=== PATIENT | female | born 1990 | race Caucasian/White ===

== ENCOUNTER → 2017-03-24 | Outpatient (CLI) | payer SELFPAY | LOC: M OUTALCOH 08:11 | PROVIDERS: ATTEND Psychiatry & Neurology Psychiatry | DX: F11.20 Opioid dependence, uncomplicated (principal) ==

== ENCOUNTER → 2017-06-30 | Outpatient (REF) | payer OTHER | LOC: M LAB REF 07-01 11:48 | DX: J20.9 Acute bronchitis, unspecified (principal) | CPT/HCPCS: 87070 ==

== ENCOUNTER 2018-07-21 04:51 | Emergency (ER) | payer OTHER ==
[~2018-07-21] VITALS: Ht 160 cm; Wt 59.9 kg
[2018-07-21 05:42] LABS: BASO # 0.1 10^3/uL (0.0-0.2); BASO % 0.8 % (0.0-1.0); EOS # 0.3 10^3/uL (0.0-0.50); EOS % 3.4 % (0.0-3.0); HEMATOCRIT 39.3 % (36.0-47.0); HEMOGLOBIN 13.6 g/dl (12.0-15.5); LYMPH # 2.3 10^3/uL (1.5-6.5); LYMPH % 28.7 % (24.0-44.0); MEAN CORPUSCULAR HEMOGLOBIN 30.6 pg (27.0-33.0); MEAN CORPUSCULAR HGB CONC 34.6 g/dl (32.0-36.5); MEAN CORPUSCULAR VOLUME 88.5 fl (80.0-96.0); MONO # 0.9 10^3/uL (0.0-0.8); NEUTROPHILS # 4.4 10^3/uL (1.8-7.7); NEUTROPHILS % 55.1 % (36.0-66.0); PLATELET COUNT, AUTOMATED 318 10^3/uL (150-450); RED BLOOD COUNT 4.44 10^6/uL (4.00-5.40)
[2018-07-21] MEDS ORDERED: ISOVUE-370 76% 100ML VIAL (Q9967) As Ordered ONE (05:49)
[2018-07-21 06:03] LABS: HCG, SERUM QUALITATIVE NEGATIVE (NEGATIVE)
[2018-07-21 06:23] LABS: BLOOD UREA NITROGEN 11 MG/DL (7-18); CARBON DIOXIDE LEVEL 28 MEQ/L (21-32); CHLORIDE LEVEL 105 MEQ/L (98-107); CREATININE FOR GFR 0.83 MG/DL (0.55-1.30); GLOMERULAR FILTRATION RATE > 60.0 (>60); GLUCOSE, FASTING 77 MG/DL (70-100); POTASSIUM SERUM 4.1 MEQ/L (3.5-5.1); SODIUM LEVEL 139 MEQ/L (136-145)
[2018-07-21 06:25] LABS: ALT/SGPT 29 U/L (12-78); CALCIUM LEVEL 8.9 MG/DL (8.5-10.1)
[2018-07-21 06:26] LABS: ALBUMIN 4.2 GM/DL (3.2-5.2); BILIRUBIN,DIRECT 0.2 MG/DL (0.0-0.2); BILIRUBIN,TOTAL 0.5 MG/DL (0.2-1.0); ETHYL ALCOHOL (ETHANOL) < 0.003 % (0.000-0.010); LIPASE 74 U/L (73-393); TOTAL PROTEIN 7.7 GM/DL (6.4-8.2)
[2018-07-21 06:31] VITALS: BP 149/66
--- NOTE | 2018-07-21 06:45 | REP ---
Clinical: Trauma . Comparison: MRI of the brain dated 10/12/2009 . Findings: The ventricles, sulci, and cisterns are normal in position and appearance. Rouse-white differentiation is maintained. No acute intracranial hemorrhage, mass/mass effect, pathology or trauma/injury. No evidence for acute infarction. No extra-axial fluid collection. Calvarium is intact. Paranasal sinuses and mastoid air cells are clear. Impression: Normal noncontrast head CT. No evidence for acute intracranial pathology or trauma/injury. Electronically Signed by Alfa Álvarez MD 07/21/2018 06:37 A
--- NOTE | 2018-07-21 06:50 | REP ---
Clinical: Trauma. Technique: Axial contrast enhanced images from the thoracic inlet to the upper abdomen using 100 ml Isovue 370 intravenous contrast material with coronal and sagittal re-formations. Findings: Scoliotic curvature through the cervicothoracic spine somewhat distorts normal anatomical architecture. The bilateral lung mccollum are well-aerated and clear. No consolidation/contusion, pleural effusion, or pneumothorax. Tracheobronchial tree is patent. No obvious nodule or mass lesion. The mediastinum demonstrates normal thoracic aorta, pulmonary vasculature and heart/pericardium without evidence for injury. Small amount of residual thymic tissue noted in the anterior mediastinum. No adenopathy. The osseous structures are intact and without acute injury. Impression: No acute mediastinal or pleuroparenchymal trauma/injury or pathology. Electronically Signed by Alfa Álvarez MD 07/21/2018 06:41 A
--- NOTE | 2018-07-21 06:52 | REP ---
Clinical: Trauma. Technique: Axial contrast enhanced images from the lung bases to the pubic symphysis using 100 ml Isovue 370 intravenous contrast material with coronal and sagittal re-formations. Findings: There is no evidence for solid organ injury. Liver, spleen, pancreas, gallbladder, bilateral adrenal glands and kidneys are normal. The enteric system is without obstruction or acute inflammatory process. Pelvis demonstrates normal bladder and age-appropriate uterus/adnexa with IUD in satisfactory position. No pelvic fluid or ascites. No free air. No adenopathy. Abdominal aorta and vasculature intact. Musculoskeletal structures demonstrate dextroconvex scoliosis through the thoracolumbar spine without evidence for acute injury/trauma. Impression: 1. No acute abdominopelvic pathology or trauma/injury. Electronically Signed by Alfa Álvarez MD 07/21/2018 06:43 A
== END 2018-07-21 06:54 | disposition home or self-care (01) ==
LOC: M ED 04:51
DX: S80.219A Abrasion, unspecified knee, initial encounter (principal); V47.5XXA Car driver injured in collision with fixed or stationary object in traffic accident, initial encounter; Y92.410 Unspecified street and highway as the place of occurrence of the external cause; F19.10 Other psychoactive substance abuse, uncomplicated; Z91.040 Latex allergy status
CPT/HCPCS: 36415; 70450; 71260; 74177; 80048; 80076; 83690; 84703; 85025; 99284; G0480; Q9967

== ENCOUNTER → 2019-03-30 | Outpatient (CLI) | payer OTHER ==
[2019-03-30 13:44] LABS: HEMATOCRIT 40.1 % (36.0-47.0); HEMOGLOBIN 13.6 g/dl (12.0-15.5); MEAN CORPUSCULAR HEMOGLOBIN 30.9 pg (27.0-33.0); MEAN CORPUSCULAR HGB CONC 33.9 g/dl (32.0-36.5); MEAN CORPUSCULAR VOLUME 91.1 fl (80.0-96.0); PLATELET COUNT, AUTOMATED 249 10^3/uL (150-450); WHITE BLOOD COUNT 6.2 10^3/uL (4.0-10.0)
[2019-03-30 14:11] LABS: ALBUMIN 4.1 GM/DL (3.2-5.2); ALT/SGPT 30 U/L (12-78); BILIRUBIN,TOTAL 0.7 MG/DL (0.2-1.0); BLOOD UREA NITROGEN 6 MG/DL (7-18); CALCIUM LEVEL 8.9 MG/DL (8.5-10.1); CARBON DIOXIDE LEVEL 30 MEQ/L (21-32); CHLORIDE LEVEL 104 MEQ/L (98-107); CREATININE FOR GFR 0.77 MG/DL (0.55-1.30); GLOMERULAR FILTRATION RATE > 60.0 (>60); GLUCOSE, FASTING 84 MG/DL (70-100); HCG, SERUM QUALITATIVE NEGATIVE (NEGATIVE); POTASSIUM SERUM 4.3 MEQ/L (3.5-5.1); SODIUM LEVEL 138 MEQ/L (136-145); TOTAL PROTEIN 7.2 GM/DL (6.4-8.2)
[2019-03-30 15:58] LABS: CHLAMYDIA DNA AMPLIFICATION NEGATIVE (NEGATIVE); GC DNA AMPLIFICATION NEGATIVE (NEGATIVE)
--- NOTE | 2019-03-30 22:13 | ECGEPIP ---
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
[2019-03-31 09:04] LABS: HEPATITIS B SURFACE ANTIGEN NEGATIVE (NEGATIVE)
[2019-03-31 09:33] LABS: HIV 1&2 SCREEN CENTAUR NEGATIVE (NEGATIVE)
== END ==
LOC: M LAB 12:17
PROVIDERS: ATTEND Family Medicine
DX: F11.90 Opioid use, unspecified, uncomplicated (principal)

== ENCOUNTER → 2019-05-04 | Outpatient (REF) | payer OTHER | LOC: M LAB REF 16:53 | PROVIDERS: ATTEND Nurse Practitioner Family | DX: R30.0 Dysuria (principal) ==

== ENCOUNTER 2019-07-01 19:07 | Emergency (ER) | payer OTHER ==
[~2019-07-01] VITALS: Ht 160 cm; Wt 63.6 kg
[2019-07-01] MEDS ORDERED: ARIP1TAB6 OR (19:23)
[2019-07-01] MEDS ORDERED: BUPR1FIL6 SL (19:23)
[2019-07-01] MEDS ORDERED: VENL150C43 OR (19:23)
[2019-07-01 20:10] LABS: BASO # 0.1 10^3/uL (0.0-0.2); BASO % 0.5 % (0.0-1.0); EOS # 0.4 10^3/uL (0.0-0.5); EOS % 3.4 % (0.0-3.0); HEMATOCRIT 45.9 % (36.0-47.0); HEMOGLOBIN 15.2 g/dl (12.0-15.5); LYMPH # 4.4 10^3/uL (1.5-5.0); LYMPH % 40.1 % (24.0-44.0); MEAN CORPUSCULAR HGB CONC 33.1 g/dl (32.0-36.5); MEAN CORPUSCULAR VOLUME 90.7 fl (80.0-96.0); MONO # 1.5 10^3/uL (0.0-0.8); MONO % 13.3 % (0.0-5.0); NEUTROPHILS # 4.7 10^3/uL (1.5-8.5); NEUTROPHILS % 42.5 % (36.0-66.0); PLATELET COUNT, AUTOMATED 322 10^3/uL (150-450); RED BLOOD COUNT 5.06 10^6/uL (4.00-5.40); WHITE BLOOD COUNT 10.9 10^3/uL (4.0-10.0)
[2019-07-01 20:41] LABS: ALBUMIN 4.2 GM/DL (3.2-5.2); ALT/SGPT 26 U/L (12-78); BILIRUBIN,DIRECT 0.1 MG/DL (0.0-0.2); BILIRUBIN,TOTAL 0.4 MG/DL (0.2-1.0); BLOOD UREA NITROGEN 11 MG/DL (7-18); CALCIUM LEVEL 8.9 MG/DL (8.5-10.1); CARBON DIOXIDE LEVEL 34 MEQ/L (21-32); CHLORIDE LEVEL 103 MEQ/L (98-107); CREATININE FOR GFR 0.83 MG/DL (0.55-1.30); GLOMERULAR FILTRATION RATE > 60.0 (>60); GLUCOSE, FASTING 68 MG/DL (70-100); LIPASE 113 U/L (73-393); POTASSIUM SERUM 4.4 MEQ/L (3.5-5.1); SODIUM LEVEL 140 MEQ/L (136-145); TOTAL PROTEIN 7.5 GM/DL (6.4-8.2)
[2019-07-01] MEDS ORDERED: PANTOPRAZOLE 40MG INJ (PROTONIX) (C9113) IV ONE (22:00)
[2019-07-01] MEDS ORDERED: GI COCKTAIL 50ML BTL(HYOSCYAMINE/MAALOX/LIDOCAINE VISCOUS)(1:3:1) PO ONE (22:00)
[2019-07-01] MEDS ORDERED: ISOVUE-370 76% 100ML VIAL (Q9967) As Ordered ONE (22:12)
--- NOTE | 2019-07-01 23:37 | REPVR ---
PROCEDURE INFORMATION: Exam: CT Abdomen And Pelvis With Contrast Exam date and time: 07/01/2019 9:54 PM Age: 28 years old Clinical indication: Abdominal pain; Localized; Upper; Additional info: Upper abd pain/blood in stool TECHNIQUE: Imaging protocol: Computed tomography of the abdomen and pelvis with intravenous contrast. Radiation optimization: All CT scans at this facility use at least one of these dose optimization techniques: automated exposure control; mA and/or kV adjustment per patient size (includes targeted exams where dose is matched to clinical indication); or iterative reconstruction. Contrast material: ISO; Contrast volume: 100 ml; Contrast route: AC; COMPARISON: CT ABD/PEL W/IV CONTRAST ONLY 07/21/2018 6:17 AM FINDINGS: Liver: The liver attenuation is 100 Hounsfield units and the spleen is 135 Hounsfield units. Gallbladder and bile ducts: The gallbladder is contracted with no stones. Pancreas: Normal. No ductal dilation. Spleen: Normal. No splenomegaly. Adrenals: Normal. No mass. Kidneys and ureters: Normal. No hydronephrosis. Stomach and bowel: Prominent wall thickening of the gastric antrum and lesser curvature of the gastric body which may reflect gastritis. Mild stool throughout much of the colon. Appendix: There are no changes of appendicitis. A normal appendix is not seen. Intraperitoneal space: Unremarkable. No free air. No significant fluid collection. Vasculature: Unremarkable. No abdominal aortic aneurysm. Lymph nodes: Unremarkable. No enlarged lymph nodes. Bladder: Unremarkable as visualized. Reproductive: There is an IUD in the uterus. Left ovarian cyst measuring 4.3 x 3.6 x 5.2 cm. Bones/joints: Unremarkable. No acute fracture. Soft tissues: Unremarkable. IMPRESSION: 1. Prominent wall thickening of the gastric antrum and to a lesser degree the lesser curvature of the gastric body which is new since 07/21/2018 and may reflect gastritis. 2. Mild fatty infiltration of the liver. 3. IUD in the uterus. 4. Left ovarian cyst measuring 4.3 x 3.6 x 5.2 cm. Electronically signed by: Patrick Kaminski On 07/01/2019 23:36:45 PM
[2019-07-02] MEDS ORDERED: PANT40TA3 PO (00:03)
[2019-07-02] MEDS ORDERED: ONDA4TAB6 PO (00:03)
[2019-07-02] MEDS ORDERED: CARA1TAB6 PO (00:03)
[2019-07-02 00:22] VITALS: BP 120/75
--- NOTE | 2019-07-03 07:48 | ED PDOC ---
Post-Departure Follow-Up ct abd faxed to Alberto [facility], and Dimitry for follow up-Karthik Vo MD Jul 03, 2019 07:48
== END 2019-07-02 00:24 | disposition home or self-care (01) ==
LOC: M ED 19:07
DX: K29.00 Acute gastritis without bleeding (principal); N83.202 Unspecified ovarian cyst, left side; F41.9 Anxiety disorder, unspecified; F33.9 Major depressive disorder, recurrent, unspecified; F17.210 Nicotine dependence, cigarettes, uncomplicated; Q60.3 Renal hypoplasia, unilateral; Z79.899 Other long term (current) drug therapy; Z91.040 Latex allergy status; Z88.5 Allergy status to narcotic agent
CPT/HCPCS: 74177; 80048; 80076; 81001; 83690; 84702; 85025; 96374; 99284; C9113; Q9967

== ENCOUNTER 2019-09-05 00:17 | Emergency (ER) | payer OTHER ==
[~2019-09-05] VITALS: Ht 160 cm; Wt 63.6 kg
[~2019-09-05 00:17] MED LIST: ARIP1TAB6 OR; BUPR1FIL6 SL; CARA1TAB6 PO; ONDA4TAB6 PO; PANT40TA3 PO; VENL150C43 OR
[2019-09-05] MEDS ORDERED: NS 1,000 ML IV ONE (00:45)
[2019-09-05] MEDS ORDERED: KETOROLAC 30 MG/ML VIAL (J1885) IV ONE (00:45)
[2019-09-05 01:19] LABS: BASO % 0.4 % (0.0-1.0); EOS # 0.3 10^3/uL (0.0-0.5); EOS % 3.8 % (0.0-3.0); HEMATOCRIT 33.5 % (36.0-47.0); HEMOGLOBIN 11.9 g/dl (12.0-15.5); LYMPH # 2.3 10^3/uL (1.5-5.0); LYMPH % 33.4 % (24.0-44.0); MEAN CORPUSCULAR HEMOGLOBIN 31.4 pg (27.0-33.0); MEAN CORPUSCULAR HGB CONC 35.5 g/dl (32.0-36.5); MEAN CORPUSCULAR VOLUME 88.4 fl (80.0-96.0); MONO # 0.7 10^3/uL (0.0-0.8); MONO % 9.6 % (0.0-5.0); NEUTROPHILS # 3.6 10^3/uL (1.5-8.5); NEUTROPHILS % 52.7 % (36.0-66.0); PLATELET COUNT, AUTOMATED 175 10^3/uL (150-450); RED BLOOD COUNT 3.79 10^6/uL (4.00-5.40); WHITE BLOOD COUNT 6.9 10^3/uL (4.0-10.0)
[2019-09-05] MEDS ORDERED: KETOROLAC 60 MG/2 ML VIAL (J1885) IM ONE (01:30)
[2019-09-05 01:53] LABS: ERYTHROCYTE SEDIMENTATION RATE 33 mm/hr (0-20)
[2019-09-05] MEDS ORDERED: LIDOCAINE 1% SDV 5 ML VIAL DILUENT ONE (02:15)
[2019-09-05] MEDS ORDERED: cefTRIAXone SOD 1GM VIAL (J0696 PER 250MG) IM ONE (02:15)
[2019-09-05] MEDS ORDERED: KETO10TAB PO (02:19)
[2019-09-05] MEDS ORDERED: BACT800T5 PO (02:19)
[2019-09-05] MEDS ORDERED: BACTRIM 160MG/800MG DS TAB PO ONE (02:30)
[2019-09-05 02:49] VITALS: BP 141/78
--- NOTE | 2019-09-05 09:04 | REP ---
REASON: Pain and swelling, atraumatic. PRIORS: None. AP and lateral views were obtained bilaterally. There is soft tissue swelling seen medially involving the left ankle. Limited two views show no gross osseous abnormality. Electronically Signed by Enoch Bermeo DO 09/05/2019 09:13 A
[2019-09-07 14:15] LABS: Lyme Disease IgG/IgM Antibodie <0.91 ISR (0.00-0.90); Lyme Disease IgM Ab Quantitati <0.80 index (0.00-0.79)
== END 2019-09-05 02:52 | disposition home or self-care (01) ==
LOC: M ED 00:17
DX: L03.115 Cellulitis of right lower limb (principal); L03.116 Cellulitis of left lower limb; R50.9 Fever, unspecified; S80.811A Abrasion, right lower leg, initial encounter; S80.812A Abrasion, left lower leg, initial encounter; W22.8XXA Striking against or struck by other objects, initial encounter; Y92.821 Forest as the place of occurrence of the external cause; Y93.01 Activity, walking, marching and hiking; F17.200 Nicotine dependence, unspecified, uncomplicated; F15.10 Other stimulant abuse, uncomplicated; Z91.040 Latex allergy status; Z88.5 Allergy status to narcotic agent; Z79.899 Other long term (current) drug therapy
CPT/HCPCS: 36415; 73600; 80047; 83605; 85025; 85652; 86140; 86617; 87040; 96372; 99283; J0696; J1885

== ENCOUNTER → 2019-10-04 | Outpatient (CLI) | payer OTHER ==
[~2019-10-04] MED LIST changes: +BACT800T5 PO; +KETO10TAB PO
[2019-10-04 16:41] LABS: BASO # 0.1 10^3/uL (0.0-0.2); BASO % 0.7 % (0.0-1.0); EOS # 0.3 10^3/uL (0.0-0.5); EOS % 4.2 % (0.0-3.0); HEMATOCRIT 39.3 % (36.0-47.0); HEMOGLOBIN 13.9 g/dl (12.0-15.5); LYMPH # 2.8 10^3/uL (1.5-5.0); LYMPH % 41.4 % (24.0-44.0); MEAN CORPUSCULAR HEMOGLOBIN 32.1 pg (27.0-33.0); MEAN CORPUSCULAR HGB CONC 35.4 g/dl (32.0-36.5); MEAN CORPUSCULAR VOLUME 90.8 fl (80.0-96.0); MONO # 0.5 10^3/uL (0.0-0.8); MONO % 7.6 % (0.0-5.0); NEUTROPHILS % 45.4 % (36.0-66.0); PLATELET COUNT, AUTOMATED 250 10^3/uL (150-450); RED BLOOD COUNT 4.33 10^6/uL (4.00-5.40); WHITE BLOOD COUNT 6.7 10^3/uL (4.0-10.0)
[2019-10-04 17:02] LABS: ALT/SGPT 33 U/L (12-78); BILIRUBIN,TOTAL 0.4 MG/DL (0.2-1.0); BLOOD UREA NITROGEN 11 MG/DL (7-18); CALCIUM LEVEL 9.2 MG/DL (8.5-10.1); CARBON DIOXIDE LEVEL 28 MEQ/L (21-32); CHLORIDE LEVEL 105 MEQ/L (98-107); CK-MB VALUE MASS 2.8 NG/ML (<3.6); CPK CREATINE PHOSPHOKINASE 208 U/L (26-192); CREATININE FOR GFR 0.82 MG/DL (0.55-1.30); FREE T4 1.02 NG/DL (0.76-1.46); GLOMERULAR FILTRATION RATE > 60.0 (>60); GLUCOSE, FASTING 101 MG/DL (70-100); MB/CK RELATIVE INDEX 1.35 (< OR =4); POTASSIUM SERUM 4.8 MEQ/L (3.5-5.1); SODIUM LEVEL 138 MEQ/L (136-145); TOTAL PROTEIN 7.6 GM/DL (6.4-8.2); TROPONIN I < 0.02 NG/ML (< 0.10)
[2019-10-04 18:40] LABS: ERYTHROCYTE SEDIMENTATION RATE 10 mm/hr (0-20)
== END ==
LOC: M WUC 14:28
PROVIDERS: ATTEND Physician Assistant
DX: R07.9 Chest pain, unspecified (principal); F41.1 Generalized anxiety disorder

== ENCOUNTER 2020-03-06 04:22 | Emergency (ER) | payer OTHER ==
[~2020-03-06] VITALS: Ht 160 cm; Wt 63.6 kg
[~2020-03-06 04:22] MED LIST changes: +PANT40TA29 PO; -PANT40TA3 PO
[2020-03-06 04:23] VITALS: BP 156/98
[2020-03-06] MEDS ORDERED: VENL37TA PO (04:26)
[2020-03-06] MEDS ORDERED: ALPRAZolam 0.5 MG TAB PO ONE (05:30)
== END 2020-03-06 06:44 | disposition home or self-care (01) ==
LOC: M ED 04:22
DX: F19.10 Other psychoactive substance abuse, uncomplicated (principal); R20.2 Paresthesia of skin; F11.10 Opioid abuse, uncomplicated; F32.9 Major depressive disorder, single episode, unspecified; F17.200 Nicotine dependence, unspecified, uncomplicated

== ENCOUNTER → 2020-04-07 | Outpatient (CLI) | payer OTHER ==
[~2020-04-07] MED LIST changes: +VENL37TA PO
[2020-04-07 16:02] LABS: APPEARANCE, URINE CLEAR (CLEAR); BACTERIA, URINE AUTO NEGATIVE (NEGATIVE); BILIRUBIN, URINE AUTO NEGATIVE (NEGATIVE); BLOOD, URINE BLOOD NEGATIVE (NEGATIVE); COLOR, URINE YELLOW (YELLOW); GLUCOSE, URINE (UA) AUTO NEGATIVE (NEGATIVE); KETONE, URINE AUTO NEGATIVE (NEGATIVE); LEUKOCYTE ESTERASE, URINE AUTO 1+ (NEGATIVE); MUCUS, URINE SMALL (NEGATIVE); NITRITE, URINE AUTO NEGATIVE (NEGATIVE); PROTEIN, URINE AUTO NEGATIVE (NEGATIVE); RBC, URINE AUTO 2 /HPF (0-3); SPECIFIC GRAVITY URINE AUTO 1.017 (1.002-1.035); SQUAMOUS EPITHELIAL CELL UR AU 1 /HPF (0-6); UROBILINOGEN, URINE AUTO 0.2 mg/dL (0.0-2.0); WBC, URINE AUTO 34 /HPF (0-3)
[2020-04-07 16:04] LABS: HEMATOCRIT 37.5 % (36.0-47.0); HEMOGLOBIN 12.2 g/dl (12.0-15.5); MEAN CORPUSCULAR HEMOGLOBIN 29.8 pg (27.0-33.0); MEAN CORPUSCULAR HGB CONC 32.5 g/dl (32.0-36.5); MEAN CORPUSCULAR VOLUME 91.7 fl (80.0-96.0); PLATELET COUNT, AUTOMATED 184 10^3/uL (150-450); RED BLOOD COUNT 4.09 10^6/uL (4.00-5.40); WHITE BLOOD COUNT 6.1 10^3/uL (4.0-10.0)
[2020-04-07 16:31] LABS: ALBUMIN 3.8 GM/DL (3.2-5.2); ALT/SGPT 46 U/L (12-78); BILIRUBIN,TOTAL 0.5 MG/DL (0.2-1.0); BLOOD UREA NITROGEN 13 MG/DL (7-18); CALCIUM LEVEL 9.2 MG/DL (8.5-10.1); CARBON DIOXIDE LEVEL 34 MEQ/L (21-32); CHLORIDE LEVEL 105 MEQ/L (98-107); CREATININE FOR GFR 0.93 MG/DL (0.55-1.30); GLOMERULAR FILTRATION RATE > 60.0 (>60); GLUCOSE, FASTING 80 MG/DL (70-100); POTASSIUM SERUM 5.6 MEQ/L (3.5-5.1); SODIUM LEVEL 141 MEQ/L (136-145); TOTAL PROTEIN 7.2 GM/DL (6.4-8.2)
[2020-04-07 16:34] LABS: HEPATITIS B SURFACE ANTIBODY POSITIVE (POSITIVE)
[2020-04-07 16:45] LABS: HEPATITIS B SURFACE ANTIGEN NEGATIVE (NEGATIVE)
[2020-04-07 16:47] LABS: ATYPICAL LYMPH 7 % (0-5); BASOPHILS 1 % (0-1); EOSINOPHILS 3 % (0-3); LYMPHOCYTES 38 % (16-44); MONOCYTES 4 % (0-5); NEUTROPHILS 47 % (28-66); PLATELET ESTIMATE NORMAL (NORMAL)
== END ==
LOC: M PLALAB 13:24
PROVIDERS: ATTEND Physician Assistant Medical
DX: Z02.2 Encounter for examination for admission to residential institution (principal)

== ENCOUNTER 2020-05-14 13:36 | Emergency (ER) | payer OTHER ==
[~2020-05-14] VITALS: Ht 160 cm; Wt 63.6 kg
[2020-05-14 13:37] VITALS: BP 112/59
[2020-05-14] MEDS ORDERED: SUBO2MIS SL (13:45)
[2020-05-14] MEDS ORDERED: VRAY1.5C PO (13:45)
[2020-05-14] MEDS ORDERED: SUBO8MIS SL (13:45)
[2020-05-14] MEDS ORDERED: ISIB1TAB PO (13:45)
[2020-05-14] MEDS ORDERED: VENL75CA47 PO (13:45)
== END 2020-05-14 14:21 | disposition home or self-care (01) ==
LOC: M ED 13:36
DX: R07.0 Pain in throat (principal); J06.9 Acute upper respiratory infection, unspecified; Z79.3 Long term (current) use of hormonal contraceptives; Z79.899 Other long term (current) drug therapy; Z88.5 Allergy status to narcotic agent; Z91.040 Latex allergy status
CPT/HCPCS: 87880; 99283; U0003

== ENCOUNTER → 2020-05-23 | Outpatient (CLI) | payer OTHER ==
[~2020-05-23] MED LIST changes: +ISIB1TAB PO; +SUBO2MIS SL; +SUBO8MIS SL; +VENL75CA47 PO; +VRAY1.5C PO
[2020-05-23 13:49] LABS: FREE T3 2.5 PG/ML (2.2-4.0); FREE T4 0.92 NG/DL (0.76-1.46); THYROID STIMULATING HORMONE 1.01 uIU/ML (0.358-3.740)
== END ==
LOC: M LAB 12:22
PROVIDERS: ATTEND Nurse Practitioner Family
DX: R53.83 Other fatigue (principal)

== ENCOUNTER → 2020-06-27 | Outpatient (CLI) | payer OTHER ==
--- NOTE | 2020-06-27 13:45 | REP ---
INDICATION: INSOMNIA COMPARISON: None. TECHNIQUE: PA and lateral. FINDINGS: The mediastinum and cardiac silhouette are normal. The lung mccollum are clear and without acute consolidation, effusion, or pneumothorax. The skeletal structures are intact and normal. IMPRESSION: No acute cardiopulmonary process. <Electronically signed by Alfa Álvarez > 06/27/20 [id number]
== END ==
LOC: M RAD 09:10
PROVIDERS: ATTEND Physician Assistant Medical
DX: G47.00 Insomnia, unspecified (principal)

== ENCOUNTER 2020-07-09 12:27 | Emergency (ER) | payer OTHER ==
[~2020-07-09] VITALS: Ht 160 cm; Wt 57.0 kg
[2020-07-09 12:27] VITALS: BP 121/76
--- OUTSIDE RECORDS SUMMARY | 2020-07-09 12:33 | CCD ---
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, Severe Active 03/29/2019 03/29/2019 F11.20 Opioid Use Disorder, Severe Active 03/29/2019 03/29/2019 F43.12 Post-traumatic stress disorder, chronic Active 04/12/2019 04/12/2019 Medications No Data in Section Social History Social History Element Description Concept Effective Date Smoking Status Unknown if ever smoked [id number] Immunizations No Data in Section Vital Signs No Data in Section Procedures Date Concept Id Description Targeted Site Concept Targeted Site Concept Type 06/29/2020 25459 Extended Individual Psychotherapy - 45 min CPT Patient has no history of implantable de vices Encounters Encounter Start Date End Date Encounter Type Description Diagnosis Di agnosis Desc Location Author First Name Author Last Name Npid Taxonomy Cod e Taxonomy Desc Phone Number Location Addr1 Location Addr2 Location [facility] Location Sta te Location Zip [id number] 06/29/2020 06/29/2020 86131 Extended Individual Psych otherapy - 45 min F31.78 Bipolar disorder, in full remis, most recent episode m ixed [facility] Alina Quinones [id number] S ocial Worker [id number] [address] [address] Plan of Treatment No Data in Section Lab Results No Data in Section Instructions No Data in Section Insurance Providers Insurance Id Policy Effective Date Policy Thru Date Company N robert [id number] 2019 LEYDA Varela
--- OUTSIDE RECORDS SUMMARY | 2020-07-09 12:33 | CCD | Continuity of Care Document ---
Author Author Karolyn BORRERO MD Organization Unknown Address [address] [place], [place] [address] Phone [phone] Care Team Providers Care History Department Chair Name Role Phone Cheng Dove AUTM [phone] Problems Description No Information Available Social History Type Date Description Comments Sex Unknown ETOH Use Denies alcohol use Tobacco Use Start: Unknown Non Smoker Recreational Drug Use Former Drug User Allergies, Adverse Reactions, Alerts Active Allergies Reaction Severity Comments Date Latex 06/27/2020 Oxycodone 06/27/2020 Medications Active Medications SIG Qnty Indications Ordering Provide r Date Venlafaxine HCL ER 75mg Caps ER 24HR Unknown Vraylar 3mg Capsules Unknown Bupropion Hydrochloride ER (XL) 150mg Tablets ER 24HR Unknown Suboxone 8-2mg Film Unknown Immunizations Description No Information Available Vital Signs Date Vital Result Comment 06/27/2020 8:30am Height 63 inches 5'3" Weight 134.00 lb BMI (Body Mass Index) 23.7 kg/m2 [place] Body Weight 115 lb Weight 60.782 kg BSA (Body Surface Area) 1.63 m2 Results Description No Information Available Procedures Description No Information Available Medical Devices Description No Information Available Encounters Description No Information Available Assessments Description No Information Available Plan of Treatment No Information Available Functional Status Description No Information Available Mental Status Description No Information Available Referrals Refer to Reason for Referral Status Appt Date Alexander Borrero M.D. CHARGING OPERATOR REPEATED TONSIL INFECTIONS F TONTARSK I [place] [employer] MEDICA[employer] Scheduled 06/27/[address] [place], [place] [id number] [phone]
--- OUTSIDE RECORDS SUMMARY | 2020-07-09 12:33 | CCD | Continuity of Care Document ---
Author Author Karolyn MILLAN Organization Unknown Address [address] [facility] [address] [place] [address] Phone [phone] Care Team Providers Care Cuffing Machine Operator Name Role Phone CHENG MILLAN AUTM [phone] Social History Type Date Description Comments Sex Unknown Results Test Acquired Date Facility Test Result H/L Range Note Laboratory test finding 05/23/2020 [facility] [address] [id number] [phone] Thyroid Stimulating Hormone 1.010 uIU/ML Normal 0. 358-3.740 Free T4 0.92 ng/dL Normal 0.76-1.46 Free T3 2.5 pg/mL Normal 2.2-4.0 Gats (Negative Strep Screen) 05/14/2020 [facility] [address] [place] [address] [phone] Gats Culture (Neg Strep SCR) FULL REPORT IN L <SEE N OTE> Normal 1 Ua Routine 04/07/2020 [facility] [address] [place] [address] [phone] Appearance, Urine CLEAR Normal Clear Color, Urine YELLOW Normal Yellow PH,Urine 6.0 units Normal 5.0-9.0 Specific [place] Urine Auto 1.017 Normal 1.002-1.035 Protein, Urine Auto NEGATIVE mg/dL Normal Negative Glucose, Urine (Ua) Auto NEGATIVE mg/dL Normal Negative Ketone, Urine Auto NEGATIVE mg/dL Normal Negative Urobilinogen, Urine Auto 0.2 mg/dL Normal 0.0-2.0 Bilirubin, Urine Auto NEGATIVE Normal Negative Nitrite, Urine Auto NEGATIVE Normal Negative Leukocyte Esterase, Urine Auto 1+ High Negative Blood, Urine Blood NEGATIVE Normal Negative WBC, Urine Auto 34 /HPF High 0-3 RBC, Urine Auto 2 /HPF Normal 0-3 Bacteria, Urine Auto NEGATIVE Normal Negative Squamous Epithelial Cell Ur AU 1 /HPF Normal 0-6 Mucus, Urine SMALL Normal Negative Hyaline Cast, Urine Auto 0 /LPF Normal 0-1 CBC With Differential 04/07/[address] [address] [phone] White Blood Count 6.1 10 Normal 4.0-10.0 Red Blood Count 4.09 10 Normal 4.00-5.40 Hemoglobin 12.2 g/dL Normal 12.0-15.5 Hematocrit 37.5 % Normal 36.0-47.0 Mean Corpuscular Volume 91.7 fl Normal 80.0-96.0 Mean Corpuscular Hemoglobin 29.8 pg Normal 27.0-33.0 Mean Corpuscular HGB Conc 32.5 g/dL Normal 32.0-36.5 Red Cell Distribution Width 12.6 % Normal 11.5-14.5 Platelet Count, Automated 184 10 Normal 150-450 Nucleated Red Blood Cell % 0.0 % Normal 0-0 Differential 04/07/[address] [address] [phone] Neutrophils 47 % Normal 28-66 Lymphocytes 38 % Normal 16-44 Monocytes 4 % Normal 0-5 Eosinophils 3 % Normal 0-3 Basophils 1 % Normal 0-1 Atypical Lymph 7 % High 0-5 Laboratory test finding 04/07/[address] [id number] [phone] Platelet Estimate NORMAL Normal Normal Hepatitis A IgG Total Negative Normal Negative 2 Comprehensive Metabolic Profil 04/07/[address] [id number] [phone] Glucose, Fasting 80 mg/dL Normal 70-100 Blood Urea Nitrogen 13 mg/dL Normal 7-18 Creatinine For GFR 0.93 mg/dL Normal 0.55-1.30 Glomerular Filtration Rate > 60.0 Normal >60 3 Sodium Level 141 mEq/L Normal 136-145 Potassium Serum 5.6 mEq/L High 3.5-5.1 Chloride Level 105 mEq/L Normal 98-107 Carbon Dioxide Level 34 mEq/L High 21-32 Anion Gap 2 mEq/L Low 8-16 Calcium Level 9.2 mg/dL Normal 8.5-10.1 Ast/Sgot 37 U/L Normal 7-37 Alt/SGPT 46 U/L Normal 12-78 Alkaline Phosphatase 71 U/L Normal 45-117 Bilirubin,Total 0.5 mg/dL Normal 0.2-1.0 Total Protein 7.2 GM/DL Normal 6.4-8.2 Albumin 3.8 GM/DL Normal 3.2-5.2 Albumin/Globulin Ratio 1.1 Low 1.2-2.2 Laboratory test finding 04/07/2020 [address] [place], [place] [address] [phone] Hepatitis C Virus Lyndsey Index 0.0 INDEX Normal <0.8 4 Hepatitis B Surface Antigen NEGATIVE Normal Negative Hepatitis B Surface Antibody POSITIVE Normal Positive 1 FULL REPORT IN LAB NOTES (eC W and Medent). NEGATIVE FOR STREP PYOGENES (GROUP A) 2 Performed at: RN - [facility] [address] [id number] Brush Sander: Maryana Kramer MD, Phone: [phone] 3 Units are mL/min/1.73 m2 Chronic Kidney Disease Staging per NKF: Stage I & II GFR >=60 Normal to Mildly Decreased Stage III GFR 30-59 Moderately Decreased Stage IV GFR 15-29 Severely Decreased Stage V GFR <15 Very Little GFR Left ESRD GFR <15 on PRODUCTION OR PLANT ENGINEER 4 Negative Not infected with HCV, unless recent infection is suspected or other evidence exists to indicate HCV infection. Encounters Type Date Location Provider Dx Diagnosis Office Visit 06/20/2020 10:45a [facility] TIANA Cedillo J02.9 Acute pharyngitis, unspecifi ed F32.9 Major depressive disorder, s roman episode, unspecified F41.9 Anxiety disorder, unspecifie d Office Visit 05/25/2020 11:30a [facility] TIANA Cedillo J02.9 Acute pharyngitis, unspecifi ed K29.50 Unspecified chronic gastriti s without bleeding Office Visit 04/10/2020 11:30a [facility] TIANA Cedillo K29.00 Acute gastritis without blee ding F32.9 Major depressive disorder, s roman episode, unspecified F17.200 Nicotine dependence, unspeci fied, uncomplicated Assessments Date Code Description Provider 06/20/2020 J02.9 Acute pharyngitis, unspecified F rederick Omayra Petty, PA 06/20/2020 F32.9 Major depressive disorder, singl e episode, unspecified Cheng G Tontarski, PA 06/20/2020 F41.9 Anxiety disorder, unspecified Fr ederick G Johntarski, PA 05/25/2020 J02.9 Acute pharyngitis, unspecified F rederick G Tontarski, PA 05/25/2020 K29.50 Unspecified chronic gastritis wi thout bleeding Cheng G Johntafallon, PA 04/14/2020 L50.9 Urticaria, unspecified Cheng G Tontarski, PA 04/14/2020 F32.9 Major depressive disorder, singl e episode, unspecified Cheng G Tontarski, PA 04/14/2020 F41.9 Anxiety disorder, unspecified Fr ederick G Johntarski, PA 04/10/2020 K29.00 Acute gastritis without bleeding Cheng G Tontarski, PA 04/10/2020 F32.9 Major depressive disorder, singl e episode, unspecified Cheng G Tontarski, PA 04/10/2020 F17.200 Nicotine dependence, unspecified , uncomplicated Cheng G Tontarski, PA 03/29/2020 K29.00 Acute gastritis without bleeding Cheng G Tontarski, PA 03/29/2020 F32.9 Major depressive disorder, singl e episode, unspecified Cheng G Tontarski, PA 03/29/2020 F41.9 Anxiety disorder, unspecified Fr ederick G Petty, PA Referrals Refer to Reason for Referral Status Appt Date [facility] Medical - ENT PATIENT C/O REPEATED TONSIL INFECTIONS. 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 PLEASE EVAL AND TREAT Sent [address] [address] [phone]
--- OUTSIDE RECORDS SUMMARY | 2020-07-09 12:34 | CCD ---
Author Organization Unknown Address [address] [place] [address] Phone [phone] Care Team Providers Care Rack Worker Name Role Phone Keyon Mayer Unavailable Unavailable Allergies None recorded. Medications Name Status Start Date Stop Date aripiprazole 5 mg tablet Active Not diamond ilable fluconazole 150 mg tablet TAKE 1 TABLET BY MOUTH ONCE WEEKLY Active Not available hydroxyzine HCl 25 mg tablet TAKE ONE TABLET BY MOUTH EVERY EVENING NEEDED Active Not available Isibloom 0.15 mg-0.03 mg tablet Active Not available ketorolac 10 mg tablet TAKE ONE TABLET BY MOUTH THREE TIMES A DAY FOR PAIN Active Not available nicotine (polacrilex) 2 mg gum Active N ot available nicotine (polacrilex) 4 mg gum Active N ot available nicotine 21 mg/24 hr daily transdermal patch Active Not available ondansetron 4 mg disintegrating tablet DISSOLVE ONE TABLET ON TONGUE EVERY 6 TO 8 HOURS NEEDED FOR NAUSEA AND VOMITING Active Not available ondansetron 8 mg disintegrating tablet DISSOLVE ONE TABLET ON THE TONGUE EVERY 8 HOURS NEEDED FOR NAUSEA/VOMITING Active Not available oseltamivir 75 mg capsule TAKE ONE CAPSULE BY MOUTH TWICE A DAY FOR 5 DAYS Active Not available pantoprazole 40 mg tablet,delayed release Active Not available Previfem 0.25 mg-35 mcg tablet TAKE ONE TABLET BY MOUTH EVERY DAY Active Not available Chio 14 mcg/24 hrs (3 yrs) 13.5 mg intrauterine device Active Not available sucralfate 1 gram tablet TAKE ONE TABLET BY MOUTH FOUR TIMES A DAY ON EMPTY STOMACH 1 HOUR BEFORE MEALS AND AT BEDTIME MAY DISSOLVE IN 5 10MLS OF WATER TO EASE SWAL Active Not available sulfamethoxazole 800 mg-trimethoprim 160 mg tablet TAKE ONE TABLET BY MOUTH EVERY 12 HOURS Active Not available trazodone 50 mg tablet TAKE ONE TABLET BY MOUTH AT BEDTIME NEEDED Active Not available triamcinolone acetonide 0.1 % topical cream Active Not available venlafaxine ER 150 mg capsule,extended release 24 hr Active Not available venlafaxine ER 75 mg capsule,extended release 24 hr Active Not available Vraylar 1.5 mg capsule Active Not avail able Problems None recorded. Procedures None recorded. Results Lab Results None recorded. Past Encounters 05/24/2020 SARS-CoV-2 Vaccination Keyon Mayer MD: [address] [place] [phone], Ph. Social History None recorded. Vaccine List Vaccine Type COVID-19, mRNA, LNP-S, PF, 100 mcg/0.5 m L dose 05/24/20200.5 mL Plan of Care Reminders Provider Appointments None recorded. Lab None recorded. Referral None recorded. Procedures None recorded. Surgeries None recorded. Imaging None recorded. Vitals None recorded.
--- OUTSIDE RECORDS SUMMARY | 2020-07-09 12:34 | CCD | Continuity of Care Document ---
Author Author Karolyn DOVE Organization Unknown Address [address] [facility] [address] [place] [address] Phone [phone] Care Team Providers Care Cane Flume Watcher Name Role Phone CHENG DOVE AUTM [phone] Social History Type Date Description Comments Sex Unknown Results Test Acquired Date Facility Test Result H/L Range Note Laboratory test finding 05/23/2020 [facility] [address] [id number] [phone] Thyroid Stimulating Hormone 1.010 uIU/ML Normal 0. 358-3.740 Free T4 0.92 ng/dL Normal 0.76-1.46 Free T3 2.5 pg/mL Normal 2.2-4.0 Gats (Negative Strep Screen) 05/14/2020 [facility] [address] [place] [address] [phone] Gats Culture (Neg Strep SCR) FULL REPORT IN L <SEE N OTE> Normal 1 Ua Routine 04/07/2020 [facility] [address] [place] [address] [phone] Appearance, Urine CLEAR Normal Clear Color, Urine YELLOW Normal Yellow PH,Urine 6.0 units Normal 5.0-9.0 Specific [place] Urine Auto 1.017 Normal 1.002-1.035 Protein, Urine [...] /LPF Normal 0-1 CBC With Differential 04/07/[address] [address] [phone] White Blood Count 6.1 10 Normal 4.0-10.0 [...] % 0.0 % Normal 0-0 Differential 04/07/[address] [address] [phone] Neutrophils 47 % Normal 28-66 Lymphocytes 38 % Normal 16-44 Monocytes 4 % Normal 0-5 Eosinophils 3 % Normal 0-3 Basophils 1 % Normal 0-1 Atypical Lymph 7 % High 0-5 Laboratory test finding 04/07/[address] [address] [phone] Platelet Estimate NORMAL Normal Normal Hepatitis A IgG Total Negative Normal Negative 2 Comprehensive Metabolic Profil 04/07/[address] [address] [phone] Glucose, Fasting 80 mg/dL Normal 70-100 Blood [...] 1.1 Low 1.2-2.2 Laboratory test finding 04/07/2020 [facility] [address] [address] [phone] Hepatitis C Virus Lyndsey Index 0.0 INDEX Normal <0.8 4 Hepatitis B Surface Antigen NEGATIVE Normal Negative Hepatitis B Surface Antibody POSITIVE Normal Positive 1 FULL REPORT IN LAB NOTES (eC W and Medent). NEGATIVE FOR STREP PYOGENES (GROUP A) 2 Performed at: RN - [facility] [address] [id number] Meeting Manager: Maryana Kramer MD, Phone: [phone] Units are mL/min/1.73 m2 Chronic Kidney Disease Staging per NKF: Stage I & II GFR >=60 Normal to Mildly Decreased Stage III GFR 30-59 Moderately Decreased Stage IV GFR 15-29 Severely Decreased Stage V GFR <15 Very Little GFR Left ESRD GFR <15 on HRIS COORDINATOR 4 Negative Not infected with HCV, unless recent infection is suspected or other evidence exists to indicate HCV infection. Encounters Type Date Location Provider Dx Diagnosis Office Visit 05/25/2020 11:30a [facility] TIANA Cedillo J02.9 Acute pharyngitis, unspecifi ed K29.50 Unspecified chronic gastriti s without bleeding Office Visit 04/10/2020 11:30a [facility] TIANA Cedillo K29.00 Acute gastritis without blee ding F32.9 Major depressive disorder, s roman episode, unspecified F17.200 Nicotine dependence, unspeci fied, uncomplicated Assessments Date Code Description Provider 05/25/2020 J02.9 Acute pharyngitis, unspecified F TIANA Trevizo 05/25/2020 K29.50 Unspecified chronic gastritis wi thout bleeding Cheng Dove, TIANA 04/14/2020 L50.9 Urticaria, unspecified Cheng Omayra Dove, TIANA 04/14/2020 F32.9 Major depressive disorder, singl e episode, unspecified Cheng G Petty, PA 04/14/2020 F41.9 Anxiety disorder, unspecified Fr TIANA Jimenez 04/10/2020 K29.00 Acute gastritis without bleeding Cheng Omayra Dove, PA 04/10/2020 F32.9 Major depressive disorder, singl e episode, unspecified Cheng G Petty, PA 04/10/2020 F17.200 Nicotine dependence, unspecified , uncomplicated Cheng Dove, TIANA 03/29/2020 K29.00 Acute gastritis without bleeding Cheng Omayra Dove, PA 03/29/2020 F32.9 Major depressive disorder, singl e episode, unspecified Cheng Dove, TIANA 03/29/2020 F41.9 Anxiety disorder, unspecified Fr TIANA Jimenez Referrals Refer to Reason for Referral Status Appt Date [facility] Medical - ENT PATIENT C/O REPEATED TONSIL INFECTIONS. 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 PLEASE EVAL AND TREAT Sent [address] [address] [phone]
--- OUTSIDE RECORDS SUMMARY | 2020-07-09 12:34 | CCD ---
Author Organization Unknown Address [address] [place] [address] Phone [phone] Care Team Providers Care Phlebotomist Medical Lab Assistant Name Role Phone Moreno Keyon Unavailable Unavailable Allergies None recorded. Medications Name [...] Encounters 05/24/2020 SARS-CoV-2 Vaccination Keyon Mayer MD: [address] [place] [phone], Ph. Social History None recorded. Vaccine List Vaccine Type COVID-19, mRNA, LNP-S, PF, 100 mcg/0.5 m L dose 05/24/20200.5 mL Plan of Care Reminders Provider Appointments None recorded. Lab None recorded. Referral None recorded. Procedures None recorded. Surgeries None recorded. Imaging None recorded. Vitals None recorded.
--- OUTSIDE RECORDS SUMMARY | 2020-07-09 12:34 | CCD ---
Author Organization Unknown Address [address] [place] [address] Phone [phone] Care Team Providers Care Batch Records Clerk Name Role Phone Moreno Keyon Unavailable Unavailable Allergies None recorded. Medications Name Status Start Date Stop Date amoxicillin 875 mg tablet Active Not av ailable aripiprazole 5 mg tablet Active Not diamond ilable bupropion HCl XL 150 mg 24 hr tablet, extended release Active Not available fluconazole 150 mg tablet TAKE 1 TABLET [...] Not available venlafaxine ER 150 mg capsule,extended r elease 24 hr TAKE ONE CAPSULE BY MOUTH EVERY MORNING Active Not available venlafaxine ER 75 mg capsule,extended release 24 hr Active Not available Vraylar 1.5 mg capsule Active Not avail able Vraylar 3 mg capsule TAKE ONE CAPSULE BY MOUTH AT BEDTIME Active No t available Problems None recorded. Procedures None recorded. Results Lab Results None recorded. Past Encounters 06/22/2020 SARS-CoV-2 Vaccination GISELA Croft: [address] [place] [address], Ph. 05/24/2020 SARS-CoV-2 Vaccination Keyon Mayer MD: [address] [place] [address], Ph. Social History None recorded. Vaccine List Vaccine Type COVID-19, mRNA, LNP-S, PF, 100 mcg/0.5 m L dose .5 mL .5 mL Plan of Care Reminders Provider Appointments None recorded. Lab None recorded. Referral None recorded. Procedures None recorded. Surgeries None recorded. Imaging None recorded. Vitals None recorded.
[2020-07-09] MEDS ORDERED: BUPR150T4 (12:35)
--- OUTSIDE RECORDS SUMMARY | 2020-07-09 12:35 | CCD ---
Author Author [facility] Organization [facility] Address Unknown Phone Unavailable Care Team Providers Care Escrow Secretary Name Role Phone Frederick Dominguez MD Unavailable Unavailable Frederick Dominguez MD Unavailable Unavailable Frederick Dominguez MD Unavailable Unavailable Frederick Dominguez MD Unavailable Unavailable Frederick Dominguez MD Unavailable Unavailable Frederick Dominguez MD Unavailable Unavailable Frederick Dominguez MD Unavailable Unavailable Frederick Dominguez MD Unavailable Unavailable Frederick Dominguez MD Unavailable Unavailable Frederick Dominguez MD Unavailable Unavailable Frederick Dominguez MD Unavailable Unavailable Frederick Dominguez MD Unavailable Unavailable Frederick Dominguez MD Unavailable Unavailable Frederick Dominguez MD Unavailable Unavailable Frederick Dominguez MD Unavailable Unavailable Frederick Dominguez MD Unavailable Unavailable Frederick Dominguez MD Unavailable Unavailable Frederick Dominguez MD Unavailable Unavailable Frederick Dominguez MD Unavailable Unavailable Frederick Dominguez MD Unavailable Unavailable Frederick Dominguez MD Unavailable Unavailable Frederick Dominguez MD Unavailable Unavailable Frederick Dominguez MD Unavailable Unavailable Frederick Dominguez MD Unavailable Unavailable Frederick Dominguez MD Unavailable Unavailable Frederick Dominguez MD Unavailable Unavailable Frederick Dominguez MD Unavailable Unavailable Frederick Dominguez MD Unavailable Unavailable Frederick Dominguez MD Unavailable Unavailable Frederick Dominguez MD Unavailable Unavailable Frederick Dominguez MD Unavailable Unavailable Frederick Dominguez MD Unavailable Unavailable Frederick Dominguez MD Unavailable Unavailable Frederick Dominguez MD Unavailable Unavailable Frederick Dominguez MD Unavailable Unavailable Frederick Dominguez MD Unavailable Unavailable Frederick Dominguez MD Unavailable Unavailable Frederick Dominguez MD Unavailable Unavailable Frederick Dominguez MD Unavailable Unavailable Frederick Dominguez MD Unavailable Unavailable Frederick Dominguez MD Unavailable Unavailable Frederick Dominguez MD Unavailable Unavailable Frederick Dominguez MD Unavailable Unavailable Frederick Dominguez MD Unavailable Unavailable Frederick Dominguez MD Unavailable Unavailable Frederick Dominguez MD Unavailable Unavailable Frederick Dominguez MD Unavailable Unavailable Frederick Dominguez MD Unavailable Unavailable Frederick Dominguez MD Unavailable Unavailable Frederick Dominguez MD Unavailable Unavailable SYMENOW, G CHRISTOPHER PA Unavailable Unavailable SYMENOW, G CHRISTOPHER PA Unavailable Unavailable SYMENOW, G CHRISTOPHER PA Unavailable Unavailable SYMENOW, G CHRISTOPHER PA Unavailable Unavailable SYMENOW, G CHRISTOPHER PA Unavailable Unavailable SYMENOW, G CHRISTOPHER PA Unavailable Unavailable SYMENOW, G CHRISTOPHER PA Unavailable Unavailable SYMENOW, G CHRISTOPHER PA Unavailable Unavailable SYMENOW, G CHRISTOPHER PA Unavailable Unavailable SYMENOW, G CHRISTOPHER PA Unavailable Unavailable SYMENOW, G CHRISTOPHER PA Unavailable Unavailable SYMENOW, G CHRISTOPHER PA Unavailable Unavailable SYMENOW, G CHRISTOPHER PA Unavailable Unavailable SYMENOW, G CHRISTOPHER PA Unavailable Unavailable SYMENOW, G CHRISTOPHER PA Unavailable Unavailable SYMENOW, G CHRISTOPHER PA Unavailable Unavailable SYMENOW, G CHRISTOPHER PA Unavailable Unavailable Edith Mayer MD Unavailable Unavailable Edith Mayer MD Unavailable Unavailable Edith Mayer MD Unavailable Unavailable Edith Mayer MD Unavailable Unavailable Edith Maeyr MD Unavailable Unavailable Edith Mayer MD Unavailable Unavailable Edith Mayer MD Unavailable Unavailable Edith Mayer MD Unavailable Unavailable Edith Mayer MD Unavailable Unavailable Edith Mayer MD Unavailable Unavailable Edith Mayer MD Unavailable Unavailable Edith Mayer MD Unavailable Unavailable Edith Mayer MD Unavailable Unavailable Edith Mayer MD Unavailable Unavailable Edith Mayer MD Unavailable Unavailable Ediht Mayer MD Unavailable Unavailable Edith Mayer MD Unavailable Unavailable Edith Mayer MD Unavailable Unavailable Edith Mayer MD Unavailable Unavailable Edith Mayer MD Unavailable Unavailable Edith Mayer MD Unavailable Unavailable Edith Mayer MD Unavailable Unavailable Edith Mayer MD Unavailable Unavailable Edith Mayer MD Unavailable Unavailable Edith Mayer MD Unavailable Unavailable Edith Mayer MD Unavailable Unavailable Edith Mayer MD Unavailable Unavailable Edith Mayer MD Unavailable Unavailable Edith Mayer MD Unavailable Unavailable Edith Mayer MD Unavailable Unavailable Edith Mayer MD Unavailable Unavailable Edith Mayer MD Unavailable Unavailable Edith Mayer MD Unavailable Unavailable Edith Mayer MD Unavailable Unavailable Edith Mayer MD Unavailable Unavailable Edith Mayer MD Unavailable Unavailable Edith Mayer MD Unavailable Unavailable Edith Mayer MD Unavailable Unavailable Edith Mayer MD Unavailable Unavailable Edith Mayer MD Unavailable Unavailable Edith Mayer MD Unavailable Unavailable Edith Mayer MD Unavailable Unavailable Edith Mayer MD Unavailable Unavailable Edith Mayer MD Unavailable Unavailable Edith Mayer MD Unavailable Unavailable Edith Mayer MD Unavailable Unavailable Edith Mayer MD Unavailable Unavailable Edith Mayer MD Unavailable Unavailable Edith Mayer MD Unavailable Unavailable Edith Mayer MD Unavailable Unavailable Edith Mayer MD Unavailable Unavailable Edith Mayer MD Unavailable Unavailable Edith Mayer MD Unavailable Unavailable Edith Mayer MD Unavailable Unavailable Edith Mayer MD Unavailable Unavailable Edith Mayer MD Unavailable Unavailable Edith Mayer MD Unavailable Unavailable Edith Mayer MD Unavailable Unavailable Edith Mayer MD Unavailable Unavailable MayerEdith MD Unavailable Unavailable Mayer, Edith Ta MD Unavailable Unavailable Mayer, Edith Ta MD Unavailable Unavailable Mayer, Edith Ta MD Unavailable Unavailable Mayer, Edith Ta MD Unavailable Unavailable Moreno, Edith Ta MD Unavailable Unavailable Moreno, Edith Ta MD Unavailable Unavailable Moreno, Edith Ta MD Unavailable Unavailable Moreno, Edith Ta MD Unavailable Unavailable Mayer, Edith Ta MD Unavailable Unavailable Mayer, Edith Ta MD Unavailable Unavailable Mayer, Edith Ta MD Unavailable Unavailable Mayer, Edith Ta MD Unavailable Unavailable Mayer, Edith Ta MD Unavailable Unavailable Mayer, Edith Ta MD Unavailable Unavailable Mayer, Edith Ta MD Unavailable Unavailable Moreno, Edith Ta MD Unavailable Unavailable Mayer, Edith Ta MD Unavailable Unavailable Mayer, Edith Ta MD Unavailable Unavailable Mayer, Edith Ta MD Unavailable Unavailable Mayer, Edith Ta MD Unavailable Unavailable Mayer, Edith Ta MD Unavailable Unavailable Mayer, Edith Ta MD Unavailable Unavailable Mayer, Edith Ta MD Unavailable Unavailable Moreno, Edith Ta MD Unavailable Unavailable Moreno, Edith Ta MD Unavailable Unavailable Mayer, Edith Ta MD Unavailable Unavailable Mayer, Edith Ta MD Unavailable Unavailable Mayer, Edith Ta MD Unavailable Unavailable Mayer, Edith Ta MD Unavailable Unavailable WALSH, MATHIEU EMILIA RPA-C Unavailable Unavailable WALSH, MATHIEU EMILIA RPA-C Unavailable Unavailable WALSH, MATHIEU EMILIA RPA-C Unavailable Unavailable WALSH, MATHIEU EMILIA RPA-C Unavailable Unavailable WALSH, MATHIEU EMILIA RPA-C Unavailable Unavailable WALSH, MATHIEU EMILIA RPA-C Unavailable Unavailable WALSH, MATHIEU EMILIA RPA-C Unavailable Unavailable WALSH, MATHIEU EMILIA RPA-C Unavailable Unavailable WALSH, MATHIEU EMILIA RPA-C Unavailable Unavailable WALSH, MATHIEU EMILIA RPA-C Unavailable Unavailable WALSH, MATHIEU EMILIA RPA-C Unavailable Unavailable WALSH, MATHIEU EMILIA RPA-C Unavailable Unavailable WALSH, MATHIEU EMILIA RPA-C Unavailable Unavailable WALSH, MATHIEU EMILIA RPA-C Unavailable Unavailable WALSH, MATHIEU EMILIA RPA-C Unavailable Unavailable WALSH, MATHIEU EMILIA RPA-C Unavailable Unavailable WASLH, MATHIEU EMILIA RPA-C Unavailable Unavailable WALSH, MATHIEU EMILIA RPA-C Unavailable Unavailable WALSH, MATHIEU EMILIA RPA-C Unavailable Unavailable WALSH, MATHIEU EMILIA RPA-C Unavailable Unavailable WALSH, MATHIEU EMILIA RPA-C Unavailable Unavailable WALSH, MATHIEU EMILIA RPA-C Unavailable Unavailable WALSH, MATHIEU EMILIA RPA-C Unavailable Unavailable WALSH, MATHIEU EMILIA RPA-C Unavailable Unavailable WALSH, MATHIEU EMILIA RPA-C Unavailable Unavailable WALSH, MATHIEU EMILIA RPA-C Unavailable Unavailable WALSH, MATHIEU EMILIA RPA-C Unavailable Unavailable WALSH, MATHIEU EMILIA RPA-C Unavailable Unavailable WALSH, MATHIEU EMILIA RPA-C Unavailable Unavailable WALSH, MATHIEU EMILIA RPA-C Unavailable Unavailable WALSH, MATHIEU EMILIA RPA-C Unavailable Unavailable WALSH, MATHIEU EMILIA RPA-C Unavailable Unavailable WALSH, MATHIEU EMILIA RPA-C Unavailable Unavailable WALSH, MATHIEU EMILIA RPA-C Unavailable Unavailable WALSH, MATHIEU EMILIA RPA-C Unavailable Unavailable WALSH, MATHIEU EMILIA RPA-C Unavailable Unavailable WALSH, MATHIEU EMILIA RPA-C Unavailable Unavailable WALSH, MATHIUE EMILIA RPA-C Unavailable Unavailable WALSH, MATHIEU EMILIA RPA-C Unavailable Unavailable Alberry, D Wanda PLATING STRIPPER Unavailable Unavailable Alberry, D Wanda PLATING STRIPPER Unavailable Unavailable Alberry, D Wanda PLATING STRIPPER Unavailable Unavailable Alberry, D Wanda PLATING STRIPPER Unavailable Unavailable Alberry, D Wanda PLATING STRIPPER Unavailable Unavailable Alberry, D Wanda PLATING STRIPPER Unavailable Unavailable Alberry, D Wanda PLATING STRIPPER Unavailable Unavailable Alberry, D Wanda PLATING STRIPPER Unavailable Unavailable Alberry, D Wanda PLATING STRIPPER Unavailable Unavailable Alberry, D Wanda PLATING STRIPPER Unavailable Unavailable Alberry, D Wanda PLATING STRIPPER Unavailable Unavailable Alberry, D Wanda PLATING STRIPPER Unavailable Unavailable Alberry, D Wanda PLATING STRIPPER Unavailable Unavailable Alberry, D Wanda PLATING STRIPPER Unavailable Unavailable Alberry, D Wanda PLATING STRIPPER Unavailable Unavailable Alberry, D Wanda PLATING STRIPPER Unavailable Unavailable Alberry, D Wanda PLATING STRIPPER Unavailable Unavailable Alberry, D Wanda PLATING STRIPPER Unavailable Unavailable Alberry, D Wanda PLATING STRIPPER Unavailable Unavailable Alberry, D Wanda PLATING STRIPPER Unavailable Unavailable Alberry, D Wanda PLATING STRIPPER Unavailable Unavailable Alberry, D Wanda PLATING STRIPPER Unavailable Unavailable Alberry, D Wanda PLATING STRIPPER Unavailable Unavailable Alberry, D Wanda PLATING STRIPPER Unavailable Unavailable Alberry, D Wanda PLATING STRIPPER Unavailable Unavailable Alberry, D Wanda PLATING STRIPPER Unavailable Unavailable Alberry, D Wanda PLATING STRIPPER Unavailable Unavailable Alberry, D Wanda PLATING STRIPPER Unavailable Unavailable Alberry, D Wanda PLATING STRIPPER Unavailable Unavailable Alberry, D Wanda PLATING STRIPPER Unavailable Unavailable Alberry, D Wanda PLATING STRIPPER Unavailable Unavailable Alberry, D Wanda PLATING STRIPPER Unavailable Unavailable Alberry, D Wanda PLATING STRIPPER Unavailable Unavailable Alberry, D Wanda PLATING STRIPPER Unavailable Unavailable Alberry, D Wanda PLATING STRIPPER Unavailable Unavailable Alberry, D Wanda PLATING STRIPPER Unavailable Unavailable Alberry, D Wanda PLATING STRIPPER Unavailable Unavailable Alberry, D Wanda PLATING STRIPPER Unavailable Unavailable Alberry, D Wanda PLATING STRIPPER Unavailable Unavailable Alberry, D Wanda PLATING STRIPPER Unavailable Unavailable Alberry, D Wanda PLATING STRIPPER Unavailable Unavailable Alberry, D Wanda PLATING STRIPPER Unavailable Unavailable Alberry, D Wanda PLATING STRIPPER Unavailable Unavailable Alberry, D Wanda PLATING STRIPPER Unavailable Unavailable Alberry, D Wanda PLATING STRIPPER Unavailable Unavailable Alberry, D Wanda PLATING STRIPPER Unavailable Unavailable Alberry, D Wanda PLATING STRIPPER Unavailable Unavailable Alberry, D Wanda PLATING STRIPPER Unavailable Unavailable NYASIA, MICHAEL PA Unavailable Unavailable NYASIA, MICHAEL PA Unavailable Unavailable NYASIA, MICHAEL PA Unavailable Unavailable NYASIA, MICHAEL PA Unavailable Unavailable NYASIA, MICHAEL PA Unavailable Unavailable NYASIA, MICHAEL PA Unavailable Unavailable NYASIA, MICHAEL PA Unavailable Unavailable NYASIA, MICHAEL PA Unavailable Unavailable NYASIA, MICHAEL PA Unavailable Unavailable NYASIA, MICHAEL PA Unavailable Unavailable NYASIA, MICHAEL PA Unavailable Unavailable NYASIA, MICHAEL PA Unavailable Unavailable NYASIA, MICHAEL PA Unavailable Unavailable NYASIA, MICHAEL PA Unavailable Unavailable NYASIA, MICHAEL PA Unavailable Unavailable NYASIA, MICHAEL PA Unavailable Unavailable NYASIA, MICHAEL PA Unavailable Unavailable NYASIA, MICHAEL PA Unavailable Unavailable NYASIA, MICHAEL PA Unavailable Unavailable NYASIA, MICHAEL PA Unavailable Unavailable NYASIA, MICHAEL PA Unavailable Unavailable NYASIA, MICHAEL PA Unavailable Unavailable NYASIA, MICHAEL PA Unavailable Unavailable NYASIA, MICHAEL PA Unavailable Unavailable NYASIA, MICHAEL PA Unavailable Unavailable NYASIA, MICHAEL PA Unavailable Unavailable NYASIA, MICHAEL PA Unavailable Unavailable NYASIA, MICHAEL PA Unavailable Unavailable NYASIA, MICHAEL PA Unavailable Unavailable NYASIA, MICHAEL PA Unavailable Unavailable NYASIA, MICHAEL PA Unavailable Unavailable NYASIA, MICHAEL PA Unavailable Unavailable NYASIA, MICHAEL PA Unavailable Unavailable NYASIA, MICHAEL PA Unavailable Unavailable NYASIA, MICHAEL PA Unavailable Unavailable NYASIA, MICHAEL PA Unavailable Unavailable NYASIA, MICHAEL PA Unavailable Unavailable NYASIA, MICHAEL PA Unavailable Unavailable TONTARSJANAY, G MIRTA PA Unavailable Unavailable TONTARSJANAY, G MIRTA PA Unavailable Unavailable TONTARSJANAY, G MIRTA PA Unavailable Unavailable TONTARSJANAY, G MIRTA PA Unavailable Unavailable TONTARSJANAY, G MIRTA PA Unavailable Unavailable TONTARSJANAY, G MIRTA PA Unavailable Unavailable TONTARSJANAY, G MIRTA PA Unavailable Unavailable TONTARSJANAY, G MIRTA PA Unavailable Unavailable TONTARSJANAY, G MIRTA PA Unavailable Unavailable TONTARSJANAY, G MIRTA PA Unavailable Unavailable TONTARSJANAY, G MIRTA PA Unavailable Unavailable TONTARSJANAY, G MIRTA PA Unavailable Unavailable TONTARSJANAY, G MIRTA PA Unavailable Unavailable TONTARSJANAY, G MIRTA PA Unavailable Unavailable TONTARSJANAY, G MIRTA PA Unavailable Unavailable TONTARSJANAY, G MIRTA PA Unavailable Unavailable TONTARSJANAY, G MIRTA PA Unavailable Unavailable TONTARSJANAY, G MIRTA PA Unavailable Unavailable TONTARSJANAY, G MIRTA PA Unavailable Unavailable TONTARSJANAY, G MIRTA PA Unavailable Unavailable TONTARSJANAY, G MIRTA PA Unavailable Unavailable TONTARSJANAY, G MIRTA PA Unavailable Unavailable TONTARSJANAY, G MIRTA PA Unavailable Unavailable TONTARSJANAY, G MIRTA PA Unavailable Unavailable TONTARSJANYA, G MIRTA PA Unavailable Unavailable TONTARSJANAY, G MIRTA PA Unavailable Unavailable TONTARSJANAY, G MIRTA PA Unavailable Unavailable TONTARSJANAY, G MIRTA PA Unavailable Unavailable TONTARSJANAY, G MIRTA PA Unavailable Unavailable TONTARSJANAY, G MIRTA PA Unavailable Unavailable TONTARSJANAY, G MIRTA PA Unavailable Unavailable TONTARSJANAY, G MIRTA PA Unavailable Unavailable TONTARSJANAY, G MIRTA PA Unavailable Unavailable TONTARSJANAY, G MIRTA PA Unavailable Unavailable TONTARSJANAY, G MIRTA PA Unavailable Unavailable TONTARSJANAY, G MIRTA PA Unavailable Unavailable TONTARSJANAY, G MIRTA PA Unavailable Unavailable TONTARSJANAY, G MIRTA PA Unavailable Unavailable TONTARSJANAY, G MIRTA PA Unavailable Unavailable TONTARSJANAY, G MIRAT PA Unavailable Unavailable TONTARSKI, G MIRTA PA Unavailable Unavailable TONTARSKI, G MIRTA PA Unavailable Unavailable TONTARSKI, G MIRTA PA Unavailable Unavailable TONTARSKI, G MIRTA PA Unavailable Unavailable TONTARSKI, G MIRTA PA Unavailable Unavailable TONTARSKI, G MIRTA PA Unavailable Unavailable TONTARSKI, G MIRTA PA Unavailable Unavailable TONTARSKI, G MIRTA PA Unavailable Unavailable YITTA, FUENTES V MD Unavailable Unavailable YITTA, FUENTES V MD Unavailable Unavailable YITTA, FUENTES V MD Unavailable Unavailable YITTA, FUENTES V MD Unavailable Unavailable YITTA, FUENTES V MD Unavailable Unavailable YITTA, FUENTES V MD Unavailable Unavailable YITTA, FUENTES V MD Unavailable Unavailable YITTA, FUENTES V MD Unavailable Unavailable YITTA, FUENTES V MD Unavailable Unavailable YITTA, FUENTES V MD Unavailable Unavailable YITTA, FUENTES V MD Unavailable Unavailable YITTA, FUENTES V MD Unavailable Unavailable YITTA, FUENTES V MD Unavailable Unavailable Dimitry, A Cinthya PLATING STRIPPER Unavailable Unavailable Dimitry, A Cinthya PLATING STRIPPER Unavailable Unavailable Dimitry, A Cinthya PLATING STRIPPER Unavailable Unavailable Dimitry, A Cinthya PLATING STRIPPER Unavailable Unavailable Dimitry, A Cinthya PLATING STRIPPER Unavailable Unavailable Dimitry, A Cinthya PLATING STRIPPER Unavailable Unavailable Dimitry, A Cinthya PLATING STRIPPER Unavailable Unavailable Dimitry, A Cinthya PLATING STRIPPER Unavailable Unavailable Dimitry, A Cinthya PLATING STRIPPER Unavailable Unavailable Dimitry, A Cinthya PLATING STRIPPER Unavailable Unavailable Dimitry, A Cinthya PLATING STRIPPER Unavailable Unavailable Dimitry, A Cinthya PLATING STRIPPER Unavailable Unavailable Dimitry, A Cinthya PLATING STRIPPER Unavailable Unavailable Dimitry, A Cinthya PLATING STRIPPER Unavailable Unavailable Dimitry, A Cinthya PLATING STRIPPER Unavailable Unavailable Dimitry, A Cinthya PLATING STRIPPER Unavailable Unavailable Dimitry, A Cinthya PLATING STRIPPER Unavailable Unavailable Dimitry, A Cinthya PLATING STRIPPER Unavailable Unavailable Dimitry, A Cinthya PLATING STRIPPER Unavailable Unavailable Dimitry, A Cinthya PLATING STRIPPER Unavailable Unavailable Dimitry, A Cinthya PLATING STRIPPER Unavailable Unavailable Dimitry, A Cinthya PLATING STRIPPER Unavailable Unavailable Dimitry, A Cinthya PLATING STRIPPER Unavailable Unavailable Dimitry, A Cinthya PLATING STRIPPER Unavailable Unavailable Dimitry, A Cinthya PLATING STRIPPER Unavailable Unavailable Dimitry, A Cinthya PLATING STRIPPER Unavailable Unavailable Dimitry, A Cinthya PLATING STRIPPER Unavailable Unavailable Dimitry, A Cinthya PLATING STRIPPER Unavailable Unavailable Dimitry, A Cinthya PLATING STRIPPER Unavailable Unavailable Dimitry, A Cinthya PLATING STRIPPER Unavailable Unavailable Dimitry, A Cinthya PLATING STRIPPER Unavailable Unavailable Dimitry, A Cinthya PLATING STRIPPER Unavailable Unavailable Dimitry, A Cinthya PLATING STRIPPER Unavailable Unavailable Dimitry, A Cinthya PLATING STRIPPER Unavailable Unavailable Dimitry, A Cinthya PLATING STRIPPER Unavailable Unavailable Dimitry, A Cinthya PLATING STRIPPER Unavailable Unavailable Dimitry, A Cinthya PLATING STRIPPER Unavailable Unavailable Dimitry, A Cinthya PLATING STRIPPER Unavailable Unavailable Dimitry, A Cinthya PLATING STRIPPER Unavailable Unavailable Dimitry, A Cinthya PLATING STRIPPER Unavailable Unavailable Dimitry, A Cinthya PLATING STRIPPER Unavailable Unavailable Dimitry, A Cinthya PLATING STRIPPER Unavailable Unavailable Dimitry, A Cinthya PLATING STRIPPER Unavailable Unavailable Dimitry, A Cinthya PLATING STRIPPER Unavailable Unavailable Azraremstevan, Stacie Unavailable LETTIERE, A DILLAN PA Unavailable Unavailable LETTIERE, A DILLAN PA Unavailable Unavailable LETTIERE, A DILLAN PA Unavailable Unavailable LETTIERE, A DILLAN PA Unavailable Unavailable LETTIERE, A DILLAN PA Unavailable Unavailable LETTIERE, A DILLAN PA Unavailable Unavailable LETTIERE, A DILLAN PA Unavailable Unavailable LETTIERE, A DILLAN PA Unavailable Unavailable LETTIERE, A DILLAN PA Unavailable Unavailable LETTIERE, A DILLAN PA Unavailable Unavailable LETTIERE, A DILLAN PA Unavailable Unavailable LETTIERE, A DILLAN PA Unavailable Unavailable LETTIERE, A DILLAN PA Unavailable Unavailable LETTIERE, A DILLAN PA Unavailable Unavailable LETTIERE, A DILLAN PA Unavailable Unavailable LETTIERE, A DILLAN PA Unavailable Unavailable LETTIERE, A DILLAN PA Unavailable Unavailable LETTIERE, A DILLAN PA Unavailable Unavailable LETTIERE, A DILLAN PA Unavailable Unavailable LETTIERE, A DILLAN PA Unavailable Unavailable LETTIERE, A DILLAN PA Unavailable Unavailable LETTIERE, A DILLAN PA Unavailable Unavailable LETTIERE, A DILLAN PA Unavailable Unavailable LETTIERE, A DILLAN PA Unavailable Unavailable LETTIERE, A DILLAN PA Unavailable Unavailable LETTIERE, A DILLAN PA Unavailable Unavailable LETTIERE, A DILLAN PA Unavailable Unavailable LETTIERE, A DILLAN PA Unavailable Unavailable LETTIERE, A DILLAN PA Unavailable Unavailable LEOBARDO CORONA MD Unavailable Unavailable LEOBARDO CORONA MD Unavailable Unavailable LEOBARDO CORONA MD Unavailable Unavailable LEOBARDO CORONA MD Unavailable Unavailable LEOBARDO CORONA MD Unavailable Unavailable LEOBARDO CORONA MD Unavailable Unavailable LEOBARDO CORONA MD Unavailable Unavailable LEOBARDO CORONA MD Unavailable Unavailable LEOBARDO CORONA MD Unavailable Unavailable LEOBARDO CORONA MD Unavailable Unavailable LEOBARDO CORONA MD Unavailable Unavailable LEOBARDO CORONA MD Unavailable Unavailable LEOBARDO CORONA MD Unavailable Unavailable LEOBARDO CORONA MD Unavailable Unavailable LEOBARDO CORONA MD Unavailable Unavailable LEOBARDO CORONA MD Unavailable Unavailable LEOBARDO CORONA MD Unavailable Unavailable LEOBARDO CORONA MD Unavailable Unavailable LEOBARDO CORONA MD Unavailable Unavailable LEOBARDO CORONA MD Unavailable Unavailable LEOBARDO CORONA MD Unavailable Unavailable LEOBARDO CORONA MD Unavailable Unavailable LEOBARDO CORONA MD Unavailable Unavailable LEOBARDO CORONA MD Unavailable Unavailable LEOBARDO CORONA MD Unavailable Unavailable LEOBARDO CORONA MD Unavailable Unavailable LEOBARDO CORONA MD Unavailable Unavailable LEOBARDO CORONA MD Unavailable Unavailable LEOBARDO CORONA MD Unavailable Unavailable LEOBARDO CORONA MD Unavailable Unavailable LEOBARDO CORONA MD Unavailable Unavailable LEOBARDO CORONA MD Unavailable Unavailable LEOBARDO CORONA MD Unavailable Unavailable LEOBARDO CORONA MD Unavailable Unavailable LEOBARDO CORONA MD Unavailable Unavailable LEOBARDO CORONA MD Unavailable Unavailable LEOBARDO CORONA MD Unavailable Unavailable LEOBARDO CORONA MD Unavailable Unavailable LEOBARDO CORONA MD Unavailable Unavailable LEOBARDO CORONA MD Unavailable Unavailable [place], C Artur Unavailable Unavailable [place], C Artur Unavailable Unavailable [place], C Artur Unavailable Unavailable [place], C Artur Unavailable Unavailable Dia, C Artur Unavailable Unavailable Dia, C Artur Unavailable Unavailable [place], C Artur Unavailable Unavailable Rosie CÁRDENAS MD Unavailable Unavailable Rosie CÁRDENAS MD Unavailable Unavailable CÁRDENAS, Rosie CARTER MD Unavailable Unavailable CÁRDENAS, L EMMA WHEELER Unavailable Unavailable CÁRDENAS, L EMMA WHEELER Unavailable Unavailable CÁRDENAS, L EMMA WHEELER Unavailable Unavailable CÁRDENAS, L EMMA WHEELER Unavailable Unavailable CÁRDENAS, L EMMA WHEELER Unavailable Unavailable CÁRDENAS, L EMMA WHEELER Unavailable Unavailable CÁRDENAS, L EMMA WHEELER Unavailable Unavailable CÁRDENAS, L EMMA WHEELER Unavailable Unavailable CÁRDENAS, L EMMA WHEELER Unavailable Unavailable CÁRDENAS, L EMMA WHEELER Unavailable Unavailable CÁRDENAS, L EMMA WHEELER Unavailable Unavailable CÁRDENAS, L EMMA WHEELER Unavailable Unavailable CÁRDENAS, L EMMA WHEELER Unavailable Unavailable CÁRDENAS, L EMMA WHEELER Unavailable Unavailable CÁRDENAS, L EMMA WHEELER Unavailable Unavailable CÁRDENAS, L EMMA WHEELER Unavailable Unavailable CÁRDENAS, L EMMA WHEELER Unavailable Unavailable CÁRDENAS, L EMMA WHEELER Unavailable Unavailable CÁRDENAS, L EMMA WHEELER Unavailable Unavailable CÁRDENAS, L EMMA WHEELER Unavailable Unavailable CÁRDENAS, L EMMA WHEELER Unavailable Unavailable CÁRDENAS, L EMMA WHEELER Unavailable Unavailable CÁRDENAS, L EMMA WHEELER Unavailable Unavailable CÁRDENAS, L EMMA WHEELER Unavailable Unavailable CÁRDENAS, L EMMA WHEELER Unavailable Unavailable CÁRDENAS, L EMMA WHEELER Unavailable Unavailable CÁRDENAS, L EMMA WHEELER Unavailable Unavailable CÁRDENAS, L EMMA WHEELER Unavailable Unavailable CÁRDENAS, L EMMA WHEELER Unavailable Unavailable CÁRDENAS, L EMMA WHEELER Unavailable Unavailable CÁRDENAS, L EMMA WHEELER Unavailable Unavailable CÁRDENAS, L EMMA WHEELER Unavailable Unavailable CÁRDENAS, L EMMA WHEELER Unavailable Unavailable CÁRDENAS, L EMMA WHEELER Unavailable Unavailable CÁRDENAS, L EMMA WHEELER Unavailable Unavailable CÁRDENAS, L EMMA WHEELER Unavailable Unavailable CÁRDENAS, L EMMA WHEELER Unavailable Unavailable CÁRDENAS, L EMMA WHEELER Unavailable Unavailable CÁRDENAS, L EMMA WHEELER Unavailable Unavailable CÁRDENAS, L EMMA WHEELER Unavailable Unavailable Logan-Centner, Whitley Unavailable Unavailable Logan-Centner, Whitley Unavailable Unavailable Logan-Centner, Whitley Unavailable Unavailable Logan-Centner, Whitley Unavailable Unavailable Logan-Centner, Whitley Unavailable Unavailable Logan-Centner, Whitley Unavailable Unavailable Logan-Centner, Whitley Unavailable Unavailable Logan-Centner, Whitley Unavailable Unavailable Logan-Centner, Whitley Unavailable Unavailable Logan-Centner, Whitley Unavailable Unavailable ADDIE H YRIS WOODWIND INSTRUMENTS INSPECTOR Unavailable Unavailable ADDIE, H YRIS WOODWIND INSTRUMENTS INSPECTOR Unavailable Unavailable ADDIE, H YRIS WOODWIND INSTRUMENTS INSPECTOR Unavailable Unavailable ADDIE, H YRIS WOODWIND INSTRUMENTS INSPECTOR Unavailable Unavailable ADDIE, H YRIS WOODWIND INSTRUMENTS INSPECTOR Unavailable Unavailable ADDIE, H YRIS WOODWIND INSTRUMENTS INSPECTOR Unavailable Unavailable ADDIE, H YRIS WOODWIND INSTRUMENTS INSPECTOR Unavailable Unavailable AL, W MORGAN PA Unavailable Unavailable AL, W MORGAN PA Unavailable Unavailable AL, W MORGAN PA Unavailable Unavailable AL, W MORGAN PA Unavailable Unavailable AL, W MORGAN PA Unavailable Unavailable AL, W MORGAN PA Unavailable Unavailable AL, W MORGAN PA Unavailable Unavailable AL, W MORGAN PA Unavailable Unavailable AL, W MORGAN PA Unavailable Unavailable AL, W MORGAN PA Unavailable Unavailable AL, W MORGAN PA Unavailable Unavailable AL, W MORGAN PA Unavailable Unavailable AL, W MORGAN PA Unavailable Unavailable HUIZENGA, Edith MELO DO Unavailable Unavailable HUIZENGA, Edith MELO DO Unavailable Unavailable HUIZENGA, Edith MELO DO Unavailable Unavailable HUIZENGA, Edith MELO DO Unavailable Unavailable HUIZENGA, Edith MELO DO Unavailable Unavailable HUIZENGA, Edith MELO DO Unavailable Unavailable HUIZENGA, Edith MELO DO Unavailable Unavailable HUIZENGA, Edith MELO DO Unavailable Unavailable HUIZENGA, Edith MELO DO Unavailable Unavailable HUIZENGA, Edith MELO DO Unavailable Unavailable HUIZENGA, Edith MELO DO Unavailable Unavailable HUIZENGA, Edith MELO DO Unavailable Unavailable HUIZENGA, Edith MELO DO Unavailable Unavailable HUIZENGA, Edith MELO DO Unavailable Unavailable HUIZENGA, Edith MELO DO Unavailable Unavailable HUIZENGA, Edith MELO DO Unavailable Unavailable HUIZENGA, Edith MELO DO Unavailable Unavailable HUIZENGA, Edith MELO DO Unavailable Unavailable HUIZENGA, Edith MELO DO Unavailable Unavailable HUIZENGA, Edith MELO DO Unavailable Unavailable HUIZENGA, Edith MELO DO Unavailable Unavailable HUIZENGA, Edith MELO DO Unavailable Unavailable HUIZENGA, Edith MELO DO Unavailable Unavailable HUIZENGA, Edith MELO DO Unavailable Unavailable HUIZENGA, Edith MELO DO Unavailable Unavailable HUIZENGA, Edith MELO DO Unavailable Unavailable HUIZENGA, Edith MELO DO Unavailable Unavailable HUIZENGA, Edith MELO DO Unavailable Unavailable HUIZENGA, Edith MELO DO Unavailable Unavailable HUIZENGA, Edith MELO DO Unavailable Unavailable HUIZENGA, Edith MELO DO Unavailable Unavailable HUIZENGA, Edith MELO DO Unavailable Unavailable HUIZENGA, D LORIE DO Unavailable Unavailable HUIZENGA, D LORIE DO Unavailable Unavailable HUIZENGA, D LORIE DO Unavailable Unavailable HUIZENGA, D LORIE DO Unavailable Unavailable HUIZENGA, D LORIE DO Unavailable Unavailable HUIZENGA, D LORIE DO Unavailable Unavailable HUIZENGA, D LORIE DO Unavailable Unavailable HUIZENGA, D LORIE DO Unavailable Unavailable HUIZENGA, D LORIE DO Unavailable Unavailable HUIZENGA, D LORIE DO Unavailable Unavailable HUIZENGA, D LORIE DO Unavailable Unavailable HUIZENGA, D LORIE DO Unavailable Unavailable HUIZENGA, D LORIE DO Unavailable Unavailable HUIZENGA, D LORIE DO Unavailable Unavailable HUIZENGA, D LORIE DO Unavailable Unavailable HUIZENGA, D LORIE DO Unavailable Unavailable HUIZENGA, D LORIE DO Unavailable Unavailable HUIZENGA, D LORIE DO Unavailable Unavailable HUIZENGA, D LORIE DO Unavailable Unavailable HUIZENGA, D LORIE DO Unavailable Unavailable HUIZENGA, D LORIE DO Unavailable Unavailable HUIZENGA, D LORIE DO Unavailable Unavailable HUIZENGA, D LORIE DO Unavailable Unavailable HUIZENGA, D LORIE DO Unavailable Unavailable HUIZENGA, D LORIE DO Unavailable Unavailable HUIZENGA, D LORIE DO Unavailable Unavailable HUIZENGA, D LORIE DO Unavailable Unavailable HUIZENGA, D LORIE DO Unavailable Unavailable HUIZENGA, D LORIE DO Unavailable Unavailable HUIZENGA, D LORIE DO Unavailable Unavailable HUIZENGA, D LORIE DO Unavailable Unavailable HUIZENGA, D LORIE DO Unavailable Unavailable HUIZENGA, D LORIE DO Unavailable Unavailable HUIZENGA, D LORIE DO Unavailable Unavailable HUIZENGA, D LROIE DO Unavailable Unavailable HUIZENGA, D LORIE DO Unavailable Unavailable HUIZENGA, D LORIE DO Unavailable Unavailable HUIZENGA, D LORIE DO Unavailable Unavailable HUIZENGA, D LORIE DO Unavailable Unavailable HUIZENGA, D LORIE DO Unavailable Unavailable HUIZENGA, D LORIE DO Unavailable Unavailable AFIA WESTON Unavailable Unavailable Re-disclosure Warning The records that you are about to access may contain information from federally-assisted alcohol or drug abuse programs. If such information is present, then the following federally mandated warning applies: This information has been disclosed to you from records protected by federal confidentiality rules (42 CFR part 2). The federal rules prohibit you from making any further disclosure of this information unless further disclosure is expressly permitted by the written consent of the person to whom it pertains or as otherwise permitted by 42 CFR part 2. A general authorization for the release of medical or other information is NOT sufficient for this purpose. The Federal rules restrict any use of the information to criminally investigate or prosecute any alcohol or drug abuse patient.The records that you are about to access may contain highly sensitive health information, the redisclosure of which is protected by Article 27-F of the [place] Public Health law. If you continue you may have access to information: Regarding HIV / AIDS; Provided by facilities licensed or operated by the [facility] Office of Mental Health; or Provided by the [facility] Office for People With Developmental Disabilities. If such information is present, then the following [facility] [employer] mandated warning applies: This information has been disclosed to you from confidential records which are protected by state law. State law prohibits you from making any further disclosure of this information without the specific written consent of the person to whom it pertains, or as otherwise permitted by law. Any unauthorized further disclosure in violation of state law may result in a fine or [place] health [facility] sentence or both. A general authorization for the release of medical or other information is NOT sufficient authorization for further disc losure. Allergies and Adverse Reactions Type Description Substance Reaction Status Data Source(s ) Drug allergy Oxycodone HCl Oxycodone Rash Active eCW1 ([facility]) Latex Latex Latex Rash Active eCW1 ([facility]) Latex Latex Latex Rash Active eCW1 ([facility]) Oxycodone HCl Oxycodone HCl Oxycodone Hydrochloride 20 MG/ML Oral Solution Rash Active eCW1 ([facility]) Allergy to substance Allergy to substance Allergy to substance JOSE MANUEL ([facility]) Allergy to substance Allergy to substance Allergy to substance JOSE MANUEL ([facility]) Allergy to substance Allergy to substance Allergy to substance JOSE MANUEL ([facility]) Family History Family Member Name Family Member Gender Family Member Status Date o f Status Description Data Source(s) Unknown Unknown Problem [facility] ([facility]) Encounters Encounter Providers Location Date Indications Data Source(s ) Extended Individual Psychotherapy - 45 min Attender: Lynsey Fuller [facility] 06/29/2020 02:00:00 AM EST - 06/29/2020 02:00:00 AM EST [facility] ([facility]) Attender: Stacie Fuller 06/29/2020 12:00:0 0 AM EST [facility] ([facility]) GISELA Croft: [address] [place] [address], Ph. Attender: Whitley Flanagan [facility] Medical 06/22/2020 12:00:00 AM EST JOSE MANUEL ([facility]) Office Visit Attender: MIRTA MONTIEL [facility] 06/20/2020 09:45:00 AM EST MEDENT (Sergey Calix MD) Office Visit Attender: MIRTA MONTIEL [facility] 05/25/2020 10:30:00 AM EST MED[facility] (Sergey Calix MD) Keyon Mayer MD: [address] [place] [address], Ph. Attender: Keyon Mayer MD [facility] Medical 05/24/2020 12:00:00 AM EST JOSE MANUEL ([facility]) Keyon Mayer MD: [address] [place] [address], Ph. Attender: Keyon Mayer MD [facility] Medical 05/24/2020 12:00:00 AM EST JOSE MANUEL ([facility]) Keyon Mayer MD: [address] [place] [address], Ph. Attender: Keyon Mayer MD [facility] Medical 05/24/2020 12:00:00 AM EST JOSE MANUEL ([facility]) Office Visit Attender: MIRTA MONTIEL [facility] Build[facility] 04/10/2020 10:30:00 AM EST MED[facility] (Sergey Calix MD) Outpatient [facility] 03/24/2020 12:00:00 AM EDT eCW1 ([facility]) Outpatient [facility] 03/24/2020 12:00:00 AM EDT eCW1 ([facility]) Attender: Stacie lAina 03/08/2020 12:00:0 0 AM EDT [facility] ([facility]) Extended Individual Psychotherapy - 45 min [facility]/2020 03:30:00 AM EDT - 03/07/2020 03:30:00 AM EDT [facility] ([facility]) Extended Individual Psychotherapy - 45 min Attender: Lynsey gutierrez [facility] 02/17/2020 10:30:00 AM EDT - 02/17/2020 10:30:00 AM EDT [facility] ([facility]) Attender: Stacie Fuller 02/17/2020 12:00:0 0 AM EDT [facility] ([facility]) Outpatient Attender: Cinthya DE 02/03/2020 07:30 :00 AM EDT [facility] Outpatient [facility] 02/03/2020 12:00:00 AM EDT eCW1 ([facility]) Outpatient [facility] 02/03/2020 12:00:00 AM EDT eCW1 ([facility]) Extended Individual Psychotherapy - 45 min [facility] 01/27/2020 10:30:00 AM EDT - 01/27/2020 10:30:00 AM EDT [facility] ([facility]) Attender: Stacie Fuller 01/27/2020 12:00:0 0 AM EDT [facility] ([facility]) Outpatient [facility] 01/04/2020 12:00:00 AM EDT eCW1 ([facility]) Outpatient Attender: Cinthya Moraes FNPReferrer: Cinthya DE EMERGENCY ROOM-LAB 12/29/2019 07:50:00 AM EDT - 12/29/2019 07:50:00 AM EDT [facility] Outpatient Attender: Cinthya DE 2019 03:30 :00 PM EDT [facility] Outpatient [facility] 2019 12:00:00 AM EDT eCW1 ([facility]) [facility] 12/09/2019 12:00:00 AM EDT eCW1 ([facility]) [id number]"Psychotherapy Attender: Stacie Fuller [facility] 11/15/2019 10:00:00 AM EDT - 11/15/2019 10:00:00 AM EDT [facility] ([facility]) Attender: Stacie Fuller 11/15/2019 12:00:0 0 AM EDT [facility] ([facility]) [id number]"Psychotherapy Attender: Stacie Fuller [facility] 10/28/2019 08:45:00 AM EDT - 10/28/2019 08:45:00 AM EDT [facility] ([facility]) Attender: Stacie Fuller 10/28/2019 12:00:0 0 AM EDT [facility] ([facility]) Outpatient Attender: YRIS FRANCO NP [facility] Jared lamar 10/21/2019 03:30:00 AM EDT - 10/21/2019 03:30:00 AM EDT [facility] ([facility]) Attender: YRIS FRANCO NP 10/21/2019 12:00:00 AM EDT [facility] ([facility]) [id number]"Psychotherapy Attender: Stacie Fuller [facility] 10/12/2019 10:45:00 AM EDT - 10/12/2019 10:45:00 AM EDT [facility] ([facility]) Attender: Stacie Fuller 10/12/2019 12:00:0 0 AM EDT [facility] ([facility]) Outpatient Attender: DILLAN Carrington karen 10/04/2019 12:15:00 PM EDT [facility] ([facility]) Outpatient 09/29/2019 05:06:00 AM EDT [facility] [id number]"Psychotherapy Attender: Stacie Fuller [facility] 09/27/2019 10:00:00 AM EDT - 09/27/2019 10:00:00 AM EDT [facility] ([facility]) Attender: Stacie Fuller 09/27/2019 12:00:0 0 AM EDT [facility] ([facility]) Outpatient Attender: YRIS FRANCO NP [facility] Jared lamar 09/23/2019 03:00:00 AM EDT - 09/23/2019 03:00:00 AM EDT [facility] ([facility]) Attender: YRIS FRANCO NP 09/23/2019 12:00:00 AM EDT [facility] ([facility]) Outpatient Attender: Cinthya Moraes PLATING STRIPPER 09/13/2019 07:39 :00 AM EDT [facility] C ENTER 09/13/2019 12:00:00 AM EDT eCW1 ([facility]) [id number]"Psychotherapy Attender: Stacie Fuller [facility] 09/10/2019 10:00:00 AM EDT - 09/10/2019 10:00:00 AM EDT [facility] ([facility]) Attender: Stacie Fuller 09/10/2019 12:00:0 0 AM EDT [facility] ([facility]) [id number] 30" Psychotherapy Attender: Stacie bacon [facility] 08/24/2019 10:00:00 AM EDT - 08/24/2019 10:00:00 AM EDT [facility] ([facility]) Attender: Stacie Fuller 08/24/2019 12:00:0 0 AM EDT [facility] ([facility]) Extended Individual Psychotherapy - 45 min Attender: Lynsey Fuller [facility] 08/06/2019 08:00:00 AM EDT - 08/06/2019 08:00:00 AM EDT [facility] ([facility]) Attender: Stacie Fuller 08/06/2019 12:00:0 0 AM EDT [facility] ([facility]) Outpatient Attender: Stanley Dominguez MD Main Office 08/04/2019 02:30:00 PM EDT [facility] ([facility]) Outpatient Attender: EMMA CÁRDENAS MD [employer] 08/2019 08:15:00 AM EST [facility] ([facility]) Extended Individual Psychotherapy - 45 min Attender: Lynsey Fuller [facility] 07/23/2019 10:45:00 AM EST - 07/23/2019 10:45:00 AM EST [facility] ([facility]) Attender: Stacie Fuller 07/23/2019 12:00:0 0 AM EST [facility] ([facility]) Outpatient Attender: Cinthya Moraes PLATING STRIPPER 07/19/2019 07:28 :00 AM EST [facility] ENTER 07/19/2019 12:00:00 AM EST eCW1 ([facility]) Outpatient 07/08/2019 01:14:00 PM EST [facility] Brief Individual Psychotherapy - 30 min Attender: Stacie arriaza [facility] 06/22/2019 12:00:00 PM EST - 06/22/2019 12:00:00 PM EST [facility] ([facility]) Attender: Stacie Fuller 06/22/2019 12:00:0 0 AM EST [facility] ([facility]) Outpatient Attender: MICHAEL thomas 06/21/2019 10:30:00 AM EST [facility] ([facility]) Attender: Stacie Fuller 06/08/2019 12:00:0 0 AM EST [facility] ([facility]) Extended Individual Psychotherapy - 45 min Attender: Lynsey Fuller [facility] 06/07/2019 02:00:00 AM EST - 06/07/2019 02:00:00 AM EST [facility] ([facility]) Outpatient Attender: Artur Alvarse [facility] 0 06/04/2019 10:30:00 AM EST - 06/04/2019 10:30:00 AM EST [facility] ([facility]) Attender: Artur Alvares 06/04/2019 12:00:00 AM EST [facility] ([facility]) Extended Individual Psychotherapy - 45 min Attender: Lynsey Fuller [facility] 05/14/2019 02:45:00 AM EST - 05/14/2019 02:45:00 AM EST [facility] ([facility]) Attender: Stacie Fuller 05/14/2019 12:00:0 0 AM EST [facility] ([facility]) Outpatient Attender: EMILIA HIGGINS 05/26 09:30:00 AM [facility] - 06/05/2018 09:30:00 AM [facility] Emergency Attender: Yolande MONTEZeferrer: LORIE ABEL DO 09/03/2014 03:23:00 PM T - 09/03/2014 04:26:00 PM [facility] Emergency Attender: MORGAN AL PAReferrer: LORIE ABEL DO EMERGENCY ROOM-ER 12/05/2013 09:03:00 PM EDT - 12/05/2013 10:00:00 PM [facility] Emergency Attender: FRAN MONTIEL 08/21/2013 08:37:00 PM T - 08/22/2013 12:44:00 AM [facility] Outpatient Attender: Wanda DE 06/23/2013 05:59 :00 PM [facility] Outpatient Attender: KAYLA CORONA MD 01/04/2013 11:01:00 A M [facility] Outpatient Attender: Albina CHOPRA MD 09/28/2012 03:48:00 PM [facility] Outpatient Attender: Wanda DE 09/10/2012 11:45 :00 AM [facility] Functional Status Immunizations Vaccine Date Status Description Data Source(s) COVID-19, mRNA, LNP-S, PF, 100 mcg/0.5 mL dose 06/22/2020 09 :55:34 AM EST completed .5 mL JOSE MANUEL ([facility]) COVID-19, mRNA, LNP-S, PF, 100 mcg/0.5 mL dose 05/24/2020 03 :11:59 PM EST completed .5 mL JOSE MANUEL ([facility]) COVID-19, mRNA, LNP-S, PF, 100 mcg/0.5 mL dose 05/24/2020 03 :11:59 PM EST completed .5 mL JOSE MANUEL ([facility]) COVID-19, mRNA, LNP-S, PF, 100 mcg/0.5 mL dose 05/24/2020 03 :11:59 PM EST completed .5 mL JOSE MANUEL ([facility]) New in 2011. IIV4 07/19/2019 09:08:00 AM EST completed eCW1 ([facility]) New in 2011. IIV4 07/19/2019 09:08:00 AM EST completed eCW1 ([facility]) New in 2011. IIV4 07/19/2019 09:08:00 AM EST completed eCW1 ([facility]) New in 2011. IIV4 07/19/2019 09:08:00 AM EST completed eCW1 ([facility]) New in 2011. IIV4 07/19/2019 09:08:00 AM EST completed eCW1 ([facility]) New in 2011. IIV4 07/19/2019 09:08:00 AM EST completed eCW1 ([facility]) New in 2011. IIV4 07/19/2019 09:08:00 AM EST completed eCW1 ([facility]) Tdap 07/19/2019 09:06:00 AM EST completed e CW1 ([facility]) Tdap 07/19/2019 09:06:00 AM EST completed e CW1 ([facility]) Tdap 07/19/2019 09:06:00 AM EST completed e CW1 ([facility]) Tdap 07/19/2019 09:06:00 AM EST completed e CW1 ([facility]) Tdap 07/19/2019 09:06:00 AM EST completed e CW1 ([facility]) Tdap 07/19/2019 09:06:00 AM EST completed e CW1 ([facility]) Tdap 07/19/2019 09:06:00 AM EST completed e CW1 ([facility]) Medications Medication Brand Name Start Date Product Form Dose Route Admi nistrative Instructions Pharmacy Instructions Status Indications Reaction Description Data Source(s) 150 mg 05/29/2020 12:00:00 AM EST capsule,extended releas e 24hr 30 TAKE ONE CAPSULE BY MOUTH EVERY MORNING TAKE ONE CAPSULE BY MOUTH EVERY MORNING SOLD: 06/01/2020 [facility] 75 mg 05/29/2020 12:00:00 AM EST capsule,extended releas e 24hr 30 TAKE ONE CAPSULE BY MOUTH EVERY MORNING TAKE ONE CAPSULE BY MOUTH EVERY MORNING SOLD: 06/01/2020 [facility] 3 mg 05/29/2020 12:00:00 AM EST capsule 30 TAKE ONE CAPSULE BY MOUTH AT BEDTIME TAKE ONE CAPSULE BY MOUTH AT BEDTIME SOLD: 06/01/2020 [facility] aripiprazole 5 MG Oral Tablet Aripiprazole 03/22/2020 12:00:00 AM EDT ORAL active MED[facility] ([facility]) 24 HR venlafaxine 150 MG Extended Release Oral Capsule Venla faxine HCL ER 03/22/2020 12:00:00 AM EDT ORAL active MEDENT ([facility]) Fluconazole 150 MG Oral Tablet [Diflucan] Diflucan 150 MG Di flucan 150 MG 02/03/2020 12:00:00 AM EDT 1.0 {tablet} active Diflucan 150 MG eCW1 ([facility]) 150 mg 02/03/2020 12:00:00 AM EDT tablet 2 TAKE 1 TABLET BY MOUTH ONCE WEEKLY TAKE 1 TABLET BY MOUTH ONCE WEEKLY SOLD: 02/04/2020 [facility] Fluconazole 150 MG Oral Tablet [Diflucan] Diflucan 150 MG Di flucan 150 MG 02/03/2020 12:00:00 AM EDT 1.0 {tablet} active Diflucan 150 MG eCW1 ([facility]) Chio UNK 02/03/2020 12:00:00 AM EDT active Chio eCW1 ([facility]) Chio UNK 02/03/2020 12:00:00 AM EDT active [facility] eCW1 ([facility]) Fluconazole 150 MG Oral Tablet [Diflucan] Diflucan 150 MG Di flucan 150 MG 02/03/2020 12:00:00 AM EDT 1.0 {tablet} active Diflucan 150 MG eCW1 ([facility]) Fluconazole 150 MG Oral Tablet [Diflucan] Diflucan 150 MG Di flucan 150 MG 02/03/2020 12:00:00 AM EDT 1.0 {tablet} active Diflucan 150 MG eCW1 ([facility]) Chio UNK 02/03/2020 12:00:00 AM EDT active [facility] eCW1 ([facility]) Chio UNK 02/03/2020 12:00:00 AM EDT active [facility] eCW1 ([facility]) 150 mg 01/19/2020 12:00:00 AM EDT capsule,extended releas e 24hr 30 TAKE ONE CAPSULE BY MOUTH EVERY MORNING TAKE ONE CAPSULE BY MOUTH EVERY MORNING SOLD: 01/20/2020 [facility] 5 mg 01/19/2020 12:00:00 AM EDT tablet 30 TAKE ONE TABLET BY MOUTH EVERY MORNING TAKE ONE TABLET BY MOUTH EVERY MORNING SOLD: 01/20/2020 [facility] 75 mg 01/19/2020 12:00:00 AM EDT capsule,extended releas e 24hr 30 TAKE ONE CAPSULE BY MOUTH EVERY DAY TAKE ONE CAPSULE BY MOUTH EVERY DAY SOLD: 01/20/2020 [facility] 75 mg 12/10/2019 12:00:00 AM EDT capsule,extended releas e 24hr 30 TAKE ONE CAPSULE BY MOUTH EVERY DAY TAKE ONE CAPSULE BY MOUTH EVERY DAY SOLD: 12/10/2019 [facility] 5 mg 12/10/2019 12:00:00 AM EDT tablet 30 TAKE ONE TABLET BY MOUTH EVERY MORNING TAKE ONE TABLET BY MOUTH EVERY MORNING SOLD: 12/10/2019 [facility] 5 mg 12/10/2019 12:00:00 AM EDT tablet 30 TAKE ONE TABLET BY MOUTH EVERY MORNING TAKE ONE TABLET BY MOUTH EVERY MORNING SOLD: 02/12/2020 [facility] 150 mg 12/10/2019 12:00:00 AM EDT capsule,extended releas e 24hr 30 TAKE ONE CAPSULE BY MOUTH EVERY MORNING TAKE ONE CAPSULE BY MOUTH EVERY MORNING SOLD: 12/10/2019 [facility] 75 mg 12/10/2019 12:00:00 AM EDT capsule,extended releas e 24hr 30 TAKE ONE CAPSULE BY MOUTH EVERY DAY TAKE ONE CAPSULE BY MOUTH EVERY DAY SOLD: 02/12/2020 [facility] 150 mg 12/10/2019 12:00:00 AM EDT capsule,extended releas e 24hr 30 TAKE ONE CAPSULE BY MOUTH EVERY MORNING TAKE ONE CAPSULE BY MOUTH EVERY MORNING SOLD: 02/12/2020 [facility] 24 HR venlafaxine 75 MG Extended Release Oral Capsule venlaf axine 09/23/2019 12:00:00 AM EDT 75 mg by mouth completed [id number] ve nlafaxine by mouth [id number] 09/23/2019 12/20/2019 once a day 30 75 mg capsule,extended release 24hr [id number] Yris Franco [id number] Nurse Practiti kari [facility] ([facility]) Trazodone Hydrochloride 50 MG Oral Tablet trazodone 2019 12:00:00 AM EDT 50 mg by mouth completed [id number] trazodone by mouth [id number] 09/23/2019 10/21/2019 at bedtime 30 50 mg tablet as needed [id number] Yris Franco [id number] Nurse Practitioner [facility] ([facility]) 24 HR venlafaxine 75 MG Extended Release Oral Capsule venlaf axine 09/23/2019 12:00:00 AM EDT 75 mg by mouth completed [id number] ve nlafaxine by mouth [id number] 09/23/2019 04/16/2020 once a day 30 75 mg capsule,extended release 24hr [id number] Yris Franco [id number] Nurse Practiti kari [facility] ([facility]) Trazodone Hydrochloride 50 MG Oral Tablet Trazodone HC l 50 MG Trazodone HCl 50 MG 09/13/2019 12:00:00 AM EDT 1.0 {tablet_at_bedtime_as_needed} suspended Trazodone HCl 50 MG eCW1 ([facility]) Trazodone Hydrochloride 50 MG Oral Tablet Trazodone HC l 50 MG Trazodone HCl 50 MG 09/13/2019 12:00:00 AM EDT active 1 tablet at bedtime as needed eCW1 ([facility]) Trazodone Hydrochloride 50 MG Oral Tablet Trazodone HC l 50 MG Trazodone HCl 50 MG 09/13/2019 12:00:00 AM EDT 1.0 {tablet_at_bedtime_as_needed} suspended Trazodone HCl 50 MG eCW1 ([facility]) Trazodone Hydrochloride 50 MG Oral Tablet Trazodone HC l 50 MG Trazodone HCl 50 MG 09/13/2019 12:00:00 AM EDT 1.0 {tablet_at_bedtime_as_needed} suspended Trazodone HCl 50 MG eCW1 ([facility]) Trazodone Hydrochloride 50 MG Oral Tablet Trazodone HC l 50 MG Trazodone HCl 50 MG 09/13/2019 12:00:00 AM EDT 1.0 {tablet_at_bedtime_as_needed} suspended Trazodone HCl 50 MG eCW1 ([facility]) Trazodone Hydrochloride 50 MG Oral Tablet Trazodone HC l 50 MG Trazodone HCl 50 MG 09/13/2019 12:00:00 AM EDT 1.0 {tablet_at_bedtime_as_needed} suspended Trazodone HCl 50 MG eCW1 ([facility]) Trazodone Hydrochloride 50 MG Oral Tablet Trazodone HC l 50 MG Trazodone HCl 50 MG 09/13/2019 12:00:00 AM EDT 1.0 {tablet_at_bedtime_as_needed} suspended Trazodone HCl 50 MG eCW1 ([facility]) 150 mg 08/17/2019 12:00:00 AM EDT capsule,extended releas e 24hr 30 TAKE ONE CAPSULE BY MOUTH EVERY MORNING TAKE ONE CAPSULE BY MOUTH EVERY MORNING SOLD: 08/17/2019 [facility] 5 mg 08/13/2019 12:00:00 AM EDT tablet 30 TAKE ONE TABLET BY MOUTH EVERY MORNING TAKE ONE TABLET BY MOUTH EVERY MORNING SOLD: 08/13/2019 [facility] 40 mg 08/04/2019 12:00:00 AM EDT tablet,delayed release (DR/EC) 30 TAKE ONE TABLET BY MOUTH EVERY DAY TAKE ONE TABLET BY MOUTH EVERY DAY SOLD: 08/11/2019 [facility] 0.25-35 mg-mcg 07/28/2019 12:00:00 AM EST tablet 28 TAKE ONE TABLET BY MOUTH EVERY DAY TAKE ONE TABLET BY MOUTH EVERY DAY SOLD: 07/28/2019 [facility] Sprintec 28 Sprintec 28 07/28/2019 12:00:00 AM EST ORAL active MED[facility] ([facility]) 24 HR venlafaxine 75 MG Extended Release Oral Capsule [Effexor] Effexor XR 75 MG Effexor XR 75 MG 07/19/2019 12:00:00 AM EST 1.0 {capsule_with_fo od} active Effexor XR 75 MG eCW1 ([facility]) 24 HR venlafaxine 75 MG Extended Release Oral Capsule [Effexor] Effexor XR 75 MG Effexor XR 75 MG 07/19/2019 12:00:00 AM EST 1.0 {capsule_with_fo od} active Effexor XR 75 MG eCW1 ([facility]) 24 HR venlafaxine 75 MG Extended Release Oral Capsule [Effexor] Effexor XR 75 MG Effexor XR 75 MG 07/19/2019 12:00:00 AM EST 1.0 {capsule_with_fo od} active Effexor XR 75 MG eCW1 ([facility]) 75 mg 07/19/2019 12:00:00 AM EST capsule,extended releas e 24hr 30 TAKE ONE CAPSULE BY MOUTH EVERY DAY WITH FOOD TAKE ONE CAPSULE BY MOUTH EVERY DAY WITH FOOD SOLD: 07/19/2019 [facility] 24 HR venlafaxine 75 MG Extended Release Oral Capsule [Effexor] Effexor XR 75 MG Effexor XR 75 MG 07/19/2019 12:00:00 AM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 finding (navigational concept) 9.2 mg/dL 8 .5-10.1 Normal (applies to non-numeric results) [facility] (Sergey Calix MD) Laboratory test finding (navigational concept) 2 meq/L 8-16 Below low normal [facility] (Sergey Calix MD) Laboratory test finding (navigational concept) 37 U/L 7 -37 Normal (applies to non-numeric results) [facility] (Sergey Calix MD) Laboratory test finding (navigational concept) 46 U/L 1 2-78 Normal (applies to non-numeric results) [facility] (Sergey Calix MD) Laboratory test finding (navigational concept) 0.5 mg/dL 0 .2-1.0 Normal (applies to non-numeric results) [facility] (Sergey Calix MD) Laboratory test finding (navigational concept) 71 U/L 4 5-117 Normal (applies to non-numeric results) [facility] (Sergey Calix MD) Laboratory test finding (navigational concept) 7.2 GM/DL 6 .4-8.2 Normal (applies to non-numeric results) [facility] (Sergey Calix MD) Laboratory test finding (navigational concept) 3.8 GM/DL 3 .2-5.2 Normal (applies to non-numeric results) [facility] (Sergey Calix MD) Laboratory test finding (navigational concept) 1.1 1.2-2.2 Below low normal [facility] (Sergey Calix MD) ID Date Data Source [id number] 04/07/2020 01:37:00 PM EST [facility] (Sergey Calix MD) Name Value Range Interpretation Code Description Data Criss rce(s) Supporting Document(s) Hepatitis A virus IgG Ab [Units/volume] in Serum Laboratory test result Normal (applies to non-numeric results) [facility] (Sergey Calix MD ) Performed at: - [facility] [id number] Telemarketing Representative: Maryana Kramer MD, Phone: [phone] Platelets [#/volume] in Blood by Estimate Laboratory test result Normal (applies to non-numeric results) [facility] (Sergey Calix MD) ID Date Data Source [id number] 04/07/2020 01:37:00 PM EST [facility] (Sergey Calix MD) Name Value Range Interpretation Code Description Data Criss rce(s) Supporting Document(s) Laboratory test finding (navigational concept) 47 % 2 8-66 Normal (applies to non-numeric results) [facility] (Sergey Calix MD) Laboratory test finding (navigational concept) 38 % 1 6-44 Normal (applies to non-numeric results) [facility] (Sergey Calix MD) Laboratory test finding (navigational concept) 4 % 0 -5 Normal (applies to non- numeric results) [facility] (Sergey Calix MD) Laboratory test finding (navigational concept) 3 % 0 -3 Normal (applies to non- numeric results) [facility] (Sergey Calix MD) Laboratory test finding (navigational concept) 1 % 0 -1 Normal (applies to non- numeric results) [facility] (Sergey Calix MD) Laboratory test finding (navigational concept) 7 % 0-5 Above high normal [facility] (Sergey Calix MD) ID Date Data Source [id number] 04/07/2020 01:37:00 PM EST [facility] (Sergey Calix MD) Name Value Range Interpretation Code Description Data Criss rce(s) Supporting Document(s) Laboratory test finding (navigational concept) 6.1 10 4 .0-10.0 Normal (applies to non-numeric results) [facility] (Sergey Calix MD) Laboratory test finding (navigational concept) 4.09 10 4 .00-5.40 Normal (applies to non-numeric results) [facility] (Sergey Calix MD) Laboratory test finding (navigational concept) 12.2 g/dL 1 2.0-15.5 Normal (applies to non-numeric results) [facility] (Sergey Calix MD) Laboratory test finding (navigational concept) 37.5 % 3 6.0-47.0 Normal (applies to non-numeric results) [facility] (Sergey Calix MD) Laboratory test finding (navigational concept) 91.7 fl 8 0.0-96.0 Normal (applies to non-numeric results) [facility] (Sergey Calix MD) Laboratory test finding (navigational concept) 32.5 g/dL 3 2.0-36.5 Normal (applies to non-numeric results) [facility] (Sergey Calix MD) Laboratory test finding (navigational concept) 29.8 pg 2 7.0-33.0 Normal (applies to non-numeric results) [facility] (Sergey Calix MD) Laboratory test finding (navigational concept) 12.6 % 1 1.5-14.5 Normal (applies to non-numeric results) [facility] (Sergey Calix MD) Laboratory test finding (navigational concept) 0.0 % 0 -0 Normal (applies to non- numeric results) [facility] (Sergey Calix MD) Laboratory test finding (navigational concept) 184 10 1 50-450 Normal (applies to non-numeric results) [facility] (Sergey Calix MD) ID Date Data Source [id number] 04/07/2020 01:37:00 PM EST [facility] (Sergye Calix MD) Name Value Range Interpretation Code Description Data Criss rce(s) Supporting Document(s) Laboratory test finding (navigational concept) Laboratory test r esult Normal (applies to non-numeric results) [facility] (Sergey Calix MD) Laboratory test finding (navigational concept) 6.0 units 5 .0-9.0 Normal (applies to non-numeric results) [facility] (Sergey Calix MD) Laboratory test finding (navigational concept) Laboratory test r esult Normal (applies to non-numeric results) [facility] (Sergey Calix MD) Laboratory test finding (navigational concept) 1.017 1 .002-1.035 Normal (applies to non-numeric results) [facility] (Sergey Calix MD) Laboratory test finding (navigational concept) Laboratory test r esult Normal (applies to non-numeric results) [facility] (Sergey Calix MD) Laboratory test finding (navigational concept) Laboratory test r esult Normal (applies to non-numeric results) [facility] (Sergey Calix MD) Laboratory test finding (navigational concept) Laboratory test r esult Normal (applies to non-numeric results) [facility] (Sergey Calix MD) Laboratory test finding (navigational concept) 0.2 mg/dL 0 .0-2.0 Normal (applies to non-numeric results) [facility] (Sergey Calix MD) Laboratory test finding (navigational concept) Laboratory test r esult Normal (applies to non-numeric results) [facility] (Sergey Calix MD) Laboratory test finding (navigational concept) Laboratory test r esult Normal (applies to non-numeric results) [facility] (Sergey Calix MD) Laboratory test finding (navigational concept) Laboratory test r esult Normal (applies to non-numeric results) [facility] (Sergey Calix MD) Laboratory test finding (navigational concept) Laboratory test r esult Above high normal [facility] (Sergey Calix MD) Laboratory test finding (navigational concept) 34 /HPF 0-3 Above high normal [facility] (Sergey Calix MD) Laboratory test finding (navigational concept) Laboratory test r esult Normal (applies to non-numeric results) [facility] (Sergey Calix MD) Laboratory test finding (navigational concept) 2 /HPF 0 -3 Normal (applies to non-numeric results) [facility] (Sergey Calix MD) Laboratory test finding (navigational concept) 1 /HPF 0 -6 Normal (applies to non-numeric results) [facility] (Sergey Calix MD) Laboratory test finding (navigational concept) Laboratory test r esult Normal (applies to non-numeric results) [facility] (Sergey Calix MD) Laboratory test finding (navigational concept) 0 /LPF 0 -1 Normal (applies to non-numeric results) [facility] (Sergey Calix MD) ID Date Data Source [id number] 12/30/2019 12:09:00 PM EDT [facility] Name Value Range Interpretation Code Description Data Criss rce(s) Supporting Document(s) ZEESHAN DIRECT Negative Negative [facility] Performed at: [facility] [address] [id number] Director: Maryana Kramer MD, Phone: [phone] ID Date Data Source [id number] 12/31/2019 06:10:00 AM EDT [facility] Name Value Range Interpretation Code Description Data Criss rce(s) Supporting Document(s) CCP ANTIBODIES IGG/IGA 5 units 0-19 [facility] Negative <20 Weak positive 20 - 39 Moderate positive 40 - 59 Strong positive >59Performed at: [facility] [id number] Director: Viviana Palm MD, Phone: [phone] ID Date Data Source [id number] 12/30/2019 08:09:00 AM EDT [facility] Name Value Range Interpretation Code Description Data Criss rce(s) Supporting Document(s) CORTISOL 10.0 ug/dL . [facility] Cortisol AM 6.2 - 19.4 Cortisol PM 2.3 - 11.9Performed at: RN - [facility] [address] [id number] Director: Maryana Kramer MD, Phone: [phone] ID Date Data Source [id number] 12/30/2019 08:09:00 AM EDT [facility] Name Value Range Interpretation Code Description Data Criss rce(s) Supporting Document(s) VITAMIN B12 506 pg/mL 232-1245 [facility] FOLATE (FOLIC ACID), SERUM 8.0 ng/mL >3.0 [facility] A serum folate concentration of less obinna n 3.1 ng/mL isconsidered to represent clinical deficiency. ID Date Data Source [id number] 12/30/2019 08:06:00 AM EDT [facility] Name Value Range Interpretation Code Description Data Criss rce(s) Supporting Document(s) Vitamin B12 506 pg/mL 232-1245 [facility] Folate (Folic Acid), Serum 8.0 ng/mL >3.0 [facility] A serum folate concentration of less obinna n 3.1 ng/mL isconsidered to represent clinical deficiency. ID Date Data Source [id number] 12/30/2019 12:05:00 PM EDT [facility] Name Value Range Interpretation Code Description Data Criss rce(s) Supporting Document(s) ZEESHAN Direct Negative Negative [facility] ID Date Data Source [id number] 12/31/2019 06:05:00 AM EDT [facility] Name Value Range Interpretation Code Description Data Criss rce(s) Supporting Document(s) CCP Antibodies IgG/IgA 5 units 0-19 [facility] Negative <20 Weak positive 20 - 39 Moderate positive 40 - 59 Strong positive >59 ID Date Data Source [id number] 12/30/2019 08:06:00 AM EDT [facility] Name Value Range Interpretation Code Description Data Criss rce(s) Supporting Document(s) Cortisol 10.0 ug/dL [facility] C ortisol AM 6.2 - 19.4 Cortisol PM 2.3 - 11.9 ID Date Data Source [id number] 12/29/2019 10:49:00 AM EDT [facility] Name Value Range Interpretation Code Description Data Criss rce(s) Supporting Document(s) C REACTIVE PROTEIN 1.1 mg/L 0.0-3.0 [facility] ID Date Data Source [id number] 12/29/2019 10:49:00 AM EDT [facility] Name Value Range Interpretation Code Description Data Criss rce(s) Supporting Document(s) MAGNESIUM 2.2 mg/dL 1.8-2.4 [facility] ID Date Data Source [id number] 12/29/2019 10:49:00 AM EDT [facility] Name Value Range Interpretation Code Description Data Criss rce(s) Supporting Document(s) GLUCOSE 89 mg/dL 74-106 [facility] BLOOD UREA NITROGEN 11 mg/dL 7-18 [facility] ital CREATININE 0.9 mg/dL 0.6-1.0 [facility] SODIUM 137 mmol/L 136-145 [facility] POTASSIUM 3.8 mmol/L 3.5-5.1 [facility] CHLORIDE 100 mmol/L 98-107 [facility] CO2 23 mmol/L 21-32 [facility] CALCIUM 8.9 mg/dL 8.5-10.1 [facility] ANION GAP 14.0 mmol/L 5-12 H [facility] GLOMERULAR FILTRATION RATE 75 mL/min [facility] GFR IS CALCULATED IN mL/min/1.73m2 SHALOM L FUNCTION: >90MILDLY DECREASED: 60-89MILDY TO MODERATELY DECREASED: 45-59 MODERATELY TO SEVERELY DECREASED: 30-44SEVERELY DECREASED: 15-29RENAL FAILURE: <15 AST 26 U/L 15-37 [facility] ALT 39 U/L 12-78 [facility] ALKALINE PHOSPHATASE 66 U/L 46-116 [facility] pital TOTAL BILIRUBIN 0.6 mg/dL 0.2-1.0 [facility] TOTAL PROTEIN 7.7 g/dl 6.4-8.2 [facility] ALBUMIN 4.1 gm/dL 3.4-5.0 [facility] ID Date Data Source [id number] 12/29/2019 08:48:00 AM EDT [facility] Name Value Range Interpretation Code Description Data Criss rce(s) Supporting Document(s) WHITE BLOOD COUNT 7.1 K/mm3 4.0-10.0 [facility] RED BLOOD COUNT 4.59 M/mm3 4.00-5.50 [facility] HEMOGLOBIN 14.0 gm/dL 12.0-16.0 [facility] HEMATOCRIT 39.1 % 36.0-48.8 [facility] MEAN CELL VOLUME 85.2 fl 80-96 [facility] MEAN CORPUSCULAR HEMOGLOBIN 30.5 pg 27.0-31.0 [facility] MEAN CORPUSCULAR HGB CONC 35.8 g/dl 32.0-36.0 [facility] RED CELL DISTRIBUTION WIDTH 12.0 % 10.0-14.5 [facility] PLATELET COUNT 238 K/mm3 172-450 [facility] MEAN PLATELET VOLUME 10.8 fl 9.0-13.0 [facility] pital GRAN % 43.7 % 50-80.0 L [facility] IG% 0.1 % 0.0-0.2 [facility] LYMPH % 40.6 % 25.0-50.0 [facility] MONO % 9.7 % 2.0-10.0 [facility] EOS % 5.6 % 0-5.0 H [facility] BASO % 0.3 % 0.0-2.0 [facility] GRAN # 3.1 K/mm3 2.0-8.00 [facility] IG# 0.0 K/mm3 0.0-0.2 [facility] LYMPH # 2.9 K/mm3 1.0-5.0 [facility] MONO # 0.7 K/mm3 0.10-1.20 [facility] EOS # 0.4 K/mm3 0.0-0.5 [facility] BASO # 0.0 K/mm3 0.0-0.2 [facility] ID Date Data Source [id number] 12/29/2019 09:30:00 AM EDT [facility] Name Value Range Interpretation Code Description Data Criss rce(s) Supporting Document(s) ERYTHROCYTE SEDIMENTATION RATE 10 mm/hr 0-20 [facility] ID Date Data Source [id number] 12/29/2019 08:58:00 AM EDT [facility] Name Value Range Interpretation Code Description Data Criss rce(s) Supporting Document(s) FREE T4 0.85 ng/dL 0.76-1.46 [facility] ID Date Data Source [id number] 12/29/2019 08:58:00 AM EDT [facility] Name Value Range Interpretation Code Description Data Criss rce(s) Supporting Document(s) TSH 2.04 uIU/mL 0.36-3.74 [facility] ID Date Data Source [id number] 12/29/2019 08:41:00 AM EDT [facility] Name Value Range Interpretation Code Description Data Criss rce(s) Supporting Document(s) RHEUMATOID FACTOR SCREEN NEGATIVE NEGATIVE [facility] ID Date Data Source [id number] 10/04/2019 02:30:00 PM EDT [facility] ([facility]) Name Value Range Interpretation Code Description Data Criss rce(s) Supporting Document(s) Erythrocyte sedimentation rate by 2H Westergren method 10 mm/hr 0-2 0 [facility] ([facility]) reviewed. ID Date Data Source [id number] 10/04/2019 02:30:00 PM EDT [facility] ([facility]) Name Value Range Interpretation Code Description Data Criss rce(s) Supporting Document(s) Thyroid Stimulating Hormone 3.080 uIU/ML 0.358-3.740 [facility] ([facility]) reviewed. Free T4 1.02 ng/dL 0.76-1.46 [facility] ([facility]) reviewed. ID Date Data Source [id number] 10/04/2019 02:30:00 PM EDT [facility] ([facility]) Name Value Range Interpretation Code Description Data Criss rce(s) Supporting Document(s) CPK Creatine Phosphokinase 208 U/L 26-192 [facility] ([facility]) reviewed. CK-MB Value Mass 2.8 ng/mL [facility] ([facility]) reviewed. MB/CK Relative Index 1.35 [facility] ([facility]) reviewed. Troponin I Laboratory test result [facility] ([facility]) reviewed. ID Date Data Source [id number] 10/04/2019 02:30:00 PM EDT [facility] ([facility]) Name Value Range Interpretation Code Description Data Criss rce(s) Supporting Document(s) Glucose, Fasting 101 mg/dL 70-100 [facility] ([facility]) reviewed. Blood Urea Nitrogen 11 mg/dL 7-18 [facility] ([facility]) reviewed. Creatinine For GFR 0.82 mg/dL 0.55-1.30 [facility] ([facility]) reviewed. Glomerular Filtration Rate Laboratory test result [facility] ([facility]) reviewed. Sodium Level 138 meq/L 136-145 [facility] ([facility]) reviewed. Potassium Serum 4.8 meq/L 3.5-5.1 [facility] ([facility]) reviewed. Chloride Level 105 meq/L 98-107 [facility] ([facility]) reviewed. Carbon Dioxide Level 28 meq/L 21-32 [facility] ([facility]) reviewed. Anion Gap 5 meq/L 8-16 [facility] ([facility]) reviewed. Calcium Level 9.2 mg/dL 8.5-10.1 [facility] ([facility]) reviewed. Ast/Sgot 24 U/L 7-37 [facility] ([facility]) reviewed. Alt/SGPT 33 U/L 12-78 [facility] ([facility]) reviewed. Alkaline Phosphatase 92 U/L 45-117 [facility] ([facility]) reviewed. Bilirubin,Total 0.4 mg/dL 0.2-1.0 [facility] ([facility]) reviewed. Total Protein 7.6 GM/DL 6.4-8.2 [facility] ([facility]) reviewed. Albumin 4.0 GM/DL 3.2-5.2 [facility] ([facility]) reviewed. Albumin/Globulin Ratio 1.11 1.00-1.93 [facility] ([facility]) reviewed. ID Date Data Source [id number] 10/04/2019 02:30:00 PM EDT [facility] ([facility]) Name Value Range Interpretation Code Description Data Criss rce(s) Supporting Document(s) White Blood Count 6.7 10 4.0-10.0 [facility] ([facility]) reviewed. Red Blood Count 4.33 10 4.00-5.40 [facility] ([facility]) reviewed. Hematocrit 39.3 % 36.0-47.0 [facility] ([facility]) reviewed. Hemoglobin 13.9 g/dL 12.0-15.5 [facility] ([facility]) reviewed. Mean Corpuscular Volume 90.8 fl 80.0-96.0 M EDENT ([facility]) reviewed. Mean Corpuscular HGB Conc 35.4 g/dL 32.0-36.5 MEDENT ([facility]) reviewed. Mean Corpuscular Hemoglobin 32.1 pg 27.0-33.0 MEDENT ([facility]) reviewed. Red Cell Distribution Width 12.6 % 11.5-14.5 MEDENT ([facility]) reviewed. Platelet Count, Automated 250 10 150-450 MEDENT ([facility]) reviewed. Lymph % 41.4 % 24.0-44.0 MEDENT ([facility], [facility]) reviewed. Neutrophils % 45.4 % 36.0-66.0 MEDENT ([facility], [facility]) reviewed. Atlantic % 7.6 % 0.0-5.0 MEDENT ([facility]) reviewed. Eos % 4.2 % 0.0-3.0 MEDENT ([facility]) reviewed. Baso % 0.7 % 0.0-1.0 MEDENT ([facility]) reviewed. Immature Granulocyte % 0.7 % 0-3.0 MEDENT ([facility]) reviewed. Nucleated Red Blood Cell % 0.0 % 0-0 MED ENT ([facility]) reviewed. Neutrophils # 3.0 10 1.5-8.5 MEDENT ([facility] [place], [facility]) reviewed. Lymph # 2.8 10 1.5-5.0 MEDENT ([facility], [facility]) reviewed. Atlantic # 0.5 10 0.0-0.8 MEDENT ([facility], [facility]) reviewed. Eos # 0.3 10 0.0-0.5 MEDENT ([facility], [facility]) reviewed. Baso # 0.1 10 0.0-0.2 MEDENT ([facility], [facility]) reviewed. Procedure Social History Code Duration Value Status Description Data Source(s ) Smoking 06/29/2020 12:00:00 AM EST Unknown if ever smoked comp leted Unknown if ever smoked [facility] ([facility]) Smoking 03/08/2020 12:00:00 AM EDT Unknown if ever smoked comp leted Unknown if ever smoked [facility] ([facility]) Smoking 02/17/2020 12:00:00 AM EDT Unknown if ever smoked comp leted Unknown if ever smoked [facility] ([facility]) Smoking 02/03/2020 12:00:00 AM EDT Current Smoker completed Curre nt Smoker eCW1 ([facility]) Smoking 02/03/2020 12:00:00 AM EDT Current Smoker completed Curre nt Smoker eCW1 ([facility]) Smoking 02/03/2020 12:00:00 AM EDT Current Smoker completed Curre nt Smoker eCW1 ([facility]) Smoking 02/03/2020 12:00:00 AM EDT Current Smoker completed Curre nt Smoker eCW1 ([facility]) Smoking 01/27/2020 12:00:00 AM EDT Unknown if ever smoked comp leted Unknown if ever smoked [facility] ([facility]) Smoking 2019 12:00:00 AM EDT Current Smoker completed Curre nt Smoker eCW1 ([facility]) Smoking 2019 12:00:00 AM EDT Current Smoker completed Curre nt Smoker eCW1 ([facility]) Smoking 11/15/2019 12:00:00 AM EDT Unknown if ever smoked comp leted Unknown if ever smoked [facility] ([facility]) Smoking 10/28/2019 12:00:00 AM EDT Unknown if ever smoked comp leted Unknown if ever smoked [facility] ([facility]) Smoking 10/21/2019 12:00:00 AM EDT Unknown if ever smoked comp leted Unknown if ever smoked [facility] ([facility]) Smoking 10/12/2019 12:00:00 AM EDT Unknown if ever smoked comp leted Unknown if ever smoked [facility] ([facility]) Smoking 09/27/2019 12:00:00 AM EDT Unknown if ever smoked comp leted Unknown if ever smoked [facility] ([facility]) Smoking 09/23/2019 12:00:00 AM EDT Unknown if ever smoked comp leted Unknown if ever smoked [facility] ([facility]) Smoking 09/10/2019 12:00:00 AM EDT Unknown if ever smoked comp leted Unknown if ever smoked [facility] ([facility]) Smoking 08/24/2019 12:00:00 AM EDT Unknown if ever smoked comp leted Unknown if ever smoked [facility] ([facility]) Smoking 08/06/2019 12:00:00 AM EDT Unknown if ever smoked comp leted Unknown if ever smoked [facility] ([facility]) Smoking 07/23/2019 12:00:00 AM EST Unknown if ever smoked comp leted Unknown if ever smoked [facility] ([facility]) Smoking 06/22/2019 12:00:00 AM EST Unknown if ever smoked comp leted Unknown if ever smoked [facility] ([facility] [place] [facility]) Smoking 06/08/2019 12:00:00 AM EST Unknown if ever smoked comp leted Unknown if ever smoked [facility] ([facility]) Smoking 06/04/2019 12:00:00 AM EST Unknown if ever smoked comp leted Unknown if ever smoked [facility] ([facility]) Smoking 05/14/2019 12:00:00 AM EST Unknown if ever smoked comp leted Unknown if ever smoked [facility] Vital Signs ID Date Data Source UNK Name Value Range Interpretation Code Description Data Source(s) Body weight 60.782 kg 60.782 kg [facility] Lando body weight 115 [lb_av] 115 [lb_av] MEDEN T ([facility]) Body mass index (BMI) [Ratio] 23.7 kg/m2 23.7 k g/m2 [facility] ([facility]) Body weight 134.00 [lb_av] 134.00 [lb_av] MEDEN T ([facility]) Body height 63 [in_i] 63 [in_i] [facility] ([facility]) 5'3" Body surface area Derived from formula 1.63 m2 1.63 m2 [facility] ([facility]) Body weight 135.00 [lb_av] 135.00 [lb_av] MEDEN T ([facility]) Body temperature 97.8 [degF] 97.8 [degF] [facility] ([facility]) Respiratory rate 18 /min 18 /min [facility] ( [facility]) Heart rate 85 /min 85 /min [facility] ([facility]) Diastolic blood pressure 89 mm[Hg] 89 mm[Hg] [facility] ([facility]) Systolic blood pressure 113 mm[Hg] 113 mm[Hg] M EDENT ([facility]) Oxygen saturation in Arterial blood by Pulse oximetry 99 % 99 % eCW1 ([facility]) Respiratory rate 18 /min 18 /min eCW1 ([facility]) Heart rate 68 /min 68 /min eCW1 ([facility]) Body temperature 98.2 [degF] 98.2 [degF] eCW1 ( [facility]) Body mass index (BMI) [Ratio] 28.29 kg/m2 28.29 kg/m2 eCW1 ([facility]) Body weight 152.2 [lb_av] 152.2 [lb_av] eCW1 ([facility]) Body height 61.50 [in_i] 61.50 [in_i] eCW1 ([facility]) Oxygen saturation in Arterial blood by Pulse oximetry 99 % 99 % eCW1 ([facility]) Respiratory rate 18 /min 18 /min eCW1 ([facility]) Heart rate 68 /min 68 /min eCW1 ([facility]) Body temperature 98.4 [degF] 98.4 [degF] eCW1 ( [facility]) Body mass index (BMI) [Ratio] 28.14 kg/m2 28.14 kg/m2 eCW1 ([facility]) Body weight 151.4 [lb_av] 151.4 [lb_av] eCW1 ([facility]) Body height 61.50 [in_i] 61.50 [in_i] eCW1 ([facility]) Diastolic blood pressure 0 mm[Hg] Normal (applies to non-numeric results) 0 mm[Hg] [facility] ([facility]) Systolic blood pressure 0 mm[Hg] Normal (applies t o non-numeric results) 0 mm[Hg] [facility] ([facility]) Body mass index (BMI) [Ratio] 0.00 kg/m2 No rmal (applies to non-numeric results) 0.00 kg/m2 [facility] ([facility]) Body weight Measured 0.00 lbs Normal (applies to n on-numeric results) 0.00 lbs [facility] ([facility]) Body height 0.00 in Normal (applies to non-numeric resu lts) 0.00 in [facility] ([facility]) Body mass index (BMI) [Ratio] 26.7 kg/m2 26.7 k g/m2 MEDENT ([facility] [place], [facility]) Body height 63 [in_i] 63 [in_i] MEDENT ([facility]) 5'3" Body weight 151.00 [lb_av] 151.00 [lb_av] MEDEN T ([facility], [facility]) Body temperature 98.9 [degF] 98.9 [degF] MEDENT ([facility], [facility]) Oxygen saturation in Arterial blood by Pulse oximetry 99 % 99 % MEDENT ([facility], [facility]) Respiratory rate 12 /min 12 /min MEDENT ( [facility], [facility]) Heart rate 82 /min 82 /min MEDENT ([facility], [facility]) Diastolic blood pressure 100 mm[Hg] 100 mm[Hg] MEDENT ([facility] [place], [facility]) Systolic blood pressure 148 mm[Hg] 148 mm[Hg] M EDENT ([facility] [place], [facility]) Diastolic blood pressure 0 mm[Hg] Normal (applies to non-numeric results) 0 mm[Hg] [facility] ([facility]) Systolic blood pressure 0 mm[Hg] Normal (applies t o non-numeric results) 0 mm[Hg] [facility] ([facility]) Body mass index (BMI) [Ratio] 0.00 kg/m2 No rmal (applies to non-numeric results) 0.00 kg/m2 [facility] ([facility]) Body weight Measured 0.00 lbs Normal (applies to n on-numeric results) 0.00 lbs [facility] ([facility]) Body height 0.00 in Normal (applies to non-numeric resu lts) 0.00 in [facility] ([facility]) Deprecated Oxygen saturation in Capillary blood by Oximetry 98 % 98 % eCW1 ([facility]) Respiratory rate 18 /min 18 /min eCW1 ([facility]) Heart rate 75 /min 75 /min eCW1 ([facility]) Body temperature 98.2 [degF] 98.2 [degF] eCW1 ( [facility]) Body mass index (BMI) [Ratio] 26.50 kg/m2 26.50 kg/m2 eCW1 ([facility]) Body weight Measured 142.6 [lb_av] 142.6 [lb_av ] eCW1 ([facility]) Body height 61.50 [in_us] 61.50 [in_us] eCW1 ([facility]) Body weight 68.947 kg 68.947 kg MEDENT ([facility]) Body mass index (BMI) [Ratio] 26.9 kg/m2 26.9 k g/m2 MEDENT ([facility]) Heart rate 63 /min 63 /min MED[facility] ([facility]) Diastolic blood pressure 76 mm[Hg] 76 mm[Hg] MEDENT ([facility]) Systolic blood pressure 124 mm[Hg] 124 mm[Hg] M EDENT ([facility]) Body weight 152.00 [lb_av] 152.00 [lb_av] MEDEN T ([facility]) Body height 63 [in_i] 63 [in_i] MEDENT ([facility]) 5'3" Body surface area 1.74 m2 1.74 m2 MEDENT ([facility]) Body mass index (BMI) [Ratio] 26.7 kg/m2 26.7 k g/m2 MEDENT ([facility]) Body weight 153.00 [lb_av] 153.00 [lb_av] MEDEN T ([facility]) Body height 63.5 [in_i] 63.5 [in_i] MEDENT ([facility]) 5'3.50" Diastolic blood pressure 70 mm[Hg] 70 mm[Hg] MEDENT ([facility]) Systolic blood pressure 114 mm[Hg] 114 mm[Hg] M EDENT ([facility]) Deprecated Oxygen saturation in Capillary blood by Oximetry 97 % 97 % eCW1 ([facility]) Respiratory rate 18 /min 18 /min eCW1 ([facility]) Heart rate 84 /min 84 /min eCW1 ([facility]) Body temperature 98.3 [degF] 98.3 [degF] eCW1 ( [facility]) Body mass index (BMI) [Ratio] 28.36 kg/m2 28.36 kg/m2 eCW1 ([facility]) Body weight Measured 152.6 [lb_av] 152.6 [lb_av ] eCW1 ([facility]) Body height 61.50 [in_us] 61.50 [in_us] eCW1 ([facility]) Body mass index (BMI) [Ratio] 25.7 kg/m2 25.7 k g/m2 MEDENT ([facility]) Body height 63 [in_i] 63 [in_i] MEDENT ([facility]) 5'3" Body weight 145.00 [lb_av] 145.00 [lb_av] MEDEN T ([facility], [facility]) Body temperature 98.5 [degF] 98.5 [degF] MEDENT ([facility], [facility]) Oxygen saturation in Arterial blood by Pulse oximetry 98 % 98 % MEDENT ([facility], [facility]) Respiratory rate 18 /min 18 /min MEDENT ( [facility]) Heart rate 88 /min 88 /min MEDENT ([facility], [facility]) Diastolic blood pressure 79 mm[Hg] 79 mm[Hg] MEDENT ([facility]) Systolic blood pressure 122 mm[Hg] 122 mm[Hg] M EDENT ([facility]) Body height --lying 89 min Normal (applies to non-nume josias results) 89 min [facility] ([facility]) Diastolic blood pressure 83 mm[Hg] Normal (applies to non-numeric results) 83 mm[Hg] [facility] ([facility]) Systolic blood pressure 120 mm[Hg] Normal (applies t o non-numeric results) 120 mm[Hg] [facility] ([facility]) Body mass index (BMI) [Ratio] 25.86 kg/m2 No rmal (applies to non-numeric results) 25.86 kg/m2 [facility] ([facility]) Body weight Measured 146.00 lbs Normal (applies to n on-numeric results) 146.00 lbs [facility] ([facility]) Body height 63.00 in Normal (applies to non-numeric resu lts) 63.00 in [facility] ([facility]) ID Date Data Source [id number] 02/03/2020 07:53:00 AM EDT [facility] Name Value Range Interpretation Code Description Data Source(s) WEIGHT [id number] kilos [id number] [facility] HEIGHT 160.02 centimeters 160.02 centimeter s [facility] WEIGHT [id number] kilos [id number] [facility] HEIGHT 160.02 centimeters 160.02 centimeter s [facility] Patient Treatment Plan of Care Planned Activity Planned Date Details Description Data Source (s) Chio 02/03/2020 12:00:00 AM EDT e CW1 ([facility]) Fluconazole 150 MG Oral Tablet [Diflucan] 02/03/2020 12:00:00 AM ED T eCW1 ([facility]) Chio 02/03/2020 12:00:00 AM EDT e CW1 ([facility]) Fluconazole 150 MG Oral Tablet [Diflucan] 02/03/2020 12:00:00 AM ED T eCW1 ([facility]) Chio 02/03/2020 12:00:00 AM EDT e CW1 ([facility]) Fluconazole 150 MG Oral Tablet [Diflucan] 02/03/2020 12:00:00 AM ED T eCW1 ([facility]) Chio 02/03/2020 12:00:00 AM EDT e CW1 ([facility]) Fluconazole 150 MG Oral Tablet [Diflucan] 02/03/2020 12:00:00 AM ED T eCW1 ([facility]) Trazodone Hydrochloride 50 MG Oral Tablet 09/13/2019 12:00:00 AM ED T eCW1 ([facility]) 24 HR venlafaxine 75 MG Extended Release Oral Capsule [Effexor] 07/19/2019 12:00:00 AM EST eCW1 ([facility]) Hydroxyzine Hydrochloride 25 MG Oral Tablet 07/19/2019 12:00:00 AM EST eCW1 ([facility])
--- OUTSIDE RECORDS SUMMARY | 2020-07-09 12:53 | CCD ---
Author Author [facility] Organization [facility] Address Unknown Phone Unavailable Care Team Providers Care Service Delivery Consultant Name Role Phone Frederick Dominguez MD Unavailable [...] Mayer, Edith Ta MD Unavailable Unavailable Mayer, Ediht Ta MD Unavailable Unavailable Mayer, Edith Ta [...] EMILIA RPA-C Unavailable Unavailable Alberry, D Wanda PRESALES CONSULTANT Unavailable Unavailable Alberry, D Wanda PRESALES CONSULTANT Unavailable Unavailable Alberry, D Wanda PRESALES CONSULTANT Unavailable Unavailable Alberry, D Wanda PRESALES CONSULTANT Unavailable Unavailable Alberry, D Wanda PRESALES CONSULTANT Unavailable Unavailable Alberry, D Wanda PRESALES CONSULTANT Unavailable Unavailable Alberry, D Wanda PRESALES CONSULTANT Unavailable Unavailable Alberry, D Wanda PRESALES CONSULTANT Unavailable Unavailable Alberry, D Wanda PRESALES CONSULTANT Unavailable Unavailable Alberry, D Wanda PRESALES CONSULTANT Unavailable Unavailable Alberry, D Wanda PRESALES CONSULTANT Unavailable Unavailable Alberry, D Wanda PRESALES CONSULTANT Unavailable Unavailable Alberry, D Wanda PRESALES CONSULTANT Unavailable Unavailable Alberry, D Wanda PRESALES CONSULTANT Unavailable Unavailable Alberry, D Wanda PRESALES CONSULTANT Unavailable Unavailable Alberry, D Wanda PRESALES CONSULTANT Unavailable Unavailable Alberry, D Wanda PRESALES CONSULTANT Unavailable Unavailable Alberry, D Wanda PRESALES CONSULTANT Unavailable Unavailable Alberry, D Wanda PRESALES CONSULTANT Unavailable Unavailable Alberry, D Wanda PRESALES CONSULTANT Unavailable Unavailable Alberry, D Wanda PRESALES CONSULTANT Unavailable Unavailable Alberry, D Wanda PRESALES CONSULTANT Unavailable Unavailable Alberry, D Wanda PRESALES CONSULTANT Unavailable Unavailable Alberry, D Wanda PRESALES CONSULTANT Unavailable Unavailable Alberry, D Wanda PRESALES CONSULTANT Unavailable Unavailable Alberry, D Wanda PRESALES CONSULTANT Unavailable Unavailable Alberry, D Wanda PRESALES CONSULTANT Unavailable Unavailable Alberry, D Wanda PRESALES CONSULTANT Unavailable Unavailable Alberry, D Wanda PRESALES CONSULTANT Unavailable Unavailable Alberry, D Wanda PRESALES CONSULTANT Unavailable Unavailable Alberry, D Wanda PRESALES CONSULTANT Unavailable Unavailable Alberry, D Wanda PRESALES CONSULTANT Unavailable Unavailable Alberry, D Wanda PRESALES CONSULTANT Unavailable Unavailable Alberry, D Wanda PRESALES CONSULTANT Unavailable Unavailable Alberry, D Wanda PRESALES CONSULTANT Unavailable Unavailable Alberry, D Wanda PRESALES CONSULTANT Unavailable Unavailable Alberry, D Wanda PRESALES CONSULTANT Unavailable Unavailable Alberry, D Wanda PRESALES CONSULTANT Unavailable Unavailable Alberry, D Wanda PRESALES CONSULTANT Unavailable Unavailable Alberry, D Wanda PRESALES CONSULTANT Unavailable Unavailable Alberry, D Wanda PRESALES CONSULTANT Unavailable Unavailable Alberry, D Wanda PRESALES CONSULTANT Unavailable Unavailable Alberry, D Wanda PRESALES CONSULTANT Unavailable Unavailable Alberry, D Wanda PRESALES CONSULTANT Unavailable Unavailable Alberry, D Wanda PRESALES CONSULTANT Unavailable Unavailable Alberry, D Wanda PRESALES CONSULTANT Unavailable Unavailable Alberry, D Wanda PRESALES CONSULTANT Unavailable Unavailable Alberry, D Wanda PRESALES CONSULTANT Unavailable Unavailable NYASIA, MICHAEL PA Unavailable Unavailable [...] G MIRTA PA Unavailable Unavailable TONTARSJANAY, G MRITA PA Unavailable Unavailable TONTARSJANAY, G MIRTA PA [...] Unavailable TONTARSJANAY, G MIRTA PA Unavailable Unavailable TONTARSKI, G MIRTA PA Unavailable Unavailable TONTARSKI, G MIRTA PA Unavailable Unavailable TONTARSKI, G MIRTA PA Unavailable Unavailable TONTARSKI, G MIRTA PA Unavailable Unavailable TONTARSKI, G MIRTA PA Unavailable Unavailable TONTARSKI, G MIRTA PA Unavailable Unavailable TONTARSKI, G MRITA PA Unavailable Unavailable TONTARSKI, G MIRTA PA [...] V MD Unavailable Unavailable Dimitry, A Cinthya PRESALES CONSULTANT Unavailable Unavailable Dimitry, A Cinthya PRESALES CONSULTANT Unavailable Unavailable Dimitry, A Cinthya PRESALES CONSULTANT Unavailable Unavailable Dimitry, A Cinthya PRESALES CONSULTANT Unavailable Unavailable Dimitry, A Cinthya PRESALES CONSULTANT Unavailable Unavailable Dimitry, A Cinthya PRESALES CONSULTANT Unavailable Unavailable Dimitry, A Cinthya PRESALES CONSULTANT Unavailable Unavailable Dimitry, A Cinthya PRESALES CONSULTANT Unavailable Unavailable Dimitry, A Cinthya PRESALES CONSULTANT Unavailable Unavailable Dimitry, A Cinthya PRESALES CONSULTANT Unavailable Unavailable Dimitry, A Cinthya PRESALES CONSULTANT Unavailable Unavailable Dimitry, A Cinthya PRESALES CONSULTANT Unavailable Unavailable Dimitry, A Cinthya PRESALES CONSULTANT Unavailable Unavailable Dimitry, A Cinthya PRESALES CONSULTANT Unavailable Unavailable Dimitry, A Cinthya PRESALES CONSULTANT Unavailable Unavailable Dimitry, A Cinthya PRESALES CONSULTANT Unavailable Unavailable Dimitry, A Cinthya PRESALES CONSULTANT Unavailable Unavailable Dimitry, A Cinthya PRESALES CONSULTANT Unavailable Unavailable Dimitry, A Cinthya PRESALES CONSULTANT Unavailable Unavailable Dimitry, A Cinthya PRESALES CONSULTANT Unavailable Unavailable Dimitry, A Cinthya PRESALES CONSULTANT Unavailable Unavailable Dimitry, A Cinthya PRESALES CONSULTANT Unavailable Unavailable Dimitry, A Cinthya PRESALES CONSULTANT Unavailable Unavailable Dimitry, A Cinthya PRESALES CONSULTANT Unavailable Unavailable Dimitry, A Cinthya PRESALES CONSULTANT Unavailable Unavailable Dimitry, A Cinthya PRESALES CONSULTANT Unavailable Unavailable Dimitry, A Cinthya PRESALES CONSULTANT Unavailable Unavailable Dimitry, A Cinthya PRESALES CONSULTANT Unavailable Unavailable Dimitry, A Cinthya PRESALES CONSULTANT Unavailable Unavailable Dimitry, A Cinthya PRESALES CONSULTANT Unavailable Unavailable Dimitry, A Cinthya PRESALES CONSULTANT Unavailable Unavailable Dimitry, A Cinthya PRESALES CONSULTANT Unavailable Unavailable Dimitry, A Cinthya PRESALES CONSULTANT Unavailable Unavailable Dimitry, A Cinthya PRESALES CONSULTANT Unavailable Unavailable Dimitry, A Cinthya PRESALES CONSULTANT Unavailable Unavailable Dimitry, A Cinthya PRESALES CONSULTANT Unavailable Unavailable Dimitry, A Cinthya PRESALES CONSULTANT Unavailable Unavailable Dimitry, A Cinthya PRESALES CONSULTANT Unavailable Unavailable Dimitry, A Cinthya PRESALES CONSULTANT Unavailable Unavailable Dimitry, A Cinthya PRESALES CONSULTANT Unavailable Unavailable Dimitry, A Cinthya PRESALES CONSULTANT Unavailable Unavailable Dimitry, A Cinthya PRESALES CONSULTANT Unavailable Unavailable Dimitry, A Cinthya PRESALES CONSULTANT Unavailable Unavailable Dimitry, A Cinthya PRESALES CONSULTANT Unavailable Unavailable Azraremstevan, Stacie Unavailable LETTIERE, A [...] Unavailable Unavailable LEOBARDO CORONA MD Unavailable Unavailable Columbia, C Artur Unavailable Unavailable Columbia, C Artur Unavailable Unavailable Columbia, C Artur Unavailable Unavailable Columbia, C Artur Unavailable Unavailable Dia, C Artur Unavailable Unavailable Dia, C Artur Unavailable Unavailable [place], C Artur Unavailable Unavailable Rosie CÁRDENAS MD Unavailable Unavailable oRsie CÁRDENAS MD Unavailable Unavailable CÁRDENAS, Rosie CARTER [...] L EMMA WHEELER Unavailable Unavailable CÁRDENAS, L MEMA WHEELER Unavailable Unavailable CÁRDENAS, L EMMA WHEELER Unavailable Unavailable CÁRDENAS, L EMMA WHEELER Unavailable Unavailable CÁRDENAS, L EMMA WHEELER Unavailable Unavailable CÁRDENAS, L EMMA WHEELER Unavailable Unavailable CÁRDENAS, L EMMA WHEELER Unavailable Unavailable CÁRDENAS, L EMMA WHEELER Unavailable Unavailable CÁDRENAS, L EMMA WHEELER Unavailable Unavailable CÁRDENAS, L [...] Logan-Centner, Whitley Unavailable Unavailable ADDIE H YRIS INTELLIGENCE ANALYST Unavailable Unavailable ADDIE, H YRIS INTELLIGENCE ANALYST Unavailable Unavailable ADDIE, H YRIS INTELLIGENCE ANALYST Unavailable Unavailable ADDIE, H YRIS INTELLIGENCE ANALYST Unavailable Unavailable ADDIE, H YRIS INTELLIGENCE ANALYST Unavailable Unavailable ADDIE, H YRIS INTELLIGENCE ANALYST Unavailable Unavailable ADDIE, H YRIS INTELLIGENCE ANALYST Unavailable Unavailable AL, W MORGAN PA Unavailable [...] is protected by Article 27-F of the [facility] Public Health law. If you continue you may have access to information: Regarding HIV / AIDS; Provided by facilities licensed or operated by the [facility] Office of Mental Health; or Provided by the [facility] Office for People With Developmental Disabilities. If such information is present, then the following [facility] mandated warning applies: This information has been [...] law may result in a fine or custodial sentence or both. A general authorization for the release of medical or other information is NOT sufficient authorization for further disc losure. Allergies and Adverse Reactions Type Description Substance Reaction Status Data Source(s ) Drug allergy Oxycodone HCl Oxycodone Rash Active eCW1 ([facility]) Latex Latex Latex Rash Active eCW1 ([facility]) Latex Latex Latex Rash Active eCW1 ([facility]) Oxycodone HCl Oxycodone HCl Oxycodone Hydrochloride 20 MG/ML Oral Solution Rash Active eCW1 ([facility]) Allergy to substance Allergy to substance Allergy to substance JOSE MANUEL ([facility]) Allergy to substance Allergy to substance Allergy to substance JOSE MANUEL ([facility]) Allergy to substance Allergy to substance Allergy to substance JOSE MANUEL ([facility]) Family History Family Member Name Family Member Gender Family Member Status Date o f Status Description Data Source(s) Unknown Unknown Problem MEDENT ([facility]) Encounters Encounter Providers Location Date Indications Data Source(s ) Extended Individual Psychotherapy - 45 min Attender: Lynsey Fuller [facility] 06/29/2020 02:00:00 AM EST - 06/29/2020 02:00:00 AM EST [facility] ([facility]) Attender: Stacie Fuller 06/29/2020 12:00:0 0 AM EST [facility] ([facility]) GISELA Croft: [address] [place] [address], Ph. Attender: Whitley Flanagan [facility] Medical 06/22/2020 12:00:00 AM EST JOSE MANUEL ([facility]) Office Visit Attender: MIRTA MONTIEL [facility] 06/20/2020 09:45:00 AM EST MEDENT (Sergey Calix [facility]) Office Visit Attender: MIRTA MONTIEL [facility] 05/25/2020 10:30:00 AM EST MEDENT ([facility]gey Calix MD) Keyon Mayer MD: [address] [place] [address], Ph. Attender: Keyon Mayer MD [facility] Medical 05/24/2020 12:00:00 AM EST JOSE MANUEL ([facility]) Keyon Mayer MD: [address] [place] [address], Ph. Attender: Keyon Mayer MD [facility] Medical 05/24/2020 12:00:00 AM EST JOSE MANUEL ([facility]) Keyon Mayer MD: [address] [place] [address], Ph. Attender: Keyon Mayer MD [facility] Medical 05/24/2020 12:00:00 AM EST JOSE MANUEL ([facility]) Office Visit Attender: MIRTA MONTIEL [facility] 04/10/2020 10:30:00 AM EST MEDENT ([facility]gey Calix MD) Outpatient [facility] 03/24/2020 12:00:00 AM EDT eCW1 ([facility]) Outpatient [facility] 03/24/2020 12:00:00 AM EDT eCW1 ([facility]) Attender: Stacie Alina 03/08/2020 12:00:0 0 AM EDT [facility] ([facility]) Extended Individual Psychotherapy - 45 min [facility]2020 03:30:00 AM EDT - 03/07/2020 03:30:00 AM EDT [facility] ([facility]) Extended Individual Psychotherapy - 45 min Attender: Lynsey gutierrez [facility] 02/17/2020 10:30:00 AM EDT - 02/17/2020 10:30:00 AM EDT [facility] ([facility]) Attender: Stacie Fuller 02/17/2020 12:00:0 0 AM EDT [facility] ([facility]) Outpatient Attender: Cinthya DE 02/03/2020 07:30 :00 AM EDT [facility] Outpatient [facility] 02/03/2020 12:00:00 AM EDT eCW1 ([facility]) Outpatient [facility] 02/03/2020 12:00:00 AM EDT eCW1 ([facility]) Extended Individual Psychotherapy - 45 min [facility] 01/27/2020 10:30:00 AM EDT - 01/27/2020 10:30:00 AM EDT [facility] ([facility]) Attender: Stacie Fuller 01/27/2020 12:00:0 0 AM EDT [facility] ([facility]) Outpatient [facility] 01/04/2020 12:00:00 AM EDT eCW1 ([facility]) Outpatient Attender: Cinthya Moraes FNPReferrer: Cinthya DE EMERGENCY ROOM-LAB 12/29/2019 07:50:00 AM EDT - 12/29/2019 07:50:00 AM EDT [facility] Outpatient Attender: Cinthya DE 2019 03:30 :00 PM EDT [facility] Outpatient [facility] 2019 12:00:00 AM EDT eCW1 ([facility]) [facility] EN[facility] 12/09/2019 12:00:00 AM EDT eCW1 ([facility]) [id number]"Psychotherapy Attender: Stacie Fuller [facility] 11/15/2019 10:00:00 AM EDT - 11/15/2019 10:00:00 AM EDT [facility] ([facility]) Attender: Stacie Fuller 11/15/2019 12:00:0 0 AM EDT [facility] ([facility]) [id number]"Psychotherapy Attender: Stacie Fuller [facility] 10/28/2019 08:45:00 AM EDT - 10/28/2019 08:45:00 AM EDT [facility] ([facility]) Attender: Stacie Fuller 10/28/2019 12:00:0 0 AM EDT [facility] ([facility]) Outpatient Attender: YRIS FRANCO NP [facility] Jared lamar 10/21/2019 03:30:00 AM EDT - 10/21/2019 03:30:00 AM EDT [facility] ([facility]) Attender: YRIS FRANCO NP 10/21/2019 12:00:00 AM EDT [facility] ([facility]) [id number]"Psychotherapy Attender: Stacie Fuller [facility] 10/12/2019 10:45:00 AM EDT - 10/12/2019 10:45:00 AM EDT [facility] ([facility]) Attender: Stacie Fuller 10/12/2019 12:00:0 0 AM EDT [facility] ([facility]) Outpatient Attender: DILLAN Carrington karen 10/04/2019 12:15:00 PM EDT MEDENT ([facility]) Outpatient 09/29/2019 05:06:00 AM EDT [facility] [id number]"Psychotherapy Attender: Stacie Fuller [facility] 09/27/2019 10:00:00 AM EDT - 09/27/2019 10:00:00 AM EDT [facility] ([facility]) Attender: Stacie Fuller 09/27/2019 12:00:0 0 AM EDT [facility] ([facility]) Outpatient Attender: YRIS FRANCO NP [facility] Jared lamar 09/23/2019 03:00:00 AM EDT - 09/23/2019 03:00:00 AM EDT [facility] ([facility]) Attender: YRIS FRANCO NP 09/23/2019 12:00:00 AM EDT [facility] ([facility]) Outpatient Attender: Cinthya Moraes PRESALES CONSULTANT 09/13/2019 07:39 :00 AM EDT [facility] ENTER 09/13/2019 12:00:00 AM EDT eCW1 ([facility]) [id number]"Psychotherapy Attender: Stacie Fuller [facility] 09/10/2019 10:00:00 AM EDT - 09/10/2019 10:00:00 AM EDT [facility] ([facility]) Attender: Stacie Fuller 09/10/2019 12:00:0 0 AM EDT [facility] ([facility]) [id number]" Psychotherapy Attender: Stacie bacon [facility] 08/24/2019 10:00:00 AM EDT - 08/24/2019 10:00:00 AM EDT [facility] ([facility]) Attender: Stacie Fuller 08/24/2019 12:00:0 0 AM EDT [facility] ([facility]) Extended Individual Psychotherapy - 45 min Attender: Lynsey Fuller [facility] 08/06/2019 08:00:00 AM EDT - 08/06/2019 08:00:00 AM EDT [facility] ([facility]) Attender: Stacie Fuller 08/06/2019 12:00:0 0 AM EDT [facility] ([facility]) Outpatient Attender: Stanley Dominguez MD Main Office 08/04/2019 02:30:00 PM EDT MED[facility] ([facility]) Outpatient Attender: EMMA CÁRDENAS MD [facility] 08/2019 08:15:00 AM EST [facility] ([facility]) Extended Individual Psychotherapy - 45 min Attender: Lynsey Fuller [facility] 07/23/2019 10:45:00 AM EST - 07/23/2019 10:45:00 AM EST [facility] ([facility]) Attender: Stacie Fuller 07/23/2019 12:00:0 0 AM EST [facility] ([facility]) Outpatient Attender: Cinthya Moraes PRESALES CONSULTANT 07/19/2019 07:28 :00 AM EST [facility] ENTER 07/19/2019 12:00:00 AM EST eCW1 ([facility]) Outpatient 07/08/2019 01:14:00 PM EST [facility] Brief Individual Psychotherapy - 30 min Attender: Stacie arriaza [facility] 06/22/2019 12:00:00 PM EST - 06/22/2019 12:00:00 PM EST [facility] ([facility]) Attender: Stacie Fuller 06/22/2019 12:00:0 0 AM EST [facility] ([facility]) Outpatient Attender: MICHAEL thomas 06/21/2019 10:30:00 AM EST [facility] ([facility]) Attender: Stacie Fuller 06/08/2019 12:00:0 0 AM EST [facility] ([facility]) Extended Individual Psychotherapy - 45 min Attender: Lynsey Fuller [facility] 06/07/2019 02:00:00 AM EST - 06/07/2019 02:00:00 AM EST [facility] ([facility]) Outpatient Attender: Artur Alvares [facility] 0 06/04/2019 10:30:00 AM EST - 06/04/2019 10:30:00 AM EST [facility] ([facility]) Attender: Artur Alvares 06/04/2019 12:00:00 AM EST [facility] ([facility]) Extended Individual Psychotherapy - 45 min Attender: Lynsey Fuller [facility] 05/14/2019 02:45:00 AM EST - 05/14/2019 02:45:00 AM EST [facility] ([facility]) Attender: Stacie Fuller 05/14/2019 12:00:0 0 AM EST [facility] ([facility]) Outpatient Attender: EMILIA HIGGINS 05/26 09:30:00 AM [facility] - 06/05/2018 09:30:00 AM [facility] Emergency Attender: Yolande MONTEZeferrer: LORIE ABEL DO 09/03/2014 03:23:00 PM T - 09/03/2014 04:26:00 PM [facility] Emergency Attender: MORGAN AL PAReferrer: LORIE ABEL DO EMERGENCY ROOM-ER 12/05/2013 09:03:00 PM EDT - 12/05/2013 10:00:00 PM [facility] Emergency Attender: FRAN MONTIEL 08/21/2013 08:37:00 PM T - 08/22/2013 12:44:00 AM [facility] Outpatient Attender: Wanda DE 06/23/2013 05:59 :00 PM [facility] Outpatient Attender: KAYLA CORONA MD 01/04/2013 11:01:00 A M [facility] Outpatient Attender: Albina CHOPRA MD 09/28/2012 03:48:00 PM [facility] Outpatient Attender: Wanda DE 09/10/2012 11:45 :00 AM [facility] Functional Status Immunizations Vaccine Date Status Description Data Source(s) COVID-19, mRNA, LNP-S, PF, 100 mcg/0.5 mL dose 06/22/2020 09 :55:34 AM EST completed .5 mL JOSE MANUEL ([facility]) COVID-19, mRNA, LNP-S, PF, 100 mcg/0.5 mL dose 05/24/2020 03 :11:59 PM EST completed .5 mL JOSE MANUEL ([facility]) COVID-19, mRNA, LNP-S, PF, 100 mcg/0.5 mL dose 05/24/2020 03 :11:59 PM EST completed .5 mL JOSE MANUEL ([facility]) COVID-19, mRNA, LNP-S, PF, 100 mcg/0.5 mL dose 05/24/2020 03 :11:59 PM EST completed .5 mL JOSE MANUEL ([facility]) New in 2011. IIV4 07/19/2019 09:08:00 AM EST completed eCW1 ([facility]) New in 2011. IIV4 07/19/2019 09:08:00 AM EST completed eCW1 ([facility]) New in 2011. IIV4 07/19/2019 09:08:00 AM EST completed eCW1 ([facility]) New in 2011. IIV4 07/19/2019 09:08:00 AM EST completed eCW1 ([facility]) New in 2011. IIV4 07/19/2019 09:08:00 AM EST completed eCW1 ([facility]) New in 2011. IIV4 07/19/2019 09:08:00 AM EST completed eCW1 ([facility]) New in 2011. IIV4 07/19/2019 09:08:00 AM EST completed eCW1 ([facility]) Tdap 07/19/2019 09:06:00 AM EST completed e CW1 ([facility]) Tdap 07/19/2019 09:06:00 AM EST completed e CW1 ([facility]) Tdap 07/19/2019 09:06:00 AM EST completed e CW1 ([facility]) Tdap 07/19/2019 09:06:00 AM EST completed e CW1 ([facility]) Tdap 07/19/2019 09:06:00 AM EST completed e CW1 ([facility]) Tdap 07/19/2019 09:06:00 AM EST completed e CW1 ([facility]) Tdap 07/19/2019 09:06:00 AM EST completed e CW1 ([facility]) Medications Medication Brand Name Start Date Product [...] 03/22/2020 12:00:00 AM EDT ORAL active MEDENT ([facility]) 24 HR venlafaxine 150 MG Extended Release Oral Capsule Venla faxine HCL ER 03/22/2020 12:00:00 AM EDT ORAL active MEDENT ([facility]) Fluconazole 150 MG Oral Tablet [Diflucan] Diflucan 150 MG Di flucan 150 MG 02/03/2020 12:00:00 AM EDT 1.0 {tablet} active Diflucan 150 MG eCW1 ([facility]) 150 mg 02/03/2020 12:00:00 AM EDT tablet 2 TAKE 1 TABLET BY MOUTH ONCE WEEKLY TAKE 1 TABLET BY MOUTH ONCE WEEKLY SOLD: 02/04/2020 [facility] Fluconazole 150 MG Oral Tablet [Diflucan] Diflucan 150 MG Di flucan 150 MG 02/03/2020 12:00:00 AM EDT 1.0 {tablet} active Diflucan 150 MG eCW1 ([facility]) [place]io UNK 02/03/2020 12:00:00 AM EDT active [place] eCW1 ([facility]) [place] UNK 02/03/2020 12:00:00 AM EDT active [place] eCW1 ([facility]) Fluconazole 150 MG Oral Tablet [Diflucan] Diflucan 150 MG Di flucan 150 MG 02/03/2020 12:00:00 AM EDT 1.0 {tablet} active Diflucan 150 MG eCW1 ([facility]) Fluconazole 150 MG Oral Tablet [Diflucan] Diflucan 150 MG Di flucan 150 MG 02/03/2020 12:00:00 AM EDT 1.0 {tablet} active Diflucan 150 MG eCW1 ([facility]) [place]io UNK 02/03/2020 12:00:00 AM EDT active [place] eCW1 ([facility]) [place] UNK 02/03/2020 12:00:00 AM EDT active [place] eCW1 ([facility]) 150 mg 01/19/2020 12:00:00 AM EDT capsule,extended [...] AM EDT 75 mg by mouth completed [id number] ve nlafaxine by mouth [id number] 09/23/2019 12/20/2019 once a day 30 75 mg capsule,extended release 24hr [id number] Yris Franco [id number] Nurse Practiti kari [facility] ([facility]) Trazodone Hydrochloride 50 MG Oral Tablet trazodone 2019 12:00:00 AM EDT 50 mg by mouth completed [id number] trazodone by mouth [id number] 09/23/2019 10/21/2019 at bedtime 30 50 mg tablet as needed [id number] Yris Franco [id number] Nurse Practitioner [facility] ([facility]) 24 HR venlafaxine 75 MG Extended Release Oral Capsule venlaf axine 09/23/2019 12:00:00 AM EDT 75 mg by mouth completed [id number] ve nlafaxine by mouth [id number] 09/23/2019 04/16/2020 once a day 30 75 mg capsule,extended release 24hr [id number] Yris Franco [id number] Nurse Practiti kari [facility] ([facility]) Trazodone Hydrochloride 50 MG Oral Tablet Trazodone HC l 50 MG Trazodone HCl 50 MG 09/13/2019 12:00:00 AM EDT 1.0 {tablet_at_bedtime_as_needed} suspended Trazodone HCl 50 MG eCW1 ([facility]) Trazodone Hydrochloride 50 MG Oral Tablet Trazodone HC l 50 MG Trazodone HCl 50 MG 09/13/2019 12:00:00 AM EDT active 1 tablet at bedtime as needed eCW1 ([facility] [place]) Trazodone Hydrochloride 50 MG Oral Tablet Trazodone HC l 50 MG Trazodone HCl 50 MG 09/13/2019 12:00:00 AM EDT 1.0 {tablet_at_bedtime_as_needed} suspended Trazodone HCl 50 MG eCW1 ([facility]) Trazodone Hydrochloride 50 MG Oral Tablet Trazodone HC l 50 MG Trazodone HCl 50 MG 09/13/2019 12:00:00 AM EDT 1.0 {tablet_at_bedtime_as_needed} suspended Trazodone HCl 50 MG eCW1 ([facility]) Trazodone Hydrochloride 50 MG Oral Tablet Trazodone HC l 50 MG Trazodone HCl 50 MG 09/13/2019 12:00:00 AM EDT 1.0 {tablet_at_bedtime_as_needed} suspended Trazodone HCl 50 MG eCW1 ([facility]) Trazodone Hydrochloride 50 MG Oral Tablet Trazodone HC l 50 MG Trazodone HCl 50 MG 09/13/2019 12:00:00 AM EDT 1.0 {tablet_at_bedtime_as_needed} suspended Trazodone HCl 50 MG eCW1 ([facility]) Trazodone Hydrochloride 50 MG Oral Tablet Trazodone HC l 50 MG Trazodone HCl 50 MG 09/13/2019 12:00:00 AM EDT 1.0 {tablet_at_bedtime_as_needed} suspended Trazodone HCl 50 MG eCW1 ([facility]) 150 mg 08/17/2019 12:00:00 AM EDT capsule,extended [...] AM EST ORAL active MEDENT ([facility]) 24 HR venlafaxine 75 MG Extended Release Oral Capsule [Effexor] Effexor XR 75 MG Effexor XR 75 MG 07/19/2019 12:00:00 AM EST 1.0 {capsule_with_fo od} active Effexor XR 75 MG eCW1 ([facility] [place]) 24 HR venlafaxine 75 MG Extended Release Oral Capsule [Effexor] Effexor XR 75 MG Effexor XR 75 MG 07/19/2019 12:00:00 AM EST 1.0 {capsule_with_fo od} active Effexor XR 75 MG eCW1 ([facility] [place]) 24 HR venlafaxine 75 MG Extended Release Oral Capsule [Effexor] Effexor XR 75 MG Effexor XR 75 MG 07/19/2019 12:00:00 AM EST 1.0 {capsule_with_fo od} active Effexor XR 75 MG eCW1 ([facility] [place]) 75 mg 07/19/2019 12:00:00 AM EST capsule,extended releas e 24hr 30 TAKE ONE CAPSULE BY MOUTH EVERY DAY WITH FOOD TAKE ONE CAPSULE BY MOUTH EVERY DAY WITH FOOD SOLD: 07/19/2019 [facility] 24 HR venlafaxine 75 MG Extended Release Oral Capsule [Effexor] Effexor XR 75 MG Effexor XR 75 MG 07/19/2019 12:00:00 AM EST active 1 capsule with food eCW1 ([facility] [place]) 24 HR venlafaxine 75 MG Extended Release Oral Capsule [Effexor] Effexor XR 75 MG Effexor XR 75 MG 07/19/2019 12:00:00 AM EST 1.0 {capsule_with_fo od} active Effexor XR 75 MG eCW1 ([facility] [place]) Hydroxyzine Hydrochloride 25 MG Oral Tablet HydrOXYzin e HCl 25 MG HydrOXYzine HCl 25 MG 07/19/2019 12:00:00 AM EST active 1 tablet as needed eCW1 ([facility]) 24 HR venlafaxine 75 MG Extended Release Oral Capsule [Effexor] Effexor XR 75 MG Effexor XR 75 MG 07/19/2019 12:00:00 AM EST active 1 capsule with food eCW1 ([facility] [place]) 24 HR venlafaxine 75 MG Extended Release Oral Capsule [Effexor] Effexor XR 75 MG Effexor XR 75 MG 07/19/2019 12:00:00 AM EST 1.0 {capsule_with_fo od} active Effexor XR 75 MG eCW1 ([facility] [place]) 24 HR venlafaxine 75 MG Extended Release Oral Capsule [Effexor] Effexor XR 75 MG Effexor XR 75 MG 07/19/2019 12:00:00 AM EST 1.0 {capsule_with_fo od} active Effexor XR 75 MG eCW1 ([facility] [place]) 75 mg 07/19/2019 12:00:00 AM EST capsule,extended [...] Ondansetron 06/21/2019 12:00:00 AM EST completed MEDENT ([facility]) Oseltamivir 75 MG Oral Capsule Oseltamivir Phosphate 06/21/2019 12:00:00 AM EST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 [facility] GLOMERULAR FILTRATION RATE 75 mL/min [facility] GFR IS CALCULATED IN mL/min/1.73m2 SHALOM L FUNCTION: >90MILDLY DECREASED: 60-89MILDY TO MODERATELY DECREASED: 45-59 MODERATELY TO SEVERELY DECREASED: 30-44SEVERELY DECREASED: 15-29RENAL FAILURE: <15 AST 26 U/L 15-37 [facility] ALT 39 U/L 12-78 [facility] ALKALINE PHOSPHATASE 66 U/L 46-116 [facility] TOTAL BILIRUBIN 0.6 mg/dL 0.2-1.0 [facility] TOTAL PROTEIN 7.7 g/dl 6.4-8.2 [facility] ALBUMIN 4.1 gm/dL 3.4-5.0 [facility] ID Date Data Source [id number] 12/29/2019 08:48:00 AM EDT [facility] Name Value Range Interpretation Code Description Data Criss rce(s) Supporting Document(s) WHITE BLOOD COUNT 7.1 K/mm3 4.0-10.0 [facility] RED BLOOD COUNT 4.59 M/mm3 4.00-5.50 [facility] HEMOGLOBIN 14.0 gm/dL 12.0-16.0 [facility] HEMATOCRIT 39.1 % 36.0-48.8 [facility] MEAN CELL VOLUME 85.2 fl 80-96 [facility] MEAN CORPUSCULAR HEMOGLOBIN 30.5 pg 27.0-31.0 [facility] MEAN CORPUSCULAR HGB CONC 35.8 g/dl 32.0-36.0 [facility] RED CELL DISTRIBUTION WIDTH 12.0 % 10.0-14.5 [facility] PLATELET COUNT 238 K/mm3 172-450 [facility] MEAN PLATELET VOLUME 10.8 fl 9.0-13.0 [facility] pital GRAN % 43.7 % 50-80.0 L [facility] IG% 0.1 % 0.0-0.2 [facility] LYMPH % 40.6 % 25.0-50.0 [facility] MONO % 9.7 % 2.0-10.0 [facility] EOS % 5.6 % 0-5.0 H [facility] BASO % 0.3 % 0.0-2.0 [facility] GRAN # 3.1 K/mm3 2.0-8.00 [facility] IG# 0.0 K/mm3 0.0-0.2 [facility] LYMPH # 2.9 K/mm3 1.0-5.0 [facility] MONO # 0.7 K/mm3 0.10-1.20 [facility] EOS # 0.4 K/mm3 0.0-0.5 [facility] BASO # 0.0 K/mm3 0.0-0.2 [facility] ID Date Data Source [id number] 12/29/2019 09:30:00 AM EDT [facility] Name Value Range Interpretation Code Description Data Criss rce(s) Supporting Document(s) ERYTHROCYTE SEDIMENTATION RATE 10 mm/hr 0-20 [facility] ID Date Data Source [id number] 12/29/2019 08:58:00 AM EDT [facility] Name Value Range Interpretation Code Description Data Criss rce(s) Supporting Document(s) FREE T4 0.85 ng/dL 0.76-1.46 [facility] ID Date Data Source [id number] 12/29/2019 08:58:00 AM EDT [facility] Name Value Range Interpretation Code Description Data Criss rce(s) Supporting Document(s) TSH 2.04 uIU/mL 0.36-3.74 [facility] ID Date Data Source [id number] 12/29/2019 08:41:00 AM EDT [facility] Name Value Range Interpretation Code Description Data Criss rce(s) Supporting Document(s) RHEUMATOID FACTOR SCREEN NEGATIVE NEGATIVE [facility] ID Date Data Source [id number] 10/04/2019 02:30:00 PM EDT [facility] ([facility]) Name Value Range Interpretation Code Description Data Criss rce(s) Supporting Document(s) Erythrocyte sedimentation rate by 2H Westergren method 10 mm/hr 0-2 0 [facility] ([facility]) reviewed. ID Date Data Source [id number] 10/04/2019 02:30:00 PM EDT [facility] ([facility]) Name Value Range Interpretation Code Description Data Criss rce(s) Supporting Document(s) Thyroid Stimulating Hormone 3.080 uIU/ML 0.358-3.740 [facility] ([facility]) reviewed. Free T4 1.02 ng/dL 0.76-1.46 [facility] ([facility]) reviewed. ID Date Data Source [id number] 10/04/2019 02:30:00 PM EDT [facility] ([facility]) Name Value Range Interpretation Code Description Data Criss rce(s) Supporting Document(s) CPK Creatine Phosphokinase 208 U/L 26-192 [facility] ([facility]) reviewed. CK-MB Value Mass 2.8 ng/mL [facility] ([facility]) reviewed. MB/CK Relative Index 1.35 [facility] ([facility]) reviewed. Troponin I Laboratory test result [facility] ([facility]) reviewed. ID Date Data Source [id number] 10/04/2019 02:30:00 PM EDT [facility] ([facility]) Name Value Range Interpretation Code Description Data Criss rce(s) Supporting Document(s) Glucose, Fasting 101 mg/dL 70-100 [facility] ([facility]) reviewed. Blood Urea Nitrogen 11 mg/dL 7-18 [facility] ([facility]) reviewed. Creatinine For GFR 0.82 mg/dL 0.55-1.30 [facility] ([facility]) reviewed. Glomerular Filtration Rate Laboratory test result [facility] ([facility]) reviewed. Sodium Level 138 meq/L 136-145 [facility] ([facility]) reviewed. Potassium Serum 4.8 meq/L 3.5-5.1 [facility] ([facility]) reviewed. Chloride Level 105 meq/L 98-107 [facility] ([facility]) reviewed. Carbon Dioxide Level 28 meq/L 21-32 [facility] ([facility]) reviewed. Anion Gap 5 meq/L 8-16 [facility] ([facility]) reviewed. Calcium Level 9.2 mg/dL 8.5-10.1 [facility] ([facility]) reviewed. Ast/Sgot 24 U/L 7-37 [facility] ([facility]) reviewed. Alt/SGPT 33 U/L 12-78 [facility] ([facility]) reviewed. Alkaline Phosphatase 92 U/L 45-117 [facility] ([facility]) reviewed. Bilirubin,Total 0.4 mg/dL 0.2-1.0 [facility] ([facility]) reviewed. Total Protein 7.6 GM/DL 6.4-8.2 [facility] ([facility]) reviewed. Albumin 4.0 GM/DL 3.2-5.2 [facility] ([facility]) reviewed. Albumin/Globulin Ratio 1.11 1.00-1.93 [facility] ([facility]) reviewed. ID Date Data Source [id number] 10/04/2019 02:30:00 PM EDT [facility] ([facility]) Name Value Range Interpretation Code Description Data Criss rce(s) Supporting Document(s) White Blood Count 6.7 10 4.0-10.0 [facility] ([facility]) reviewed. Red Blood Count 4.33 10 4.00-5.40 [facility] ([facility], [facility]) reviewed. Hematocrit 39.3 % 36.0-47.0 [facility] ([facility], [facility]) reviewed. Hemoglobin 13.9 g/dL 12.0-15.5 [facility] ([facility], [facility]) reviewed. Mean Corpuscular Volume 90.8 fl 80.0-96.0 M [facility]ENT ([facility]) reviewed. Mean Corpuscular HGB Conc 35.4 g/dL 32.0-36.5 [facility] ([facility]) reviewed. Mean Corpuscular Hemoglobin 32.1 pg 27.0-33.0 [facility] ([facility]) reviewed. Red Cell Distribution Width 12.6 % 11.5-14.5 [facility] ([facility]) reviewed. Platelet Count, Automated 250 10 150-450 [facility] ([facility]) reviewed. Lymph % 41.4 % 24.0-44.0 [facility] ([facility], [facility]) reviewed. Neutrophils % 45.4 % 36.0-66.0 [facility] ([facility], [facility]) reviewed. [place] % 7.6 % 0.0-5.0 [facility] ([facility]) reviewed. Eos % 4.2 % 0.0-3.0 [facility] ([facility]) reviewed. Baso % 0.7 % 0.0-1.0 [facility] ([facility]) reviewed. Immature Granulocyte % 0.7 % 0-3.0 [facility] ([facility]) reviewed. Nucleated Red Blood Cell % 0.0 % 0-0 [facility] ([facility]) reviewed. Neutrophils # 3.0 10 1.5-8.5 [facility] ([facility], [facility]) reviewed. Lymph # 2.8 10 1.5-5.0 [facility] ([facility], [facility]) reviewed. [place] # 0.5 10 0.0-0.8 [facility] ([facility], [facility]) reviewed. Eos # 0.3 10 0.0-0.5 [facility] ([facility], [facility]) reviewed. Baso # 0.1 10 0.0-0.2 [facility] ([facility], [facility]) reviewed. Procedure Social History Code Duration Value Status Description Data Source(s ) Smoking 06/29/2020 12:00:00 AM EST Unknown if ever smoked comp leted Unknown if ever smoked [facility] ([facility]) Smoking 03/08/2020 12:00:00 AM EDT Unknown if ever smoked comp leted Unknown if ever smoked [facility] ([facility]) Smoking 02/17/2020 12:00:00 AM EDT Unknown if ever smoked comp leted Unknown if ever smoked [facility] ([facility]) Smoking 02/03/2020 12:00:00 AM EDT Current Smoker completed Curre nt Smoker eCW1 ([facility]) Smoking 02/03/2020 12:00:00 AM EDT Current Smoker completed Curre nt Smoker eCW1 ([facility]) Smoking 02/03/2020 12:00:00 AM EDT Current Smoker completed Curre nt Smoker eCW1 ([facility]) Smoking 02/03/2020 12:00:00 AM EDT Current Smoker completed Curre nt Smoker eCW1 ([facility]) Smoking 01/27/2020 12:00:00 AM EDT Unknown if ever smoked comp leted Unknown if ever smoked [facility] ([facility]) Smoking 2019 12:00:00 AM EDT Current Smoker completed Curre nt Smoker eCW1 ([facility]) Smoking 2019 12:00:00 AM EDT Current Smoker completed Curre nt Smoker eCW1 ([facility]) Smoking 11/15/2019 12:00:00 AM EDT Unknown if ever smoked comp leted Unknown if ever smoked [facility] ([facility]) Smoking 10/28/2019 12:00:00 AM EDT Unknown if ever smoked comp leted Unknown if ever smoked [facility] ([facility]) Smoking 10/21/2019 12:00:00 AM EDT Unknown if ever smoked comp leted Unknown if ever smoked [facility] ([facility]) Smoking 10/12/2019 12:00:00 AM EDT Unknown if ever smoked comp leted Unknown if ever smoked [facility] ([facility]) Smoking 09/27/2019 12:00:00 AM EDT Unknown if ever smoked comp leted Unknown if ever smoked [facility] ([facility]) Smoking 09/23/2019 12:00:00 AM EDT Unknown if ever smoked comp leted Unknown if ever smoked [facility] ([facility]) Smoking 09/10/2019 12:00:00 AM EDT Unknown if ever smoked comp leted Unknown if ever smoked [facility] ([facility]) Smoking 08/24/2019 12:00:00 AM EDT Unknown if ever smoked comp leted Unknown if ever smoked [facility] ([facility]) Smoking 08/06/2019 12:00:00 AM EDT Unknown if ever smoked comp leted Unknown if ever smoked [facility] ([facility]) Smoking 07/23/2019 12:00:00 AM EST Unknown if ever smoked comp leted Unknown if ever smoked [facility] ([facility]) Smoking 06/22/2019 12:00:00 AM EST Unknown if ever smoked comp leted Unknown if ever smoked [facility] ([facility]) Smoking 06/08/2019 12:00:00 AM EST Unknown if ever smoked comp leted Unknown if ever smoked [facility] ([facility]) Smoking 06/04/2019 12:00:00 AM EST Unknown if ever smoked comp leted Unknown if ever smoked [facility] ([facility]) Smoking 05/14/2019 12:00:00 AM EST Unknown if ever smoked comp leted Unknown if ever smoked [facility] ([facility] Vital Signs ID Date Data Source UNK Name Value Range Interpretation Code Description Data Source(s) Body weight 60.782 kg 60.782 kg [facility] [place] body weight 115 [lb_av] 115 [lb_av] [facility] T ([facility]) Body mass index (BMI) [Ratio] 23.7 kg/m2 23.7 k g/m2 [facility] ([facility]) Body weight 134.00 [lb_av] 134.00 [lb_av] [facility] T ([facility]) Body height 63 [in_i] 63 [in_i] [facility] ([facility]) 5'3" Body surface area Derived from formula 1.63 m2 1.63 m2 [facility] ([facility]) Body weight 135.00 [lb_av] 135.00 [lb_av] [facility] T ([facility]) Body temperature 97.8 [degF] 97.8 [degF] [facility] ([facility]) Respiratory rate 18 /min 18 /min [facility] ( [facility]) Heart rate 85 /min 85 /min [facility] ([facility]) Diastolic blood pressure 89 mm[Hg] 89 mm[Hg] [facility] ([facility]) Systolic blood pressure 113 mm[Hg] 113 mm[Hg] M [facility] ([facility]) Oxygen saturation in Arterial blood by Pulse oximetry 99 % 99 % eCW1 ([facility]) Respiratory rate 18 /min 18 /min eCW1 ([facility]) Heart rate 68 /min 68 /min eCW1 ([facility]) Body temperature 98.2 [degF] 98.2 [degF] eCW1 ( [facility]) Body mass index (BMI) [Ratio] 28.29 kg/m2 28.29 kg/m2 eCW1 ([facility]) Body weight 152.2 [lb_av] 152.2 [lb_av] eCW1 ([facility]) Body height 61.50 [in_i] 61.50 [in_i] eCW1 ([facility]) Oxygen saturation in Arterial blood by Pulse oximetry 99 % 99 % eCW1 ([facility]) Respiratory rate 18 /min 18 /min eCW1 ([facility]) Heart rate 68 /min 68 /min eCW1 ([facility]) Body temperature 98.4 [degF] 98.4 [degF] eCW1 ( [facility]) Body mass index (BMI) [Ratio] 28.14 kg/m2 28.14 kg/m2 eCW1 ([facility]) Body weight 151.4 [lb_av] 151.4 [lb_av] eCW1 ([facility]) Body height 61.50 [in_i] 61.50 [in_i] eCW1 ([facility]) Diastolic blood pressure 0 mm[Hg] Normal (applies to non-numeric results) 0 mm[Hg] [facility] ([facility]) Systolic blood pressure 0 mm[Hg] Normal (applies t o non-numeric results) 0 mm[Hg] [facility] ([facility]) Body mass index (BMI) [Ratio] 0.00 kg/m2 No rmal (applies to non-numeric results) 0.00 kg/m2 [facility] ([facility]) Body weight Measured 0.00 lbs Normal (applies to n on-numeric results) 0.00 lbs [facility] ([facility]) Body height 0.00 in Normal (applies to non-numeric resu lts) 0.00 in [facility] ([facility]) Body mass index (BMI) [Ratio] 26.7 kg/m2 26.7 k g/m2 [facility] ([facility], [facility]) Body height 63 [in_i] 63 [in_i] [facility] ([facility]) 5'3" Body weight 151.00 [lb_av] 151.00 [lb_av] MEDEN T ([facility], [facility]) Body temperature 98.9 [degF] 98.9 [degF] [facility] ([facility], [facility]) Oxygen saturation in Arterial blood by Pulse oximetry 99 % 99 % [facility] ([facility], [facility]) Respiratory rate 12 /min 12 /min [facility] ( [facility], [facility]) Heart rate 82 /min 82 /min [facility] ([facility], [facility]) Diastolic blood pressure 100 mm[Hg] 100 mm[Hg] [facility] ([facility], [facility]) Systolic blood pressure 148 mm[Hg] 148 mm[Hg] M [facility] ([facility], [facility]) Diastolic blood pressure 0 mm[Hg] Normal (applies to non-numeric results) 0 mm[Hg] [facility] ([facility]) Systolic blood pressure 0 mm[Hg] Normal (applies t o non-numeric results) 0 mm[Hg] [facility] ([facility]) Body mass index (BMI) [Ratio] 0.00 kg/m2 No rmal (applies to non-numeric results) 0.00 kg/m2 [facility] ([facility]) Body weight Measured 0.00 lbs Normal (applies to n on-numeric results) 0.00 lbs [facility] ([facility]) Body height 0.00 in Normal (applies to non-numeric resu lts) 0.00 in [facility] ([facility]) Deprecated Oxygen saturation in Capillary blood by Oximetry 98 % 98 % eCW1 ([facility]) Respiratory rate 18 /min 18 /min eCW1 ([facility]) Heart rate 75 /min 75 /min eCW1 ([facility]) Body temperature 98.2 [degF] 98.2 [degF] eCW1 ( [facility]) Body mass index (BMI) [Ratio] 26.50 kg/m2 26.50 kg/m2 eCW1 ([facility]) Body weight Measured 142.6 [lb_av] 142.6 [lb_av ] eCW1 ([facility]) Body height 61.50 [in_us] 61.50 [in_us] eCW1 ([facility]) Body weight 68.947 kg 68.947 kg [...] 1.74 m2 1.74 m2 MEDENT ([facility]) Body mass index (BMI) [Ratio] 26.7 kg/m2 26.7 k g/m2 MEDENT ([facility]) Body weight 153.00 [lb_av] 153.00 [lb_av] MEDEN T ([facility]) Body height 63.5 [in_i] 63.5 [in_i] MEDENT ([facility]) 5'3.50" Diastolic blood pressure 70 mm[Hg] 70 mm[Hg] MEDENT ([facility]) Systolic blood pressure 114 mm[Hg] 114 mm[Hg] M EDENT ([facility]) Deprecated Oxygen saturation in Capillary blood by Oximetry 97 % 97 % eCW1 ([facility]) Respiratory rate 18 /min 18 /min eCW1 ([facility]) Heart rate 84 /min 84 /min eCW1 ([facility]) Body temperature 98.3 [degF] 98.3 [degF] eCW1 ( [facility]) Body mass index (BMI) [Ratio] 28.36 kg/m2 28.36 kg/m2 eCW1 ([facility]) Body weight Measured 152.6 [lb_av] 152.6 [lb_av ] eCW1 ([facility]) Body height 61.50 [in_us] 61.50 [in_us] eCW1 ([facility]) Body mass index (BMI) [Ratio] 25.7 kg/m2 25.7 k g/m2 MEDENT ([facility], [facility]) Body height 63 [in_i] 63 [in_i] MEDENT ([facility]) 5'3" Body weight 145.00 [lb_av] 145.00 [lb_av] MEDEN T ([facility], [facility]) Body temperature 98.5 [degF] 98.5 [degF] MEDENT ([facility], [facility]) Oxygen saturation in Arterial blood by Pulse oximetry 98 % 98 % MEDENT ([facility], [facility]) Respiratory rate 18 /min 18 /min MEDENT ( [facility], [facility]) Heart rate 88 /min 88 /min MEDENT ([facility], [facility]) Diastolic blood pressure 79 mm[Hg] 79 mm[Hg] MEDENT ([facility]) Systolic blood pressure 122 mm[Hg] 122 mm[Hg] M EDENT ([facility]) Body height --lying 89 min Normal (applies to non-nume josias results) 89 min [facility] ([facility]) Diastolic blood pressure 83 mm[Hg] Normal (applies to non-numeric results) 83 mm[Hg] [facility] ([facility]) Systolic blood pressure 120 mm[Hg] Normal (applies t o non-numeric results) 120 mm[Hg] [facility] ([facility]) Body mass index (BMI) [Ratio] 25.86 kg/m2 No rmal (applies to non-numeric results) 25.86 kg/m2 [facility] ([facility]) Body weight Measured 146.00 lbs Normal (applies to n on-numeric results) 146.00 lbs [facility] ([facility]) Body height 63.00 in Normal (applies to non-numeric resu lts) 63.00 in [facility] ([facility]) ID Date Data Source [id number] 02/03/2020 07:53:00 AM EDT [facility] Name Value Range Interpretation Code Description Data Source(s) WEIGHT 49.907491 kilos 49.794745 [facility] HEIGHT 160.02 centimeters 160.02 centimeter s [facility] WEIGHT 49.009472 kilos 49.263338 [facility] HEIGHT 160.02 centimeters 160.02 centimeter s [facility] Patient Treatment Plan of Care Planned Activity Planned Date Details Description Data Source (s) Chio 02/03/2020 12:00:00 AM EDT e CW1 ([facility]) Fluconazole 150 MG Oral Tablet [Diflucan] 02/03/2020 12:00:00 AM ED T eCW1 ([facility]) Chio 02/03/2020 12:00:00 AM EDT e CW1 ([facility]) Fluconazole 150 MG Oral Tablet [Diflucan] 02/03/2020 12:00:00 AM ED T eCW1 ([facility]) Chio 02/03/2020 12:00:00 AM EDT e CW1 ([facility]) Fluconazole 150 MG Oral Tablet [Diflucan] 02/03/2020 12:00:00 AM ED T eCW1 ([facility]) Chio 02/03/2020 12:00:00 AM EDT e CW1 ([facility]) Fluconazole 150 MG Oral Tablet [Diflucan] 02/03/2020 12:00:00 AM ED T eCW1 ([facility]) Trazodone Hydrochloride 50 MG Oral Tablet 09/13/2019 12:00:00 AM ED T eCW1 ([facility]) 24 HR venlafaxine 75 MG Extended Release Oral Capsule [Effexor] 07/19/2019 12:00:00 AM EST eCW1 ([facility]) Hydroxyzine Hydrochloride 25 MG Oral Tablet 07/19/2019 12:00:00 AM EST eCW1 ([facility])
[2020-07-09] MEDS ORDERED: ONDANSETRON 4MG/2ML VIAL IV ONE (13:30)
[2020-07-09 13:31] LABS: BASO % 0.8 % (0.0-1.0); EOS # 0.3 10^3/uL (0.0-0.5); HEMATOCRIT 43.4 % (36.0-47.0); HEMOGLOBIN 14.8 g/dl (12.0-15.5); LYMPH # 1.7 10^3/uL (1.5-5.0); LYMPH % 33.5 % (24.0-44.0); MEAN CORPUSCULAR HGB CONC 34.1 g/dl (32.0-36.5); MEAN CORPUSCULAR VOLUME 87.9 fl (80.0-96.0); MONO # 0.4 10^3/uL (0.0-0.8); NEUTROPHILS # 2.8 10^3/uL (1.5-8.5); NEUTROPHILS % 53.5 % (36.0-66.0); PLATELET COUNT, AUTOMATED 208 10^3/uL (150-450); RED BLOOD COUNT 4.94 10^6/uL (4.00-5.40); WHITE BLOOD COUNT 5.2 10^3/uL (4.0-10.0)
[2020-07-09 14:04] LABS: ALBUMIN 4.7 GM/DL (3.2-5.2); ALT/SGPT 123 U/L (12-78); BILIRUBIN,DIRECT < 0.1 MG/DL (0.0-0.2); BILIRUBIN,TOTAL 0.8 MG/DL (0.2-1.0); LIPASE 65 U/L (73-393); TOTAL PROTEIN 9.2 GM/DL (6.4-8.2)
[2020-07-09] MEDS ORDERED: ZOFR4TAB16 PO (14:28)
--- NOTE | 2020-07-09 15:19 | REP ---
INDICATION: RUQ pain, vomiting after eating. COMPARISON: Comparison CT abdomen pelvis 01 July 2019.. TECHNIQUE: Right upper quadrant sonography. FINDINGS: Scanning through the right upper quadrant of the abdomen demonstrates multiple shadowing calculi in the lumen of the gallbladder. The largest of these is 1.4 cm.. Common bile duct is normal measuring 0.6 cm in greatest diameter. No focal liver lesion is seen. Liver size is normal. No pancreatic abnormality is observed. No right renal abnormality is seen. There is no evidence of ascites. The right kidney measures 9.7 x 5.4 x 3.0 cm. IMPRESSION: Multiple shadowing calculi in the gallbladder consistent with cholelithiasis, the largest of which is 1.4 cm in size. Otherwise negative right upper quadrant sonography.. <Electronically signed by Shan Aviles > 07/09/20 [id number]
== END 2020-07-09 15:34 | disposition home or self-care (01) ==
LOC: M ED 12:27
DX: K80.50 Calculus of bile duct without cholangitis or cholecystitis without obstruction (principal); R11.2 Nausea with vomiting, unspecified; Z79.3 Long term (current) use of hormonal contraceptives; Z79.899 Other long term (current) drug therapy; Z91.040 Latex allergy status; Z88.5 Allergy status to narcotic agent
CPT/HCPCS: 76705; 80047; 80076; 83690; 84702; 85025; 96374; 99283; J2405

== ENCOUNTER 2020-07-17 16:33 | Emergency (ER) | payer OTHER ==
[~2020-07-17] VITALS: Ht 160 cm; Wt 57.5 kg
[~2020-07-17 16:33] MED LIST changes: +BUPR150T4; +ZOFR4TAB16 PO
--- OUTSIDE RECORDS SUMMARY | 2020-07-17 16:41 | CCD | Continuity of Care Document ---
Author Organization Unknown Address Unknown Phone Unavailable Care Team Providers Care Bottle Packer Name Role Phone CHENG DOVE AUTM [phone] Social History Type Date Description Comments Sex Unknown Results Test Acquired Date Facility Test Result H/L Range Note Istat Chem8+ Panel 07/09/[address] [address] [phone] iSTAT HCT 39.0 % Normal 38.0-51.0 iSTAT Glucose 95 mg/dL Normal 70-105 iSTAT Sodium 139 mEq/L Normal 136-145 iSTAT Potassium 4.0 mEq/L Normal 3.5-5.1 iSTAT CA++ 4.9 mg/dL Normal 4.5-5.3 iSTAT Chloride 100 mEq/L Normal 98-109 iSTAT Co2 28.0 MM/L High 23.0-27.0 iSTAT BUN 10 mg/dL Normal 8-26 iSTAT Creatinine 0.9 mg/dL Normal 0.6-1.3 CBC With Differential 07/09/[address] [address] [phone] White Blood Count 5.2 10 Normal 4.0-10.0 Red Blood Count 4.94 10 Normal 4.00-5.40 Hemoglobin 14.8 g/dL Normal 12.0-15.5 Hematocrit 43.4 % Normal 36.0-47.0 Mean Corpuscular Volume 87.9 fl Normal 80.0-96.0 Mean Corpuscular Hemoglobin 30.0 pg Normal 27.0-33.0 Mean Corpuscular HGB Conc 34.1 g/dL Normal 32.0-36.5 Red Cell Distribution Width 11.9 % Normal 11.5-14.5 Platelet Count, Automated 208 10 Normal 150-450 Neutrophils % 53.5 % Normal 36.0-66.0 Lymph % 33.5 % Normal 24.0-44.0 [place] % 7.0 % High 2.0-8.0 Eos % 5.0 % High 0.0-3.0 Baso % 0.8 % Normal 0.0-1.0 Immature Granulocyte % 0.2 % Normal 0-3.0 Nucleated Red Blood Cell % 0.0 % Normal 0-0 Neutrophils # 2.8 10 Normal 1.5-8.5 Lymph # 1.7 10 Normal 1.5-5.0 [place] # 0.4 10 Normal 0.0-0.8 Eos # 0.3 10 Normal 0.0-0.5 Baso # 0.0 10 Normal 0.0-0.2 Liver Profile 07/09/[address] [address] [phone] Ast/Sgot 109 U/L High 7-37 1 Alt/SGPT 123 U/L High 12-78 Alkaline Phosphatase 73 U/L Normal 45-117 Bilirubin,Total 0.8 mg/dL Normal 0.2-1.0 Bilirubin,Direct < 0.1 mg/dL Normal 0.0-0.2 Total Protein 9.2 GM/DL High 6.4-8.2 Albumin 4.7 GM/DL Normal 3.2-5.2 Albumin/Globulin Ratio 1.0 Low 1.2-2.2 Laboratory test finding 07/09/2020 [address] [place] [address] [phone] Lipase 65 U/L Low 73-393 Laboratory test finding 05/23/[address] [address] [phone] Thyroid Stimulating Hormone 1.010 uIU/ML Normal 0. 358-3.740 Free T4 0.92 ng/dL Normal 0.76-1.46 Free T3 2.5 pg/mL Normal 2.2-4.0 Gats (Negative Strep Screen) 05/14/2020 [facility] [address] [place] [address] [phone] Gats Culture (Neg Strep SCR) FULL REPORT IN L <SEE N OTE> Normal 2 Ua Routine 04/07/2020 [id number] [phone] Appearance, Urine CLEAR Normal Clear Color, Urine YELLOW Normal Yellow PH,Urine 6.0 units Normal 5.0-9.0 Specific [place] Urine Auto 1.017 Normal 1.002-1.035 Protein, Urine [...] /LPF Normal 0-1 CBC With Differential 04/07/2020 [place] [id number] [phone] White Blood Count 6.1 10 Normal 4.0-10.0 [...] % 0.0 % Normal 0-0 Differential 04/07/[address] [address] [phone] Neutrophils 47 % Normal 28-66 Lymphocytes 38 % Normal 16-44 Monocytes 4 % Normal 0-5 Eosinophils 3 % Normal 0-3 Basophils 1 % Normal 0-1 Atypical Lymph 7 % High 0-5 Laboratory test finding 04/07/2020 [address] [place] [address] [phone] Platelet Estimate NORMAL Normal Normal Hepatitis A IgG Total Negative Normal Negative 3 Comprehensive Metabolic Profil 04/07/[address] [address] [phone] Glucose, Fasting 80 mg/dL Normal 70-100 Blood Urea Nitrogen 13 mg/dL Normal 7-18 Creatinine For GFR 0.93 mg/dL Normal 0.55-1.30 Glomerular Filtration Rate > 60.0 Normal >60 4 Sodium Level 141 mEq/L Normal 136-145 Potassium [...] 1.1 Low 1.2-2.2 Laboratory test finding 04/07/[address] [address] [phone] Hepatitis C Virus Lyndsey Index 0.0 INDEX Normal <0.8 5 Hepatitis B Surface Antigen NEGATIVE Normal Negative Hepatitis B Surface Antibody POSITIVE Normal Positive 1 Testing was performed on a h emolysed specimen. Suggest recollection of specimen for more accurate test results. 2 FULL REPORT IN LAB NOTES ([facility] W and Medent). NEGATIVE FOR STREP PYOGENES (GROUP A) 3 Performed at: RN - [facility] [address] [id number] Fugitive Investigator: Maryana Kramer MD, Phone: [phone] 4 Units are mL/min/1.73 m2 Chronic Kidney Disease Staging per NKF: Stage I & II GFR >=60 Normal to Mildly Decreased Stage III GFR 30-59 Moderately Decreased Stage IV GFR 15-29 Severely Decreased Stage V GFR <15 Very Little GFR Left ESRD GFR <15 on [employer] 5 Negative Not infected with HCV, unless recent infection is suspected or other evidence exists to indicate HCV infection. Encounters Type Date Location Provider Dx Diagnosis Office Visit 06/20/2020 10:45a [facility] TIANA Cedillo J02.9 Acute pharyngitis, unspecifi ed F32.9 Major depressive disorder, s roman episode, unspecified F41.9 Anxiety disorder, unspecifie d Office Visit 05/25/2020 11:30a [facility] TIANA Cedillo J02.9 Acute pharyngitis, unspecifi ed K29.50 Unspecified chronic gastriti s without bleeding Office Visit 04/10/2020 11:30a [facility] TIANA Cedillo K29.00 Acute gastritis without blee ding F32.9 Major depressive disorder, s roman episode, unspecified F17.200 Nicotine dependence, unspeci fied, uncomplicated Assessments Date Code Description Provider 06/20/2020 J02.9 Acute pharyngitis, unspecified F yong Dove, PA 06/20/2020 F32.9 Major depressive disorder, singl e episode, unspecified Cheng Dove, PA 06/20/2020 F41.9 Anxiety disorder, unspecified Fr diane Dove, PA 05/25/2020 J02.9 Acute pharyngitis, unspecified F yong Dove, PA 05/25/2020 K29.50 Unspecified chronic gastritis wi thout bleeding Cheng Dove, PA 04/14/2020 L50.9 Urticaria, unspecified Cheng G Petty, PA 04/14/2020 F32.9 Major depressive disorder, singl e episode, unspecified Cheng Dove PA 04/14/2020 F41.9 Anxiety disorder, unspecified Fr diane Dove PA 04/10/2020 K29.00 Acute gastritis without bleeding Cheng Dove, PA 04/10/2020 F32.9 Major depressive disorder, singl e episode, unspecified Cheng Omayra Dove, PA 04/10/2020 F17.200 Nicotine dependence, unspecified , uncomplicated TIANA Wilson 03/29/2020 K29.00 Acute gastritis without bleeding TIANA Wilson 03/29/2020 F32.9 Major depressive disorder, singl e episode, unspecified TIANA Wilson 03/29/2020 F41.9 Anxiety disorder, unspecified Fr TIANA Jimenez Referrals Refer to Reason for Referral Status Appt Date [facility] Neurology PATIENT WITH F/H OF MS. (SIS TER) REQUESTING EVALUATION FOR MS. Sent [address] [place] [address] [phone] [facility] Sleep Lab PATIENT WITH C/O CHRONIC FATIGUE. PLEASE DO SLEE P STUDY Sent [address] [place] [address] [phone] [facility] Medical - ENT PATIENT C/O REPEATED TONSIL INFECTIONS. 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 PLEASE EVAL AND TREAT Sent [address] [facility] [address] [place] [address] [phone]
--- OUTSIDE RECORDS SUMMARY | 2020-07-17 16:41 | CCD | Continuity of Care Document ---
Author Author Karolyn DOVE Organization Unknown Address [address] [facility] [address] [place] [address] Phone [phone] Care Team Providers Care Stakes Player Name Role Phone CHENG DOVE AUTM [phone] Social History Type Date Description Comments Sex Unknown Results Test Acquired Date Facility Test Result H/L Range Note Istat Chem8+ Panel 07/09/[address] [address] [phone] iSTAT HCT 39.0 % Normal 38.0-51.0 iSTAT Glucose 95 mg/dL Normal 70-105 iSTAT Sodium 139 mEq/L Normal 136-145 iSTAT Potassium 4.0 mEq/L Normal 3.5-5.1 iSTAT CA++ 4.9 mg/dL Normal 4.5-5.3 iSTAT Chloride 100 mEq/L Normal 98-109 iSTAT Co2 28.0 MM/L High 23.0-27.0 iSTAT BUN 10 mg/dL Normal 8-26 iSTAT Creatinine 0.9 mg/dL Normal 0.6-1.3 Laboratory test finding 07/09/2020 [facility] [address] [place] [address] [phone] iSTAT B-hCG < 5.0 Normal 1 Istat Chem8+ Panel 07/09/[address] [id number] [phone] iSTAT HCT 45.0 % Normal 38.0-51.0 iSTAT Glucose 79 mg/dL Normal 70-105 iSTAT Sodium 139 mEq/L Normal 136-145 iSTAT Potassium 5.9 mEq/L High 3.5-5.1 iSTAT CA++ 4.2 mg/dL Low 4.5-5.3 iSTAT Chloride 104 mEq/L Normal 98-109 iSTAT Co2 28.0 MM/L High 23.0-27.0 iSTAT BUN 12 mg/dL Normal 8-26 iSTAT Creatinine 0.9 mg/dL Normal 0.6-1.3 CBC With Differential 07/09/2020 [place] [address] [phone] White Blood Count 5.2 10 Normal 4.0-10.0 [...] 36.0-66.0 Lymph % 33.5 % Normal 24.0-44.0 [place] % 7.0 % High 2.0-8.0 Eos % 5.0 % High 0.0-3.0 Baso % 0.8 % Normal 0.0-1.0 Immature Granulocyte % 0.2 % Normal 0-3.0 Nucleated Red Blood Cell % 0.0 % Normal 0-0 Neutrophils # 2.8 10 Normal 1.5-8.5 Lymph # 1.7 10 Normal 1.5-5.0 [place] # 0.4 10 Normal 0.0-0.8 Eos # 0.3 10 Normal 0.0-0.5 Baso # 0.0 10 Normal 0.0-0.2 Liver Profile 07/09/[address] [address] [phone] Ast/Sgot 109 U/L High 7-37 2 Alt/SGPT 123 U/L High 12-78 Alkaline Phosphatase 73 U/L Normal 45-117 Bilirubin,Total 0.8 mg/dL Normal 0.2-1.0 Bilirubin,Direct < 0.1 mg/dL Normal 0.0-0.2 Total Protein 9.2 GM/DL High 6.4-8.2 Albumin 4.7 GM/DL Normal 3.2-5.2 Albumin/Globulin Ratio 1.0 Low 1.2-2.2 Laboratory test finding 07/09/2020 [facility] [address] [place] [address] [phone] Lipase 65 U/L Low 73-393 Laboratory test finding 05/23/2020 [facility] [address] [place] [address] [phone] Thyroid Stimulating Hormone 1.010 uIU/ML Normal 0. 358-3.740 Free T4 0.92 ng/dL Normal 0.76-1.46 Free T3 2.5 pg/mL Normal 2.2-4.0 Gats (Negative Strep Screen) 05/14/2020 [facility] [address] [place] [address] [phone] Gats Culture (Neg Strep SCR) FULL REPORT IN L <SEE N OTE> Normal 3 Ua Routine 04/07/[address] [address] [phone] Appearance, Urine CLEAR Normal Clear Color, Urine YELLOW Normal Yellow PH,Urine 6.0 units Normal 5.0-9.0 Specific [place] Urine Auto 1.017 Normal 1.002-1.035 Protein, Urine [...] /LPF Normal 0-1 CBC With Differential 04/07/[address] [id number] [phone] White Blood Count 6.1 10 Normal 4.0-10.0 [...] % 0.0 % Normal 0-0 Differential 04/07/[address] [address] [phone] Neutrophils 47 % Normal 28-66 Lymphocytes 38 % Normal 16-44 Monocytes 4 % Normal 0-5 Eosinophils 3 % Normal 0-3 Basophils 1 % Normal 0-1 Atypical Lymph 7 % High 0-5 Laboratory test finding 04/07/[address] [address] [phone] Platelet Estimate NORMAL Normal Normal Hepatitis A IgG Total Negative Normal Negative 4 Comprehensive Metabolic Profil 04/07/[address] [address] [phone] Glucose, Fasting 80 mg/dL Normal 70-100 Blood Urea Nitrogen 13 mg/dL Normal 7-18 Creatinine For GFR 0.93 mg/dL Normal 0.55-1.30 Glomerular Filtration Rate > 60.0 Normal >60 5 Sodium Level 141 mEq/L Normal 136-145 Potassium [...] 1.1 Low 1.2-2.2 Laboratory test finding 04/07/2020 [address] [place] [address] [phone] Hepatitis C Virus Lyndsey Index 0.0 INDEX Normal <0.8 6 Hepatitis B Surface Antigen NEGATIVE Normal Negative Hepatitis B Surface Antibody POSITIVE Normal Positive 1 QUANTITATIVE RESULT QUALITATIVE INTERPRETATION <5.0 IU/L NEGATIVE 5.0 - 25.0 IU/L INDETER MINATE >25.0 IU/L POSITIVE 2 Testing was performed on a h emolysed specimen. Suggest recollection of specimen for more accurate test results. 3 FULL REPORT IN LAB NOTES ([facility]ecil Husain and [facility]). NEGATIVE FOR STREP PYOGENES (GROUP A) 4 Performed at: RN - [facility] [address] [id number] Supervisor Sign Shop: Maryana Kramer MD, Phone: [phone] 5 Units are mL/min/1.73 m2 Chronic Kidney Disease Staging per NKF: Stage I & II GFR >=60 Normal to Mildly Decreased Stage III GFR 30-59 Moderately Decreased Stage IV GFR 15-29 Severely Decreased Stage V GFR <15 Very Little GFR Left ESRD GFR <15 on TRAVELING [employer]ER 6 Negative Not infected with HCV, unless recent infection is suspected or other evidence exists to indicate HCV infection. Encounters Type Date Location Provider Dx Diagnosis Office Visit 07/03/2020 2:30p [facility] TIANA Cedillo K29.00 Acute gastritis without blee ding F41.9 Anxiety disorder, unspecifie d Z82.0 Family history of epilepsy a nd oth dis of the nervous sys Office Visit 06/20/2020 10:45a [facility] TIANA Cedillo J02.9 Acute pharyngitis, unspecifi ed F32.9 Major depressive disorder, s roman episode, unspecified F41.9 Anxiety disorder, unspecifie d Office Visit 05/25/2020 11:30a [facility] TIANA Cedillo J02.9 Acute pharyngitis, unspecifi ed K29.50 Unspecified chronic gastriti s without bleeding Office Visit 04/10/2020 11:30a [facility] TIANA Cedillo K29.00 Acute gastritis without blee ding F32.9 Major depressive disorder, s roman episode, unspecified F17.200 Nicotine dependence, unspeci fied, uncomplicated Assessments Date Code Description Provider 07/03/2020 K29.00 Acute gastritis without bleeding Cheng Dove, PA 07/03/2020 F41.9 Anxiety disorder, unspecified Fr diane Dove, PA 07/03/2020 Z82.0 Family history of ep ilepsy and other diseases of the nervous system Cheng Dove, PA 06/20/2020 J02.9 Acute pharyngitis, unspecified F yong Dove, PA 06/20/2020 F32.9 Major depressive disorder, singl e episode, unspecified Cheng Dove, PA 06/20/2020 F41.9 Anxiety disorder, unspecified Fr diane Dove, PA 05/25/2020 J02.9 Acute pharyngitis, unspecified F yong Dove, PA 05/25/2020 K29.50 Unspecified chronic gastritis wi thout bleeding Cheng Dove, PA 04/14/2020 L50.9 Urticaria, unspecified Cheng Dove, PA 04/14/2020 F32.9 Major depressive disorder, singl e episode, unspecified Cheng Dove, PA 04/14/2020 F41.9 Anxiety disorder, unspecified Fr diane Dove, PA 04/10/2020 K29.00 Acute gastritis without bleeding Cheng Dove, PA 04/10/2020 F32.9 Major depressive disorder, singl e episode, unspecified Cheng Dove, PA 04/10/2020 F17.200 Nicotine dependence, unspecified , uncomplicated Cheng Dove, PA 03/29/2020 K29.00 Acute gastritis without bleeding TIANA Wilson 03/29/2020 F32.9 Major depressive disorder, singl e episode, unspecified TIANA Wilson 03/29/2020 F41.9 Anxiety disorder, unspecified Fr TIANA Jimenez Referrals Refer to Reason for Referral Status Appt Date [facility] Neurology PATIENT WITH F/H OF MS. (SIS TER) REQUESTING EVALUATION FOR MS. Sent [address] [place] [address] [phone] [facility] Sleep Lab PATIENT WITH C/O CHRONIC FATIGUE. PLEASE DO SLEE P STUDY Sent [address] [place] [address] [phone] [facility] Medical - ENT PATIENT C/O REPEATED TONSIL INFECTIONS. 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 PLEASE EVAL AND TREAT Sent [address] [place] [address] [phone]
--- OUTSIDE RECORDS SUMMARY | 2020-07-17 16:41 | CCD | Continuity of Care Document ---
Author Organization Unknown Address Unknown Phone Unavailable Care Team Providers Care Elastic Cutter Name Role Phone CHENG MILLAN AUTM [phone] Social History Type Date Description Comments Sex Unknown Results Test Acquired Date Facility Test Result H/L Range Note Istat Chem8+ Panel 07/09/[address] [id number] [phone] iSTAT HCT 39.0 % Normal 38.0-51.0 iSTAT Glucose 95 mg/dL Normal 70-105 iSTAT Sodium 139 mEq/L Normal 136-145 iSTAT Potassium 4.0 mEq/L Normal 3.5-5.1 iSTAT CA++ 4.9 mg/dL Normal 4.5-5.3 iSTAT Chloride 100 mEq/L Normal 98-109 iSTAT Co2 28.0 MM/L High 23.0-27.0 iSTAT BUN 10 mg/dL Normal 8-26 iSTAT Creatinine 0.9 mg/dL Normal 0.6-1.3 Laboratory test finding 07/09/2020 [facility] [address] [place] [address] [phone] iSTAT B-hCG < 5.0 Normal 1 Istat Chem8+ Panel 07/09/[address] [id number] [phone] iSTAT HCT 45.0 % Normal 38.0-51.0 iSTAT Glucose 79 mg/dL Normal 70-105 iSTAT Sodium 139 mEq/L Normal 136-145 iSTAT Potassium 5.9 mEq/L High 3.5-5.1 iSTAT CA++ 4.2 mg/dL Low 4.5-5.3 iSTAT Chloride 104 mEq/L Normal 98-109 iSTAT Co2 28.0 MM/L High 23.0-27.0 iSTAT BUN 12 mg/dL Normal 8-26 iSTAT Creatinine 0.9 mg/dL Normal 0.6-1.3 CBC With Differential 07/09/2020 [place] [id number] [phone] White Blood Count 5.2 10 Normal 4.0-10.0 [...] 36.0-66.0 Lymph % 33.5 % Normal 24.0-44.0 Roberts % 7.0 % High 2.0-8.0 Eos % 5.0 % High 0.0-3.0 Baso % 0.8 % Normal 0.0-1.0 Immature Granulocyte % 0.2 % Normal 0-3.0 Nucleated Red Blood Cell % 0.0 % Normal 0-0 Neutrophils # 2.8 10 Normal 1.5-8.5 Lymph # 1.7 10 Normal 1.5-5.0 Roberts # 0.4 10 Normal 0.0-0.8 Eos # 0.3 10 Normal 0.0-0.5 Baso # 0.0 10 Normal 0.0-0.2 Liver Profile 07/09/2020 [place] 5634782 [phone] Ast/Sgot 109 U/L High 7-37 2 Alt/SGPT 123 U/L High 12-78 Alkaline Phosphatase 73 U/L Normal 45-117 Bilirubin,Total 0.8 mg/dL Normal 0.2-1.0 Bilirubin,Direct < 0.1 mg/dL Normal 0.0-0.2 Total Protein 9.2 GM/DL High 6.4-8.2 Albumin 4.7 GM/DL Normal 3.2-5.2 Albumin/Globulin Ratio 1.0 Low 1.2-2.2 Laboratory test finding 07/09/2020 [facility] [address] [place] [address] [phone] Lipase 65 U/L Low 73-393 Laboratory test finding 05/23/2020 [facility] [address] [place] [address] [phone] Thyroid Stimulating Hormone 1.010 uIU/ML Normal 0. 358-3.740 Free T4 0.92 ng/dL Normal 0.76-1.46 Free T3 2.5 pg/mL Normal 2.2-4.0 Gats (Negative Strep Screen) 05/14/2020 [facility] [address] [place] [address] [phone] Gats Culture (Neg Strep SCR) FULL REPORT IN L <SEE N OTE> Normal 3 Ua Routine 04/07/[address] [address] [phone] Appearance, Urine CLEAR Normal Clear Color, Urine YELLOW Normal Yellow PH,Urine 6.0 units Normal 5.0-9.0 Specific [place] Urine Auto 1.017 Normal 1.002-1.035 Protein, Urine [...] /LPF Normal 0-1 CBC With Differential 04/07/[address] [address] [phone] White Blood Count 6.1 10 Normal 4.0-10.0 [...] % 0.0 % Normal 0-0 Differential 04/07/[address] [address] [phone] Neutrophils 47 % Normal 28-66 Lymphocytes 38 % Normal 16-44 Monocytes 4 % Normal 0-5 Eosinophils 3 % Normal 0-3 Basophils 1 % Normal 0-1 Atypical Lymph 7 % High 0-5 Laboratory test finding 04/07/2020 [facility] [address] [place], [place] 1704699 [phone] Platelet Estimate NORMAL Normal Normal Hepatitis A IgG Total Negative Normal Negative 4 Comprehensive Metabolic Profil 04/07/[address] [address] [phone] Glucose, Fasting 80 mg/dL Normal 70-100 Blood [...] 1.1 Low 1.2-2.2 Laboratory test finding 04/07/2020 [place] 881050 [place] 5094491 [phone] Hepatitis C Virus Lyndsey Index 0.0 INDEX [...] REPORT IN LAB NOTES (Cecil Husain and Med[facility]). NEGATIVE FOR STREP PYOGENES (GROUP A) 4 Performed at: RN - [facility] [address] [id number] Property Staff Accountant: Maryana Kramer MD, Phone: [phone] 5 Units are mL/min/1.73 m2 Chronic Kidney Disease Staging per NKF: Stage I & II GFR >=60 Normal to Mildly Decreased Stage III GFR 30-59 Moderately Decreased Stage IV GFR 15-29 Severely Decreased Stage V GFR <15 Very Little GFR Left ESRD GFR <15 on DATA INTEGRITY SPECIALIST 6 Negative Not infected with HCV, unless recent infection is suspected or other evidence exists to indicate HCV infection. Encounters Type Date Location Provider Dx Diagnosis Office Visit 06/20/2020 10:45a [facility] TIANA Cedillo J02.9 Acute pharyngitis, unspecifi ed F32.9 Major depressive disorder, s roman episode, unspecified F41.9 Anxiety disorder, unspecifie d Office Visit 05/25/2020 11:30a [facility] TIANA Cedillo J02.9 Acute pharyngitis, unspecifi ed K29.50 Unspecified chronic gastriti s without bleeding Office Visit 04/10/2020 11:30a [facility] TIANA Cedillo K29.00 Acute gastritis without blee ding F32.9 Major depressive disorder, s roman episode, unspecified F17.200 Nicotine dependence, unspeci fied, uncomplicated Assessments Date Code Description Provider 06/20/2020 J02.9 Acute pharyngitis, unspecified F rederick Omayra Petty, PA 06/20/2020 F32.9 Major depressive disorder, singl e episode, unspecified Cheng G Tontarski, PA 06/20/2020 F41.9 Anxiety disorder, unspecified Fr ederick G Johntafallon, PA 05/25/2020 J02.9 Acute pharyngitis, unspecified F rederick G Johntarski, PA 05/25/2020 K29.50 Unspecified chronic gastritis wi thout bleeding Cheng G Johntafallon, PA 04/14/2020 L50.9 Urticaria, unspecified Cheng G Tontarski, PA 04/14/2020 F32.9 Major depressive disorder, singl e episode, unspecified Cheng G Tontarski, PA 04/14/2020 F41.9 Anxiety disorder, unspecified Fr ederick G Johntarskelly, PA 04/10/2020 K29.00 Acute gastritis without bleeding [...] to Reason for Referral Status Appt Date [facility] Neurology PATIENT WITH F/H OF MS. (SIS TER) REQUESTING EVALUATION FOR MS. Sent [address] [place], [place] [id number] [phone] [facility] Sleep Lab PATIENT WITH C/O CHRONIC FATIGUE. PLEASE DO SLEE P STUDY Sent [address] [place] [address] [phone] [facility] - ENT PATIENT C/O REPEATED TONSIL INFECTIONS. 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 PLEASE EVAL AND TREAT Sent [address] [place] [address] [phone]
--- OUTSIDE RECORDS SUMMARY | 2020-07-17 16:41 | CCD | Continuity of Care Document ---
Author Author Karolyn DOVE Organization Unknown Address [address] [facility] [address] [place] [address] Phone [phone] Care Team Providers Care Landfill Grader Name Role Phone CHENG DOVE AUTM [phone] Social History Type Date Description Comments Sex Unknown Results Test Acquired Date Facility Test Result H/L Range Note Istat Chem8+ Panel 07/09/[address] [address] [phone] iSTAT HCT 39.0 % Normal 38.0-51.0 iSTAT Glucose 95 mg/dL Normal 70-105 iSTAT Sodium 139 mEq/L Normal 136-145 iSTAT Potassium 4.0 mEq/L Normal 3.5-5.1 iSTAT CA++ 4.9 mg/dL Normal 4.5-5.3 iSTAT Chloride 100 mEq/L Normal 98-109 iSTAT Co2 28.0 MM/L High 23.0-27.0 iSTAT BUN 10 mg/dL Normal 8-26 iSTAT Creatinine 0.9 mg/dL Normal 0.6-1.3 Laboratory test finding 07/09/2020 [facility] [address] [place] [address] [phone] iSTAT B-hCG < 5.0 Normal 1 Istat Chem8+ Panel 07/09/[address] [id number] [phone] iSTAT HCT 45.0 % Normal 38.0-51.0 iSTAT Glucose 79 mg/dL Normal 70-105 iSTAT Sodium 139 mEq/L Normal 136-145 iSTAT Potassium 5.9 mEq/L High 3.5-5.1 iSTAT CA++ 4.2 mg/dL Low 4.5-5.3 iSTAT Chloride 104 mEq/L Normal 98-109 iSTAT Co2 28.0 MM/L High 23.0-27.0 iSTAT BUN 12 mg/dL Normal 8-26 iSTAT Creatinine 0.9 mg/dL Normal 0.6-1.3 CBC With Differential 07/09/2020 [place] 6643978 [phone] White Blood Count 5.2 10 Normal 4.0-10.0 [...] 36.0-66.0 Lymph % 33.5 % Normal 24.0-44.0 [place] % 7.0 % High 2.0-8.0 Eos % 5.0 % High 0.0-3.0 Baso % 0.8 % Normal 0.0-1.0 Immature Granulocyte % 0.2 % Normal 0-3.0 Nucleated Red Blood Cell % 0.0 % Normal 0-0 Neutrophils # 2.8 10 Normal 1.5-8.5 Lymph # 1.7 10 Normal 1.5-5.0 [place] # 0.4 10 Normal 0.0-0.8 Eos # 0.3 10 Normal 0.0-0.5 Baso # 0.0 10 Normal 0.0-0.2 Liver Profile 07/09/[address] [address] [phone] Ast/Sgot 109 U/L High 7-37 2 Alt/SGPT 123 U/L High 12-78 Alkaline Phosphatase 73 U/L Normal 45-117 Bilirubin,Total 0.8 mg/dL Normal 0.2-1.0 Bilirubin,Direct < 0.1 mg/dL Normal 0.0-0.2 Total Protein 9.2 GM/DL High 6.4-8.2 Albumin 4.7 GM/DL Normal 3.2-5.2 Albumin/Globulin Ratio 1.0 Low 1.2-2.2 Laboratory test finding 07/09/2020 [facility] [address] [place] [address] [phone] Lipase 65 U/L Low 73-393 Laboratory test finding 05/23/2020 [facility] [address] [place] [address] [phone] Thyroid Stimulating Hormone 1.010 uIU/ML Normal 0. 358-3.740 Free T4 0.92 ng/dL Normal 0.76-1.46 Free T3 2.5 pg/mL Normal 2.2-4.0 Gats (Negative Strep Screen) 05/14/2020 [facility] [address] [place] [address] [phone] Gats Culture (Neg Strep SCR) FULL REPORT IN L <SEE N OTE> Normal 3 Ua Routine 04/07/[address] [address] [phone] Appearance, Urine CLEAR Normal Clear Color, Urine YELLOW Normal Yellow PH,Urine 6.0 units Normal 5.0-9.0 Specific [place] Urine Auto 1.017 Normal 1.002-1.035 Protein, Urine [...] /LPF Normal 0-1 CBC With Differential 04/07/[address] 7124905 [phone] White Blood Count 6.1 10 Normal 4.0-10.0 [...] % 0.0 % Normal 0-0 Differential 04/07/[address] [address] [phone] Neutrophils 47 % Normal 28-66 Lymphocytes 38 % Normal 16-44 Monocytes 4 % Normal 0-5 Eosinophils 3 % Normal 0-3 Basophils 1 % Normal 0-1 Atypical Lymph 7 % High 0-5 Laboratory test finding 04/07/[address] [address] [phone] Platelet Estimate NORMAL Normal Normal Hepatitis A IgG Total Negative Normal Negative 4 Comprehensive Metabolic Profil 04/07/[address] [address] [phone] Glucose, Fasting 80 mg/dL Normal 70-100 Blood [...] 1.1 Low 1.2-2.2 Laboratory test finding 04/07/2020 [place] 947930 [place] [address] [phone] Hepatitis C Virus Lyndsey Index 0.0 INDEX [...] A) 4 Performed at: RN - [facility] [address] [id number] Manager Music: Maryana Kramer MD, Phone: [phone] 5 Units are mL/min/1.73 m2 Chronic Kidney Disease Staging per NKF: Stage I & II GFR >=60 Normal to Mildly Decreased Stage III GFR 30-59 Moderately Decreased Stage IV GFR 15-29 Severely Decreased Stage V GFR <15 Very Little GFR Left ESRD GFR <15 on FREE LANCE ARTIST 6 Negative Not infected with HCV, unless recent infection is suspected or other evidence exists to indicate HCV infection. Encounters Type Date Location Provider Dx Diagnosis Office Visit 07/11/2020 12:00p [facility] TIANA Cedillo K81.9 Cholecystitis, unspecified K29.00 Acute gastritis without blee ding Office Visit 07/03/2020 2:30p [facility] TIANA Cedillo K29.00 Acute gastritis without blee ding F41.9 Anxiety disorder, unspecifie d Z82.0 Family history of epilepsy a nd oth dis of the nervous sys Office Visit 06/20/2020 10:45a [facility] TIANA Cedillo J02.9 Acute pharyngitis, unspecifi ed F32.9 Major depressive disorder, s roman episode, unspecified F41.9 Anxiety disorder, unspecifie d Office Visit 05/25/2020 11:30a [facility] TIANA Cedillo J02.9 Acute pharyngitis, unspecifi ed K29.50 Unspecified chronic gastriti s without bleeding Office Visit 04/10/2020 11:30a [facility] TIANA Cedillo K29.00 Acute gastritis without blee ding F32.9 Major depressive disorder, s roman episode, unspecified F17.200 Nicotine dependence, unspeci fied, uncomplicated Assessments Date Code Description Provider 07/11/2020 K81.9 Cholecystitis, unspecified Shari Dove, PA 07/11/2020 K29.00 Acute gastritis without bleeding Cheng Dove, PA 07/03/2020 K29.00 Acute gastritis without bleeding Cheng [...] F41.9 Anxiety disorder, unspecified Fr diane Dove, TIANA 04/10/2020 K29.00 Acute gastritis without bleeding Cheng Omayra Petty, TIANA 04/10/2020 F32.9 Major depressive disorder, singl e episode, unspecified Cheng Dove, PA 04/10/2020 F17.200 Nicotine dependence, unspecified , uncomplicated Cheng Dove, TIANA 03/29/2020 K29.00 Acute gastritis without bleeding Cheng Dove, PA 03/29/2020 F32.9 Major depressive disorder, singl e episode, unspecified Cheng Dove, PA 03/29/2020 F41.9 Anxiety disorder, unspecified Fr TIANA Jimenez Referrals Refer to Reason for Referral Status Appt Date Festus Silvestre JR PATIENT WITH C/O GALLBLADDER DISEASE. RECENT VISIT TO [facility] ER . REPORTS WITHIN. PLEASE EVAL AND TREAT . Sent 07/19/2020 [address] [facility] [address] [place] [address] [phone] [facility] Neurology PATIENT WITH F/H OF MS. (SIS TER) REQUESTING EVALUATION FOR MS. Sent [address] [place] [address] [phone] [facility] Sleep Lab PATIENT WITH C/O CHRONIC FATIGUE. PLEASE DO SLEE P STUDY Sent [address] [place] [address] [phone] [facility] - ENT PATIENT C/O REPEATED TONSIL INFECTIONS. 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 PLEASE EVAL AND TREAT Sent 826 [facility] [address] [place] [address] [phone]
--- OUTSIDE RECORDS SUMMARY | 2020-07-17 16:41 | CCD | Continuity of Care Document ---
Author Organization Unknown Address Unknown Phone Unavailable Care Team Providers Care Detective Private Eye Name Role Phone CHENG MILLAN AUTM Social History Type Date Description Comments Sex Unknown Results Test Acquired Date Facility Test Result H/L Range Note Istat Chem8+ Panel 07/09/[address] [id number] [phone] iSTAT HCT 39.0 % Normal 38.0-51.0 iSTAT Glucose 95 mg/dL Normal 70-105 iSTAT Sodium 139 mEq/L Normal 136-145 iSTAT Potassium 4.0 mEq/L Normal 3.5-5.1 iSTAT CA++ 4.9 mg/dL Normal 4.5-5.3 iSTAT Chloride 100 mEq/L Normal 98-109 iSTAT Co2 28.0 MM/L High 23.0-27.0 iSTAT BUN 10 mg/dL Normal 8-26 iSTAT Creatinine 0.9 mg/dL Normal 0.6-1.3 Laboratory test finding 07/09/2020 [facility] [address] [place] [address] [phone] iSTAT B-hCG < 5.0 Normal 1 Istat Chem8+ Panel 07/09/[address] 2717105 [phone] iSTAT HCT 45.0 % Normal 38.0-51.0 iSTAT Glucose 79 mg/dL Normal 70-105 iSTAT Sodium 139 mEq/L Normal 136-145 iSTAT Potassium 5.9 mEq/L High 3.5-5.1 iSTAT CA++ 4.2 mg/dL Low 4.5-5.3 iSTAT Chloride 104 mEq/L Normal 98-109 iSTAT Co2 28.0 MM/L High 23.0-27.0 iSTAT BUN 12 mg/dL Normal 8-26 iSTAT Creatinine 0.9 mg/dL Normal 0.6-1.3 CBC With Differential 07/09/2020 [place] 1977060 [phone] White Blood Count 5.2 10 Normal 4.0-10.0 [...] 36.0-66.0 Lymph % 33.5 % Normal 24.0-44.0 [place] % 7.0 % High 2.0-8.0 Eos % 5.0 % High 0.0-3.0 Baso % 0.8 % Normal 0.0-1.0 Immature Granulocyte % 0.2 % Normal 0-3.0 Nucleated Red Blood Cell % 0.0 % Normal 0-0 Neutrophils # 2.8 10 Normal 1.5-8.5 Lymph # 1.7 10 Normal 1.5-5.0 [place]ukes # 0.4 10 Normal 0.0-0.8 Eos # 0.3 10 Normal 0.0-0.5 Baso # 0.0 10 Normal 0.0-0.2 Liver Profile 07/09/2020 [place] 1977036 [phone] Ast/Sgot 109 U/L High 7-37 2 Alt/SGPT 123 U/L High 12-78 Alkaline Phosphatase 73 U/L Normal 45-117 Bilirubin,Total 0.8 mg/dL Normal 0.2-1.0 Bilirubin,Direct < 0.1 mg/dL Normal 0.0-0.2 Total Protein 9.2 GM/DL High 6.4-8.2 Albumin 4.7 GM/DL Normal 3.2-5.2 Albumin/Globulin Ratio 1.0 Low 1.2-2.2 Laboratory test finding 07/09/2020 [facility] [address] [place] [address] [phone] Lipase 65 U/L Low 73-393 Laboratory test finding 05/23/2020 [facility] [address] [place] [address] [phone] Thyroid Stimulating Hormone 1.010 uIU/ML Normal 0. 358-3.740 Free T4 0.92 ng/dL Normal 0.76-1.46 Free T3 2.5 pg/mL Normal 2.2-4.0 Gats (Negative Strep Screen) 05/14/2020 [facility] [address] [place] [address] [phone] Gats Culture (Neg Strep SCR) FULL REPORT IN L <SEE N OTE> Normal 3 Ua Routine 04/07/[address] [address] [phone] Appearance, Urine CLEAR Normal Clear Color, Urine YELLOW Normal Yellow PH,Urine 6.0 units Normal 5.0-9.0 Specific [place] Urine Auto 1.017 Normal 1.002-1.035 Protein, Urine [...] /LPF Normal 0-1 CBC With Differential 04/07/[address] [address] [phone] White Blood Count 6.1 10 Normal 4.0-10.0 [...] % 0.0 % Normal 0-0 Differential 04/07/[address] [address] [phone] Neutrophils 47 % Normal 28-66 Lymphocytes 38 % Normal 16-44 Monocytes 4 % Normal 0-5 Eosinophils 3 % Normal 0-3 Basophils 1 % Normal 0-1 Atypical Lymph 7 % High 0-5 Laboratory test finding 04/07/2020 [facility] [address] [place], [place] 3134643 [phone] Platelet Estimate NORMAL Normal Normal Hepatitis A IgG Total Negative Normal Negative 4 Comprehensive Metabolic Profil 04/07/[address] [address] [phone] Glucose, Fasting 80 mg/dL Normal 70-100 Blood [...] 1.1 Low 1.2-2.2 Laboratory test finding 04/07/2020 [place] 701410 [place] 8342305 [phone] Hepatitis C Virus Lyndsey Index 0.0 INDEX [...] A) 4 Performed at: RN - [facility] [address] [id number] Athletic Gear Custodian: Maryana Kramer MD, Phone: [phone] 5 Units are mL/min/1.73 m2 Chronic Kidney Disease Staging per NKF: Stage I & II GFR >=60 Normal to Mildly Decreased Stage III GFR 30-59 Moderately Decreased Stage IV GFR 15-29 Severely Decreased Stage V GFR <15 Very Little GFR Left ESRD GFR <15 on METAL POLISHER AND BUFFER APPRENTICE 6 Negative Not infected with HCV, unless recent infection is suspected or other evidence exists to indicate HCV infection. Encounters Type Date Location Provider Dx Diagnosis Office Visit 06/20/2020 10:45a [facility] TIANA Cedillo J02.9 Acute pharyngitis, unspecifi ed F32.9 Major depressive disorder, s roman episode, unspecified F41.9 Anxiety disorder, unspecifie d Office Visit 05/25/2020 11:30a [facility] TIANA Cedillo J02.9 Acute pharyngitis, unspecifi ed K29.50 Unspecified chronic gastriti s without bleeding Office Visit 04/10/2020 11:30a [facility] TIANA Cedillo K29.00 Acute gastritis without [...] TER) REQUESTING EVALUATION FOR MS. Sent [address] [place], [place] [phone] [facility] Sleep Lab PATIENT WITH C/O CHRONIC FATIGUE. PLEASE DO SLEE P STUDY Sent [address] [place] [address] [phone] [facility] - ENT PATIENT C/O REPEATED TONSIL INFECTIONS. 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 PLEASE EVAL AND TREAT Sent [address] [place] [address] [phone]
--- OUTSIDE RECORDS SUMMARY | 2020-07-17 16:41 | CCD | Continuity of Care Document ---
Author Organization Unknown Address Unknown Phone Unavailable Care Team Providers Care Merchandise Appraiser Name Role Phone CHENG DOVE AUTM Social History Type Date Description Comments Sex Unknown Results Test Acquired Date Facility Test Result H/L Range Note Istat Chem8+ Panel 07/09/[address] [address] [phone] iSTAT HCT 39.0 % Normal 38.0-51.0 iSTAT Glucose 95 mg/dL Normal 70-105 iSTAT Sodium 139 mEq/L Normal 136-145 iSTAT Potassium 4.0 mEq/L Normal 3.5-5.1 iSTAT CA++ 4.9 mg/dL Normal 4.5-5.3 iSTAT Chloride 100 mEq/L Normal 98-109 iSTAT Co2 28.0 MM/L High 23.0-27.0 iSTAT BUN 10 mg/dL Normal 8-26 iSTAT Creatinine 0.9 mg/dL Normal 0.6-1.3 CBC With Differential 07/09/[address] [address] [phone] White Blood Count 5.2 10 Normal 4.0-10.0 [...] 36.0-66.0 Lymph % 33.5 % Normal 24.0-44.0 [place] % 7.0 % High 2.0-8.0 Eos % 5.0 % High 0.0-3.0 Baso % 0.8 % Normal 0.0-1.0 Immature Granulocyte % 0.2 % Normal 0-3.0 Nucleated Red Blood Cell % 0.0 % Normal 0-0 Neutrophils # 2.8 10 Normal 1.5-8.5 Lymph # 1.7 10 Normal 1.5-5.0 [place] # 0.4 10 Normal 0.0-0.8 Eos # 0.3 10 Normal 0.0-0.5 Baso # 0.0 10 Normal 0.0-0.2 Liver Profile 07/09/[address] [address] [phone] Ast/Sgot 109 U/L High 7-37 1 Alt/SGPT 123 U/L High 12-78 Alkaline Phosphatase 73 U/L Normal 45-117 Bilirubin,Total 0.8 mg/dL Normal 0.2-1.0 Bilirubin,Direct < 0.1 mg/dL Normal 0.0-0.2 Total Protein 9.2 GM/DL High 6.4-8.2 Albumin 4.7 GM/DL Normal 3.2-5.2 Albumin/Globulin Ratio 1.0 Low 1.2-2.2 Laboratory test finding 07/09/2020 [place] [address] [place] [address] [phone] Lipase 65 U/L Low 73-393 Laboratory test finding 05/23/[address] [address] [phone] Thyroid Stimulating Hormone 1.010 uIU/ML Normal 0. 358-3.740 Free T4 0.92 ng/dL Normal 0.76-1.46 Free T3 2.5 pg/mL Normal 2.2-4.0 Gats (Negative Strep Screen) 05/14/2020 [facility] [address] [place] [address] [phone] Gats Culture (Neg Strep SCR) FULL REPORT IN L <SEE N OTE> Normal 2 Ua Routine 04/07/2020 [place] 7754443 [phone] Appearance, Urine CLEAR Normal Clear Color, Urine YELLOW Normal Yellow PH,Urine 6.0 units Normal 5.0-9.0 Specific [place] Urine Auto 1.017 Normal 1.002-1.035 Protein, Urine [...] /LPF Normal 0-1 CBC With Differential 04/07/2020 [place] 7754470 [phone] White Blood Count 6.1 10 Normal 4.0-10.0 [...] % 0.0 % Normal 0-0 Differential 04/07/[address] [address] [phone] Neutrophils 47 % Normal 28-66 Lymphocytes 38 % Normal 16-44 Monocytes 4 % Normal 0-5 Eosinophils 3 % Normal 0-3 Basophils 1 % Normal 0-1 Atypical Lymph 7 % High 0-5 Laboratory test finding 04/07/2020 [place] [address] [place] [address] [phone] Platelet Estimate NORMAL Normal Normal Hepatitis A IgG Total Negative Normal Negative 3 Comprehensive Metabolic Profil 04/07/[address] [address] [phone] Glucose, Fasting 80 mg/dL Normal 70-100 Blood [...] 1.1 Low 1.2-2.2 Laboratory test finding 04/07/[address] [address] [phone] Hepatitis C Virus Lyndsey Index 0.0 INDEX [...] A) 3 Performed at: RN - [facility] [address] [id number] Hvac Service Technician: Maryana Kramer MD, Phone: [phone] 4 Units are mL/min/1.73 m2 Chronic Kidney Disease Staging per NKF: Stage I & II GFR >=60 Normal to Mildly Decreased Stage III GFR 30-59 Moderately Decreased Stage IV GFR 15-29 Severely Decreased Stage V GFR <15 Very Little GFR Left ESRD GFR <15 on QUALITY ASSURANCE ADVISOR 5 Negative Not infected with HCV, unless recent infection is suspected or other evidence exists to indicate HCV infection. Encounters Type Date Location Provider Dx Diagnosis Office Visit 06/20/2020 10:45a [facility] TIANA Cedillo J02.9 Acute pharyngitis, unspecifi ed F32.9 Major depressive disorder, s roman episode, unspecified F41.9 Anxiety disorder, unspecifie d Office Visit 05/25/2020 11:30a [facility] TIANA Cedillo J02.9 Acute pharyngitis, unspecifi ed K29.50 Unspecified chronic gastriti s without bleeding Office Visit 04/10/2020 11:30a [facility] TIANA Cedillo K29.00 Acute gastritis without blee [...] to Reason for Referral Status Appt Date [facility] Neurology PATIENT WITH F/H OF MS. (SIS TER) REQUESTING EVALUATION FOR MS. Sent [address] [place] [address] [phone] [facility] Sleep Lab PATIENT WITH C/O CHRONIC FATIGUE. PLEASE DO SLEE P STUDY Sent [address] [place] [address] [phone] [facility] - ENT PATIENT C/O REPEATED TONSIL INFECTIONS. 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 PLEASE EVAL AND TREAT Sent 826 [facility] [address] [place] [address] [phone]
--- OUTSIDE RECORDS SUMMARY | 2020-07-17 16:41 | CCD | Continuity of Care Document ---
Author Author Karolyn PATEL M.D. Organization Unknown Address [address] [place] [id number] Phone [phone] Care Team Providers Care Vocational Education Professional Name Role Phone Cheng Dove AUTM [phone] Problems Active Problems Provider Date Headache Marcelo Patel M.D. Onset: 07/13/2020 Social History Type Date Description Comments Sex Unknown Tobacco Use Start: Unknown End: Unknown Patient is a former smoker Allergies, Adverse Reactions, Alerts Active Allergies Reaction Severity Comments Date Latex 07/13/2020 Oxycodone 07/13/2020 Medications Active Medications SIG Qnty Indications Ordering Provide r Date Suboxone 8-2mg Film Patient takes total 10mg in the morning. Marcelo Patel M.D. Suboxone 2-0.5mg Film Patient takes 10 mg in the morning. Marcelo Patel M.D. Wellbutrin XL 300mg Tablets ER 24H R pt takes one tab daily 30tabs Marcelo Patel M.D. Vraylar 1.5mg Capsules Patient takes once at bedtime. Marcelo Patel M.D. Immunizations Description No Information Available Vital Signs Date Vital Result Comment 07/13/2020 9:45am Respiratory Rate 12 /min Height 63 inches 5'3" Weight 126.00 lb BMI (Body Mass Index) 22.3 kg/m2 [place] Body Weight 115 lb Results Description No Information Available Procedures Description No Information Available Medical Devices Description No Information Available Encounters Description No Information Available Assessments Date Code Description Provider 07/13/2020 M54.81 Occipital neuralgia Marcelo de los santos M.D. 07/13/2020 R51.9 Headache, unspecified Marcelo steele M.D. 07/13/2020 R42 Dizziness and giddiness Marcelo carballo M.D. 07/13/2020 I95.1 Orthostatic hypotension Marcelo carballo M.D. 07/13/2020 R00.0 Tachycardia, unspecified Marcelo atkins M.D. Plan of Treatment Future Appointment(s):* 10/12/2020 3:00 pm - Marcelo Patel M.D. at Main office - [place] Functional Status Description No Information Available Mental Status Description No Information Available Referrals Description No Information Available
--- OUTSIDE RECORDS SUMMARY | 2020-07-17 16:42 | CCD ---
Author Author [facility] Organization [facility] Address Unknown Phone Unavailable Care Team Providers Care Upper Tier Name Role Phone Frederick Dominguez MD Unavailable [...] Unavailable Unavailable Frederick Dominguez MD Unavailable Unavailable Frdeerick Dominguez MD Unavailable Unavailable Frederick Dominguez MD [...] EMILIA RPA-C Unavailable Unavailable Alberry, D Wanda DIRECTOR IMMUNOLOGY Unavailable Unavailable Alberry, D Wanda DIRECTOR IMMUNOLOGY Unavailable Unavailable Alberry, D Wanda DIRECTOR IMMUNOLOGY Unavailable Unavailable Alberry, D Wanda DIRECTOR IMMUNOLOGY Unavailable Unavailable Alberry, D Wanda DIRECTOR IMMUNOLOGY Unavailable Unavailable Alberry, D Wanda DIRECTOR IMMUNOLOGY Unavailable Unavailable Alberry, D Wanda DIRECTOR IMMUNOLOGY Unavailable Unavailable Alberry, D Wanda DIRECTOR IMMUNOLOGY Unavailable Unavailable Alberry, D Wanda DIRECTOR IMMUNOLOGY Unavailable Unavailable Alberry, D Wanda DIRECTOR IMMUNOLOGY Unavailable Unavailable Alberry, D Wanda DIRECTOR IMMUNOLOGY Unavailable Unavailable Alberry, D Wanda DIRECTOR IMMUNOLOGY Unavailable Unavailable Alberry, D Wanda DIRECTOR IMMUNOLOGY Unavailable Unavailable Alberry, D Wanda DIRECTOR IMMUNOLOGY Unavailable Unavailable Alberry, D Wanda DIRECTOR IMMUNOLOGY Unavailable Unavailable Alberry, D Wanda DIRECTOR IMMUNOLOGY Unavailable Unavailable Alberry, D Wanda DIRECTOR IMMUNOLOGY Unavailable Unavailable Alberry, D Wanda DIRECTOR IMMUNOLOGY Unavailable Unavailable Alberry, D Wanda DIRECTOR IMMUNOLOGY Unavailable Unavailable Alberry, D Wanda DIRECTOR IMMUNOLOGY Unavailable Unavailable Alberry, D Wanda DIRECTOR IMMUNOLOGY Unavailable Unavailable Alberry, D Wanda DIRECTOR IMMUNOLOGY Unavailable Unavailable Alberry, D Wanda DIRECTOR IMMUNOLOGY Unavailable Unavailable Alberry, D Wanda DIRECTOR IMMUNOLOGY Unavailable Unavailable Alberry, D Wanda DIRECTOR IMMUNOLOGY Unavailable Unavailable Alberry, D Wanda DIRECTOR IMMUNOLOGY Unavailable Unavailable Alberry, D Wanda DIRECTOR IMMUNOLOGY Unavailable Unavailable Alberry, D Wanda DIRECTOR IMMUNOLOGY Unavailable Unavailable Alberry, D Wanda DIRECTOR IMMUNOLOGY Unavailable Unavailable Alberry, D Wanda DIRECTOR IMMUNOLOGY Unavailable Unavailable Alberry, D Wanda DIRECTOR IMMUNOLOGY Unavailable Unavailable Alberry, D Wanda DIRECTOR IMMUNOLOGY Unavailable Unavailable Alberry, D Wanda DIRECTOR IMMUNOLOGY Unavailable Unavailable Alberry, D Wanda DIRECTOR IMMUNOLOGY Unavailable Unavailable Alberry, D Wanda DIRECTOR IMMUNOLOGY Unavailable Unavailable Alberry, D Wanda DIRECTOR IMMUNOLOGY Unavailable Unavailable Alberry, D Wanda DIRECTOR IMMUNOLOGY Unavailable Unavailable Alberry, D Wanda DIRECTOR IMMUNOLOGY Unavailable Unavailable Alberry, D Wanda DIRECTOR IMMUNOLOGY Unavailable Unavailable Alberry, D Wanda DIRECTOR IMMUNOLOGY Unavailable Unavailable Alberry, D Wanda DIRECTOR IMMUNOLOGY Unavailable Unavailable Alberry, D Wanda DIRECTOR IMMUNOLOGY Unavailable Unavailable Alberry, D Wanda DIRECTOR IMMUNOLOGY Unavailable Unavailable Alberry, D Wanda DIRECTOR IMMUNOLOGY Unavailable Unavailable Alberry, D Wanda DIRECTOR IMMUNOLOGY Unavailable Unavailable Alberry, D Wanda DIRECTOR IMMUNOLOGY Unavailable Unavailable Alberry, D Wanda DIRECTOR IMMUNOLOGY Unavailable Unavailable Alberry, D Wanda DIRECTOR IMMUNOLOGY Unavailable Unavailable NYASIA, MICHAEL PA Unavailable Unavailable NYASIA, MICHAEL PA Unavailable Unavailable NYASIA, MICHAEL PA Unavailable Unavailable NYASIA, MICHEAL PA Unavailable Unavailable NYASIA, MICHAEL PA Unavailable [...] Unavailable Unavailable NYASIA, MICHAEL PA Unavailable Unavailable NYAISA, MICHAEL PA Unavailable Unavailable NYASIA, MICHAEL PA [...] V MD Unavailable Unavailable Dimitry, A Cinthya DIRECTOR IMMUNOLOGY Unavailable Unavailable Dimitry, A Cinthya DIRECTOR IMMUNOLOGY Unavailable Unavailable Dimitry, A Cinthya DIRECTOR IMMUNOLOGY Unavailable Unavailable Dimitry, A Cinthya DIRECTOR IMMUNOLOGY Unavailable Unavailable Dimitry, A Cinthya DIRECTOR IMMUNOLOGY Unavailable Unavailable Dimitry, A Cinthya DIRECTOR IMMUNOLOGY Unavailable Unavailable Dimitry, A Cinthya DIRECTOR IMMUNOLOGY Unavailable Unavailable Dimitry, A Cinthya DIRECTOR IMMUNOLOGY Unavailable Unavailable Dimitry, A Cinthya DIRECTOR IMMUNOLOGY Unavailable Unavailable Dimitry, A Cinthya DIRECTOR IMMUNOLOGY Unavailable Unavailable Dimitry, A Cinthya DIRECTOR IMMUNOLOGY Unavailable Unavailable Dimitry, A Cinthya DIRECTOR IMMUNOLOGY Unavailable Unavailable Dimitry, A Cinthya DIRECTOR IMMUNOLOGY Unavailable Unavailable Dimitry, A Cinthya DIRECTOR IMMUNOLOGY Unavailable Unavailable Dimitry, A Cinthya DIRECTOR IMMUNOLOGY Unavailable Unavailable Dimitry, A Cinthya DIRECTOR IMMUNOLOGY Unavailable Unavailable Dimitry, A Cinthya DIRECTOR IMMUNOLOGY Unavailable Unavailable Dimitry, A Cinthya DIRECTOR IMMUNOLOGY Unavailable Unavailable Dimitry, A Cinthya DIRECTOR IMMUNOLOGY Unavailable Unavailable Dimitry, A Cinthya DIRECTOR IMMUNOLOGY Unavailable Unavailable Dimitry, A Cinthya DIRECTOR IMMUNOLOGY Unavailable Unavailable Dimitry, A Cinthya DIRECTOR IMMUNOLOGY Unavailable Unavailable Dimitry, A Cinthya DIRECTOR IMMUNOLOGY Unavailable Unavailable Dimitry, A Cinthya DIRECTOR IMMUNOLOGY Unavailable Unavailable Dimitry, A Cinthya DIRECTOR IMMUNOLOGY Unavailable Unavailable Dimitry, A Cinthya DIRECTOR IMMUNOLOGY Unavailable Unavailable Dimitry, A Cinthya DIRECTOR IMMUNOLOGY Unavailable Unavailable Dimitry, A Cinthya DIRECTOR IMMUNOLOGY Unavailable Unavailable Dimitry, A Cinthya DIRECTOR IMMUNOLOGY Unavailable Unavailable Dimitry, A Cinthya DIRECTOR IMMUNOLOGY Unavailable Unavailable Dimitry, A Cinthya DIRECTOR IMMUNOLOGY Unavailable Unavailable Dimitry, A Cinthya DIRECTOR IMMUNOLOGY Unavailable Unavailable Dimitry, A Cinthya DIRECTOR IMMUNOLOGY Unavailable Unavailable Dimitry, A Cinthya DIRECTOR IMMUNOLOGY Unavailable Unavailable Dimitry, A Cinthya DIRECTOR IMMUNOLOGY Unavailable Unavailable Dimitry, A Cinthya DIRECTOR IMMUNOLOGY Unavailable Unavailable Dimitry, A Cinthya DIRECTOR IMMUNOLOGY Unavailable Unavailable Dimitry, A Cinthya DIRECTOR IMMUNOLOGY Unavailable Unavailable Dimitry, A Cinthya DIRECTOR IMMUNOLOGY Unavailable Unavailable Dimitry, A Cinthya DIRECTOR IMMUNOLOGY Unavailable Unavailable Dimitry, A Cinthya DIRECTOR IMMUNOLOGY Unavailable Unavailable Dimitry, A Cinthya DIRECTOR IMMUNOLOGY Unavailable Unavailable Dimitry, A Cinthya DIRECTOR IMMUNOLOGY Unavailable Unavailable Dimitry, A Cinthya DIRECTOR IMMUNOLOGY Unavailable Unavailable Azraremout, Stacie Unavailable LETTIERE, A DILLAN PA Unavailable [...] Unavailable Unavailable LEOBARDO CORONA MD Unavailable Unavailable LEOBAROD CORONA MD Unavailable Unavailable LEOBARDO CORONA MD Unavailable Unavailable [place], C Artur Unavailable Unavailable Dia, C Artur Unavailable Unavailable [place], C Artur Unavailable Unavailable [place], C Artur Unavailable Unavailable Dia, C Artur Unavailable Unavailable Dia, C Artur Unavailable Unavailable [place], C Artur Unavailable Unavailable Rosie CÁRDENAS MD Unavailable Unavailable CÁRDENAS, L EMMA WHEELER [...] Whitley Unavailable Unavailable Logan-Centner, Whitley Unavailable Unavailable Carmela FRANCO YRIS LABEL PINKER Unavailable Unavailable ADDIE, H YRIS LABEL PINKER Unavailable Unavailable ADDIE, H YRIS LABEL PINKER Unavailable Unavailable ADDIE, H YRIS LABEL PINKER Unavailable Unavailable ADDIE, H YRIS LABEL PINKER Unavailable Unavailable ADDIE, H YRIS LABEL PINKER Unavailable Unavailable ADDIE, H YRIS LABEL PINKER Unavailable Unavailable ADDIE, H YRIS LABEL PINKER Unavailable Unavailable AL, W MORGAN PA Unavailable [...] is protected by Article 27-F of the [facility] Public Health law. If you continue you may have access to information: Regarding HIV / AIDS; Provided by facilities licensed or operated by the [facility] Office of Mental Health; or Provided by the [facility] Office for People With Developmental Disabilities. If such information is present, then the following [facility] mandated warning applies: This information has [...] law may result in a fine or shelter sentence or both. A general authorization for the release of medical or other information is NOT sufficient authorization for further disc losure. Allergies and Adverse Reactions Type Description Substance Reaction Status Data Source(s ) Drug allergy Oxycodone HCl Oxycodone Rash Active eCW1 ([facility] [place][note 2]) Latex Latex Latex Rash Active eCW1 ([facility]) Latex Latex Latex Rash Active eCW1 ([facility]) Oxycodone HCl Oxycodone HCl Oxycodone Hydrochloride 20 MG/ML Oral Solution Rash Active eCW1 ([facility]) Allergy to substance Allergy to substance Allergy to substance JOSE MANUEL ([facility]) Allergy to substance Allergy to substance Allergy to substance JOSE MANUEL ([facility]) Allergy to substance Allergy to substance Allergy to substance JOSE MANUEL ([facility]) Family History Family Member Name Family Member Gender Family Member Status Date o f Status Description Data Source(s) Unknown Unknown Problem MEDENT ([facility]) Encounters Encounter Providers Location Date Indications Data Source(s ) Outpatient Attender: MIRTA MONTIEL [facility] 07/11/2020 11:00:00 AM EST MEDENT (Sergey Calix MD) Outpatient Attender: MIRTA MONTIEL [facility] 07/03/2020 01:30:00 PM EST MEDENT (Sergey Calix MD) Extended Individual Psychotherapy - 45 min Attender: Lynsey Fuller [facility] 06/29/2020 02:00:00 AM EST - 06/29/2020 02:00:00 AM EST [facility] ([facility]) Attender: Stacie Alina 06/29/2020 12:00:0 0 AM EST [facility] ([facility]) [facility] [address] [place] [phone], Ph. Attender: Whitley Flanagan [facility] Medical 06/22/2020 12:00:00 AM EST JOSE MANUEL ([facility]) Outpatient Attender: MIRTA MONTIEL [facility] 06/20/2020 09:45:00 AM EST MEDENT (Sergey Calix MD) Outpatient Attender: MIRTA Montemayor Buildin [facility] 05/25/2020 10:30:00 AM EST MEDENT ([facility]gey Calix MD) Keyon Mayer MD: [address] [place] [phone], Ph. Attender: Keyon Mayer MD [facility] Medical 05/24/2020 12:00:00 AM EST JOSE MANUEL ([facility]) Keyon Mayer MD: [address] [place] [phone], Ph. Attender: Keyon Mayer MD [facility] Medical 05/24/2020 12:00:00 AM EST JOSE MANUEL ([facility]) Keyon Mayer MD: [address] [place] [phone], Ph. Attender: Keyon Mayer MD [place] - [facility] Medical 05/24/2020 12:00:00 AM EST JOSE MANUEL ([facility]) Outpatient Attender: [facility]AN [place] [facility] 10:30:00 AM EST MEDENT (Sergey Calix MD) Outpatient [facility] 03/24/2020 12:00:00 AM EDT eCW1 ([facility]) Outpatient [facility] 03/24/2020 12:00:00 AM EDT eCW1 ([facility]) Attender: Stacie Fuller 03/08/2020 12:00:0 0 AM EDT [facility] ([facility]) Extended Individual Psychotherapy - 45 min Attender: Lynsey gutierrez [facility] 03/07/2020 03:30:00 AM EDT - 03/07/2020 03:30:00 AM EDT [facility] ([facility]) Extended Individual Psychotherapy - 45 min Attender: Lynsey gutierrez [facility] 02/17/2020 10:30:00 AM EDT - 02/17/2020 10:30:00 AM EDT [facility] ([facility]) Attender: Stacie Fuller 02/17/2020 12:00:0 0 AM EDT [facility] ([facility]) Outpatient Attender: Cinthya Moraes [facility] 02/03/2020 07:30 :00 AM EDT [facility] Outpatient [facility] 02/03/2020 12:00:00 AM EDT eCW1 ([facility]) Outpatient [facility] 02/03/2020 12:00:00 AM EDT eCW1 ([facility]) Extended Individual Psychotherapy - 45 min Attender: Lynsey gutierrez [facility] 01/27/2020 10:30:00 AM EDT - 01/27/2020 10:30:00 AM EDT [facility] ([facility]) Attender: Stacie Fuller 01/27/2020 12:00:0 0 AM EDT [facility] ([facility]) Outpatient [facility] 01/04/2020 12:00:00 AM EDT eCW1 ([facility]) Outpatient Attender: Cinthya Moraes FNPReferrer: Cinthya DE EMERGENCY ROOM-LAB 12/29/2019 07:50:00 AM EDT - 12/29/2019 07:50:00 AM EDT [facility] Outpatient Attender: Cinthya DE 2019 03:30 :00 PM EDT [facility] Outpatient [facility] 2019 12:00:00 AM EDT eCW1 ([facility]) [facility] 12/09/2019 12:00:00 AM EDT eCW1 ([facility]) [id number]"Psychotherapy Attender: Stacie Fuller [facility] 11/15/2019 10:00:00 AM EDT - 11/15/2019 10:00:00 AM EDT [facility] ([facility]) Attender: Stacie Fuller 11/15/2019 12:00:0 0 AM EDT [facility] ([facility]) [id number]"Psychotherapy Attender: Stacie Fuller [facility] 10/28/2019 08:45:00 AM EDT - 10/28/2019 08:45:00 AM EDT [facility] ([facility]) Attender: Stacie Fuller 10/28/2019 12:00:0 0 AM EDT [facility] ([facility]) Outpatient Attender: YRIS FRANCO NP [facility] Jared lamar 10/21/2019 03:30:00 AM EDT - 10/21/2019 03:30:00 AM EDT [facility] ([facility]) Attender: YRIS FRANCO NP 10/21/2019 12:00:00 AM EDT [facility] ([facility]) [id number]"Psychotherapy Attender: Stacie Fuller [facility] 10/12/2019 10:45:00 AM EDT - 10/12/2019 10:45:00 AM EDT [facility] ([facility]) Attender: Stacie Fuller 10/12/2019 12:00:0 0 AM EDT [facility] ([facility]) Outpatient Attender: DILLAN jones 10/04/2019 12:15:00 PM EDT MEDENT ([facility]) Outpatient 09/29/2019 05:06:00 AM EDT [facility] [id number]"Psychotherapy Attender: Stacie Fuller [facility] 09/27/2019 10:00:00 AM EDT - 09/27/2019 10:00:00 AM EDT [facility] ([facility]) Attender: Stacie Fuller 09/27/2019 12:00:0 0 AM EDT [facility] ([facility]) Outpatient Attender: YRIS FRANCO NP [facility] Jared lamar 09/23/2019 03:00:00 AM EDT - 09/23/2019 03:00:00 AM EDT [facility] ([facility]) Attender: YRIS FRANCO NP 09/23/2019 12:00:00 AM EDT [facility] ([facility]) Outpatient Attender: Cinthya GIFFORDP 09/13/2019 07:39 :00 AM EDT [facility] ENTER 09/13/2019 12:00:00 AM EDT eCW1 ([facility]) [id number]"Psychotherapy Attender: Stacie Fuller [facility] 09/10/2019 10:00:00 AM EDT - 09/10/2019 10:00:00 AM EDT [facility] ([facility]) Attender: Stacie Fuller 09/10/2019 12:00:0 0 AM EDT [facility] ([facility]) [id number]" Psychotherapy Attender: Stacie bacon [facility] 08/24/2019 10:00:00 AM EDT - 08/24/2019 10:00:00 AM EDT [facility] ([facility]) Attender: Stacie Fuller 08/24/2019 12:00:0 0 AM EDT [facility] ([facility]) Extended Individual Psychotherapy - 45 min Attender: Lynsey Fuller [facility] 08/06/2019 08:00:00 AM EDT - 08/06/2019 08:00:00 AM EDT [facility] ([facility]) Attender: Stacie Fuller 08/06/2019 12:00:0 0 AM EDT [facility] ([facility]) Outpatient Attender: Stanley Dominguez MD Main Office 08/04/2019 02:30:00 PM EDT MEDENT ([facility]) Outpatient Attender: EMMA CÁRDENAS MD [facility] 08/2019 08:15:00 AM EST [facility] ([facility] [employer]) Extended Individual Psychotherapy - 45 min Attender: Lynsey Fuller [facility] 07/23/2019 10:45:00 AM EST - 07/23/2019 10:45:00 AM EST [facility] ([facility]) Attender: Stacie Fuller 07/23/2019 12:00:0 0 AM EST [facility] ([facility]) Outpatient Attender: Cinthya Moraes DIRECTOR IMMUNOLOGY 07/19/2019 07:28 :00 AM EST [facility] ENTER 07/19/2019 12:00:00 AM EST eCW1 ([facility]) Outpatient 07/08/2019 01:14:00 PM EST [facility] Brief Individual Psychotherapy - 30 min Attender: Stacie arriaza [facility] 06/22/2019 12:00:00 PM EST - 06/22/2019 12:00:00 PM EST [facility] ([facility]) Attender: Stacie Fuller 06/22/2019 12:00:0 0 AM EST [facility] Outpatient Attender: MICHAEL thomas 06/21/2019 10:30:00 AM EST [facility] ([facility] Attender: Stacie Fuller 06/08/2019 12:00:0 0 AM EST [facility] ([facility]) Extended Individual Psychotherapy - 45 min Attender: Lynsey Fuller [facility] 06/07/2019 02:00:00 AM EST - 06/07/2019 02:00:00 AM EST [facility] ([facility]) Outpatient Attender: Artur Alvares [facility] 0 06/04/2019 10:30:00 AM EST - 06/04/2019 10:30:00 AM EST [facility] ([facility]) Attender: Artur Alvares 06/04/2019 12:00:00 AM EST [facility] ([facility]) Outpatient Attender: EMILIA HIGGINS 05/26 09:30:00 AM EST - 06/05/2018 09:30:00 AM [facility] Emergency Attender: Yolande MONTEZeferrer: LORIE ABEL DO 09/03/2014 03:23:00 PM EDT - 09/03/2014 04:26:00 PM [facility] Emergency Attender: MORGAN AL PAReferrer: LORIE ABEL DO EMERGENCY ROOM-ER 12/05/2013 09:03:00 PM EDT - 12/05/2013 10:00:00 PM [facility] Emergency Attender: FRAN MONTIEL 08/21/2013 08:37:00 PM EDT - 08/22/2013 12:44:00 AM [facility] Outpatient Attender: Wanda DE 06/23/2013 05:59 :00 PM [facility] Outpatient Attender: KAYLA CORONA MD 01/04/2013 11:01:00 A M [facility] Outpatient Attender: Albina CHOPRA MD 09/28/2012 03:48:00 PM [facility] Outpatient Attender: Wanda DE 09/10/2012 11:45 :00 AM [facility] Functional Status Immunizations Vaccine Date Status Description Data Source(s) COVID-19, mRNA, LNP-S, PF, 100 mcg/0.5 mL dose 06/22/2020 09 :55:34 AM EST completed 10.5 mL JOSE MANUEL ([facility]) COVID-19, mRNA, LNP-S, PF, 100 mcg/0.5 mL dose 05/24/2020 03 :11:59 PM EST completed .5 mL JOSE MANUEL ([facility]) COVID-19, mRNA, LNP-S, PF, 100 mcg/0.5 mL dose 05/24/2020 03 :11:59 PM EST completed .5 mL JOSE MANUEL ([facility]) COVID-19, mRNA, LNP-S, PF, 100 mcg/0.5 mL dose 05/24/2020 03 :11:59 PM EST completed .5 mL JOSE MANUEL ([facility]) New in 2011. IIV4 07/19/2019 09:08:00 AM EST completed eCW1 ([facility]) New in 2011. IIV4 07/19/2019 09:08:00 AM EST completed eCW1 ([facility]) New in 2011. IIV4 07/19/2019 09:08:00 AM EST completed eCW1 ([facility]) New in 2011. IIV4 07/19/2019 09:08:00 AM EST completed eCW1 ([facility]) New in 2011. IIV4 07/19/2019 09:08:00 AM EST completed eCW1 ([facility]) New in 2011. IIV4 07/19/2019 09:08:00 AM EST completed eCW1 ([facility]) New in 2011. IIV4 07/19/2019 09:08:00 AM EST completed eCW1 ([facility]) Tdap 07/19/2019 09:06:00 AM EST completed e CW1 ([facility]) Tdap 07/19/2019 09:06:00 AM EST completed e CW1 ([facility]) Tdap 07/19/2019 09:06:00 AM EST completed e CW1 ([facility]) Tdap 07/19/2019 09:06:00 AM EST completed e CW1 ([facility]) Tdap 07/19/2019 09:06:00 AM EST completed e CW1 ([facility]) Tdap 07/19/2019 09:06:00 AM EST completed e CW1 ([facility]) Tdap 07/19/2019 09:06:00 AM EST completed e CW1 ([facility]) Medications Medication Brand Name Start Date Product Form Dose Route Admi nistrative Instructions Pharmacy Instructions Status Indications Reaction Description Data Source(s) 150 mg 05/29/2020 12:00:00 AM EST capsule,extended releas e 24hr 30 TAKE ONE CAPSULE BY MOUTH EVERY MORNING TAKE ONE CAPSULE BY MOUTH EVERY MORNING SOLD: 06/01/2020 [facility] 75 mg 05/29/2020 12:00:00 AM EST capsule,extended releas e 24hr 30 TAKE ONE CAPSULE BY MOUTH EVERY MORNING TAKE ONE CAPSULE BY MOUTH EVERY MORNING SOLD: 06/01/2020 [facility] 3 mg 05/29/2020 12:00:00 AM EST capsule 30 TAKE ONE CAPSULE BY MOUTH AT BEDTIME TAKE ONE CAPSULE BY MOUTH AT BEDTIME SOLD: 06/01/2020 [facility] aripiprazole 5 MG Oral Tablet Aripiprazole 03/22/2020 12:00:00 AM EDT [facility] 24 HR venlafaxine 150 MG Extended Release Oral Capsule Venla faxine HCL ER 03/22/2020 12:00:00 AM EDT ORAL active MEDENT ([facility]) Fluconazole 150 MG Oral Tablet [Diflucan] Diflucan 150 MG Di flucan 150 MG 02/03/2020 12:00:00 AM EDT 1.0 {tablet} active Diflucan 150 MG eCW1 ([facility]) 150 mg 02/03/2020 12:00:00 AM EDT tablet 2 TAKE 1 TABLET BY MOUTH ONCE WEEKLY TAKE 1 TABLET BY MOUTH ONCE WEEKLY SOLD: 02/04/2020 [facility] Fluconazole 150 MG Oral Tablet [Diflucan] Diflucan 150 MG Di flucan 150 MG 02/03/2020 12:00:00 AM EDT 1.0 {tablet} active Diflucan 150 MG eCW1 ([facility]) Chio UNK 02/03/2020 12:00:00 AM EDT active Chio eCW1 ([facility]) Chio UNK 02/03/2020 12:00:00 AM EDT active Chio eCW1 ([facility]) Fluconazole 150 MG Oral Tablet [Diflucan] Diflucan 150 MG Di flucan 150 MG 02/03/2020 12:00:00 AM EDT 1.0 {tablet} active Diflucan 150 MG eCW1 ([facility]) Fluconazole 150 MG Oral Tablet [Diflucan] Diflucan 150 MG Di flucan 150 MG 02/03/2020 12:00:00 AM EDT 1.0 {tablet} active Diflucan 150 MG eCW1 ([facility]) Chio UNK 02/03/2020 12:00:00 AM EDT active Chio eCW1 ([facility]) Chio UNK 02/03/2020 12:00:00 AM EDT active [facility]io eCW1 ([facility]) 150 mg 01/19/2020 12:00:00 AM EDT capsule,extended [...] AM EDT 75 mg by mouth completed [id number] ve nlafaxine by mouth [id number] 09/23/2019 12/20/2019 once a day 30 75 mg capsule,extended release 24hr [id number] Yris Franco [id number] Nurse Practiti kari [facility] ([facility]) Trazodone Hydrochloride 50 MG Oral Tablet trazodone 2019 12:00:00 AM EDT 50 mg by mouth completed [id number] trazodone by mouth [id number] 09/23/2019 10/21/2019 at bedtime 30 50 mg tablet as needed [id number] Yris Franco [id number] Nurse Practitioner [facility] ([facility]) 24 HR venlafaxine 75 MG Extended Release Oral Capsule venlaf axine 09/23/2019 12:00:00 AM EDT 75 mg by mouth completed [id number] ve nlafaxine by mouth [id number] 09/23/2019 04/16/2020 once a day 30 75 mg capsule,extended release 24hr [id number] Yris Franco [id number] Nurse Practiti kari [facility] ([facility]) Trazodone Hydrochloride 50 MG Oral Tablet Trazodone HC l 50 MG Trazodone HCl 50 MG 09/13/2019 12:00:00 AM EDT 1.0 {tablet_at_bedtime_as_needed} suspended Trazodone HCl 50 MG eCW1 ([facility]) Trazodone Hydrochloride 50 MG Oral Tablet Trazodone HC l 50 MG Trazodone HCl 50 MG 09/13/2019 12:00:00 AM EDT active 1 tablet at bedtime as needed eCW1 ([facility] [place]) Trazodone Hydrochloride 50 MG Oral Tablet Trazodone HC l 50 MG Trazodone HCl 50 MG 09/13/2019 12:00:00 AM EDT 1.0 {tablet_at_bedtime_as_needed} suspended Trazodone HCl 50 MG eCW1 ([facility]) Trazodone Hydrochloride 50 MG Oral Tablet Trazodone HC l 50 MG Trazodone HCl 50 MG 09/13/2019 12:00:00 AM EDT 1.0 {tablet_at_bedtime_as_needed} suspended Trazodone HCl 50 MG eCW1 ([facility]) Trazodone Hydrochloride 50 MG Oral Tablet Trazodone HC l 50 MG Trazodone HCl 50 MG 09/13/2019 12:00:00 AM EDT 1.0 {tablet_at_bedtime_as_needed} suspended Trazodone HCl 50 MG eCW1 ([facility]) Trazodone Hydrochloride 50 MG Oral Tablet Trazodone HC l 50 MG Trazodone HCl 50 MG 09/13/2019 12:00:00 AM EDT 1.0 {tablet_at_bedtime_as_needed} suspended Trazodone HCl 50 MG eCW1 ([facility]) Trazodone Hydrochloride 50 MG Oral Tablet Trazodone HC l 50 MG Trazodone HCl 50 MG 09/13/2019 12:00:00 AM EDT 1.0 {tablet_at_bedtime_as_needed} suspended Trazodone HCl 50 MG eCW1 ([facility]) 150 mg 08/17/2019 12:00:00 AM EDT capsule,extended [...] AM EST ORAL active MEDENT ([facility] [employer]) 24 HR venlafaxine 75 MG Extended Release Oral Capsule [Effexor] Effexor XR 75 MG Effexor XR 75 MG 07/19/2019 12:00:00 AM EST 1.0 {capsule_with_fo od} active Effexor XR 75 MG eCW1 ([facility]) 24 HR venlafaxine 75 MG Extended Release Oral Capsule [Effexor] Effexor XR 75 MG Effexor XR 75 MG 07/19/2019 12:00:00 AM EST 1.0 {capsule_with_fo od} active Effexor XR 75 MG eCW1 ([facility]) 24 HR venlafaxine 75 MG Extended Release Oral Capsule [Effexor] Effexor XR 75 MG Effexor XR 75 MG 07/19/2019 12:00:00 AM EST 1.0 {capsule_with_fo od} active Effexor XR 75 MG eCW1 ([facility]) 75 mg 07/19/2019 12:00:00 AM EST capsule,extended releas e 24hr 30 TAKE ONE CAPSULE BY MOUTH EVERY DAY WITH FOOD TAKE ONE CAPSULE BY MOUTH EVERY DAY WITH FOOD SOLD: 07/19/2019 [facility] 24 HR venlafaxine 75 MG Extended Release Oral Capsule [Effexor] Effexor XR 75 MG Effexor XR 75 MG 07/19/2019 12:00:00 AM EST active 1 capsule with food eCW1 ([facility] [place]) 24 HR venlafaxine 75 MG Extended Release Oral Capsule [Effexor] Effexor XR 75 MG Effexor XR 75 MG 07/19/2019 12:00:00 AM EST 1.0 {capsule_with_fo od} active Effexor XR 75 MG eCW1 ([facility]) Hydroxyzine Hydrochloride 25 MG Oral Tablet HydrOXYzin e HCl 25 MG HydrOXYzine HCl 25 MG 07/19/2019 12:00:00 AM EST active 1 tablet as needed eCW1 ([facility]) 24 HR venlafaxine 75 MG Extended Release Oral Capsule [Effexor] Effexor XR 75 MG Effexor XR 75 MG 07/19/2019 12:00:00 AM EST active 1 capsule with food eCW1 ([facility] [place]) 24 HR venlafaxine 75 MG Extended Release Oral Capsule [Effexor] Effexor XR 75 MG Effexor XR 75 MG 07/19/2019 12:00:00 AM EST 1.0 {capsule_with_fo od} active Effexor XR 75 MG eCW1 ([facility]) 24 HR venlafaxine 75 MG Extended Release Oral Capsule [Effexor] Effexor XR 75 MG Effexor XR 75 MG 07/19/2019 12:00:00 AM EST 1.0 {capsule_with_fo od} active Effexor XR 75 MG eCW1 ([facility]) 75 mg 07/19/2019 12:00:00 AM EST capsule,extended [...] Ondansetron 06/21/2019 12:00:00 AM EST completed [facility] ([facility]) Oseltamivir 75 MG Oral Capsule Oseltamivir Phosphate 06/21/2019 12:00:00 AM EST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 to non-numeric results) [facility] (Sergey Calix MD) Laboratory test finding (navigational concept) 34.1 g/dL 3 2.0-36.5 Normal (applies to non-numeric results) [facility] (Sergey Calix MD) Laboratory test finding (navigational concept) 11.9 % 1 1.5-14.5 Normal (applies to non-numeric results) [facility] (Sergey Calix MD) Laboratory test finding (navigational concept) 208 10 1 50-450 Normal (applies to non-numeric results) [facility] (Sergey Calix MD) Laboratory test finding (navigational concept) 53.5 % 3 6.0-66.0 Normal (applies to non-numeric results) [facility] (Sergey Calix MD) Laboratory test finding (navigational concept) 33.5 % 2 4.0-44.0 Normal (applies to non-numeric results) [facility] (Sergey Calix MD) Laboratory test finding (navigational concept) 7.0 % 2.0-8.0 Above high normal [facility] (Sergey Calix MD) Laboratory test finding (navigational concept) 5.0 % 0.0-3.0 Above high normal [facility] (Sergey Calix MD) Laboratory test finding (navigational concept) 0.8 % 0 .0-1.0 Normal (applies to non-numeric results) [facility] (Sergey Calix MD) Laboratory test finding (navigational concept) 0.2 % 0 -3.0 Normal (applies to non-numeric results) [facility] (Sergey Calix MD) Laboratory test finding (navigational concept) 0.0 % 0 -0 Normal (applies to non- numeric results) [facility] (Sergey Calix MD) Laboratory test finding (navigational concept) 2.8 10 1 .5-8.5 Normal (applies to non-numeric results) [facility] (Sergey Calix MD) Laboratory test finding (navigational concept) 1.7 10 1 .5-5.0 Normal (applies to non-numeric results) [facility] (Sergey Calix MD) Laboratory test finding (navigational concept) 0.4 10 0 .0-0.8 Normal (applies to non-numeric results) [facility] (Sergey Calix MD) Laboratory test finding (navigational concept) 0.3 10 0 .0-0.5 Normal (applies to non-numeric results) [facility] (Sergey Calix MD) Laboratory test finding (navigational concept) 0.0 10 0 .0-0.2 Normal (applies to non-numeric results) [facility] (Sergey Calix MD) ID Date Data Source [id number] 05/23/2020 12:39:00 PM EST [facility] (Sergey Calix [...] (Sergey ruth MD) ID Date Data Source [id number] 05/14/2020 02:19:00 PM EST [facility] (Sergey Calix MD) Name Value Range Interpretation Code Description Data Criss rce(s) Supporting Document(s) Laboratory test finding (navigational concept) Laboratory test r esult Normal (applies to non-numeric results) [facility] (Sergey Calix MD) FULL REPORT IN LAB NOTES (eCW and [facility] ). NEGATIVE FOR STREP PYOGENES (GROUP A) ID Date Data Source [id number] 05/14/2020 02:04:00 PM EST [facility] Name Value Range Interpretation Code Description Data Criss rce(s) Supporting Document(s) SARS coronavirus 2 RNA [facility] This lab was ordered by [facility] and reported by [facility]. ID Date Data Source [id number] 04/07/2020 01:37:00 PM EST [facility] (Sergey Calix MD) Name Value Range Interpretation Code Description Data Criss rce(s) Supporting Document(s) Hepatitis B virus surface Ab [Presence] in Serum by Im munoassay Laboratory test result Normal (applies to non-numeric results) [facility] (Sergey Calix MD) Hepatitis C virus Ab [Units/volume] in Serum by Immunoassay 0.0 INDEX Normal (applies to non-numeric results) [facility] (Sergey Calix MD) Negative Not infected with HCV, unless recent infection is suspected or other evidence exists to indicate HCV infection. Hepatitis B virus surface Ag [Presence] in Serum or Pl asma by Immunoassay Laboratory test result Normal (applies to non-numeric results) [facility] (Sergey Calix MD) ID Date Data Source [id number] 04/07/2020 01:37:00 PM EST [facility] (Sergey Calix MD) Name Value Range Interpretation Code Description Data Criss rce(s) Supporting Document(s) Laboratory test finding (navigational concept) 13 mg/dL 7 -18 Normal (applies to non-numeric results) [facility] (Sergey Calix MD) Laboratory test finding (navigational concept) 80 mg/dL 7 0-100 Normal (applies to non-numeric results) [facility] (Sergey Calix MD) Laboratory test finding (navigational concept) 0.93 mg/dL 0 .55-1.30 Normal (applies to non-numeric results) [facility] (Sergey Calix MD) Laboratory test finding (navigational concept) 141 meq/L 1 36-145 Normal (applies to non-numeric results) [facility] (Sergey Calix MD) Laboratory test finding (navigational concept) Laboratory test r esult Normal (applies to non-numeric results) [facility] (Sergey Calix MD) <content>Units are mL/min/1.73 m2</content>
<content></content>
<content>Chronic Kidney Disease Staging per NKF:</content>
<content></content>
<content>Stage I & II GFR >=60 Normal to Mildly Decreased</content>
<content>Stage III GFR 30- 59 Moderately Decreased</content>
<content>Stage IV GFR 15-29 Severely Decreased</content>
<content>Stage V GFR <15 Very Little GFR Left</content>
<content>ESRD GFR <15 on ELECTRICAL CAD TECHNICIAN</content>
<content></content> Laboratory test finding (navigational concept) 5.6 [...] 4 5-117 Normal (applies to non-numeric results) [facility] (Sergey Calix MD) Laboratory test finding (navigational concept) 3.8 GM/DL 3 .2-5.2 Normal (applies to non-numeric results) [facility] (Sergey Calix MD) Laboratory test finding (navigational concept) 1.1 1.2-2.2 Below low normal [facility] (Sergey Calix MD) Laboratory test finding (navigational concept) 7.2 GM/DL 6 .4-8.2 Normal (applies to non-numeric results) [facility] (Sergey Calix MD) ID Date Data Source [id number] 04/07/2020 01:37:00 PM EST [facility] (Sergey Calix MD) Name Value Range Interpretation Code Description Data Criss rce(s) Supporting Document(s) Hepatitis A virus IgG Ab [Units/volume] in Serum Laboratory test result Normal (applies to non-numeric results) [facility] (Sergey Calix MD ) Performed at: [facility] [id number] [employer]ending [employer] Operator: Maryana Kramer MD, Phone: [phone] Platelets [#/volume] in Blood by Estimate Laboratory test result Normal (applies to non-numeric results) [facility] (Sergey Calix MD) ID Date Data Source [id number] 04/07/2020 01:37:00 PM EST [facility] (Sergey Calix [...] non- numeric results) [facility] (Sergey Calix MD) ID Date Data Source [id number] 04/07/2020 01:37:00 PM EST [facility] (Sergey Calix [...] 1 1.5-14.5 Normal (applies to non-numeric results) [facility] (Sergey Calix MD) Laboratory test finding (navigational concept) 32.5 g/dL 3 2.0-36.5 Normal (applies to non-numeric results) [facility] (Sergey Calix MD) Laboratory test finding (navigational concept) 0.0 % 0 -0 Normal (applies to non- numeric results) [facility] (Sergey Calix MD) Laboratory test finding (navigational concept) 184 10 1 50-450 Normal (applies to non-numeric results) [facility] (Sergey Calxi MD) ID Date Data Source [id number] 04/07/2020 01:37:00 PM EST [facility] (Sergey Calix MD) Name Value Range Interpretation Code Description Data Criss rce(s) Supporting Document(s) Laboratory test finding (navigational concept) Laboratory test r esult Normal (applies to non-numeric results) [facility] (Sergey Calix MD) Laboratory test finding (navigational concept) Laboratory test r esult Normal (applies to non-numeric results) [facility] (Sergey Calix MD) Laboratory test finding (navigational [...] (Sergey Calix MD) ID Date Data Source [id number] 12/30/2019 12:09:00 PM EDT [facility] l Name Value Range Interpretation Code Description Data Criss rce(s) Supporting Document(s) ZEESHAN DIRECT Negative Negative [facility] Performed at: [facility] [address] [id number] Director: Maryana Kramer MD, Phone: [phone] ID Date Data Source [id number] 12/31/2019 06:10:00 AM [facility] Name Value Range Interpretation Code Description Data Criss rce(s) Supporting Document(s) CCP ANTIBODIES IGG/IGA 5 units 0-19 [facility] Negative <20 Weak positive 20 - 39 Moderate positive 40 - 59 Strong positive >59Performed at: [facility] [id number] Director: Viviana Palm MD, Phone: [phone] ID Date Data Source [id number] 12/30/2019 08:09:00 AM [facility] l Name Value Range Interpretation Code Description Data Criss rce(s) Supporting Document(s) CORTISOL 10.0 ug/dL . [facility] Cortisol AM 6.2 - 19.4 Cortisol PM 2.3 - 11.9Performed at: [facility] [id number] Director: Maryana Kraemr MD, Phone: [phone] ID Date Data Source [id number] 12/30/2019 08:09:00 AM [facility] l Name Value Range Interpretation Code Description Data Criss rce(s) Supporting Document(s) VITAMIN B12 506 pg/mL 232-1245 [facility] FOLATE (FOLIC ACID), SERUM 8.0 ng/mL >3.0 [facility] A serum folate concentration of less obinna n 3.1 ng/mL isconsidered to represent clinical deficiency. ID Date Data Source [id number] 12/30/2019 08:06:00 AM EDT [facility] Name Value Range Interpretation Code Description Data Criss rce(s) Supporting Document(s) Vitamin B12 506 pg/mL 232-1245 [facility] Folate (Folic Acid), Serum 8.0 ng/mL >3.0 [facility] A serum folate concentration of less obinna n 3.1 ng/mL isconsidered to represent clinical deficiency. ID Date Data Source [id number] 12/30/2019 12:05:00 PM EDT [facility] Name Value Range Interpretation Code Description Data Criss rce(s) Supporting Document(s) ZEESHAN Direct Negative Negative [facility] ID Date Data Source [id number] 12/31/2019 06:05:00 AM EDT [facility] Name Value Range Interpretation Code Description Data Criss rce(s) Supporting Document(s) CCP Antibodies IgG/IgA 5 units 0-19 [facility] Negative <20 Weak positive 20 - 39 Moderate positive 40 - 59 Strong positive >59 ID Date Data Source [id number] 12/30/2019 08:06:00 AM EDT [facility] Name Value Range Interpretation Code Description Data Criss rce(s) Supporting Document(s) Cortisol 10.0 ug/dL [facility] C ortisol AM 6.2 - 19.4 Cortisol PM 2.3 - 11.9 ID Date Data Source [id number] 12/29/2019 10:49:00 AM EDT [facility] Name Value Range Interpretation Code Description Data Criss rce(s) Supporting Document(s) C REACTIVE PROTEIN 1.1 mg/L 0.0-3.0 [facility] ID Date Data Source [id number] 12/29/2019 10:49:00 AM EDT [facility] Name Value Range Interpretation Code Description Data Criss rce(s) Supporting Document(s) MAGNESIUM 2.2 mg/dL 1.8-2.4 [facility] ID Date Data Source [id number] 12/29/2019 10:49:00 AM EDT [facility] Name Value Range Interpretation Code Description Data Criss rce(s) Supporting Document(s) GLUCOSE 89 mg/dL 74-106 [facility] BLOOD UREA NITROGEN 11 mg/dL 7-18 [facility] CREATININE 0.9 mg/dL 0.6-1.0 [facility] SODIUM 137 mmol/L 136-145 [facility] POTASSIUM 3.8 mmol/L 3.5-5.1 [facility] CHLORIDE 100 mmol/L 98-107 [facility] CO2 23 mmol/L 21-32 [facility] CALCIUM 8.9 mg/dL 8.5-10.1 [facility] ANION GAP 14.0 mmol/L 5-12 H [facility] GLOMERULAR FILTRATION RATE 75 mL/min [facility] GFR IS CALCULATED IN mL/min/1.73m2 SHALOM L FUNCTION: >90MILDLY DECREASED: 60-89MILDY TO MODERATELY DECREASED: 45-59 MODERATELY TO SEVERELY DECREASED: 30-44SEVERELY DECREASED: 15-29RENAL FAILURE: <15 AST 26 U/L 15-37 [facility] ALT 39 U/L 12-78 [facility] ALKALINE PHOSPHATASE 66 U/L 46-116 [facility] TOTAL BILIRUBIN 0.6 mg/dL 0.2-1.0 [facility] TOTAL PROTEIN 7.7 g/dl 6.4-8.2 [facility] ALBUMIN 4.1 gm/dL 3.4-5.0 [facility] ID Date Data Source [id number] 12/29/2019 08:48:00 AM EDT [facility] Name Value Range Interpretation Code Description Data Criss rce(s) Supporting Document(s) WHITE BLOOD COUNT 7.1 K/mm3 4.0-10.0 [facility] al RED BLOOD COUNT 4.59 M/mm3 4.00-5.50 [facility] HEMOGLOBIN 14.0 gm/dL 12.0-16.0 [facility] HEMATOCRIT 39.1 % 36.0-48.8 [facility] MEAN CELL VOLUME 85.2 fl 80-96 [facility] MEAN CORPUSCULAR HEMOGLOBIN 30.5 pg 27.0-31.0 [facility] MEAN CORPUSCULAR HGB CONC 35.8 g/dl 32.0-36.0 [facility] RED CELL DISTRIBUTION WIDTH 12.0 % 10.0-14.5 [facility] PLATELET COUNT 238 K/mm3 172-450 [facility] MEAN PLATELET VOLUME 10.8 fl 9.0-13.0 [facility] pital GRAN % 43.7 % 50-80.0 [facility] IG% 0.1 % 0.0-0.2 [facility] LYMPH % 40.6 % 25.0-50.0 [facility] MONO % 9.7 % 2.0-10.0 [facility] EOS % 5.6 % 0-5.0 H [facility] BASO % 0.3 % 0.0-2.0 [facility] GRAN # 3.1 K/mm3 2.0-8.00 [facility] IG# 0.0 K/mm3 0.0-0.2 [facility] LYMPH # 2.9 K/mm3 1.0-5.0 [facility] MONO # 0.7 K/mm3 0.10-1.20 [facility] EOS # 0.4 K/mm3 0.0-0.5 [facility] BASO # 0.0 K/mm3 0.0-0.2 [facility] ID Date Data Source [id number] 12/29/2019 09:30:00 AM EDT [facility] l Name Value Range Interpretation Code Description Data Criss rce(s) Supporting Document(s) ERYTHROCYTE SEDIMENTATION RATE 10 mm/hr 0-20 [facility] ID Date Data Source [id number] 12/29/2019 08:58:00 AM EDT [facility] l Name Value Range Interpretation Code Description Data Criss rce(s) Supporting Document(s) FREE T4 0.85 ng/dL 0.76-1.46 [facility] ID Date Data Source [id number] 12/29/2019 08:58:00 AM EDT [facility] Name Value Range Interpretation Code Description Data Criss rce(s) Supporting Document(s) TSH 2.04 uIU/mL 0.36-3.74 [facility] ID Date Data Source [id number] 12/29/2019 08:41:00 AM EDT [facility] l Name Value Range Interpretation Code Description Data Criss rce(s) Supporting Document(s) RHEUMATOID FACTOR SCREEN NEGATIVE NEGATIVE [facility] ID Date Data Source [id number] 10/04/2019 02:30:00 PM EDT [facility] ([facility]) Name Value Range Interpretation Code Description Data Criss rce(s) Supporting Document(s) Erythrocyte sedimentation rate by 2H Westergren method 10 mm/hr 0-2 0 [facility] ([facility]) reviewed. ID Date Data Source [id number] 10/04/2019 02:30:00 PM EDT [facility] ([facility]) Name Value Range Interpretation Code Description Data Criss rce(s) Supporting Document(s) Thyroid Stimulating Hormone 3.080 uIU/ML 0.358-3.740 [facility] ([facility]) reviewed. Free T4 1.02 ng/dL 0.76-1.46 [facility] ([facility]) reviewed. ID Date Data Source [id number] 10/04/2019 02:30:00 PM EDT [facility] ([facility]) Name Value Range Interpretation Code Description Data Criss rce(s) Supporting Document(s) CPK Creatine Phosphokinase 208 U/L 26-192 [facility] ([facility]) reviewed. CK-MB Value Mass 2.8 ng/mL [facility] ([facility]) reviewed. MB/CK Relative Index 1.35 [facility] ([facility]) reviewed. Troponin I Laboratory test result [facility] ([facility]) reviewed. ID Date Data Source [id number] 10/04/2019 02:30:00 PM EDT [facility] ([facility]) Name Value Range Interpretation Code Description Data Criss rce(s) Supporting Document(s) Glucose, Fasting 101 mg/dL 70-100 [facility] ([facility]) reviewed. Blood Urea Nitrogen 11 mg/dL 7-18 [facility] ([facility]) reviewed. Creatinine For GFR 0.82 mg/dL 0.55-1.30 [facility] ([facility]) reviewed. Glomerular Filtration Rate Laboratory test result [facility] ([facility]) reviewed. Sodium Level 138 meq/L 136-145 [facility] ([facility]) reviewed. Potassium Serum 4.8 meq/L 3.5-5.1 [facility] ([facility]) reviewed. Chloride Level 105 meq/L 98-107 [facility] ([facility]) reviewed. Carbon Dioxide Level 28 meq/L 21-32 [facility] ([facility]) reviewed. Anion Gap 5 meq/L 8-16 [facility] ([facility], [facility]) reviewed. Calcium Level 9.2 mg/dL 8.5-10.1 MEDENT ([facility], [facility]) reviewed. Ast/Sgot 24 U/L 7-37 MEDENT ([facility], [facility]) reviewed. Alt/SGPT 33 U/L 12-78 MEDENT ([facility], [facility]) reviewed. Alkaline Phosphatase 92 U/L 45-117 MEDENT ([facility], [facility]) reviewed. Bilirubin,Total 0.4 mg/dL 0.2-1.0 MEDENT ([facility], [facility]) reviewed. Total Protein 7.6 GM/DL 6.4-8.2 MEDENT ([facility], [facility]) reviewed. Albumin 4.0 GM/DL 3.2-5.2 MEDENT ([facility], [facility]) reviewed. Albumin/Globulin Ratio 1.11 1.00-1.93 MEDENT ([facility]) reviewed. ID Date Data Source [id number] 10/04/2019 02:30:00 PM EDT MEDENT ([facility]) Name Value Range Interpretation Code Description Data Criss rce(s) Supporting Document(s) White Blood Count 6.7 10 4.0-10.0 MEDENT ([facility]) reviewed. Red Blood Count 4.33 10 4.00-5.40 MEDENT ([facility], [facility]) reviewed. Hematocrit 39.3 % 36.0-47.0 MEDENT ([facility], [facility]) reviewed. Hemoglobin 13.9 g/dL 12.0-15.5 MEDENT ([facility]) reviewed. Mean Corpuscular Volume 90.8 fl 80.0-96.0 M EDENT ([facility], [facility]) reviewed. Mean Corpuscular HGB Conc 35.4 g/dL 32.0-36.5 MEDENT ([facility]) reviewed. Mean Corpuscular Hemoglobin 32.1 pg 27.0-33.0 MEDENT ([facility]) reviewed. Red Cell Distribution Width 12.6 % 11.5-14.5 MEDENT ([facility]) reviewed. Platelet Count, Automated 250 10 150-450 MEDENT ([facility]) reviewed. Lymph % 41.4 % 24.0-44.0 MEDENT ([facility]) reviewed. Neutrophils % 45.4 % 36.0-66.0 MEDENT ([facility]) reviewed. Brown % 7.6 % 0.0-5.0 MEDENT ([facility]) reviewed. Eos % 4.2 % 0.0-3.0 MEDENT ([facility]) reviewed. Baso % 0.7 % 0.0-1.0 MEDENT ([facility]) reviewed. Immature Granulocyte % 0.7 % 0-3.0 MEDENT ([facility]) reviewed. Nucleated Red Blood Cell % 0.0 % 0-0 MED ENT ([facility]) reviewed. Neutrophils # 3.0 10 1.5-8.5 MEDENT ([facility]) reviewed. Lymph # 2.8 10 1.5-5.0 MEDENT ([facility]) reviewed. Brown # 0.5 10 0.0-0.8 MEDENT ([facility]) reviewed. Eos # 0.3 10 0.0-0.5 MEDENT ([facility]) reviewed. Baso # 0.1 10 0.0-0.2 MEDENT ([facility]) reviewed. Procedure Social History Code Duration Value Status Description Data Source(s ) Smoking 06/29/2020 12:00:00 AM EST Unknown if ever smoked comp leted Unknown if ever smoked [facility] ([facility]) Smoking 03/08/2020 12:00:00 AM EDT Unknown if ever smoked comp leted Unknown if ever smoked [facility] ([facility]) Smoking 02/17/2020 12:00:00 AM EDT Unknown if ever smoked comp leted Unknown if ever smoked [facility] ([facility]) Smoking 02/03/2020 12:00:00 AM EDT Current Smoker completed Curre nt Smoker eCW1 ([facility]) Smoking 02/03/2020 12:00:00 AM EDT Current Smoker completed Curre nt Smoker eCW1 ([facility]) Smoking 02/03/2020 12:00:00 AM EDT Current Smoker completed Curre nt Smoker eCW1 ([facility]) Smoking 02/03/2020 12:00:00 AM EDT Current Smoker completed Curre nt Smoker eCW1 ([facility]) Smoking 01/27/2020 12:00:00 AM EDT Unknown if ever smoked comp leted Unknown if ever smoked [facility] ([facility]) Smoking 2019 12:00:00 AM EDT Current Smoker completed Curre nt Smoker eCW1 ([facility]) Smoking 2019 12:00:00 AM EDT Current Smoker completed Curre nt Smoker eCW1 ([facility]) Smoking 11/15/2019 12:00:00 AM EDT Unknown if ever smoked comp leted Unknown if ever smoked [facility] ([facility]) Smoking 10/28/2019 12:00:00 AM EDT Unknown if ever smoked comp leted Unknown if ever smoked [facility] ([facility]) Smoking 10/21/2019 12:00:00 AM EDT Unknown if ever smoked comp leted Unknown if ever smoked [facility] ([facility]) Smoking 10/12/2019 12:00:00 AM EDT Unknown if ever smoked comp leted Unknown if ever smoked [facility] ([facility]) Smoking 09/27/2019 12:00:00 AM EDT Unknown if ever smoked comp leted Unknown if ever smoked [facility] ([facility]) Smoking 09/23/2019 12:00:00 AM EDT Unknown if ever smoked comp leted Unknown if ever smoked [facility] ([facility]) Smoking 09/10/2019 12:00:00 AM EDT Unknown if ever smoked comp leted Unknown if ever smoked [facility] ([facility]) Smoking 08/24/2019 12:00:00 AM EDT Unknown if ever smoked comp leted Unknown if ever smoked [facility] ([facility]) Smoking 08/06/2019 12:00:00 AM EDT Unknown if ever smoked comp leted Unknown if ever smoked [facility] ([facility]) Smoking 07/23/2019 12:00:00 AM EST Unknown if ever smoked comp leted Unknown if ever smoked [facility] ([facility]) Smoking 06/22/2019 12:00:00 AM EST Unknown if ever smoked comp leted Unknown if ever smoked [facility] ([facility]) Smoking 06/08/2019 12:00:00 AM EST Unknown if ever smoked comp leted Unknown if ever smoked [facility] ([facility]) Smoking 06/04/2019 12:00:00 AM EST Unknown if ever smoked comp leted Unknown if ever smoked [facility] ([facility]) Vital Signs ID Date Data Source UNK Name Value Range Interpretation Code Description Data Source(s) [place] body weight 115 [lb_av] 115 [lb_av] SU T ([facility]) Body mass index (BMI) [Ratio] 22.3 kg/m2 22.3 k g/m2 [facility] ([facility]) Body weight 126.00 [lb_av] 126.00 [lb_av] SU T ([facility]) Body height 63 [in_i] 63 [in_i] [facility] ([facility]) 5'3" Respiratory rate 12 /min 12 /min [facility] ( [facility]) Body weight 60.782 kg 60.782 kg [facility] ([facility]) [place] body weight 115 [lb_av] 115 [lb_av] MEDEN T ([facility]) Body mass index (BMI) [Ratio] 23.7 kg/m2 23.7 k g/m2 [facility] ([facility]) Body weight 134.00 [lb_av] 134.00 [lb_av] ELISAEN T ([facility], ) Body height 63 [in_i] 63 [in_i] MEDENT ([facility], ) 5'3" Body surface area Derived from formula 1.63 m2 1.63 m2 MEDENT ([facility], ) Body weight 135.00 [lb_av] 135.00 [lb_av] MEDEN T ([facility]) Body temperature 97.8 [degF] 97.8 [degF] MEDENT ([facility]) Respiratory rate 18 /min 18 /min MEDENT ( [facility]) [facility] 85 /min 85 /[facility] Diastolic blood pressure 89 mm[Hg] 89 mm[Hg] MEDENT ([facility]) Systolic blood pressure 113 mm[Hg] 113 mm[Hg] M EDENT ([facility]) Oxygen saturation in Arterial blood by Pulse oximetry 99 % 99 % eCW1 ([facility]) Respiratory rate 18 /min 18 /min eCW1 ([facility]) Heart rate 68 /min 68 /min eCW1 ([facility]) Body temperature 98.2 [degF] 98.2 [degF] eCW1 ( [facility]) Body mass index (BMI) [Ratio] 28.29 kg/m2 28.29 kg/m2 eCW1 ([facility]) Body weight 152.2 [lb_av] 152.2 [lb_av] eCW1 ([facility]) Body height 61.50 [in_i] 61.50 [in_i] eCW1 ([facility][note 2]) Oxygen saturation in Arterial blood by Pulse oximetry 99 % 99 % eCW1 ([facility]) Respiratory rate 18 /min 18 /min eCW1 ([facility]) Heart rate 68 /min 68 /min eCW1 ([facility]) Body temperature 98.4 [degF] 98.4 [degF] eCW1 ( [facility]) Body mass index (BMI) [Ratio] 28.14 kg/m2 28.14 kg/m2 eCW1 ([facility]) Body weight 151.4 [lb_av] 151.4 [lb_av] eCW1 ([facility]) Body height 61.50 [in_i] 61.50 [in_i] eCW1 ([facility]note 2[facility] Diastolic blood pressure 0 mm[Hg] Normal (applies to non-numeric results) 0 mm[Hg] [facility] ([facility]) Systolic blood pressure 0 mm[Hg] Normal (applies t o non-numeric results) 0 mm[Hg] [facility] ([facility]) Body mass index (BMI) [Ratio] 0.00 kg/m2 No rmal (applies to non-numeric results) 0.00 kg/m2 [facility] ([facility]) Body weight Measured 0.00 lbs Normal (applies to n on-numeric results) 0.00 lbs [facility] ([facility]) Body height 0.00 in Normal (applies to non-numeric resu lts) 0.00 in [facility] ([facility]) Body mass index (BMI) [Ratio] 26.7 kg/m2 26.7 k g/m2 MEDENT ([facility], [facility]) Body height 63 [in_i] 63 [in_i] MEDENT ([facility], [facility]) 5'3" Body weight 151.00 [lb_av] 151.00 [lb_av] MEDEN T ([facility], [facility]) Body temperature 98.9 [degF] 98.9 [degF] MEDENT ([facility], [facility]) Oxygen saturation in Arterial blood by Pulse oximetry 99 % 99 % MEDENT ([facility], [facility]) Respiratory rate 12 /min 12 /min MEDENT ( [facility], [facility]) Heart rate 82 /min 82 /min MEDENT ([facility], [facility]) Diastolic blood pressure 100 mm[Hg] 100 mm[Hg] MEDENT ([facility], [facility]) Systolic blood pressure 148 mm[Hg] 148 mm[Hg] M EDENT ([facility], [facility]) Diastolic blood pressure 0 mm[Hg] Normal (applies to non-numeric results) 0 mm[Hg] [facility] ([facility]) Systolic blood pressure 0 mm[Hg] Normal (applies t o non-numeric results) 0 mm[Hg] [facility] ([facility]) Body mass index (BMI) [Ratio] 0.00 kg/m2 No rmal (applies to non-numeric results) 0.00 kg/m2 [facility] ([facility]) Body weight Measured 0.00 lbs Normal (applies to n on-numeric results) 0.00 lbs [facility] ([facility]) Body height 0.00 in Normal (applies to non-numeric resu lts) 0.00 in [facility] ([facility]) Deprecated Oxygen saturation in Capillary blood by Oximetry 98 % 98 % eCW1 ([facility]) Respiratory rate 18 /min 18 /min eCW1 ([facility]) Heart rate 75 /min 75 /min eCW1 ([facility]) Body temperature 98.2 [degF] 98.2 [degF] eCW1 ( [facility]) Body mass index (BMI) [Ratio] 26.50 kg/m2 26.50 kg/m2 eCW1 ([facility]) Body weight Measured 142.6 [lb_av] 142.6 [lb_av ] eCW1 ([facility]) Body height 61.50 [in_us] 61.50 [in_us] eCW1 ([facility]) Body weight 68.947 kg 68.947 [...] 1.74 m2 1.74 m2 MEDENT ([facility]) Body mass index (BMI) [Ratio] 26.7 kg/m2 26.7 k g/m2 MEDENT ([facility] [employer]) Body weight 153.00 [lb_av] 153.00 [lb_av] MEDEN T ([facility] [employer]) Body height 63.5 [in_i] 63.5 [in_i] MEDENT ([facility] [employer] [employer]) 5'3.50" Diastolic blood pressure 70 mm[Hg] 70 mm[Hg] MEDENT ([facility] [employer]) Systolic blood pressure 114 mm[Hg] 114 mm[Hg] M EDENT ([facility] [employer]) Deprecated Oxygen saturation in Capillary blood by Oximetry 97 % 97 % eCW1 ([facility]) Respiratory rate 18 /min 18 /min eCW1 ([facility]) Heart rate 84 /min 84 /min eCW1 ([facility]) Body temperature 98.3 [degF] 98.3 [degF] eCW1 ( [facility]) Body mass index (BMI) [Ratio] 28.36 kg/m2 28.36 kg/m2 eCW1 ([facility]) Body weight Measured 152.6 [lb_av] 152.6 [lb_av ] eCW1 ([facility]) Body height 61.50 [in_us] 61.50 [in_us] eCW1 ([facility]) Body mass index (BMI) [Ratio] 25.7 kg/m2 25.7 k g/m2 MEDENT ([facility], [facility]) Body height 63 [in_i] 63 [in_i] MEDENT ([facility], [facility]) 5'3" Body weight 145.00 [lb_av] 145.00 [lb_av] MEDEN T ([facility], [facility]) Body temperature 98.5 [degF] 98.5 [degF] MEDENT ([facility], [facility]) Oxygen saturation in Arterial blood by Pulse oximetry 98 % 98 % MEDENT ([facility], [facility]) Respiratory rate 18 /min 18 /min MEDENT ( [facility], [facility]) Heart rate 88 /min 88 /min MEDENT ([facility], [facility]) Diastolic blood pressure 79 mm[Hg] 79 mm[Hg] MEDENT ([facility], [facility]) Systolic blood pressure 122 mm[Hg] 122 mm[Hg] M EDENT ([facility], [facility]) Body height --lying 89 min Normal (applies to non-nume josias results) 89 min [facility] ([facility]) Diastolic blood pressure 83 mm[Hg] Normal (applies to non-numeric results) 83 mm[Hg] [facility] ([facility]) Systolic blood pressure 120 mm[Hg] Normal (applies t o non-numeric results) 120 mm[Hg] [facility] ([facility]) Body mass index (BMI) [Ratio] 25.86 kg/m2 No rmal (applies to non-numeric results) 25.86 kg/m2 [facility] ([facility]) Body weight Measured 146.00 lbs Normal (applies to n on-numeric results) 146.00 lbs [facility] ([facility]) Body height 63.00 in Normal (applies to non-numeric resu lts) 63.00 in [facility] ([facility]) ID Date Data Source [id number] 02/03/2020 07:53:00 AM EDT [facility] Name Value Range Interpretation Code Description Data Source(s) WEIGHT [id number] kilos [id number] [facility] HEIGHT 160.02 centimeters 160.02 centimeter [facility] WEIGHT [id number] kilos 49.040830 [facility] HEIGHT 160.02 centimeters 160.02 centimeter [facility] Patient Treatment Plan of Care Planned Activity Planned Date Details Description Data Source (s) Chio 02/03/2020 12:00:00 AM EDT e CW1 ([facility]) Fluconazole 150 MG Oral Tablet [Diflucan] 02/03/2020 12:00:00 AM ED T eCW1 ([facility]) Chio 02/03/2020 12:00:00 AM EDT e CW1 ([facility]) Fluconazole 150 MG Oral Tablet [Diflucan] 02/03/2020 12:00:00 AM ED T eCW1 ([facility]) Chio 02/03/2020 12:00:00 AM EDT e CW1 ([facility]) Fluconazole 150 MG Oral Tablet [Diflucan] 02/03/2020 12:00:00 AM ED T eCW1 ([facility]) Chio 02/03/2020 12:00:00 AM EDT e CW1 ([facility]) Fluconazole 150 MG Oral Tablet [Diflucan] 02/03/2020 12:00:00 AM ED T eCW1 ([facility]) Trazodone Hydrochloride 50 MG Oral Tablet 09/13/2019 12:00:00 AM ED T eCW1 ([facility]) 24 HR venlafaxine 75 MG Extended Release Oral Capsule [Effexor] 07/19/2019 12:00:00 AM EST eCW1 ([facility]) Hydroxyzine Hydrochloride 25 MG Oral Tablet 07/19/2019 12:00:00 AM EST eCW1 ([facility])
[2020-07-17 17:27] LABS: BASO % 0.8 % (0.0-1.0); EOS # 0.2 10^3/uL (0.0-0.5); EOS % 3.5 % (0.0-3.0); HEMATOCRIT 36.6 % (36.0-47.0); HEMOGLOBIN 12.5 g/dl (12.0-15.5); LYMPH # 2.7 10^3/uL (1.5-5.0); LYMPH % 52.4 % (24.0-44.0); MEAN CORPUSCULAR HEMOGLOBIN 30.2 pg (27.0-33.0); MEAN CORPUSCULAR HGB CONC 34.2 g/dl (32.0-36.5); MEAN CORPUSCULAR VOLUME 88.4 fl (80.0-96.0); MONO # 0.4 10^3/uL (0.0-0.8); MONO % 7.5 % (2.0-8.0); NEUTROPHILS # 1.9 10^3/uL (1.5-8.5); NEUTROPHILS % 35.6 % (36.0-66.0); PLATELET COUNT, AUTOMATED 181 10^3/uL (150-450); RED BLOOD COUNT 4.14 10^6/uL (4.00-5.40); WHITE BLOOD COUNT 5.2 10^3/uL (4.0-10.0)
--- OUTSIDE RECORDS SUMMARY | 2020-07-17 17:36 | CCD ---
Author Author [facility] Organization [facility] Address Unknown Phone Unavailable Care Team Providers Care Zipper Ironer Name Role Phone Frederick Dominguez MD Unavailable [...] Unavailable Edith Mayer MD Unavailable Unavailable Edith aMyer MD Unavailable Unavailable Edith Mayer MD Unavailable [...] Moreno, Edith Ta MD Unavailable Unavailable Moreno, Ediht Ta MD Unavailable Unavailable Mayer, Edith [...] Edith Ta MD Unavailable Unavailable Mayer, Edith aT MD Unavailable Unavailable Mayer, Edith Ta MD [...] EMILIA RPA-C Unavailable Unavailable Alberry, D Wanda DIAPER MACHINE TENDER Unavailable Unavailable Alberry, D Wanda DIAPER MACHINE TENDER Unavailable Unavailable Alberry, D Wanda DIAPER MACHINE TENDER Unavailable Unavailable Alberry, D Wanda DIAPER MACHINE TENDER Unavailable Unavailable Alberry, D Wanda DIAPER MACHINE TENDER Unavailable Unavailable Alberry, D Wanda DIAPER MACHINE TENDER Unavailable Unavailable Alberry, D Wanda DIAPER MACHINE TENDER Unavailable Unavailable Alberry, D Wanda DIAPER MACHINE TENDER Unavailable Unavailable Alberry, D Wanda DIAPER MACHINE TENDER Unavailable Unavailable Alberry, D Wanda DIAPER MACHINE TENDER Unavailable Unavailable Alberry, D Wanda DIAPER MACHINE TENDER Unavailable Unavailable Alberry, D Wanda DIAPER MACHINE TENDER Unavailable Unavailable Alberry, D Wanda DIAPER MACHINE TENDER Unavailable Unavailable Alberry, D Wanda DIAPER MACHINE TENDER Unavailable Unavailable Alberry, D Wanda DIAPER MACHINE TENDER Unavailable Unavailable Alberry, D Wanda DIAPER MACHINE TENDER Unavailable Unavailable Alberry, D Wanda DIAPER MACHINE TENDER Unavailable Unavailable Alberry, D Wanda DIAPER MACHINE TENDER Unavailable Unavailable Alberry, D Wanda DIAPER MACHINE TENDER Unavailable Unavailable Alberry, D Wanda DIAPER MACHINE TENDER Unavailable Unavailable Alberry, D Wanda DIAPER MACHINE TENDER Unavailable Unavailable Alberry, D Wanda DIAPER MACHINE TENDER Unavailable Unavailable Alberry, D Wanda DIAPER MACHINE TENDER Unavailable Unavailable Alberry, D Wanda DIAPER MACHINE TENDER Unavailable Unavailable Alberry, D Wanda DIAPER MACHINE TENDER Unavailable Unavailable Alberry, D Wanda DIAPER MACHINE TENDER Unavailable Unavailable Alberry, D Wanad DIAPER MACHINE TENDER Unavailable Unavailable Alberry, D Wanda DIAPER MACHINE TENDER Unavailable Unavailable Alberry, D Wanda DIAPER MACHINE TENDER Unavailable Unavailable Alberry, D Wanda DIAPER MACHINE TENDER Unavailable Unavailable Alberry, D Wanda DIAPER MACHINE TENDER Unavailable Unavailable Alberry, D Wanda DIAPER MACHINE TENDER Unavailable Unavailable Alberry, D Wanda DIAPER MACHINE TENDER Unavailable Unavailable Alberry, D Wanda DIAPER MACHINE TENDER Unavailable Unavailable Alberry, D Wanda DIAPER MACHINE TENDER Unavailable Unavailable Alberry, D Wanda DIAPER MACHINE TENDER Unavailable Unavailable Alberry, D Wanda DIAPER MACHINE TENDER Unavailable Unavailable Alberry, D Wanda DIAPER MACHINE TENDER Unavailable Unavailable Alberry, D Wanda DIAPER MACHINE TENDER Unavailable Unavailable Alberry, D Wanda DIAPER MACHINE TENDER Unavailable Unavailable Alberry, D Wanda DIAPER MACHINE TENDER Unavailable Unavailable Alberry, D Wanda DIAPER MACHINE TENDER Unavailable Unavailable Alberry, D Wanda DIAPER MACHINE TENDER Unavailable Unavailable Alberry, D Wanda DIAPER MACHINE TENDER Unavailable Unavailable Alberry, D Wanda DIAPER MACHINE TENDER Unavailable Unavailable Alberry, D Wanda DIAPER MACHINE TENDER Unavailable Unavailable Alberry, D Wanda DIAPER MACHINE TENDER Unavailable Unavailable Alberry, D Wanda DIAPER MACHINE TENDER Unavailable Unavailable NYASIA, MICHAEL PA Unavailable Unavailable [...] G MIRTA PA Unavailable Unavailable TONTARSKI, G MITRA PA Unavailable Unavailable TONTARSKI, G MIRTA PA [...] V MD Unavailable Unavailable Dimitry, A Cinthya DIAPER MACHINE TENDER Unavailable Unavailable Dimitry, A Cinthya DIAPER MACHINE TENDER Unavailable Unavailable Dimitry, A Cinthya DIAPER MACHINE TENDER Unavailable Unavailable Dimitry, A Cinthya DIAPER MACHINE TENDER Unavailable Unavailable Dimitry, A Cinthya DIAPER MACHINE TENDER Unavailable Unavailable Dimitry, A Cinthya DIAPER MACHINE TENDER Unavailable Unavailable Dimitry, A Cinthya DIAPER MACHINE TENDER Unavailable Unavailable Dimitry, A Cinthya DIAPER MACHINE TENDER Unavailable Unavailable Dimitry, A Cinthya DIAPER MACHINE TENDER Unavailable Unavailable Dimitry, A Cinthya DIAPER MACHINE TENDER Unavailable Unavailable Dimitry, A Cinthya DIAPER MACHINE TENDER Unavailable Unavailable Dimitry, A Cinthya DIAPER MACHINE TENDER Unavailable Unavailable Dimitry, A Cinthya DIAPER MACHINE TENDER Unavailable Unavailable Dimitry, A Cinthya DIAPER MACHINE TENDER Unavailable Unavailable Dimitry, A Cinthya DIAPER MACHINE TENDER Unavailable Unavailable Dimitry, A Cinthya DIAPER MACHINE TENDER Unavailable Unavailable Dimitry, A Cinthya DIAPER MACHINE TENDER Unavailable Unavailable Dimitry, A Cinthya DIAPER MACHINE TENDER Unavailable Unavailable Dimitry, A Cinthya DIAPER MACHINE TENDER Unavailable Unavailable Dimitry, A Cinthya DIAPER MACHINE TENDER Unavailable Unavailable Dimitry, A Cinthya DIAPER MACHINE TENDER Unavailable Unavailable Dimitry, A Cinthya DIAPER MACHINE TENDER Unavailable Unavailable Dimitry, A Cinthya DIAPER MACHINE TENDER Unavailable Unavailable Dimitry, A Cinthya DIAPER MACHINE TENDER Unavailable Unavailable Dimitry, A Cinthya DIAPER MACHINE TENDER Unavailable Unavailable Dimitry, A Cinthya DIAPER MACHINE TENDER Unavailable Unavailable Dimitry, A Cinthya DIAPER MACHINE TENDER Unavailable Unavailable Dimitry, A Cinthya DIAPER MACHINE TENDER Unavailable Unavailable Dimitry, A Cinthya DIAPER MACHINE TENDER Unavailable Unavailable Dimitry, A Cinthya DIAPER MACHINE TENDER Unavailable Unavailable Dimitry, A Cinthya DIAPER MACHINE TENDER Unavailable Unavailable Dimitry, A Cinthya DIAPER MACHINE TENDER Unavailable Unavailable Dimitry, A Cinthya DIAPER MACHINE TENDER Unavailable Unavailable Dimitry, A Cinthya DIAPER MACHINE TENDER Unavailable Unavailable Dimitry, A Cinthya DIAPER MACHINE TENDER Unavailable Unavailable Dimitry, A Cinthya DIAPER MACHINE TENDER Unavailable Unavailable Dimitry, A Cinthya DIAPER MACHINE TENDER Unavailable Unavailable Dimitry, A Cinthya DIAPER MACHINE TENDER Unavailable Unavailable Dimitry, A Cinthya DIAPER MACHINE TENDER Unavailable Unavailable Dimitry, A Cinthya DIAPER MACHINE TENDER Unavailable Unavailable Dimitry, A Cinthya DIAPER MACHINE TENDER Unavailable Unavailable Dimitry, A Cinthya DIAPER MACHINE TENDER Unavailable Unavailable Dimitry, A Cinthya DIAPER MACHINE TENDER Unavailable Unavailable Dimitry, A Cinthya DIAPER MACHINE TENDER Unavailable Unavailable Azraremout, Stacie Unavailable LETTIERE, A [...] Unavailable LETTIERE, A DILLAN PA Unavailable Unavailable LEOBRADO CORONA MD Unavailable Unavailable LEOBARDO CORONA MD [...] Unavailable Unavailable LEOBARDO CORONA MD Unavailable Unavailable [place], C Artur Unavailable Unavailable Dia, C Artur Unavailable Unavailable [place], C Artur Unavailable Unavailable [place], C Artur Unavailable Unavailable Dia, C Artur Unavailable Unavailable Dia, C Artur Unavailable Unavailable [place], C Artur Unavailable Unavailable Rosie CÁRDENAS MD [...] Logan-Centner, Whitley Unavailable Unavailable Carmela FRANCO YRIS ROPE COILING MACHINE OPERATOR Unavailable Unavailable ADDIE, H YRIS ROPE COILING MACHINE OPERATOR Unavailable Unavailable ADDIE, H YRIS ROPE COILING MACHINE OPERATOR Unavailable Unavailable ADDIE, H YRIS ROPE COILING MACHINE OPERATOR Unavailable Unavailable ADDIE, H YRIS ROPE COILING MACHINE OPERATOR Unavailable Unavailable ADDIE, H YRIS ROPE COILING MACHINE OPERATOR Unavailable Unavailable ADDIE, H YRIS ROPE COILING MACHINE OPERATOR Unavailable Unavailable ADDIE, H YRIS ROPE COILING MACHINE OPERATOR Unavailable Unavailable AL, W MORGAN PA Unavailable [...] is protected by Article 27-F of the [facility] Public Health law. If you continue you may have access to information: Regarding HIV / AIDS; Provided by facilities licensed or operated by the [facility] Office of Mental Health; or Provided by the [facility] Office for People With Developmental Disabilities. If such information is present, then the following [facility] mandated warning applies: This information has been [...] law may result in a fine or nursing home sentence or both. A general authorization for the release of medical or other information is NOT sufficient authorization for further disc losure. Allergies and Adverse Reactions Type Description Substance Reaction Status Data Source(s ) Drug allergy Oxycodone HCl Oxycodone Rash Active eCW1 ([facility]) Latex Latex Latex Rash Active eCW1 ([facility]) Latex Latex Latex Rash Active eCW1 ([facility]) Oxycodone HCl Oxycodone HCl Oxycodone Hydrochloride 20 MG/ML Oral Solution Rash Active eCW1 ([facility]) Allergy to substance Allergy to substance Allergy to substance JOSE MANUEL ([facility]) Allergy to substance Allergy to substance Allergy to substance JOSE MANUEL ([facility]) Allergy to substance Allergy to substance Allergy to substance JOSE MANUEL ([facility]) Family History Family Member Name Family Member Gender Family Member Status Date o f Status Description Data Source(s) Unknown Unknown Problem [facility] ([facility], [facility]) Encounters Encounter Providers Location Date Indications Data Source(s ) Outpatient Attender: MIRTA MONTIEL [facility] 07/11/2020 11:00:00 AM EST MED[facility] (Sergey Calix MD) Outpatient Attender: MIRTA MONTIEL [facility] 07/03/2020 01:30:00 PM EST MED[facility] (Sergey Calix MD) Extended Individual Psychotherapy - 45 min Attender: Lynsey Fuller [facility] 06/29/2020 02:00:00 AM EST - 06/29/2020 02:00:00 AM EST [facility] ([facility]) Attender: Stacie Alina 06/29/2020 12:00:0 0 AM EST [facility] ([facility]) [facility] [address] [place] [phone], Ph. Attender: Whitley Flanagan [facility] Medical 06/22/2020 12:00:00 AM EST JOSE MANUEL ([facility]) Outpatient Attender: MIRTA MONTIEL [facility] 06/20/2020 09:45:00 AM EST MEDENT ([facility]y Calix MD) Outpatient Attender: MIRTA Montemayor Build[facility] 05/25/2020 10:30:00 AM EST [facility] ([facility]y Calix MD) Keyon Mayer MD: [address] [place] [phone], Ph. Attender: Keyon Mayer MD [facility] Medical 05/24/2020 12:00:00 AM EST JOSE MANUEL ([facility]) Keyon Mayer MD: [address] [place] [phone], Ph. Attender: Keyon Mayer MD [facility] Medical 05/24/2020 12:00:00 AM EST JOSE MANUEL ([facility]) Keyon Mayer MD: [address] [place] [phone], Ph. Attender: Keyon Mayer MD [place] - [facility] Medical 05/24/2020 12:00:00 AM EST JOSE MANUEL ([facility]) Outpatient Attender: [facility] 10:30:00 AM EST [facility] (Sergey Calix MD) Outpatient [facility] 03/24/2020 12:00:00 AM EDT eCW1 ([facility]) Outpatient [facility] 03/24/2020 12:00:00 AM EDT eCW1 ([facility]) Attender: Stacie Fuller 03/08/2020 12:00:0 0 AM EDT [facility] ([facility]) Extended Individual Psychotherapy - 45 min Attender: Lynsey gutierrez [facility] 03/07/2020 03:30:00 AM EDT - 03/07/2020 03:30:00 AM EDT [facility] ([facility]) Extended Individual Psychotherapy - 45 min Attender: Lynsey gutierrez [facility] 02/17/2020 10:30:00 AM EDT - 02/17/2020 10:30:00 AM EDT [facility] ([facility]) Attender: Stacie Fuller 02/17/2020 12:00:0 0 AM EDT [facility] ([facility]) Outpatient Attender: Cinthya Moraes [facility] 02/03/2020 07:30 :00 AM EDT [facility] Outpatient [facility] 02/03/2020 12:00:00 AM EDT eCW1 ([facility]) Outpatient [facility] 02/03/2020 12:00:00 AM EDT eCW1 ([facility]) Extended Individual Psychotherapy - 45 min Attender: Lynsey gutierrez [facility] 01/27/2020 10:30:00 AM EDT - 01/27/2020 10:30:00 AM EDT [facility] ([facility]) Attender: Stacie Fuller 01/27/2020 12:00:0 0 AM EDT [facility] ([facility]) Outpatient [facility] 01/04/2020 12:00:00 AM EDT eCW1 ([facility]) Outpatient Attender: Cinthya Moraes FNPReferrer: Cinthya DE EMERGENCY ROOM-LAB 12/29/2019 07:50:00 AM EDT - 12/29/2019 07:50:00 AM EDT [facility] Outpatient Attender: Cinthya DE 2019 03:30 :00 PM EDT [facility] Outpatient [facility] 2019 12:00:00 AM EDT eCW1 ([facility]) [facility] ENTER 12/09/2019 12:00:00 AM EDT eCW1 ([facility]) [id number]"Psychotherapy Attender: Stacie Fuller [facility] 11/15/2019 10:00:00 AM EDT - 11/15/2019 10:00:00 AM EDT [facility] ([facility]) Attender: Stacie Fuller 11/15/2019 12:00:0 0 AM EDT [facility] ([facility]) [id number]"Psychotherapy Attender: Stacie Fuller [facility] 10/28/2019 08:45:00 AM EDT - 10/28/2019 08:45:00 AM EDT [facility] ([facility]) Attender: Stacie Fuller 10/28/2019 12:00:0 0 AM EDT [facility] ([facility]) Outpatient Attender: YRIS FRANCO NP [facility] Jared lamar 10/21/2019 03:30:00 AM EDT - 10/21/2019 03:30:00 AM EDT [facility] ([facility]) Attender: YRIS FRANCO NP 10/21/2019 12:00:00 AM EDT [facility] ([facility]) [id number]"Psychotherapy Attender: Stacie Fuller [facility] 10/12/2019 10:45:00 AM EDT - 10/12/2019 10:45:00 AM EDT [facility] ([facility]) Attender: Stacie Fuller 10/12/2019 12:00:0 0 AM EDT [facility] ([facility]) Outpatient Attender: DILLAN jones 10/04/2019 12:15:00 PM EDT MED[facility] ([facility]) Outpatient 09/29/2019 05:06:00 AM EDT [facility] [id number]"Psychotherapy Attender: Stacie Fuller [facility] 09/27/2019 10:00:00 AM EDT - 09/27/2019 10:00:00 AM EDT [facility] ([facility]) Attender: Stacie Fuller 09/27/2019 12:00:0 0 AM EDT [facility] ([facility]) Outpatient Attender: YRIS FRANCO NP [facility] Jared lamar 09/23/2019 03:00:00 AM EDT - 09/23/2019 03:00:00 AM EDT [facility] ([facility]) Attender: YRIS FRANCO NP 09/23/2019 12:00:00 AM EDT [facility] ([facility]) Outpatient Attender: Cinthya GIFFORDP 09/13/2019 07:39 :00 AM EDT [facility] ENTER 09/13/2019 12:00:00 AM EDT eCW1 ([facility]) [id number]"Psychotherapy Attender: Stacie Fuller [facility] 09/10/2019 10:00:00 AM EDT - 09/10/2019 10:00:00 AM EDT [facility] ([facility]) Attender: Stacie Fuller 09/10/2019 12:00:0 0 AM EDT [facility] ([facility]) [id number]" Psychotherapy Attender: Stacie bacon [facility] 08/24/2019 10:00:00 AM EDT - 08/24/2019 10:00:00 AM EDT [facility] ([facility]) Attender: Stacie Fuller 08/24/2019 12:00:0 0 AM EDT [facility] ([facility]) Extended Individual Psychotherapy - 45 min Attender: Lynsey Fuller [facility] 08/06/2019 08:00:00 AM EDT - 08/06/2019 08:00:00 AM EDT [facility] ([facility]) Attender: Stacie Fuller 08/06/2019 12:00:0 0 AM EDT [facility] ([facility]) Outpatient Attender: Stanley Dominguez MD Main Office 08/04/2019 02:30:00 PM EDT MED[facility] ([facility]) Outpatient Attender: EMMA CÁRDENAS MD [facility] [employer]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 08/2019 08:15:00 AM EST [facility] ([facility] [employer]JECT [employer]TEAM LE[employer]) Extended Individual Psychotherapy - 45 min Attender: Lynsey Fuller [facility] 07/23/2019 10:45:00 AM EST - 07/23/2019 10:45:00 AM EST [facility] ([facility]) Attender: Stacie Fuller 07/23/2019 12:00:0 0 AM EST [facility] ([facility]) Outpatient Attender: Cinthya Moraes DIAPER MACHINE TENDER 07/19/2019 07:28 :00 AM EST [facility] C ENTER 07/19/2019 12:00:00 AM EST eCW1 ([facility]) Outpatient 07/08/2019 01:14:00 PM EST [facility] Brief Individual Psychotherapy - 30 min Attender: Stacie arriaza [facility] 06/22/2019 12:00:00 PM EST - 06/22/2019 12:00:00 PM EST [facility] ([facility]) Attender: Stacie Fuller 06/22/2019 12:00:0 0 AM EST [facility] ([facility] Outpatient Attender: MICHAEL thomas 06/21/2019 10:30:00 AM EST [facility] ([facility] Attender: Stacie Fuller 06/08/2019 12:00:0 0 AM EST [facility] ([facility]) Extended Individual Psychotherapy - 45 min Attender: Lynsey Fuller [facility] 06/07/2019 02:00:00 AM EST - 06/07/2019 02:00:00 AM EST [facility] ([facility]) Outpatient Attender: Artur Alvares [facility] 0 06/04/2019 10:30:00 AM EST - 06/04/2019 10:30:00 AM EST [facility] ([facility]) Attender: Artur Alvares 06/04/2019 12:00:00 AM EST [facility] ([facility]) Outpatient Attender: EMILIA HIGGINS 05/26 09:30:00 AM EST - 06/05/2018 09:30:00 AM [facility] Emergency Attender: Yolande MONTEZeferrer: LORIE ABEL DO 09/03/2014 03:23:00 PM EDT - 09/03/2014 04:26:00 PM [facility] Emergency Attender: MORGAN AL PAReferrer: LORIE ABEL DO EMERGENCY ROOM-ER 12/05/2013 09:03:00 PM EDT - 12/05/2013 10:00:00 PM [facility] Emergency Attender: FRAN MONTIEL 08/21/2013 08:37:00 PM EDT - 08/22/2013 12:44:00 AM [facility] Outpatient Attender: Wanda DE 06/23/2013 05:59 :00 PM [facility] Outpatient Attender: KAYLA CORONA MD 01/04/2013 11:01:00 A M [facility] Outpatient Attender: Albina CHOPRA MD 09/28/2012 03:48:00 PM [facility] Outpatient Attender: Wanda DE 09/10/2012 11:45 :00 AM [facility] Functional Status Immunizations Vaccine Date Status Description Data Source(s) COVID-19, mRNA, LNP-S, PF, 100 mcg/0.5 mL dose 06/22/2020 09 :55:34 AM EST completed 10.5 mL JOSE MANUEL ([facility]) COVID-19, mRNA, LNP-S, PF, 100 mcg/0.5 mL dose 05/24/2020 03 :11:59 PM EST completed .5 mL JOSE MANUEL ([facility]) COVID-19, mRNA, LNP-S, PF, 100 mcg/0.5 mL dose 05/24/2020 03 :11:59 PM EST completed .5 mL JOSE MANUEL ([facility]) COVID-19, mRNA, LNP-S, PF, 100 mcg/0.5 mL dose 05/24/2020 03 :11:59 PM EST completed .5 mL JOSE MANUEL ([facility]) New in 2011. IIV4 07/19/2019 09:08:00 AM EST completed eCW1 ([facility]) New in 2011. IIV4 07/19/2019 09:08:00 AM EST completed eCW1 ([facility]) New in 2011. IIV4 07/19/2019 09:08:00 AM EST completed eCW1 ([facility]) New in 2011. IIV4 07/19/2019 09:08:00 AM EST completed eCW1 ([facility]) New in 2011. IIV4 07/19/2019 09:08:00 AM EST completed eCW1 ([facility]) New in 2011. IIV4 07/19/2019 09:08:00 AM EST completed eCW1 ([facility]) New in 2011. IIV4 07/19/2019 09:08:00 AM EST completed eCW1 ([facility]) Tdap 07/19/2019 09:06:00 AM EST completed e CW1 ([facility]) Tdap 07/19/2019 09:06:00 AM EST completed e CW1 ([facility]) Tdap 07/19/2019 09:06:00 AM EST completed e CW1 ([facility]) Tdap 07/19/2019 09:06:00 AM EST completed e CW1 ([facility]) Tdap 07/19/2019 09:06:00 AM EST completed e CW1 ([facility]) Tdap 07/19/2019 09:06:00 AM EST completed e CW1 ([facility]) Tdap 07/19/2019 09:06:00 AM EST completed e CW1 ([facility]) Medications Medication Brand Name Start Date Product [...] 03/22/2020 12:00:00 AM EDT [facility] 24 HR venlafaxine 150 MG Extended Release Oral Capsule Venla faxine HCL ER 03/22/2020 12:00:00 AM EDT ORAL active MEDENT ([facility]) Fluconazole 150 MG Oral Tablet [Diflucan] Diflucan 150 MG Di flucan 150 MG 02/03/2020 12:00:00 AM EDT 1.0 {tablet} active Diflucan 150 MG eCW1 ([facility]) 150 mg 02/03/2020 12:00:00 AM EDT tablet 2 TAKE 1 TABLET BY MOUTH ONCE WEEKLY TAKE 1 TABLET BY MOUTH ONCE WEEKLY SOLD: 02/04/2020 [facility] Fluconazole 150 MG Oral Tablet [Diflucan] Diflucan 150 MG Di flucan 150 MG 02/03/2020 12:00:00 AM EDT 1.0 {tablet} active Diflucan 150 MG eCW1 ([facility]) Chio UNK 02/03/2020 12:00:00 AM EDT active Chio eCW1 ([facility]) Chio UNK 02/03/2020 12:00:00 AM EDT active [facility] eCW1 ([facility]) Fluconazole 150 MG Oral Tablet [Diflucan] Diflucan 150 MG Di flucan 150 MG 02/03/2020 12:00:00 AM EDT 1.0 {tablet} active Diflucan 150 MG eCW1 ([facility]) Fluconazole 150 MG Oral Tablet [Diflucan] Diflucan 150 MG Di flucan 150 MG 02/03/2020 12:00:00 AM EDT 1.0 {tablet} active Diflucan 150 MG eCW1 ([facility]) Chio UNK 02/03/2020 12:00:00 AM EDT active Chio eCW1 ([facility]) Chio UNK 02/03/2020 12:00:00 AM EDT active [facility]io eCW1 ([facility]) 150 mg 01/19/2020 12:00:00 AM EDT capsule,extended [...] AM EDT 75 mg by mouth completed [id number] ve nlafaxine by mouth [id number] 09/23/2019 12/20/2019 once a day 30 75 mg capsule,extended release 24hr [id number] Yris Franco [id number] Nurse Practiti kari [facility] ([facility]) Trazodone Hydrochloride 50 MG Oral Tablet trazodone 2019 12:00:00 AM EDT 50 mg by mouth completed [id number] trazodone by mouth [id number] 09/23/2019 10/21/2019 at bedtime 30 50 mg tablet as needed [id number] Yris Franco [id number] Nurse Practitioner [facility] ([facility]) 24 HR venlafaxine 75 MG Extended Release Oral Capsule venlaf axine 09/23/2019 12:00:00 AM EDT 75 mg by mouth completed [id number] ve nlafaxine by mouth [id number] 09/23/2019 04/16/2020 once a day 30 75 mg capsule,extended release 24hr [id number] Yris Franco [id number] Nurse Practiti kari [facility] ([facility]) Trazodone Hydrochloride 50 MG Oral Tablet Trazodone HC l 50 MG Trazodone HCl 50 MG 09/13/2019 12:00:00 AM EDT 1.0 {tablet_at_bedtime_as_needed} suspended Trazodone HCl 50 MG eCW1 ([facility]) Trazodone Hydrochloride 50 MG Oral Tablet Trazodone HC l 50 MG Trazodone HCl 50 MG 09/13/2019 12:00:00 AM EDT active 1 tablet at bedtime as needed eCW1 ([facility]) Trazodone Hydrochloride 50 MG Oral Tablet Trazodone HC l 50 MG Trazodone HCl 50 MG 09/13/2019 12:00:00 AM EDT 1.0 {tablet_at_bedtime_as_needed} suspended Trazodone HCl 50 MG eCW1 ([facility]) Trazodone Hydrochloride 50 MG Oral Tablet Trazodone HC l 50 MG Trazodone HCl 50 MG 09/13/2019 12:00:00 AM EDT 1.0 {tablet_at_bedtime_as_needed} suspended Trazodone HCl 50 MG eCW1 ([facility]) Trazodone Hydrochloride 50 MG Oral Tablet Trazodone HC l 50 MG Trazodone HCl 50 MG 09/13/2019 12:00:00 AM EDT 1.0 {tablet_at_bedtime_as_needed} suspended Trazodone HCl 50 MG eCW1 ([facility]) Trazodone Hydrochloride 50 MG Oral Tablet Trazodone HC l 50 MG Trazodone HCl 50 MG 09/13/2019 12:00:00 AM EDT 1.0 {tablet_at_bedtime_as_needed} suspended Trazodone HCl 50 MG eCW1 ([facility]) Trazodone Hydrochloride 50 MG Oral Tablet Trazodone HC l 50 MG Trazodone HCl 50 MG 09/13/2019 12:00:00 AM EDT 1.0 {tablet_at_bedtime_as_needed} suspended Trazodone HCl 50 MG eCW1 (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) 24 HR venlafaxine 75 MG Extended Release Oral Capsule [Effexor] Effexor XR 75 MG Effexor XR 75 MG 07/19/2019 12:00:00 AM EST 1.0 {capsule_with_fo od} active Effexor XR 75 MG eCW1 ([facility]) 24 HR venlafaxine 75 MG Extended Release Oral Capsule [Effexor] Effexor XR 75 MG Effexor XR 75 MG 07/19/2019 12:00:00 AM EST 1.0 {capsule_with_fo od} active Effexor XR 75 MG eCW1 ([facility]) 75 mg 07/19/2019 12:00:00 AM [...] EST active 1 capsule with food eCW1 ([facility]) 24 HR venlafaxine 75 MG Extended Release Oral Capsule [Effexor] Effexor XR 75 MG Effexor XR 75 MG 07/19/2019 12:00:00 AM EST 1.0 {capsule_with_fo od} active Effexor XR 75 MG eCW1 ([facility]) Hydroxyzine Hydrochloride 25 MG Oral Tablet HydrOXYzin e HCl 25 MG HydrOXYzine HCl 25 MG 07/19/2019 12:00:00 AM EST active 1 tablet as needed eCW1 ([facility]) 24 HR venlafaxine 75 MG Extended Release Oral Capsule [Effexor] Effexor XR 75 MG Effexor XR 75 MG 07/19/2019 12:00:00 AM EST active 1 capsule with food eCW1 ([facility]) 24 HR venlafaxine 75 MG Extended Release Oral Capsule [Effexor] Effexor XR 75 MG Effexor XR 75 MG 07/19/2019 12:00:00 AM EST 1.0 {capsule_with_fo od} active Effexor XR 75 MG eCW1 ([facility]) 24 HR venlafaxine 75 MG Extended Release Oral Capsule [Effexor] Effexor XR 75 MG Effexor XR 75 MG 07/19/2019 12:00:00 AM EST 1.0 {capsule_with_fo od} active Effexor XR 75 MG eCW1 ([facility]) 75 mg 07/19/2019 12:00:00 AM [...] Ondansetron 06/21/2019 12:00:00 AM EST completed MEDENT ([facility] [place]) Oseltamivir 75 MG Oral Capsule Oseltamivir Phosphate 06/21/2019 12:00:00 AM EST ORAL completed MEDENT ([facility]) 150 mg 06/04/2019 12:00:00 AM EST capsule,extended [...] AM EST 5 mg by mouth completed [id number] Abilify by mouth [id number] 05/04/2019 12/20/2019 every morning 30 5 mg tablet 67096 [id number] Yris Franco [id number] Nurse Practitioner [facility] ([facility]) 200 mg 05/04/2019 12:00:00 AM EST tablet 6 TAKE ONE TABLET BY MOUTH THREE TIMES A DAY NEEDED FOR URINARY STMPTOMS FOR 2 DAYS TAKE ONE TABLET BY MOUTH THREE TIMES A DAY NEEDED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 Date Data Source [id number] 12/29/2019 10:49:00 AM EDT [facility] Name Value Range Interpretation Code Description Data Criss rce(s) Supporting Document(s) C REACTIVE PROTEIN 1.1 mg/L 0.0-3.0 [facility] ID Date Data Source [id number] 12/29/2019 10:49:00 AM EDT [facility] Name Value Range Interpretation Code Description Data Criss rce(s) Supporting Document(s) MAGNESIUM 2.2 mg/dL 1.8-2.4 [facility] ID Date Data Source [id number] 12/29/2019 10:49:00 AM EDT [facility] Name Value Range Interpretation Code Description Data Criss rce(s) Supporting Document(s) GLUCOSE 89 mg/dL 74-106 [facility] BLOOD UREA NITROGEN 11 mg/dL 7-18 [facility] ital CREATININE 0.9 mg/dL 0.6-1.0 [facility] SODIUM 137 mmol/L 136-145 [facility] POTASSIUM 3.8 mmol/L 3.5-5.1 [facility] CHLORIDE 100 mmol/L 98-107 [facility] CO2 23 mmol/L 21-32 [facility] CALCIUM 8.9 mg/dL 8.5-10.1 [facility] ANION GAP 14.0 mmol/L 5-12 H [facility] GLOMERULAR FILTRATION RATE 75 mL/min [facility] GFR IS CALCULATED IN mL/min/1.73m2 SHALOM L FUNCTION: >90MILDLY DECREASED: 60-89MILDY TO MODERATELY DECREASED: 45-59 MODERATELY TO SEVERELY DECREASED: 30-44SEVERELY DECREASED: 15-29RENAL FAILURE: <15 AST 26 U/L 15-37 [facility] ALT 39 U/L 12-78 [facility] ALKALINE PHOSPHATASE 66 U/L 46-116 [facility] TOTAL BILIRUBIN 0.6 mg/dL 0.2-1.0 [facility] TOTAL PROTEIN 7.7 g/dl 6.4-8.2 [facility] ALBUMIN 4.1 gm/dL 3.4-5.0 [facility] ID Date Data Source [id number] 12/29/2019 08:48:00 AM EDT [facility] Name Value Range Interpretation Code Description Data Criss rce(s) Supporting Document(s) WHITE BLOOD COUNT 7.1 K/mm3 4.0-10.0 [facility] al RED BLOOD COUNT 4.59 M/mm3 4.00-5.50 [facility] HEMOGLOBIN 14.0 gm/dL 12.0-16.0 [facility] HEMATOCRIT 39.1 % 36.0-48.8 [facility] MEAN CELL VOLUME 85.2 fl 80-96 [facility] MEAN CORPUSCULAR HEMOGLOBIN 30.5 pg 27.0-31.0 [facility] MEAN CORPUSCULAR HGB CONC 35.8 g/dl 32.0-36.0 [facility] RED CELL DISTRIBUTION WIDTH 12.0 % 10.0-14.5 [facility] PLATELET COUNT 238 K/mm3 172-450 [facility] MEAN PLATELET VOLUME 10.8 fl 9.0-13.0 [facility] GRAN % 43.7 % 50-80.0 [facility] IG% 0.1 % 0.0-0.2 [facility] LYMPH % 40.6 % 25.0-50.0 [facility] MONO % 9.7 % 2.0-10.0 [facility] EOS % 5.6 % 0-5.0 H [facility] BASO % 0.3 % 0.0-2.0 [facility] GRAN # 3.1 K/mm3 2.0-8.00 [facility] IG# 0.0 K/mm3 0.0-0.2 [facility] LYMPH # 2.9 K/mm3 1.0-5.0 [facility] MONO # 0.7 K/mm3 0.10-1.20 [facility] EOS # 0.4 K/mm3 0.0-0.5 [facility] BASO # 0.0 K/mm3 0.0-0.2 [facility] ID Date Data Source [id number] 12/29/2019 09:30:[address] [facility] l Name Value Range Interpretation Code Description Data Criss rce(s) Supporting Document(s) ERYTHROCYTE SEDIMENTATION RATE 10 mm/hr 0-20 [facility] ID Date Data Source [id number] 12/29/2019 08:58:[address] [facility] l Name Value Range Interpretation Code Description Data Criss rce(s) Supporting Document(s) FREE T4 0.85 ng/dL 0.76-1.46 [facility] ID Date Data Source [id number] 12/29/2019 08:58:00 AM EDT [facility] Name Value Range Interpretation Code Description Data Criss rce(s) Supporting Document(s) TSH 2.04 uIU/mL 0.36-3.74 [facility] ID Date Data Source [id number] 12/29/2019 08:41:[address] [facility] l Name Value Range Interpretation Code Description Data Criss rce(s) Supporting Document(s) RHEUMATOID FACTOR SCREEN NEGATIVE NEGATIVE [facility] ID Date Data Source [id number] 10/04/2019 02:30:00 PM EDT MEDENT ([facility]) Name Value Range Interpretation Code Description Data Criss rce(s) Supporting Document(s) Erythrocyte sedimentation rate by 2H Westergren method 10 mm/hr 0-2 0 MEDENT ([facility]) reviewed. ID Date Data Source [id number] 10/04/2019 02:30:00 PM EDT MEDENT ([facility]) Name Value Range Interpretation Code Description Data Criss rce(s) Supporting Document(s) Thyroid Stimulating Hormone 3.080 uIU/ML 0.358-3.740 MEDENT ([facility]) reviewed. Free T4 1.02 ng/dL 0.76-1.46 MEDENT ([facility]) reviewed. ID Date Data Source [id number] 10/04/2019 02:30:00 PM EDT MED[facility] ([facility]) Name Value Range Interpretation Code Description Data Criss rce(s) Supporting Document(s) CPK Creatine Phosphokinase 208 U/L 26-192 MED[facility] ([facility]) reviewed. CK-MB Value Mass 2.8 ng/mL MEDENT ([facility]) reviewed. MB/CK Relative Index 1.35 MEDENT ([facility]) reviewed. Troponin I Laboratory test result MEDENT ([facility]) reviewed. ID Date Data Source [id number] 10/04/2019 02:30:00 PM EDT MEDENT ([facility]) Name Value Range Interpretation Code Description Data Criss rce(s) Supporting Document(s) Glucose, Fasting 101 mg/dL 70-100 [facility] ([facility]) reviewed. Blood Urea Nitrogen 11 mg/dL 7-18 MEDENT ([facility]) reviewed. Creatinine For GFR 0.82 mg/dL 0.55-1.30 MED[facility] ([facility]) reviewed. Glomerular Filtration Rate Laboratory test result MEDENT ([facility]) reviewed. Sodium Level 138 meq/L 136-145 MED[facility] ([facility]) reviewed. Potassium Serum 4.8 meq/L 3.5-5.1 MED[facility] ([facility]) reviewed. Chloride Level 105 meq/L 98-107 [facility] ([facility]) reviewed. Carbon Dioxide Level 28 meq/L 21-32 MED[facility] ([facility]) reviewed. Anion Gap 5 meq/L 8-16 MEDENT ([facility]) reviewed. Calcium Level 9.2 mg/dL 8.5-10.1 MEDENT ([facility]) reviewed. Ast/Sgot 24 U/L 7-37 MED[facility] ([facility]) reviewed. Alt/SGPT 33 U/L 12-78 MED[facility] ([facility]) reviewed. Alkaline Phosphatase 92 U/L 45-117 MED[facility] ([facility], [facility]) reviewed. Bilirubin,Total 0.4 mg/dL 0.2-1.0 MED[facility] ([facility]) reviewed. Total Protein 7.6 GM/DL 6.4-8.2 MED[facility] ([facility]) reviewed. Albumin 4.0 GM/DL 3.2-5.2 MED[facility] ([facility]) reviewed. Albumin/Globulin Ratio 1.11 1.00-1.93 MED[facility] ([facility]) reviewed. ID Date Data Source [id number] 10/04/2019 02:30:00 PM EDT MEDENT ([facility]) Name Value Range Interpretation Code Description Data Criss rce(s) Supporting Document(s) White Blood Count 6.7 10 4.0-10.0 MEDENT ([facility]) reviewed. Red Blood Count 4.33 10 4.00-5.40 MEDENT ([facility], [facility]) reviewed. Hematocrit 39.3 % 36.0-47.0 MEDENT ([facility], [facility]) reviewed. Hemoglobin 13.9 g/dL 12.0-15.5 MEDENT ([facility]) reviewed. Mean Corpuscular Volume 90.8 fl 80.0-96.0 M EDENT ([facility], [facility]) reviewed. Mean Corpuscular HGB Conc 35.4 g/dL 32.0-36.5 MEDENT ([facility]) reviewed. Mean Corpuscular Hemoglobin 32.1 pg 27.0-33.0 MEDENT ([facility]) reviewed. Red Cell Distribution Width 12.6 % 11.5-14.5 MED[facility] ([facility]) reviewed. Platelet Count, Automated 250 10 150-450 MED[facility] ([facility]) reviewed. Lymph % 41.4 % 24.0-44.0 MEDENT ([facility]) reviewed. Neutrophils % 45.4 % 36.0-66.0 MEDENT ([facility]) reviewed. [place] % 7.6 % 0.0-5.0 MEDENT ([facility]) reviewed. Eos % 4.2 % 0.0-3.0 MEDENT ([facility]) reviewed. Baso % 0.7 % 0.0-1.0 MEDENT ([facility]) reviewed. Immature Granulocyte % 0.7 % 0-3.0 MEDENT ([facility]) reviewed. Nucleated Red Blood Cell % 0.0 % 0-0 MED ENT ([facility]) reviewed. Neutrophils # 3.0 10 1.5-8.5 MEDENT ([facility]) reviewed. Lymph # 2.8 10 1.5-5.0 MEDENT ([facility]) reviewed. [place] # 0.5 10 0.0-0.8 MEDENT ([facility]) reviewed. Eos # 0.3 10 0.0-0.5 MEDENT ([facility]) reviewed. Baso # 0.1 10 0.0-0.2 MEDENT ([facility]) reviewed. Procedure Social History Code Duration Value Status Description Data Source(s ) Smoking 06/29/2020 12:00:00 AM EST Unknown if ever smoked comp leted Unknown if ever smoked [facility] ([facility]) Smoking 03/08/2020 12:00:00 AM EDT Unknown if ever smoked comp leted Unknown if ever smoked [facility] ([facility]) Smoking 02/17/2020 12:00:00 AM EDT Unknown if ever smoked comp leted Unknown if ever smoked [facility] ([facility]) Smoking 02/03/2020 12:00:00 AM EDT Current Smoker completed Curre nt Smoker eCW1 ([facility] [place]) Smoking 02/03/2020 12:00:00 AM EDT Current Smoker completed Curre nt Smoker eCW1 ([facility] [place]) Smoking 02/03/2020 12:00:00 AM EDT Current Smoker completed Curre nt Smoker eCW1 ([facility] [place]) Smoking 02/03/2020 12:00:00 AM EDT Current Smoker completed Curre nt Smoker eCW1 ([facility] [place]) Smoking 01/27/2020 12:00:00 AM EDT Unknown if ever smoked comp leted Unknown if ever smoked [facility] ([facility]) Smoking 2019 12:00:00 AM EDT Current Smoker completed Curre nt Smoker eCW1 ([facility] [place]) Smoking 2019 12:00:00 AM EDT Current Smoker completed Curre nt Smoker eCW1 ([facility] [place]) Smoking 11/15/2019 12:00:00 AM EDT Unknown if ever smoked comp leted Unknown if ever smoked [facility] ([facility]) Smoking 10/28/2019 12:00:00 AM EDT Unknown if ever smoked comp leted Unknown if ever smoked [facility] ([facility]) Smoking 10/21/2019 12:00:00 AM EDT Unknown if ever smoked comp leted Unknown if ever smoked [facility] ([facility]) Smoking 10/12/2019 12:00:00 AM EDT Unknown if ever smoked comp leted Unknown if ever smoked [facility] ([facility]) Smoking 09/27/2019 12:00:00 AM EDT Unknown if ever smoked comp leted Unknown if ever smoked [facility] ([facility]) Smoking 09/23/2019 12:00:00 AM EDT Unknown if ever smoked comp leted Unknown if ever smoked [facility] ([facility]) Smoking 09/10/2019 12:00:00 AM EDT Unknown if ever smoked comp leted Unknown if ever smoked [facility] ([facility]) Smoking 08/24/2019 12:00:00 AM EDT Unknown if ever smoked comp leted Unknown if ever smoked [facility] ([facility]) Smoking 08/06/2019 12:00:00 AM EDT Unknown if ever smoked comp leted Unknown if ever smoked [facility] ([facility]) Smoking 07/23/2019 12:00:00 AM EST Unknown if ever smoked comp leted Unknown if ever smoked [facility] ([facility]) Smoking 06/22/2019 12:00:00 AM EST Unknown if ever smoked comp leted Unknown if ever smoked [facility] ([facility]) Smoking 06/08/2019 12:00:00 AM EST Unknown if ever smoked comp leted Unknown if ever smoked [facility] ([facility]) Smoking 06/04/2019 12:00:00 AM EST Unknown if ever smoked comp leted Unknown if ever smoked [facility] ([facility]) Vital Signs ID Date Data Source UNK Name Value Range Interpretation Code Description Data Source(s) [place] body weight 115 [lb_av] 115 [lb_av] SU T ([facility]) Body mass index (BMI) [Ratio] 22.3 kg/m2 22.3 k g/m2 [facility] ([facility]) Body weight 126.00 [lb_av] 126.00 [lb_av] SU T ([facility]) Body height 63 [in_i] 63 [in_i] [facility] ([facility]) 5'3" Respiratory rate 12 /min 12 /min [facility] ( [facility]) Body weight 60.782 kg 60.782 kg [facility] ([facility]) [place] body weight 115 [lb_av] 115 [lb_av] MEDEN T ([facility]) Body mass index (BMI) [Ratio] 23.7 kg/m2 23.7 k g/m2 [facility] ([facility]) Body weight 134.00 [lb_av] 134.00 [lb_av] ELISAEN T ([facility], ) Body height 63 [in_i] 63 [in_i] MEDENT ([facility], ) 5'3" Body surface area Derived from formula 1.63 m2 1.63 m2 MEDENT ([facility], ) Body weight 135.00 [lb_av] 135.00 [lb_av] MEDEN T ([facility]) Body temperature 97.8 [degF] 97.8 [degF] MEDENT ([facility]) Respiratory rate 18 /min 18 /min MEDENT ( [facility]) [facility] 85 /min 85 /[facility] Diastolic blood pressure 89 mm[Hg] 89 mm[Hg] MEDENT ([facility]) Systolic blood pressure 113 mm[Hg] 113 mm[Hg] M EDENT ([facility]) Oxygen saturation in Arterial blood by Pulse oximetry 99 % 99 % eCW1 ([facility] [place]) Respiratory rate 18 /min 18 /min eCW1 ([facility]) Heart rate 68 /min 68 /min eCW1 ([facility]) Body temperature 98.2 [degF] 98.2 [degF] eCW1 ( [facility]) Body mass index (BMI) [Ratio] 28.29 kg/m2 28.29 kg/m2 eCW1 ([facility] [place]) Body weight 152.2 [lb_av] 152.2 [lb_av] eCW1 ([facility]) Body height 61.50 [in_i] 61.50 [in_i] eCW1 ([facility]) Oxygen saturation in Arterial blood by Pulse oximetry 99 % 99 % eCW1 ([facility]) Respiratory rate 18 /min 18 /min eCW1 ([facility]) Heart rate 68 /min 68 /min eCW1 ([facility]) Body temperature 98.4 [degF] 98.4 [degF] eCW1 ( [facility] [place]) Body mass index (BMI) [Ratio] 28.14 kg/m2 28.14 kg/m2 eCW1 ([facility]) Body weight 151.4 [lb_av] 151.4 [lb_av] eCW1 ([facility]) Body height 61.50 [in_i] 61.50 [in_i] eCW1 ([facility]) Diastolic blood pressure 0 mm[Hg] Normal (applies to non-numeric results) 0 mm[Hg] [facility] ([facility]) Systolic blood pressure 0 mm[Hg] Normal (applies t o non-numeric results) 0 mm[Hg] [facility] ([facility]) Body mass index (BMI) [Ratio] 0.00 kg/m2 No rmal (applies to non-numeric results) 0.00 kg/m2 [facility] ([facility]) Body weight Measured 0.00 lbs Normal (applies to n on-numeric results) 0.00 lbs [facility] ([facility]) Body height 0.00 in Normal (applies to non-numeric resu lts) 0.00 in [facility] ([facility]) Body mass index (BMI) [Ratio] 26.7 kg/m2 26.7 k g/m2 MEDENT ([facility]) Body height 63 [in_i] 63 [in_i] MEDENT ([facility] [place], [facility]) 5'3" Body weight 151.00 [lb_av] 151.00 [lb_av] MEDEN T ([facility] [place], [facility]) Body temperature 98.9 [degF] 98.9 [degF] MEDENT ([facility] [place], [facility]) Oxygen saturation in Arterial blood by Pulse oximetry 99 % 99 % MEDENT ([facility], [place], [facility]) Respiratory rate 12 /min 12 /min MEDENT ( [facility], [facility]) Heart rate 82 /min 82 /min MEDENT ([facility], [facility]) Diastolic blood pressure 100 mm[Hg] 100 mm[Hg] MED[facility] ([facility], [place], [facility]) Systolic blood pressure 148 mm[Hg] 148 mm[Hg] M EDENT ([facility], [place], [facility]) Diastolic blood pressure 0 mm[Hg] Normal (applies to non-numeric results) 0 mm[Hg] [facility] ([facility]) Systolic blood pressure 0 mm[Hg] Normal (applies t o non-numeric results) 0 mm[Hg] [facility] ([facility]) Body mass index (BMI) [Ratio] 0.00 kg/m2 No rmal (applies to non-numeric results) 0.00 kg/m2 [facility] ([facility]) Body weight Measured 0.00 lbs Normal (applies to n on-numeric results) 0.00 lbs [facility] ([facility]) Body height 0.00 in Normal (applies to non-numeric resu lts) 0.00 in [facility] ([facility]) Deprecated Oxygen saturation in Capillary blood by Oximetry 98 % 98 % eCW1 ([facility]) Respiratory rate 18 /min 18 /min eCW1 ([facility]) Heart rate 75 /min 75 /min eCW1 ([facility]) Body temperature 98.2 [degF] 98.2 [degF] eCW1 ( [facility]) Body mass index (BMI) [Ratio] 26.50 kg/m2 26.50 kg/m2 eCW1 ([facility]) Body weight Measured 142.6 [lb_av] 142.6 [lb_av ] eCW1 ([facility]) Body height 61.50 [in_us] 61.50 [in_us] eCW1 ([facility]) Body weight 68.947 kg 68.947 [...] 1.74 m2 1.74 m2 MEDENT ([facility] [facility] [employer] [employer]) Body mass index (BMI) [Ratio] 26.7 kg/m2 26.7 k g/m2 MEDENT ([facility] [employer] [employer] [facility]) Body weight 153.00 [lb_av] 153.00 [lb_av] MEDEN T ([facility] [employer] [employer]) Body height 63.5 [in_i] 63.5 [in_i] MEDENT ([facility] [employer] [employer]TE[employer]) 5'3.50" Diastolic blood pressure 70 mm[Hg] 70 mm[Hg] MED[facility] ([facility] [employer] [employer]) Systolic blood pressure 114 mm[Hg] 114 mm[Hg] M EDENT ([facility] [employer] [employer]) Deprecated Oxygen saturation in Capillary blood by Oximetry 97 % 97 % eCW1 ([facility]) Respiratory rate 18 /min 18 /min eCW1 ([facility]) Heart rate 84 /min 84 /min eCW1 ([facility]) Body temperature 98.3 [degF] 98.3 [degF] eCW1 ( [facility]) Body mass index (BMI) [Ratio] 28.36 kg/m2 28.36 kg/m2 eCW1 ([facility]) Body weight Measured 152.6 [lb_av] 152.6 [lb_av ] eCW1 ([facility]) Body height 61.50 [in_us] 61.50 [in_us] eCW1 ([facility]) Body mass index (BMI) [Ratio] 25.7 kg/m2 25.7 k g/m2 MEDENT ([facility], [facility]) Body height 63 [in_i] 63 [in_i] MEDENT ([facility], [facility]) 5'3" Body weight 145.00 [lb_av] 145.00 [lb_av] MEDEN T ([facility], [facility]) Body temperature 98.5 [degF] 98.5 [degF] MEDENT ([facility], [facility]) Oxygen saturation in Arterial blood by Pulse oximetry 98 % 98 % MED[facility] ([facility], [facility]) Respiratory rate 18 /min 18 /min MED[facility] ( [facility], [facility]) Heart rate 88 /min 88 /min MED[facility] ([facility], [facility]) Diastolic blood pressure 79 mm[Hg] 79 mm[Hg] [facility] ([facility], [facility]) Systolic blood pressure 122 mm[Hg] 122 mm[Hg] M EDENT ([facility], [place], [facility]) Body height --lying 89 min Normal (applies to non-nume josias results) 89 min [facility] ([facility]) Diastolic blood pressure 83 mm[Hg] Normal (applies to non-numeric results) 83 mm[Hg] [facility] ([facility]) Systolic blood pressure 120 mm[Hg] Normal (applies t o non-numeric results) 120 mm[Hg] [facility] ([facility]) Body mass index (BMI) [Ratio] 25.86 kg/m2 No rmal (applies to non-numeric results) 25.86 kg/m2 [facility] ([facility]) Body weight Measured 146.00 lbs Normal (applies to n on-numeric results) 146.00 lbs [facility] ([facility]) Body height 63.00 in Normal (applies to non-numeric resu lts) 63.00 in [facility] ([facility]) ID Date Data Source [id number] 02/03/2020 07:53:00 AM EDT [facility] Name Value Range Interpretation Code Description Data Source(s) WEIGHT [id number] kilos 49.323991 [facility] HEIGHT 160.02 centimeters 160.02 centimeter [facility] WEIGHT [id number] kilos [id number] [facility] HEIGHT 160.02 centimeters 160.02 centimeter [facility] Patient Treatment Plan of Care Planned Activity Planned Date Details Description Data Source (s) Chio 02/03/2020 12:00:00 AM EDT e CW1 ([facility]) Fluconazole 150 MG Oral Tablet [Diflucan] 02/03/2020 12:00:00 AM ED T eCW1 ([facility]) Chio 02/03/2020 12:00:00 AM EDT e CW1 ([facility]) Fluconazole 150 MG Oral Tablet [Diflucan] 02/03/2020 12:00:00 AM ED T eCW1 ([facility]) Chio 02/03/2020 12:00:00 AM EDT e CW1 ([facility]) Fluconazole 150 MG Oral Tablet [Diflucan] 02/03/2020 12:00:00 AM ED T eCW1 ([facility]) Chio 02/03/2020 12:00:00 AM EDT e CW1 ([facility]) Fluconazole 150 MG Oral Tablet [Diflucan] 02/03/2020 12:00:00 AM ED T eCW1 ([facility]) Trazodone Hydrochloride 50 MG Oral Tablet 09/13/2019 12:00:00 AM ED T eCW1 ([facility]) 24 HR venlafaxine 75 MG Extended Release Oral Capsule [Effexor] 07/19/2019 12:00:00 AM EST eCW1 ([facility]) Hydroxyzine Hydrochloride 25 MG Oral Tablet 07/19/2019 12:00:00 AM EST eCW1 ([facility])
[2020-07-17] MEDS ORDERED: KETOROLAC 30 MG/ML 1ML VIAL IV ONE (17:45)
[2020-07-17] MEDS ORDERED: NS 1,000 ML IV ONE (17:45)
[2020-07-17] MEDS ORDERED: GI COCKTAIL 50ML BTL(HYOSCYAMINE/MAALOX/LIDOCAINE VISCOUS)(1:3:1) PO ONE (17:45)
[2020-07-17] MEDS ORDERED: PANTOPRAZOLE 40MG VIAL (C9113 PER 1) IV ONE (17:45)
[2020-07-17 18:00] LABS: HCG, SERUM QUALITATIVE NEGATIVE (NEGATIVE)
[2020-07-17] MEDS ORDERED: METOCLOPRAMIDE INJ 10MG/2ML VIAL (J2765 PER 1) IV ONE (18:00)
[2020-07-17 18:05] LABS: ALBUMIN 4.4 GM/DL (3.2-5.2); ALT/SGPT 25 U/L (12-78); AMYLASE 81 U/L (25-115); BILIRUBIN,DIRECT 0.2 MG/DL (0.0-0.2); BILIRUBIN,TOTAL 0.7 MG/DL (0.2-1.0); BLOOD UREA NITROGEN 13 MG/DL (7-18); CALCIUM LEVEL 9.4 MG/DL (8.5-10.1); CARBON DIOXIDE LEVEL 29 MEQ/L (21-32); CHLORIDE LEVEL 102 MEQ/L (98-107); CREATININE FOR GFR 0.87 MG/DL (0.55-1.30); GLOMERULAR FILTRATION RATE > 60.0 (>60); GLUCOSE, FASTING 74 MG/DL (70-100); LIPASE 94 U/L (73-393); SODIUM LEVEL 138 MEQ/L (136-145); TOTAL PROTEIN 7.6 GM/DL (6.4-8.2)
--- NOTE | 2020-07-17 19:00 | REPVR ---
PROCEDURE INFORMATION: Exam: US Abdomen, Limited; Right Upper Quadrant Exam date and time: 07/17/2020 6:09 PM Age: 29 years old Clinical indication: Abdominal pain; Other: Ruq pain; Additional info: Epigastric abd pain, HX gallstones, pain not improving TECHNIQUE: Imaging protocol: US abdomen. Real time ultrasound with image documentation. Limited exam focused on the right upper quadrant. COMPARISON: GALLBLADDER US 07/09/2020 2:44 PM FINDINGS: Liver: No focal hepatic lesions. No hepatomegaly. Right lobe measures 15 cm in length. Gallbladder: The gallbladder is filled with echogenic gallstones. The wall is upper limits of normal at 3 mm in width. Common bile duct: The common bile duct is upper normal in size at 6 mm. Pancreas: Pancreas is obscured by overlying bowel gas. Right kidney: Right kidney is normal appearance measuring 9.8 cm in length. IMPRESSION: The gallbladder is filled gallstones. The gallbladder wall is upper limits of normal as is the common bile duct. Electronically signed by: Anahy Judge On 07/17/2020 19:00:10 PM
[2020-07-17] MEDS ORDERED: REGL10TA6 PO (20:11)
[2020-07-17] MEDS ORDERED: ACET-897 PO (20:11)
[2020-07-17] MEDS ORDERED: OMEP-218 PO (20:11)
[2020-07-17] MEDS ORDERED: CARA1TAB6 PO (20:11)
[2020-07-17 20:28] VITALS: BP 108/59
--- NOTE | 2020-07-20 11:11 | ED PDOC ---
Post-Departure Follow-Up parker pretty faxed formal report of us for fu Karthik Vo MD Jul 20, 2020 11:11
== END 2020-07-17 20:32 | disposition home or self-care (01) ==
LOC: M ED 16:33
DX: R10.13 Epigastric pain (principal); K52.9 Noninfective gastroenteritis and colitis, unspecified; R11.2 Nausea with vomiting, unspecified; K80.20 Calculus of gallbladder without cholecystitis without obstruction; Z79.3 Long term (current) use of hormonal contraceptives; Z79.899 Other long term (current) drug therapy; Z91.040 Latex allergy status; Z88.5 Allergy status to narcotic agent
CPT/HCPCS: 76705; 80048; 80076; 81001; 82150; 83690; 84703; 85025; 96361; 96374; 96375; 99284; C9113; J1885; J2765

== ENCOUNTER → 2020-07-28 | Outpatient (CLI) | payer OTHER ==
[~2020-07-28] MED LIST changes: +ACET-897 PO; +BUPR150T12 PO; -BUPR150T4; +OMEP-218 PO; +REGL10TA6 PO
== END ==
LOC: M LABSMTC 11:01
PROVIDERS: ATTEND Anesthesiology
DX: Z01.812 Encounter for preprocedural laboratory examination (principal); Z20.822 Contact with and (suspected) exposure to COVID-19

== ENCOUNTER 2020-08-02 08:57 | Day surgery (SDC) | payer OTHER ==
[~2020-08-02] VITALS: Ht 160 cm; Wt 54.8 kg
[~2020-08-02 08:57] MED LIST changes: +LR 1,000 ML IV ONE
[2020-08-02] MEDS ORDERED: MIRE1IUD IU (09:26)
[2020-08-02] MEDS ORDERED: NICO1DIS12 TD (09:27)
[2020-08-02] MEDS ORDERED: ROCURONIUM BROMIDE 50 MG/5 ML VIAL As Ordered ONE (10:04)
[2020-08-02] MEDS ORDERED: fentaNYL 250 MCG/5 ML INJECTION (J3010) As Ordered ONE (10:04)
[2020-08-02] MEDS ORDERED: propofoL 200 MG/20 ML VIAL As Ordered ONE (10:04)
[2020-08-02] MEDS ORDERED: LIDOCAINE 2% 100MG/5ML SDV (FOR ANES.) As Ordered ONE (10:04)
[2020-08-02] MEDS ORDERED: BUPIVACAINE/EPIN 0.5% 30 ML VIAL As Ordered ONE (10:04)
[2020-08-02] MEDS ORDERED: LIDOCAINE W/EPINEPHRINE 1% 20ML VIAL As Ordered ONE (10:04)
[2020-08-02] MEDS ORDERED: MIDAZOLAM INJ 2MG/2ML VIAL (J2250 PER 1MG) As Ordered ONE (10:05)
[2020-08-02] MEDS ORDERED: SUGAMMADEX SODIUM 500 MG/5 ML VIAL (BRIDION) As Ordered ONE (10:38)
[2020-08-02] MEDS ORDERED: ONDANSETRON 4MG/2ML VIAL As Ordered ONE (10:38)
[2020-08-02] MEDS ORDERED: METOCLOPRAMIDE INJ 10MG/2ML VIAL (J2765 PER 1) As Ordered ONE (10:38)
[2020-08-02] MEDS ORDERED: dexameTHASONE 4 MG/ML 1ML VIAL (J1100 PER 1MG) As Ordered ONE (10:38)
[2020-08-02] MEDS ORDERED: KETOROLAC 60MG 2ML VIAL As Ordered ONE (10:47)
[2020-08-02] MEDS ORDERED: ONDANSETRON 4MG/2ML VIAL IV PRN (11:15)
[2020-08-02] MEDS ORDERED: LR 1,000 ML IV SCH ×2 (11:15→11:20)
[2020-08-02] MEDS ORDERED: fentaNYL 100 MCG/2 ML INJECTION (J3010) IV PRN (11:15)
[2020-08-02] MEDS ORDERED: METOCLOPRAMIDE INJ 10MG/2ML VIAL (J2765 PER 1) IV PRN (11:15)
[2020-08-02] MEDS ORDERED: NORCO, ANEXSIA 5/325MG TABLET (HYDROcodone/ACETAMINOPHEN) PO PRN (11:20)
[2020-08-02 12:40] VITALS: BP 120/74
--- NOTE | 2020-08-04 08:09 | RO ---
OPERATIVE NOTE DATE OF OPERATION: 08/02/2020 PREOPERATIVE DIAGNOSIS: Chronic tonsillitis. POSTOPERATIVE DIAGNOSIS: Chronic tonsillitis. PROCEDURE: Tonsillectomy. SURGEON: Alexander Ng M.D. PRINTING PRESS MACHINE OPERATOR: None. ANESTHESIA: General. DESCRIPTION OF PROCEDURE: Under general anesthesia, the patient was intubated and Ramsey-Remigio mouth gag was inserted. The tonsil area was infiltrated with lidocaine and 0.5% Marcaine. I used cautery to dissect the tonsil free from its bed on both sides. Any vessels seen were cauterized. The patient tolerated the procedure well. No blood loss. Patient extubated and transferred to the recovery room in excellent condition.
== END 2020-08-02 13:02 | disposition home or self-care (01) ==
LOC: M SDC 08:57
PROVIDERS: ATTEND Otolaryngology
DX: J35.01 Chronic tonsillitis (principal); K21.9 Gastro-esophageal reflux disease without esophagitis; F41.9 Anxiety disorder, unspecified; F32.9 Major depressive disorder, single episode, unspecified; F19.120 Other psychoactive substance abuse with intoxication, uncomplicated; Z79.891 Long term (current) use of opiate analgesic; Z91.040 Latex allergy status; Z88.5 Allergy status to narcotic agent
CPT/HCPCS: 42826; 81025; 88302; J1100; J1885; J2250; J2405; J2765; J3010

== ENCOUNTER → 2020-08-17 | Outpatient (CLI) | payer OTHER ==
[~2020-08-17] MED LIST changes: -LR 1,000 ML IV ONE; +MIRE1IUD IU; +NICO1DIS12 TD
[2020-08-17 15:03] LABS: BASO % 0.4 % (0.0-1.0); EOS # 0.2 10^3/uL (0.0-0.5); EOS % 2.2 % (0.0-3.0); HEMATOCRIT 38.6 % (36.0-47.0); HEMOGLOBIN 13.2 g/dl (12.0-15.5); LYMPH # 2.3 10^3/uL (1.5-5.0); LYMPH % 33.2 % (24.0-44.0); MEAN CORPUSCULAR HEMOGLOBIN 30.7 pg (27.0-33.0); MEAN CORPUSCULAR HGB CONC 34.2 g/dl (32.0-36.5); MEAN CORPUSCULAR VOLUME 89.8 fl (80.0-96.0); MONO # 0.5 10^3/uL (0.0-0.8); MONO % 7.2 % (2.0-8.0); NEUTROPHILS # 3.9 10^3/uL (1.5-8.5); NEUTROPHILS % 56.9 % (36.0-66.0); PLATELET COUNT, AUTOMATED 282 10^3/uL (150-450); WHITE BLOOD COUNT 6.8 10^3/uL (4.0-10.0)
[2020-08-17 15:20] LABS: BLOOD UREA NITROGEN 14 MG/DL (7-18); CALCIUM LEVEL 9.8 MG/DL (8.5-10.1); CARBON DIOXIDE LEVEL 31 MEQ/L (21-32); CHLORIDE LEVEL 103 MEQ/L (98-107); CREATININE FOR GFR 0.85 MG/DL (0.55-1.30); GLOMERULAR FILTRATION RATE > 60.0 (>60); GLUCOSE, FASTING 95 MG/DL (70-100); POTASSIUM SERUM 4.2 MEQ/L (3.5-5.1); SODIUM LEVEL 138 MEQ/L (136-145)
== END ==
LOC: M LAB 13:13
PROVIDERS: ATTEND Podiatrist
DX: M25.774 Osteophyte, right foot (principal); M79.671 Pain in right foot; T84.84XA Pain due to internal orthopedic prosthetic devices, implants and grafts, initial encounter

== ENCOUNTER → 2020-08-26 | Outpatient (CLI) | payer OTHER ==
[~2020-08-26] MED LIST changes: +BUPR300T92 PO; +SUCR1TA PO
== END ==
LOC: M LABSMTC 08:18
PROVIDERS: ATTEND Anesthesiology
DX: Z01.812 Encounter for preprocedural laboratory examination (principal)

== ENCOUNTER → 2020-08-28 | Outpatient (CLI) | payer OTHER | LOC: M LABSMTC 11:19 | PROVIDERS: ATTEND Anesthesiology | DX: Z01.812 Encounter for preprocedural laboratory examination (principal) ==

== ENCOUNTER 2020-08-31 09:34 | Day surgery (SDC) | payer OTHER ==
[~2020-08-31] VITALS: Ht 154.9 cm; Wt 54.9 kg
[~2020-08-31 09:34] MED LIST changes: +LIDOCAINE 2% 100MG/5ML SDV (FOR ANES.) As Ordered ONE; +NS 1,000 ML IV ONE; +propofoL 200 MG/20 ML VIAL As Ordered ONE
--- NOTE | 2020-08-31 10:35 | ROOR ---
Patient Name: Karolyn Estes Procedure Date: 08/31/2020 10:20 AM Date of : 1990 Age: 29 Room: [facility] Gender: Female Note Status: Finalized Procedure: Upper GI endoscopy Indications: Epigastric abdominal pain Providers: Festus Silvestre Jr, MD Referring MD: Paulo Schaeffer Requesting Provider: Medicines: Propofol per Anesthesia Complications: No immediate complications. Procedure: Pre-Anesthesia Assessment: - Prior to the procedure, a History and Physical was performed, and patient medications and allergies were reviewed. The patient is competent. The risks and benefits of the procedure and the sedation options and risks were discussed with the patient. All questions were answered and informed consent was obtained. Patient identification and proposed procedure were verified by the physician and the nurse in the pre-procedure area and in the procedure room. Mental Status Examination: alert and oriented. Airway Examination: normal oropharyngeal airway and neck mobility. Respiratory Examination: clear to auscultation. CV Examination: normal. ASA Grade Assessment: II - A patient with mild systemic disease. After reviewing the risks and benefits, the patient was deemed in satisfactory condition to undergo the procedure. The anesthesia plan was to use moderate sedation / analgesia (conscious sedation). Immediately prior to administration of medications, the patient was re-assessed for adequacy to receive sedatives. The heart rate, respiratory rate, oxygen saturations, blood pressure, adequacy of pulmonary ventilation, and response to care were monitored throughout the procedure. The physical status of the patient was re-assessed after the procedure. The Endoscope was introduced through the mouth, and advanced to the second part of duodenum. The patient tolerated the procedure well. Findings: The upper third of the esophagus, middle third of the esophagus and lower third of the esophagus were normal. A medium amount of food (residue) was found on the greater curvature of the stomach. The cardia, gastric fundus and gastric body were normal. Localized mildly erythematous mucosa without bleeding was found in the prepyloric region of the stomach. Biopsies were taken with a cold forceps for histology. The duodenal bulb, first portion of the duodenum and second portion of the duodenum were normal. Impression: - Normal upper third of esophagus, middle third of esophagus and lower third of esophagus. - A medium amount of food (residue) in the stomach. - Normal cardia, gastric fundus and gastric body. - Erythematous mucosa in the prepyloric region of the stomach. Biopsied. - Normal duodenal bulb, first portion of the duodenum and second portion of the duodenum. Recommendation: - Discharge patient to home (ambulatory). - Return to my office in 2 weeks. Procedure Code(s): --- Professional --- 13241, Esophagogastroduodenoscopy, flexible, transoral; with biopsy, single or multiple Diagnosis Code(s): --- Professional --- K31.89, Other diseases of stomach and duodenum R10.13, Epigastric pain CPT copyright 2019 [employer]. All rights reserved. The codes documented in this report are preliminary and upon business team leader review may be revised to meet current compliance requirements. Festus Silvestre MD Festus Silvestre Jr, MD 08/31/2020 10:35:09 AM Electronically signed by Festus Silvestre Jr, MD Number of Addenda: 0 Note Initiated On: 08/31/2020 10:20 AM Estimated Blood Loss: Estimated blood loss: none.
[2020-08-31 10:55] VITALS: BP 121/76
== END 2020-08-31 11:09 | disposition home or self-care (01) ==
LOC: M OPP 09:34
PROVIDERS: ATTEND Surgery
DX: K29.50 Unspecified chronic gastritis without bleeding (principal); R10.13 Epigastric pain; Z79.899 Other long term (current) drug therapy; Z88.5 Allergy status to narcotic agent; Z91.040 Latex allergy status

== ENCOUNTER 2020-09-01 06:09 | Day surgery (SDC) | payer OTHER ==
[~2020-09-01] VITALS: Ht 160 cm; Wt 55.7 kg
[~2020-09-01 06:09] MED LIST changes: +LIDOCAINE 1% MDV 20ML VIAL SQ PRN; -LIDOCAINE 2% 100MG/5ML SDV (FOR ANES.) As Ordered ONE; -NS 1,000 ML IV ONE; -propofoL 200 MG/20 ML VIAL As Ordered ONE
[2020-09-01] MEDS ORDERED: ceFAZolin SOD 2 GM in IV 1 EA IV ONE (07:00)
[2020-09-01] MEDS ORDERED: LIDOCAINE 2% MDV 20ML VIAL As Ordered ONE (07:12)
[2020-09-01] MEDS ORDERED: dexameTHASONE 4 MG/ML 1ML VIAL (J1100 PER 1MG) As Ordered ONE ×2 (07:12→07:44)
[2020-09-01] MEDS ORDERED: NEOSPORIN GU IRRIG 20 ML VIAL As Ordered ONE (07:12)
[2020-09-01] MEDS ORDERED: BUPIVACAINE HCL 0.5% 30 ML VIAL As Ordered ONE (07:12)
[2020-09-01] MEDS ORDERED: BACITRACIN PWD 50,000 UNITS VIAL As Ordered ONE (07:12)
[2020-09-01] MEDS ORDERED: fentaNYL 100 MCG/2 ML INJECTION (J3010) As Ordered ONE (07:14)
[2020-09-01] MEDS ORDERED: LIDOCAINE 2% INJ 100 MG/5 ML SYRINGE As Ordered ONE (07:14)
[2020-09-01] MEDS ORDERED: propofoL 200 MG/20 ML VIAL As Ordered ONE (07:14)
[2020-09-01] MEDS ORDERED: MIDAZOLAM INJ 2MG/2ML VIAL (J2250 PER 1MG) As Ordered ONE (07:14)
[2020-09-01] MEDS ORDERED: LIDOCAINE 2% 100MG/5ML SDV (FOR ANES.) As Ordered ONE (08:17)
--- NOTE | 2020-09-01 09:06 | REP ---
INDICATION: RIGHT FOOT EXCISION OF EXOSTOSIS FIRST METATARSAL COMPARISON: None. TECHNIQUE: AP, lateral, oblique views of the right foot. FINDINGS: Postsurgical changes involving the 1st metatarsal bone noted with overlying soft tissue swelling and small amounts of subcutaneous emphysema. Remainder of the examination appears essentially age-appropriate and normal. IMPRESSION: Baseline postsurgical changes involving the 1st metatarsal bone.. <Electronically signed by Alfa Álvarez > 09/01/20 [id number]
[2020-09-01 09:15] VITALS: BP 124/65
--- NOTE | 2020-09-01 11:35 | RO ---
OPERATIVE NOTE DATE OF OPERATION: 09/01/2020 PREOPERATIVE DIAGNOSIS: Bunion deformity with painful screw right foot. POSTOPERATIVE DIAGNOSIS: Bunion deformity with painful screw right foot. PROCEDURE: Guerrero bunionectomy with excision of screw right foot. SURGEON: Vinay Ro DPM ADVERTISER: ANESTHESIA: Local MAC. IRRIGATION: Dilute Bacitracin, Neomycin and Polymyxin B solution. HEMOSTASIS: Ankle pneumatic tourniquet at 200 mmHg for 27 minutes. ESTIMATED BLOOD LOSS: 1 mL. DESCRIPTION OF PROCEDURE: On 09/01/2020 this 29-year-old white female was taken from her hospital room to the operating room and placed on the operating table in the supine position. Following the induction of IV sedation and local regional anesthesia right lower extremity was prepped and draped in usual aseptic manner. Attention was directed to the patient's right foot where the following procedure was performed: Guerrero bunionectomy with removal of screw 1st metatarsal right foot. Attention was directed to the patient's right foot where there was noted to be a previous cicatrix. At this time a 5 cm incision was made utilizing previous cicatrix in dorsomedial aspect of the foot. Incision was deepened through the same plane and all abutting neurovascular structures were identified, mobilized, retracted medially and laterally. Linear capsulotomy was performed in same plane and capsular periosteal enveloped was created over the 1st metatarsophalangeal joint. This interviewed the screw in the 1st metatarsal, however, there was some osseous overgrowth noted. Utilizing an osteotome and mallet this bony overgrowth was resected. Utilizing Hexhead screwdriver the screw was removed. Utilizing [place] elevator there was a recurrence of the medial eminence, this was resected with sagittal saw from the medial sesamoidal groove resecting the medial eminence. This was removed from the wound. The wound was flushed with copious amounts of dilute Bacitracin, Neomycin and Polymyxin B solution. Capsular structures were then closed utilizing 3-0 Vicryl in simple interrupted type fashion. Subcutaneous tissues were coapted and maintained using 4-0 Monocryl in a simple interrupted type fashion. The skin incision was coapted and maintained utilizing 5-0 Monocryl in continuous subcuticular type fashion; this was reinforced with Steri-Strips. Following the completion of the surgical procedure 4 mg of Dexamethasone Sodium Phosphate and 1 mL of 0.5% Marcaine was instilled proximal to the surgical site. Attention was directed toward bandaging where a sterile compressive bandage was applied consisting of Adaptic, 4x4s, 4x4 splints Cory Juarez. Ankle pneumatic tourniquet was deflated; instantaneous capillary filling time was noted digits 1-5 of the patient's right foot. The patient having apparently tolerated the surgical procedure well and was taken from the OR to the recovery room for further monitoring by the anesthesia department. Postoperative instructions were given upon discharge.
== END 2020-09-01 09:31 | disposition home or self-care (01) ==
LOC: M SDC 06:09
PROVIDERS: ATTEND Podiatrist
DX: M21.611 Bunion of right foot (principal); M79.671 Pain in right foot; M89.8X7 Other specified disorders of bone, ankle and foot; F41.9 Anxiety disorder, unspecified; F32.9 Major depressive disorder, single episode, unspecified; Z87.891 Personal history of nicotine dependence; Z91.040 Latex allergy status; Z88.5 Allergy status to narcotic agent; Z79.899 Other long term (current) drug therapy; Z79.891 Long term (current) use of opiate analgesic
CPT/HCPCS: 20680; 28292; 73630; 76000; 81025; 88300; J0690; J1100; J2250; J3010

== ENCOUNTER → 2020-10-19 | Outpatient (CLI) | payer OTHER ==
[~2020-10-19] MED LIST changes: -LIDOCAINE 1% MDV 20ML VIAL SQ PRN
== END ==
LOC: M LABSMTC 09:31
PROVIDERS: ATTEND Anesthesiology
DX: Z01.818 Encounter for other preprocedural examination (principal); Z11.52 Encounter for screening for COVID-19

== ENCOUNTER 2020-10-24 07:26 | Day surgery (SDC) | payer OTHER ==
[~2020-10-24] VITALS: Ht 160 cm; Wt 56.2 kg
[~2020-10-24 07:26] MED LIST changes: +BUPIVACAINE/EPIN 0.25% 30 ML VIAL As Ordered ONE; +LIDOCAINE 1% MDV 20ML VIAL SQ PRN; +LR 1,000 ML IV ONE; +ceFAZolin SOD 2 GM in IV 1 EA IV ONE
[2020-10-24] MEDS ORDERED: propofoL 200 MG/20 ML VIAL As Ordered ONE (08:02)
[2020-10-24] MEDS ORDERED: MIDAZOLAM INJ 2MG/2ML VIAL (J2250 PER 1MG) As Ordered ONE (08:02)
[2020-10-24] MEDS ORDERED: LIDOCAINE 2% 100MG/5ML SDV (FOR ANES.) As Ordered ONE (08:02)
[2020-10-24] MEDS ORDERED: fentaNYL 100 MCG/2 ML INJECTION (J3010) As Ordered ONE ×2 (08:02→09:59)
[2020-10-24] MEDS ORDERED: ROCURONIUM BROMIDE 50 MG/5 ML VIAL As Ordered ONE (08:02)
[2020-10-24] MEDS ORDERED: ONDANSETRON 4MG/2ML VIAL As Ordered ONE (08:03)
[2020-10-24] MEDS ORDERED: dexameTHASONE 4 MG/ML 1ML VIAL (J1100 PER 1MG) As Ordered ONE (08:03)
[2020-10-24] MEDS ORDERED: KETAMINE HCL 200 MG/20 ML VIAL As Ordered ONE (09:20)
[2020-10-24] MEDS ORDERED: SUGAMMADEX SODIUM 500 MG/5 ML VIAL (BRIDION) As Ordered ONE (09:24)
[2020-10-24] MEDS ORDERED: ACETAMINOPHEN 1000MG 100ML IV BTL (OFIRMEV) (J0131 PER 10MG) As Ordered ONE (09:24)
[2020-10-24] MEDS ORDERED: KETOROLAC 60MG 2ML VIAL As Ordered ONE (09:24)
[2020-10-24] MEDS ORDERED: GLYCOPYRROLATE INJ 0.2 MG/ML 2 ML VIAL As Ordered ONE (10:03)
[2020-10-24] MEDS ORDERED: ePHEDrine SULFATE 25 MG/5 ML(5MG/ML) SYRINGE As Ordered ONE (10:10)
[2020-10-24] MEDS ORDERED: BUPIVACAINE LIPOSOME/PF 1.3% 20ML VIAL (13.3MG/ML)(EXPAREL)(C9290 PER1MG) As Ordered ONE (10:17)
[2020-10-24] MEDS ORDERED: NORCO, ANEXSIA 5/325MG TABLET (HYDROcodone/ACETAMINOPHEN) PO PRN (10:50)
--- NOTE | 2020-10-24 10:55 | RO ---
OPERATIVE NOTE DATE OF OPERATION: 10/24/2020 PREOPERATIVE DIAGNOSIS: History of cholecystitis. POSTOPERATIVE DIAGNOSIS: History of cholecystitis. PROCEDURE: Laparoscopic cholecystectomy. SURGEON: Festus Silvestre Jr., MD. VERTICAL LATHE OPERATOR: ANESTHESIA: General endotracheal anesthesia. EBL: Minimal. FLUIDS: Crystalloid. BRIEF PROCEDURE SUMMARY: The patient was brought to the operating room and was given general anesthesia. After adequate anesthesia and preoperative antibiotics were given, the patient was prepped and draped in the usual sterile fashion. Next, an umbilical incision was made with a skin knife. Blunt dissection was carried down to fascia. Fascia was entered with Veress needle and insufflated to 15 mmHg. Follow this, a 10 mm trocar was placed, and under direct visualization epigastric and two lateral trocars were placed. The gallbladder was seen, grasped, and retracted superiorly. There were some adhesions to the omentum which were taken down with hook cautery, and eventually the neck of the gallbladder was nicely identified as well as the cystic duct and cystic artery. Once these were nicely identified with a window behind the neck of the gallbladder, the cystic duct and artery were actually together, and I could partially separate them, but I felt it was easier just to clip across these relatively small duct and artery at the same time, and then the gallbladder was taken from the gallbladder bed using electrocautery, placed in an Endo-Catch bag, and brought out through the umbilicus. The right upper quadrant was copiously irrigated until clear, and all incisions were closed with 4-0 Vicryl after the umbilicus was closed with 0 Vicryl in the fascial layer. Steri-Strips and a dry sterile dressing were applied. The patient was awakened, extubated, and brought to the recovery room awake, alert, hemodynamically stable. Sponge and needle counts correct x2.
[2020-10-24] MEDS ORDERED: LR 1,000 ML IV SCH (11:00)
[2020-10-24] MEDS ORDERED: NS 1,000 ML IV SCH (11:00)
[2020-10-24] MEDS ORDERED: METOCLOPRAMIDE INJ 10MG/2ML VIAL (J2765 PER 1) IV PRN (11:00)
[2020-10-24] MEDS ORDERED: ONDANSETRON 4MG/2ML VIAL IV PRN (11:00)
[2020-10-24] MEDS: traMADol 50 MG TAB PO PRN ×2 (11:09→11:46)
[2020-10-24 12:45] VITALS: BP 119/60
== END 2020-10-24 13:10 | disposition home or self-care (01) ==
LOC: M SDC 07:26
PROVIDERS: ATTEND Surgery
DX: K80.10 Calculus of gallbladder with chronic cholecystitis without obstruction (principal); F41.9 Anxiety disorder, unspecified; F32.9 Major depressive disorder, single episode, unspecified; K21.9 Gastro-esophageal reflux disease without esophagitis; K29.60 Other gastritis without bleeding; R29.818 Other symptoms and signs involving the nervous system; F19.11 Other psychoactive substance abuse, in remission; Z87.891 Personal history of nicotine dependence; Z91.040 Latex allergy status; Z88.5 Allergy status to narcotic agent; Z79.899 Other long term (current) drug therapy; Z79.891 Long term (current) use of opiate analgesic
CPT/HCPCS: 47562; 88304; C9290; J0131; J0690; J1100; J1885; J2250; J2405; J3010

== ENCOUNTER → 2020-11-07 | Outpatient (CLI) | payer OTHER ==
[~2020-11-07] MED LIST changes: -BUPIVACAINE/EPIN 0.25% 30 ML VIAL As Ordered ONE; +ISIB1TAB; -LIDOCAINE 1% MDV 20ML VIAL SQ PRN; -LR 1,000 ML IV ONE; +TRAM50TA2; -ceFAZolin SOD 2 GM in IV 1 EA IV ONE
[2020-11-07 14:47] LABS: BASO # 0.1 10^3/uL (0.0-0.2); BASO % 0.7 % (0.0-1.0); EOS # 0.3 10^3/uL (0.0-0.5); EOS % 4.9 % (0.0-3.0); HEMATOCRIT 38.9 % (36.0-47.0); HEMOGLOBIN 13.5 g/dl (12.0-15.5); LYMPH # 2.9 10^3/uL (1.5-5.0); LYMPH % 43.1 % (24.0-44.0); MEAN CORPUSCULAR HEMOGLOBIN 30.9 pg (27.0-33.0); MEAN CORPUSCULAR HGB CONC 34.7 g/dl (32.0-36.5); MONO # 0.5 10^3/uL (0.0-0.8); MONO % 7.6 % (2.0-8.0); NEUTROPHILS # 2.9 10^3/uL (1.5-8.5); NEUTROPHILS % 43.4 % (36.0-66.0); PLATELET COUNT, AUTOMATED 236 10^3/uL (150-450); RED BLOOD COUNT 4.37 10^6/uL (4.00-5.40); WHITE BLOOD COUNT 6.7 10^3/uL (4.0-10.0)
[2020-11-07 15:27] LABS: BLOOD UREA NITROGEN 9 MG/DL (7-18); CALCIUM LEVEL 9.5 MG/DL (8.5-10.1); CARBON DIOXIDE LEVEL 30 MEQ/L (21-32); CHLORIDE LEVEL 104 MEQ/L (98-107); CREATININE FOR GFR 0.78 MG/DL (0.55-1.30); GLOMERULAR FILTRATION RATE > 60.0 (>60); GLUCOSE, FASTING 74 MG/DL (70-100); POTASSIUM SERUM 4.1 MEQ/L (3.5-5.1); SODIUM LEVEL 140 MEQ/L (136-145)
== END ==
LOC: M LAB 13:41
PROVIDERS: ATTEND Podiatrist
DX: M79.672 Pain in left foot (principal)

== ENCOUNTER → 2020-11-12 | Outpatient (CLI) | payer OTHER | LOC: M LABSMTC 10:22 | PROVIDERS: ATTEND Anesthesiology | DX: Z01.812 Encounter for preprocedural laboratory examination (principal); Z20.822 Contact with and (suspected) exposure to COVID-19 ==

== ENCOUNTER 2020-11-17 08:32 | Day surgery (SDC) | payer OTHER ==
[~2020-11-17] VITALS: Ht 160 cm; Wt 56.7 kg
[~2020-11-17 08:32] MED LIST changes: +BUPIVACAINE HCL 0.5% 30 ML VIAL As Ordered ONE; +LIDOCAINE 2% MDV 20ML VIAL As Ordered ONE; +LR 1,000 ML IV ONE; +NEOSPORIN GU IRRIG 20 ML VIAL As Ordered ONE; +ceFAZolin SOD 2 GM in IV 1 EA IV ONE; +dexameTHASONE 4 MG/ML 1ML VIAL (J1100 PER 1MG) As Ordered ONE
[2020-11-17] MEDS ORDERED: LIDOCAINE 2% 100MG/5ML SDV (FOR ANES.) As Ordered ONE (10:12)
[2020-11-17] MEDS ORDERED: propofoL 200 MG/20 ML VIAL As Ordered ONE ×2 (10:12→11:29)
[2020-11-17] MEDS ORDERED: MIDAZOLAM INJ 2MG/2ML VIAL (J2250 PER 1MG) As Ordered ONE (10:12)
[2020-11-17] MEDS ORDERED: ONDANSETRON 4MG/2ML VIAL As Ordered ONE (10:12)
[2020-11-17] MEDS ORDERED: fentaNYL 100 MCG/2 ML INJECTION (J3010) As Ordered ONE (10:13)
[2020-11-17] MEDS ORDERED: GENTAMICIN SULF 80MG/2ML VIAL As Ordered ONE (10:36)
[2020-11-17] MEDS ORDERED: KETOROLAC 60MG 2ML VIAL As Ordered ONE (11:29)
--- NOTE | 2020-11-17 12:56 | REP ---
INDICATION: POST OP. COMPARISON: 10/15/2013 TECHNIQUE: Limited three-view portable FINDINGS: The internally fixing screws seen in the distal aspect of the 5th metatarsal is unchanged. The internally fixing screw affixing the derotational osteotomy seen on the prior exam 1st metatarsal has been removed. There is a lucency seen in the distal diaphysis of the 1st metatarsal. IMPRESSION: Findings and limitations as described above. <Electronically signed by Enoch Bermeo > 11/17/20 [id number]
[2020-11-17 13:10] VITALS: BP 115/62
--- NOTE | 2020-11-17 13:11 | RO ---
OPERATIVE NOTE DATE OF OPERATION: 11/17/2020 PREOPERATIVE DIAGNOSIS: Painful screw dorsal aspect 1st metatarsal left foot. POSTOPERATIVE DIAGNOSIS: Painful screw dorsal aspect 1st metatarsal left foot. PROCEDURE: Removal of screw 1st metatarsal left foot. 2. apply allograft to bone defect/cyst 1st metatarsal left foot SURGEON: Vinay Ro DPM NON LICENSED NUCLEAR EQUIPMENT OPERATOR: None. ANESTHESIA: Local, MAC. IRRIGATION: Dilute Bacitracin, Neomycin, Polymyxin B solution. ESTIMATED BLOOD LOSS: Less than 1 mL. IMPLANTS USED: DBX bone putty 0.5 mL. DESCRIPTION OF PROCEDURE: On 11/17/2020 this 29-year-old white female was taken from her hospital room to operating room and placed on the operating table in supine position. Following induction of IV sedation and local regional anesthesia left lower extremity was prepped and draped in usual aseptic manner. Attention was directed to the patient's left foot where there was noted to be a previous cicatrix. At this time a 2.5 cm incision was placed over this area. Dissection was carried down and linear periosteal incision was made. The anterior aspect of the screw was prominent. The posterior aspect was buried so utilizing an osteotome and mallet this bone was chiseled away from the head of the 1st metatarsal. Meticulous care was then used to remove the bone from the Synthes 3.0 slotted screw. K-wire was then put down the screw to guide the head onto the screw. Screw was extracted until approximately 5-6 mm of the screw was removed and then the screw head stripped. Therefore, the screwdriver was no longer able to remove the screw. There was not enough room for the screw extractor to be utilized. Therefore, utilizing conical reamer the bone was removed around the screw head. Only the dorsal 4 mm or so of bone had to be exposed allowing the screwdriver pliers to then be fixated to the screw and this was removed. This defect of bone was then filled with 0.5 mL of DBX bone putty after the wound was thoroughly lavaged. The periosteum was then coapted and maintained with 4-0 Monocryl in simple interrupted type fashion, subcutaneous tissues were coapted and maintained with 4-0 Monocryl in simple interrupted type fashion, skin incision coapted and maintained using 4-0 Prolene in simple interrupted fashion. Dry, sterile dressing was applied. Ankle pneumatic tourniquet was rapidly deflated, spontaneous capillary filling time was noted digits 1 through 5 of the patient's left foot. The patient having apparently tolerated the surgical procedure well was taken from OR to the recovery room for further monitoring by anesthesia department. Postoperative instructions were given upon discharge. JENY
== END 2020-11-17 13:11 | disposition home or self-care (01) ==
LOC: M SDC 08:32
PROVIDERS: ATTEND Podiatrist
DX: T84.218A Breakdown (mechanical) of internal fixation device of other bones, initial encounter (principal); T84.293A Other mechanical complication of internal fixation device of bones of foot and toes, initial encounter; M79.672 Pain in left foot; Z88.5 Allergy status to narcotic agent; Z91.040 Latex allergy status; Z79.891 Long term (current) use of opiate analgesic
CPT/HCPCS: 20680; 73620; 81025; 88300; C1762; J0690; J1580; J1885; J2250; J2405; J3010

== ENCOUNTER 2021-09-17 17:29 | Emergency (ER) | payer OTHER ==
[~2021-09-17] VITALS: Ht 160 cm; Wt 54.5 kg
[2021-09-17 17:29] VITALS: BP 138/70
[~2021-09-17 17:29] MED LIST changes: -BUPIVACAINE HCL 0.5% 30 ML VIAL As Ordered ONE; +BUPR1FIL37 SL; -BUPR1FIL6 SL; -LIDOCAINE 2% MDV 20ML VIAL As Ordered ONE; -LR 1,000 ML IV ONE; -NEOSPORIN GU IRRIG 20 ML VIAL As Ordered ONE; +OMEP-173 PO; -OMEP-218 PO; -ceFAZolin SOD 2 GM in IV 1 EA IV ONE; -dexameTHASONE 4 MG/ML 1ML VIAL (J1100 PER 1MG) As Ordered ONE
[2021-09-18] MEDS ORDERED: CLON0.2T PO (04:11)
== END 2021-09-17 19:27 | disposition left against medical advice (07) ==
LOC: M ED 17:29
DX: Z53.21 Procedure and treatment not carried out due to patient leaving prior to being seen by health care provider (principal)

== ENCOUNTER 2021-09-18 04:02 | Emergency (ER) | payer OTHER ==
[~2021-09-18] VITALS: Ht 160 cm; Wt 59.8 kg
[2021-09-18] MEDS ORDERED: CLON0.2T PO (04:11)
[2021-09-18 07:39] VITALS: BP 110/56
[2021-09-18 07:39] LABS: BASO % 0.6 % (0.0-1.0); EOS # 0.4 10^3/uL (0.0-0.5); EOS % 5.5 % (0.0-3.0); HEMATOCRIT 39.8 % (36.0-47.0); HEMOGLOBIN 13.8 g/dl (12.0-15.5); LYMPH # 2.6 10^3/uL (1.5-5.0); LYMPH % 38.4 % (24.0-44.0); MEAN CORPUSCULAR HEMOGLOBIN 31.2 pg (27.0-33.0); MEAN CORPUSCULAR HGB CONC 34.7 g/dl (32.0-36.5); MEAN CORPUSCULAR VOLUME 89.8 fl (80.0-96.0); MONO # 0.9 10^3/uL (0.0-0.8); MONO % 12.4 % (2.0-8.0); PLATELET COUNT, AUTOMATED 191 10^3/uL (150-450); RED BLOOD COUNT 4.43 10^6/uL (4.00-5.40); WHITE BLOOD COUNT 6.9 10^3/uL (4.0-10.0)
[2021-09-18 08:04] LABS: BLOOD UREA NITROGEN 10 MG/DL (7-18); CALCIUM LEVEL 9.1 MG/DL (8.5-10.1); CARBON DIOXIDE LEVEL 26 MEQ/L (21-32); CHLORIDE LEVEL 109 MEQ/L (98-107); CREATININE FOR GFR 0.82 MG/DL (0.55-1.30); GLOMERULAR FILTRATION RATE > 60.0 (>60); GLUCOSE, FASTING 79 MG/DL (70-100); POTASSIUM SERUM 3.9 MEQ/L (3.5-5.1); SODIUM LEVEL 140 MEQ/L (136-145)
== END 2021-09-18 09:04 | disposition home or self-care (01) ==
LOC: M ED 04:02
DX: S40.022A Contusion of left upper arm, initial encounter (principal); S40.021A Contusion of right upper arm, initial encounter; S16.1XXA Strain of muscle, fascia and tendon at neck level, initial encounter; W46.1XXA Contact with contaminated hypodermic needle, initial encounter; Y92.9 Unspecified place or not applicable; Y93.9 Activity, unspecified; Y99.9 Unspecified external cause status; F19.10 Other psychoactive substance abuse, uncomplicated; F32.A Depression, unspecified; F41.9 Anxiety disorder, unspecified; Z88.5 Allergy status to narcotic agent; Z91.040 Latex allergy status; Z79.899 Other long term (current) drug therapy

== ENCOUNTER 2021-10-26 15:24 | Emergency (ER) | payer OTHER ==
[~2021-10-26] VITALS: Ht 160 cm; Wt 58.3 kg
[~2021-10-26 15:24] MED LIST changes: +CLON0.2T PO
[2021-10-26] MEDS ORDERED: PRAZ1CAP PO (16:46)
[2021-10-26 19:36] LABS: FERRITIN 343 NG/ML (8-252); IRON (FE) 88 UG/DL (50-170); PERCENT SATURATION 19.4 % (13.2-45.0); TOTAL IRON BINDING CAPACITY 454 UG/DL (250-450)
[2021-10-26 19:44] LABS: FOLATE 17.6 NG/ML (>5.4)
[2021-10-26 19:52] LABS: VITAMIN B12 LEVEL QNS PG/ML (247-911)
[2021-10-26 20:38] LABS: ALBUMIN 3.9 GM/DL (3.2-5.2); ALT/SGPT 21 U/L (12-78); BILIRUBIN,DIRECT 0.1 MG/DL (0.0-0.2); BILIRUBIN,TOTAL 0.8 MG/DL (0.2-1.0); BLOOD UREA NITROGEN 11 MG/DL (7-18); CALCIUM LEVEL 9.1 MG/DL (8.5-10.1); CARBON DIOXIDE LEVEL 21 MEQ/L (21-32); CHLORIDE LEVEL 111 MEQ/L (98-107); CREATININE FOR GFR 0.77 MG/DL (0.55-1.30); GLOMERULAR FILTRATION RATE > 60.0 (>60); GLUCOSE, FASTING 85 MG/DL (70-100); POTASSIUM SERUM 4.7 MEQ/L (3.5-5.1); SODIUM LEVEL 138 MEQ/L (136-145); TOTAL PROTEIN 7.1 GM/DL (6.4-8.2)
[2021-10-26 21:59] LABS: BASO # 0.1 10^3/uL (0.0-0.2); BASO % 0.7 % (0.0-1.0); EOS # 0.8 10^3/uL (0.0-0.5); EOS % 10.4 % (0.0-3.0); HEMATOCRIT 36.5 % (36.0-47.0); HEMOGLOBIN 12.9 g/dl (12.0-15.5); LYMPH # 3.2 10^3/uL (1.5-5.0); LYMPH % 42.7 % (24.0-44.0); MEAN CORPUSCULAR HEMOGLOBIN 31.8 pg (27.0-33.0); MEAN CORPUSCULAR HGB CONC 35.3 g/dl (32.0-36.5); MEAN CORPUSCULAR VOLUME 89.9 fl (80.0-96.0); MONO # 0.6 10^3/uL (0.0-0.8); MONO % 8.4 % (2.0-8.0); NEUTROPHILS # 2.8 10^3/uL (1.5-8.5); NEUTROPHILS % 37.7 % (36.0-66.0); PLATELET COUNT, AUTOMATED 262 10^3/uL (150-450); RED BLOOD COUNT 4.06 10^6/uL (4.00-5.40); WHITE BLOOD COUNT 7.4 10^3/uL (4.0-10.0)
[2021-10-26 22:33] LABS: ERYTHROCYTE SEDIMENTATION RATE 5 mm/hr (0-20)
[2021-10-26] MEDS ORDERED: BETA0.0543 TOP (22:48)
[2021-10-26 23:03] VITALS: BP 133/70
== END 2021-10-26 23:07 | disposition home or self-care (01) ==
LOC: M ED 15:24
DX: L23.9 Allergic contact dermatitis, unspecified cause (principal); F16.10 Hallucinogen abuse, uncomplicated; F17.200 Nicotine dependence, unspecified, uncomplicated; F19.121 Other psychoactive substance abuse with intoxication delirium; Z91.040 Latex allergy status; Z79.899 Other long term (current) drug therapy; Z88.6 Allergy status to analgesic agent

== ENCOUNTER 2021-12-20 14:29 | Emergency (ER) | payer OTHER ==
[~2021-12-20] VITALS: Ht 160 cm; Wt 59.4 kg
[~2021-12-20 14:29] MED LIST changes: +BETA0.0543 TOP; +PRAZ1CAP PO
[2021-12-20] MEDS ORDERED: LAMO25TA4 (14:39)
[2021-12-20 17:10] LABS: BASO # 0.1 10^3/uL (0.0-0.2); BASO % 0.9 % (0.0-1.0); EOS # 0.7 10^3/uL (0.0-0.5); EOS % 9.2 % (0.0-3.0); HEMATOCRIT 41.9 % (36.0-47.0); HEMOGLOBIN 14.1 g/dl (12.0-15.5); LYMPH # 2.7 10^3/uL (1.5-5.0); MEAN CORPUSCULAR HEMOGLOBIN 30.9 pg (27.0-33.0); MEAN CORPUSCULAR HGB CONC 33.7 g/dl (32.0-36.5); MEAN CORPUSCULAR VOLUME 91.9 fl (80.0-96.0); MONO # 0.8 10^3/uL (0.0-0.8); MONO % 9.9 % (2.0-8.0); NEUTROPHILS # 3.5 10^3/uL (1.5-8.5); NEUTROPHILS % 44.6 % (36.0-66.0); PLATELET COUNT, AUTOMATED 253 10^3/uL (150-450); RED BLOOD COUNT 4.56 10^6/uL (4.00-5.40); WHITE BLOOD COUNT 7.8 10^3/uL (4.0-10.0)
[2021-12-20 17:38] LABS: ERYTHROCYTE SEDIMENTATION RATE 6 mm/hr (0-20)
[2021-12-20 18:09] LABS: BLOOD UREA NITROGEN 12 MG/DL (7-18); CALCIUM LEVEL 9.7 MG/DL (8.5-10.1); CARBON DIOXIDE LEVEL 31 MEQ/L (21-32); CHLORIDE LEVEL 105 MEQ/L (98-107); CREATININE FOR GFR 0.78 MG/DL (0.55-1.30); GLOMERULAR FILTRATION RATE > 60.0 (>60); GLUCOSE, FASTING 72 MG/DL (70-100); POTASSIUM SERUM 4.5 MEQ/L (3.5-5.1); RHEUMATOID FACTOR QUANT < 10.0 IU/ML (<15.0); SODIUM LEVEL 139 MEQ/L (136-145)
[2021-12-20 18:24] LABS: HCG, SERUM QUALITATIVE NEGATIVE (NEGATIVE)
[2021-12-20 18:46] VITALS: BP 135/80
== END 2021-12-20 18:53 | disposition home or self-care (01) ==
LOC: M ED 14:29
DX: R60.9 Edema, unspecified (principal); L40.9 Psoriasis, unspecified; F17.200 Nicotine dependence, unspecified, uncomplicated; F11.10 Opioid abuse, uncomplicated; Z79.899 Other long term (current) drug therapy; Z97.5 Presence of (intrauterine) contraceptive device